=== PATIENT | female | born 1940 | race Caucasian/White ===

== ENCOUNTER 2023-09-15 13:52 | Outpatient (OUT) | payer MEDICARE, SELFPAY ==
--- NOTE | 2023-09-15 14:27 | CA_ITS ---
Patient: LEVI CM Exam Date: 09/15/2023 : 1940 Gender:F Ordering : DR ANN HUNT M.D. Admission #: [id number] Family : Order #: [id number] CLICK HERE TO VIEW EXAM ECHOCARDIOGRAM REPORT PROCEDURE: CA ECHO DOPPLER COMPLETE INDICATIONS: Mitral valve prolapse, hypertension, former smoker COMPARISON: None. DESCRIPTION: COMPLETE ECHOCARDIOGRAM Real-time transthoracic echocardiography with 2D, M-mode, spectral and color flow Doppler performed. QUALITY: Technical quality was good. LEFT VENTRICLE: Normal chamber size. Proximal septal hypertrophy (sigmoid septum). LV EF: Normal left ventricular ejection fraction, (>55%). DIASTOLIC: Diastolic function is indeterminate. ATRIAL SEPTUM: Visually appears intact. LEFT ATRIUM: Normal chamber size. RIGHT ATRIUM: Normal chamber size. RIGHT VENTRICLE: Normal chamber size. Normal right ventricular systolic function. TRICUSPID VALVE: Normal mobility and thickness. No stenosis with trivial regurgitation. Doppler studies reveal mildly (35-45) elevated right sided pressures. RVSP 37 mmHg MITRAL VALVE: Normal mobility and thickness. No evidence of mitral valve stenosis. There is no mitral annular calcification. No mitral regurgitation. AORTIC VALVE: Normal trileaflet appearance. No visible sclerosis. Normal leaflet mobility. No evidence of aortic valve stenosis. 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 No aortic regurgitation. AORTIC ROOT: Normal diameter and appearance. PULMONIC VALVE: Normal thickness and mobility. No stenosis. Trivial regurgitation. PERICARDIUM: No evidence of pericardial effusion. IVC: Collapses with inspirations. PLEURA: CONCLUSION: 1. Normal ventricular systolic function. LVEF is 55 to 60%. 2. No significant valvular dysfunction. 3. Mildly elevated right-sided pressures. 4. 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 Further imaging with CT angiogram can provide better characterization. Adult Echocardiography Procedure Report Left Ventricle LVEDD (3.7 - 5.6 cm): 4.12 cm LVESD (2.2 - 4.0 cm): 2.30 cm LVIVS thickness (0.6 - 1.2 cm): 1.35 cm LVPW thickness (0.5 - 1.0 cm): 0.92 cm e': 0.06 m/s E - e': 10.07 LVOT Max Gradient: 2.69 mm[Hg] LVOT Area (cm2): 0.82 m/s Peak Velocity (LVOT): 0.82 m/s LVOT Diameter 1.99 cm Left Atrium LA Volume Index (2D A2C): 25.28 ml/m2 Left Atrium Systolic Dimension: 3.29 cm Mitral Valve MV E to A Ratio: 0.53, 0.57 Mitral Valve A-Wave Peak Velocity: 1.02 m/s Mitral Valve E-Wave Peak Velocity: 0.56 m/s Right Ventricle Aorta AO Root Diam: 3.48 cm Ascending Ao Diam: 2.43 cm Aortic Valve AoV Area (Peak Gal): 2.82 cm2, 2.82 cm2 Peak Velocity(Antegrade Flow): 0.90 m/s Peak Gradient(Antegrade Flow): 3.24 mm[Hg] Tricuspid Valve Peak Velocity (Regurgitant Flow): 2.24 m/s, 2.93 m/s Pulmonic Valve Peak Velocity: 0.94 m/s Peak Gradient: 3.90 mm[Hg], 3.23 mm[Hg] Right Atrium Right Atrium Systolic Pressure: 25.00 ml, 25.00 ml Dictated by: Kojo Ryder M.D. on 09/15/2023 at 18:27 Approved by: Kojo Ryder M.D. on 09/15/2023 at 18:32
== END 2023-09-15 13:53 | disposition home or self-care (01) ==
LOC: CARD 13:52
PROVIDERS: PCP Internal Medicine; Visit Provider Internal Medicine Interventional Cardiology
DX: R01.1 Cardiac murmur, unspecified (principal)
CPT/HCPCS: 93306

== ENCOUNTER 2024-01-07 12:05 | Emergency (ER) | payer MEDICARE, SELFPAY ==
[2024-01-07 12:14] VITALS: BP 172/88; PULSE 78; RESP 16; TEMP 36.7; O2SAT 100
--- OUTSIDE RECORDS SUMMARY | 2024-01-07 12:30 | XMS_ITS | CCD ---
Author Name Unknown Address [address] [place] [address] Organization [facility] Care Team Providers Care Manufacturing Engineer Machining Name Role Phone PHYSICIAN, DEFAULT Unavailable Unavailable PHYSICIAN, DEFAULT Unavailable Unavailable DINESH DYER Unavailable Unavailable PHYSICIAN, DEFAULT Unavailable Unavailable PHYSICIAN, DEFAULT Unavailable Unavailable DINESH DYER Unavailable Unavailable RACHEL PADRON Unavailable Unavailable JOSUE BERGERON AM Unavailable Unavailable DINESH DYER Unavailable Unavailable DINESH DYER Unavailable Unavailable NAWRAS ALI T Unavailable Unavailable NAWRAS, ALI T Unavailable Unavailable DINESH DYER Unavailable Unavailable BEAR CAMEJO Unavailable Unavailable IA Unavailable Unavailable NAWRLIOR ALI T Unavailable Unavailable IA Unavailable Unavailable YUE OMTA Unavailable Unavailable DINESH DYER Primary Care Physician Gautam Gaspar Unavailable RORO Dyer Primary Care Provider MD Jairo Dorantes Attending Provider [phone] Jairo Dorantes Unavailable Vu Guevara Unavailable VINCE BLUM Attending Unavailable VINCE BLUM Consulting Unavailable VINCE BLUM Admitting Unavailable DR DINESH DYER Primary Care Unavailable YELITZA GONZALEZ Consulting Unavailable NUNO, DR GUNTER Primary Care Unavailable GERARD, DR ALVA Espino Consulting Unavailable GERARD, DR ALVA Espino Admitting Unavailable GERARD, DR ALVA Espino Attending Unavailable ELENA AMBROSE Consulting Unavailable ARASELI MONIQUE Consulting Unavailable NUNO, DR GUNTER Attending Unavailable NUNO, DR GUNTER Consulting Unavailable NUNO, DR GUNTER Primary Care Unavailable DR DINESH DYER Admitting Unavailable ERGI, DR GAUTAM Woo Consulting Unavailable NUNO, DR GUNTER Primary Care Unavailable CLIFFORD, DR SHERRON Espino Consulting Unavailable GERARD Guajardo, DR TAMIA Carrington Attending Unavaila christina Guajardo, DR TAMIA Carrington Admitting Unavaila christina Guajardo, DR TAMIA Carrington Consulting Unavaila christina DYER, DR GUNTER Attending Unavailable NUNO, DR GUNTER Consulting Unavailable NUNO, DR GUNTER Primary Care Unavailable NUNO, DR GUNTER Admitting Unavailable GALVA, DR GAUTAM Woo Consulting Unavailable Bebe Lara Unavailable RORO Dyer Primary Care Provider PAPI Lara Attending Provider Chance Damon Unavailable Self, Referral Admitting Unavailable Self, Referral Attending Unavailable Dinesh Dyer Primary Care Unavailable Dinesh Dyer Referring Unavailable Jose E, Jairo Admitting Unavailable Jose E, Jairo Attending Unavailable Dinesh Dyer Primary Care Unavailable Buehrer, Jairo Admitting Unavailable Dayanr, Jairo Attending Unavailable Dinesh Dyer Primary Care Unavailable Bebe Lara Admitting Unavailable Bebe Lara Attending Unavailable Dinesh Dyer Primary Care Unavailable JIMMY BURCH Attending Unavailable ANN HUNT Attending Unavailable MILDRED CERVANTES Attending Unavailable MIRTA PIEDRA Attending Unavailable MIRTA PIEDRA Attending Unavailable Allergies Allergy Classification Reported Allergen(s) Allergy Type Date of Onset Reaction(s) Facility (7 sources) morphine; Translations: [MORPHINE] Drug Allergy 07-09-20 17 AOF, Insomnia [facility] Repository (6 sources) erythromycin base; Translations: [ERYTHROMYCIN BASE] Drug allergy (disorder) 03-04-20 15 AOF, Abdominal Pain [facility] Repository (1 source) 02379,00; Translations: [24039,00] Propensity to adverse reactions (disorder) 12-28-19 12 [facility] Repository (14 sources) Erythromycin; Translations: [erythromycin] Drug Allergy Unknown (qualifier value), Nausea (finding) invino Other (20 sources) Morphine; Translations: [morphine] Drug Allergy Unknown (qualifier value), Insomnia (disorder) invino Other (1 source) Erythromycin Drug Allergy 01-20-20 [facility] Repository (1 source) Morphine Drug Allergy 01-20-20 [facility] Repository (1 source) Estradiol; Translations: [ESTRADIOL] Drug Allergy 08-25-20 [facility] Repository Medications Current Medications Medication Drug Class(es) Dates Sig (Normalized) Sig (Original) Ascorbic Acid (2 sources) Vitamin C Start: 11-02-2019 Vitamin C Daily, Refills(s) 0 Start Date: 11/02/19 Status: Ordered Bisacodyl (1 source) Stimulant Laxative Dulcolax PRN Active clopidogrel 75 mg oral tablet (16 sources) P2Y12 Platelet Inhibitor Start: 11-15-2017 take 75 mg by mouth once daily Clopidogrel Active 75 MG PO Daily November 15, 2017 1:00am Plavix Active Compression stockings, 20-30mmHg, calf 20-30mmHg (7 sources) Start: 06-17-2023 Compression stockings, 20-30mmHg, calf 20-30mmHg externally daily as directed for 90 days May, Active famotidine 40 mg oral tablet (4 sources) Histamine-2 Receptor Antagonist Start: 09-27-2023 take 1 tablet by mouth at bedtime, then take 1 tablet by mouth twice daily before mealtime Famotidine 40 MG 1 tablet at HS and 1 tablet at AC Orally Bid for 30 days Aug, Active Magnesium Aspartate (2 sources) Start: 11-02-2019 take 1 mg by mouth twice daily magnesium aspartate mg, Oral, BID, Refills(s) 0 Start Date: 11/02/19 Status: Ordered 24 hr metoprolol succinate 25 mg extended release oral tablet (16 sources) beta-Adrenergic Capri Start: 11-02-2019 take 1 tablet by mouth once daily Toprol XL 25 mg Tab-ER 25 mg = 1 tab(s), Oral, Daily, Refills(s) 0 Start Date: 11/02/19 Status: Ordered Start: 11-15-2017 take 50 mg by mouth once daily at bedtime Metoprolol Succinate Active 50 MG PO Daily at bedtime November 15, 2017 1:00am Toprol XL Active omeprazole 40 mg delayed release oral capsule (10 sources) Proton Pump Inhibitor Start: 11-11-2022 Omeprazo le 40 MG 1 capsule 30 minutes before morning meal and 30 minutes before evening meal Orally twice a day for 30 days Oct, Active Start: 11-11-2022 Omeprazole 40 MG 1 capsule 30 minutes before morning meal and 30 minutes before evening meal Orally Once a day for 30 days Oct, Active phenazopyridine hydrochloride 100 mg oral tablet (1 source) Start: 02-24-2022 take 1 tablet by mouth every twelve hours Pyridium 100 mg Tab 100 mg = 1 tab(s), Oral, q12hr, # 30 tab(s), Refills(s) 1, Pharmacy: [facility] 1155, 149.9, cm, 12/10/20 15:01:00 EST, Height/Length Dosing, 45.5, kg, 01/06/22 10:28:00 EST, Weight Dosing Start Date: 02/24/22 Status: Ordered POLYETHYLENE GLYCOL 3350 (11 sources) Osmotic Laxative MiraLax as dire cted Orally BID Active promethazine hydrochloride 25 mg oral tablet (16 sources) Phenothiazine Start: 11-02-2019 take 25 mg by mouth once daily Phenergan 25 mg, Oral, Daily, Refills(s) 0 Start Date: 11/02/19 Status: Ordered Start: 11-15-2017 take 25 mg by mouth four times daily Promethazine Active 25 MG PO Four times daily November 15, 2017 1:00am Promethazine HCl Active rosuvastatin calcium 20 mg oral tablet (16 sources) HMG-CoA Reductase Inhibitor Start: 01-20-2023 take 20 mg by mouth at bedtime Rosuvastatin Active 20 MG PO Bedtime January 20, 2023 1:00am Start: 12-10-2020 Crestor Oral, Daily Start Date: 12/10/20 Status: Ordered Crestor Active sucralfate 1000 mg oral tablet (1 source) Aluminum Complex Start: 11-25-2021 take 1 tablet by mouth every twelve hours Sucralfate 1 GM 1 tablet on an empty stomach Orally Twice a day for 30 day(s) Oct, Active vitamin B12 (2 sources) Vitamin B12 Start: 11-02-2019 Vitamin B12 Refills(s) 0 Start Date: 11/02/19 Status: Ordered Completed/Discontinued Medications Medication Drug Class(es) Dates Sig (Normalized) Sig (Original) acetaminophen 300 mg / codeine phosphate 30 mg oral tablet (3 sources) Opioid Agonist Start: 11-15-2017 End: 01-20-2023 take 1 tablet by mouth four times daily Acetaminophen-Code ine Discontinued 1 TAB PO Four times daily November 15, 2017 1:00am January 20, 2023 11:47am ezetimibe 10 mg / simvastatin 40 mg oral tablet (3 sources) HMG-CoA Reductase Inhibitor, Dietary Cholesterol Absorption Inhibitor Start: 11-15-2017 End: 01-20-2023 take 1 tablet by mouth once daily Ezetimibe-Simvasta tin (Vytorin 10-40) 10-40 mg Tablet Discontinued 1 TAB PO Daily November 15, 2017 1:00am January 20, 2023 11:47am levoFLOXacin 750 mg oral tablet (3 sources) Quinolone Antimicrobial Start: 11-15-2017 End: 12-21-2018 take 1 tablet by mouth once daily Levofloxacin (Levaquin) 750 mg tablet Discontinued 750 MG PO .QD November 15, 2017 1:00am December 21, 2018 7:44am levothyroxine sodium 0.075 mg oral tablet (16 sources) l-Thyroxine Start: 11-02-2019 take 1 tablet by mouth once daily Synthroid 75 mcg Tab 75 microgram = 1 tab(s), Oral, Daily, Refills(s) 0 Start Date: 11/02/19 Status: Ordered Start: 11-02-2019 take 1 tablet by yodit th once daily Synthroid 75 mcg Tab 75 microgram = 1 tab(s), Oral, Daily, Refills(s) 0 Start Date: 11/02/19 Status: Ordered Start: 11-15-2017 take 50 ug by mouth once daily Levothyroxine Active 50 MCG PO Daily November 15, 2017 1:00am Synthroid Active simvastatin 20 mg oral tablet (3 sources) HMG-CoA Reductase Inhibitor Start: 12-21-2018 End: 01-20-2023 take 1 tablet by mouth once daily in the evening Simvastatin (Zocor) 20 mg Tablet Discontinued 20 MG PO Every evening December 21, 2018 1:00am January 20, 2023 11:47am sulfamethoxazole 800 mg / trimethoprim 160 mg oral tablet (3 sources) Dihydrofolate Reductase Inhibitor Antibacterial, Sulfonamide Antimicrobial Start: 11-15-2017 End: 11-30-2017 take 1 tablet by mouth twice daily Sulfamethoxazole- Trimethoprim Discontinued 1 TAB PO Twice daily November 15, 2017 1:00am November 30, 2017 7:10am Problems Active Problems Problem Classification Problem Date Documented Da te Episodic/Chronic Abdominal pain (20 sources) Flank pain; Translations: [Abdominal pain] Onset: 05-23-2022 01-06-2022 Episodic Acute cerebrovascular disease (2 sources) Cerebrovascular accident Onset: 03-29-2018 11-02-2019 Chronic Bacterial infection; unspecified site (3 sources) Blood culture positive for microorganism; Translations: [Bacteremia] 11-15-2017 Episodic Biliary tract disease (11 sources) Choledochal cyst; Translations: [Other specified diseases of biliary tract] Chronic Calculus of urinary tract (3 sources) Kidney stone; Translations: [Calculus of kidney] Onset: 03-02-2023 12-06-2019 Episodic Coronary atherosclerosis and other heart disease (4 sources) Atherosclerotic heart disease of [place] coronary artery with unstable angina pectoris; Translations: [Atherosclerotic heart disease of [place] coronary artery without angina pectoris] Onset: 07-09-2017 Chronic Disorders of lipid metabolism (2 sources) Hyperlipidemia 11-02-2019 Chronic Diverticulosis and diverticulitis (11 sources) Diverticula of intestine; Translations: [Diverticulosis of intestine, part unspecified, without perforation or abscess without bleeding] Chronic Esophageal disorders (1 source) Gastro-esophageal reflux disease without esophagitis; Translations: [GASTRO-ESOPHAGEAL REFLUX DISEASE WITHOUT ESOPHAGITIS] Onset: 07-09-2017 Chronic Essential hypertension (2 sources) Essential (primary) hypertension; Translations: [Essential (primary) hypertension] Onset: 09-28-2022 Chronic Gastritis and duodenitis (15 sources) Bile-induced gastritis; Translations: [Other gastritis without bleeding] Onset: 11-25-2021 Resolved: 11-25-2021 Episodic Genitourinary symptoms and ill-defined conditions (12 sources) Dysuria; Translations: [Dysuria] Onset: 02-24-2022 Episodic Headache; including migraine (2 sources) Migraine 11-02-2019 Chronic Menopausal disorders (4 sources) Other primary ovarian failure; Translations: [OTHER PRIMARY OVARIAN FAILURE] Onset: 03-05-2023 Chronic Nausea and vomiting (14 sources) Nausea; Translations: [Nausea] Episodic Occlusion or stenosis of precerebral arteries (19 sources) Occlusion and stenosis of multiple and bilateral cerebral arteries; Translations: [Occlusion and stenosis of bilateral carotid arteries] Chronic Osteoporosis (1 source) Age-related osteoporosis without current pathological fracture; Translations: [AGE-REL OSTEOPOR W/O CURR PATH FX] Onset: 03-14-2023 Chronic Other aftercare (2 sources) Long-term current use of anticoagulant; Translations: [longterm (current) use of anticoagulants] Onset: 02-24-2022 Episodic Other aftercare (1 source) Other senior living (current) drug therapy; Translations: [OTH [facility] CURRENT DRUG THERAPY] Onset: 04-26-2023 Episodic Other aftercare (1 source) termination clerk (current) use of anticoagulants; Translations: [[facility] CURRNT USE ANTICOAGULANTS] Onset: 03-05-2023 Episodic Other diseases of bladder and urethra (1 source) Unspecified urethral stricture, female; Translations: [UNSP URETHRAL STRICTURE FEMALE] Onset: 03-05-2023 Episodic Other diseases of kidney and ureters (2 sources) Acquired renal cyst without neoplastic change; Translations: [Cyst of kidney, acquired] Onset: 02-24-2022 Episodic Other diseases of kidney and ureters (2 sources) Cyst of kidney 02-24-2022 Episodic Other diseases of kidney and ureters (1 source) Cyst of kidney, acquired; Translations: [CYST OF KIDNEY ACQUIRED] Onset: 03-05-2023 Episodic Other diseases of veins and lymphatics (8 sources) Venous insufficiency of leg; Translations: [Venous insufficiency (chronic) (peripheral)] Episodic Other diseases of veins and lymphatics (1 source) Venous insufficiency (chronic) (peripheral) Episodic Other endocrine disorders (1 source) Hypoglycemia, unspecified; Translations: [HYPOGLYCEMIA, UNSPECIFIED] Onset: 07-09-2017 Chronic Other gastrointestinal disorders (11 sources) Chronic idiopathic constipation; Translations: [Chronic idiopathic constipation] Chronic Other gastrointestinal disorders (1 source) Chronic idiopathic constipation Onset: 11-25-2021 Resolved: 11-25-2021 Chronic Other gastrointestinal disorders (20 sources) Constipation; Translations: [Constipation, unspecified] Episodic Other gastrointestinal disorders (5 sources) Constipation, unspecified; Translations: [CONSTIPATION UNSPECIFIED] Onset: 05-26-2022 Episodic Other lower respiratory disease (11 sources) Cough; Translations: [Cough] Episodic Other screening for suspected conditions (not mental disorders or infectious disease) (3 sources) Imaging result abnormal; Translations: [Abnormal findings on diagnostic imaging of other specified body structures] 11-30-2017 Chronic Peripheral and visceral atherosclerosis (11 sources) Chronic vascular insufficiency of intestine; Translations: [Chronic vascular disorders of intestine] Chronic Residual codes; unclassified (11 sources) Normal body mass index; Translations: [Body mass index (BMI) 20.0-20.9, adult] Episodic Residual codes; unclassified (1 source) Acquired absence of other specified parts of digestive tract; Translations: [ACQ ABSENCE OTH PART DIGESTV TRACT] Onset: 04-26-2023 Episodic Residual codes; unclassified (1 source) Acquired absence of both cervix and uterus; Translations: [ACQUIRED ABSENCE BOTH CERVIX AND UTERUS] Onset: 04-26-2023 Episodic Spondylosis; intervertebral disc disorders; other back problems (1 source) Spondylosis without myelopathy or radiculopathy, lumbar region; Translations: [SPONDYLS W/O MYELO-/RADICULOP LUMB] Onset: 04-26-2023 Chronic Substance-related disorders (2 sources) Nicotine dependence, unspecified, uncomplicated; Translations: [Nicotine dependence, cigarettes, uncomplicated] Onset: 07-09-2017 Chronic Thyroid disorders (2 sources) Hypothyroidism, unspecified; Translations: [HYPOTHYROIDISM, UNSPECIFIED] Onset: 07-09-2017 Chronic Unclassified (15 sources) Abnormal result of other cardiovascular function study; Translations: [CT of abdomen abnormal] Onset: 07-09-2017 Episodic Unclassified (2 sources) Unknown / UNK(Unknown) Onset: 07-09-2017 Unclassified (2 sources) Asymptomatic microscopic hematuria 01-06-2022 Unclassified (2 sources) Drug therapy finding 12-06-2019 Unclassified (3 sources) LOW BACK PAIN, UNSPECIFIED; Translations: [LOW BACK PAIN, UNSPECIFIED] Onset: 04-26-2023 Unclassified (1 source) CONTACT W/AND (SUSP) EXPOS COVID-19; Translations: [CONTACT W/AND (SUSP) EXPOS COVID-19] Onset: 05-26-2022 Unclassified (1 source) Encounter for screening mammogram for malignant neoplasm of breast; Translations: [Encounter for screening mammogram for malignant neoplasm of breast] Onset: 08-25-2023 Unclassified (1 source) Varicose veins of right lower extremity with pain; Translations: [Varicose veins of right lower extremity with pain] Onset: 06-07-2023 Unclassified (1 source) Chronic vascular disorders of intestine; Translations: [Chronic vascular disorders of intestine] Onset: 01-20-2023 Urinary tract infections (6 sources) Postinfective urethral stricture of female; Translations: [Postinfective urethral stricture, not elsewhere classified, female] Onset: 02-24-2022 Episodic Varicose veins of lower extremity (14 sources) Varicose veins of lower extremity; Translations: [Varicose veins of bilateral lower extremities with other complications] Episodic Past or Other Problems Problem Classification Problem Date Documented Da te Episodic/Chronic Biliary tract disease (4 sources) Calculus of gallbladder without cholecystitis without obstruction; Translations: [CALCULUS OF GALLBLADDER W/O CHOLECYSTITIS W/O OBSTRUCTION] Onset: 12-10-2017 Episodic Coronary atherosclerosis and other heart disease (1 source) Presence of coronary angioplasty implant and graft; Translations: [PRESENCE OF CORONARY ANGIOPLASTY IMPLANT AND GRAFT] Onset: 12-10-2017 Episodic Other aftercare (1 source) longterm (current) use of aspirin; Translations: [[facility] (CURRENT) USE OF ASPIRIN] Onset: 12-10-2017 Episodic Other circulatory disease (1 source) Other specified symptoms and signs involving the circulatory and respiratory systems; Translations: [Other specified symptoms and signs involving the circulatory and respiratory systems] Onset: 01-21-2023 Episodic Screening and history of mental health and substance abuse codes (3 sources) Ex-smoker; Translations: [Personal history of nicotine dependence] Onset: 05-26-2022 12-06-2019 Episodic Unclassified (1 source) LOW BACK PAIN, UNSPECIFIED; Translations: [LOW BACK PAIN, UNSPECIFIED] Onset: 04-22-2023 Results Test Name Value Interpretation Reference Range Facility Office Visiton 09-01-2023 Follow-up visit [id number] Hortencia Cm 1940 F Date Provider Department Center 09/01/2023 Vish-ANN HUNT CARD [facility] Family History Problem Relation Age of Onset Hypertension Mother Heart disease Mother Other Father Family Status - Relation Status Age at Mother Father Level of Service:73538 [place] OFFICE/OUTPATIENT ESTABLISHED MOD MDM 30-39 MIN Normal [facility] MM screening mammo BI w/CADo n 08-25-2023 MM screening mammo BI w/CAD [facility] Main [place] [address] [place] [id number] Mammography Report Signed Patient: Hortencia Cm MR#: [id number] : 1940 Acct:[id number] Age/Sex: 83 / F ADM Date: 08/25/23 Loc: [place] Room: Type: [facility] Attending Dr: Referral Self Copies to: Dinesh Dyer II, MD SELF,REFERRAL Ordering Provider: SELF,REFERRAL Date of Service: 08/25/23 MM/MM screening mammo BI w/CAD: SCREENING CLINICAL DATA: Screening for malignancy. BILATERAL SCREENING MAMMOGRAMS - FULL FIELD DIGITAL WITH TOMOSYNTHESIS AND CAD Tomosynthesis craniocaudal and mediolateral oblique views of both breasts were obtained using low- dose digital technique. Comparison is made to prior studies from 08/24/2022, 08/21/2021, 07/29/2020, and 07/14/2019. This examination was reviewed with the aid of CAD. The breast parenchyma has been largely replaced by fat. Benign-appearing calcifications are present bilaterally. There are no dominant masses, typically malignant calcifications or architectural dis tortion. There has been no significant interval change. MM/MM screening mammo BI w/CAD IMPRESSION: NO MAMMOGRAPHIC EVIDENCE OF MALIGNANCY. ROUTINE FOLLOW-UP IS RECOMMENDED IN ONE YEAR. RESULT CODE: 2 Benign Findings(s) DENSITY CODE: 1 (<25% glandular) FOLLOW UP: 1YR The false-negative rate of mammography is approximately 10-percent. Management of a palpable abnormality must be based on clinical grounds. Patient was entered into a reminder system with a target due date for the next mammogram. Impression dictated by: Alva Gaines M.D.08/25/2023 3:19 PM Dictation Location: [facility] Transcribed By: CLIFF 08/25/231518 Dictated By: Alva Gaines II, MD 08/25/231513 Signed By: 08/25/23 151 Normal [facility] US venous duplex LE RTon US venous duplex LE [facility] Main [address] [address] Ultrasound Report Signed Patient: Hortencia Cm MR#: [id number] : 1940 Acct:[id number] Age/Sex: 83 / F ADM Date: 06/07/23 Loc: [facility] Room: Type: [facility] Attending Dr: Bebe Lara BOBTAIL DRIVER-C Ordering Provider: Bebe Lara APRN Date of Service: 06/07/23 US/US venous duplex LE RT: [id number] Copies to: Bebe Lara APRN Full functional venous duplex examination right lower extremity Indication for study: Painful varicose veins PROCEDURE: Color-flow duplex scanning is used to interrogate the venous anatomy of the right lower extremity. There is no evidence for deep vein thrombosis. The right common femoral vein, femoral vein, and popliteal vein show good compressibility, color-flow, and augmentation. There is continuous reflux at the saphenofemoral junction with Valsalva. There is also reflux in the femoral vein for greater than 5 seconds. There is reflux at the lesser saphenous tube popliteal junction for greater than 5 seconds. Right greater saphenous vein is 7 mm below the saphenofemoral junction and then remains just under 4 mm down to the distal thigh. Small perforators are noted but none are greater than 3 mm. The greater saphenous vein gives rise to multiple varicosities that are 2 to 3 mm in diameter. The lesser saphenous vein is normal in size. US/US venous duplex LE RT IMPRESSION: No evidence for deep vein thrombosis in the right leg. 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 Greater saphenous vein is mildly dilated and gives rise to significant varicosities. Minimal desk representative incompetence is noted. Impression dictated by: Jairo Dorantes M.D.06/07/2023 12:18 PM Dictation Location: [place] [address] Tech: Mirta Stockton Transcribed By: CLIFF 06/07/23 1218 Dictated By: Jairo Dorantes MD 06/07/23 121 Signed By: 06/07/[address] [facility] AMYLASEon 04-22-2023 Amylase [Catalytic activity/Vol] 33 U/L Normal 25-115 [facility] Comment on above: Performed By: #### L SCOTT NUR, LIPA, ABEL ####[facility] [address] [place] [id number]. Elia Burton CBC AUTO DIFFon 04-22-2023 BASO # 0.1 103/ul Normal 0.0-0.1 [facility] Comment on above: Performed By: #### C BC ####[facility] [address] [place] [id number]. Elia Burton Basophils/100 WBC (Bld) 0.6 % Normal 0.2-2.0 [facility] Comment on above: Performed By: #### C BC ####[facility] [address] [place], [place] [address]Dr. Elia Burton EO # 0.1 103/ul Normal 0.0-0.7 [facility] Comment on above: Performed By: #### C BC ####[facility] [address] [place], [place] [address]Dr. Elia Burton Eosinophils/100 WBC (Bld) 0.7 % Critically low 0.9-7.0 [facility] Comment on above: Performed By: #### C BC ####[facility] [address] [place], [place] [address]Dr. Elia Burton Erythrocyte distribution width (RBC) [Ratio] 13.4 % Normal 11.0-15.0 [facility] Comment on above: Performed By: #### C BC ####[facility] [address] [place], [place] [address]Dr. Elia Burton Hematocrit (Bld) [Volume fraction] 43.3 % Normal 36.0-48.0 [facility] Comment on above: Performed By: #### C BC ####[facility] [address] [place], [place] [address]Dr. Elia Burton Hemoglobin (Bld) [Mass/Vol] 13.9 g/dL Normal 12.0-16.0 [facility] Comment on above: Performed By: #### C BC ####[facility] [address] [place], [place] [address]Dr. Elia Burton IG # 0.03 10e3/ul Normal 0.00-0.03 [facility] Comment on above: Performed By: #### C BC ####[facility] [address]uz[address] [place] [address]Dr. Idaniaakanksha Burton IG % 0.4 % Normal 0.0-0.5 [facility] Comment on above: Performed By: #### C BC ####[facility] Tky[address]xenuh[address] [place] [address]Dr. Elia Burton LYMPH # 2.0 103/ul Normal 1.2-3.8 [facility] Comment on above: Performed By: #### C BC ####[facility] Yttluxmckf[address] [place] [address]Dr. Elia Burton Lymphocytes/100 WBC (Bld) 23.9 % Normal 20.5-60.0 [facility] Comment on above: Performed By: #### C BC ####[facility] [address] [place], [place] [address]DrBennett Burton MANUAL DIFF REQ NO Normal [facility] Comment on above: Performed By: #### C BC ####[facility] Yonmmvrbiw[address] [place] [phone]. Elia Micheal MCH (RBC) [Entitic mass] 28.3 pg Normal 26.7-34.0 [facility] Comment on above: Performed By: #### C BC ####[facility] U[address] [place], [place] [address]Dr. Idaniaakanksha Burton MCHC (RBC) [Mass/Vol] 32.1 g/dL Normal 29.9-35.2 [facility] Comment on above: Performed By: #### C BC ####[facility] Gh[address] [place], [place] [id number] Idaniaakanksha Burton MCV (RBC) [Entitic vol] 88.0 fL Normal 81.0-99.0 [facility] Comment on above: Performed By: #### C BC ####[facility] [address] [place], [place] [id number] Burton MONO # 0.6 103/ul Normal 0.3-0.8 [facility] Comment on above: Performed By: #### C BC ####[facility] Nspqyrtlrb[address] [place] [phone]. Elia Burton Monocytes/100 WBC (Bld) 6.9 % Normal 1.7-12.0 [facility] Comment on above: Performed By: #### C BC ####[facility] P[address]qblcsov[address] [place] [phone]. Elia Burton NEUT # 5.6 103/ul Normal 1.4-6.5 [facility] Comment on above: Performed By: #### C BC ####[facility] Dwyvwgyecq45[address] [place] [phone]. Elia Burton Neutrophils/100 WBC (Bld) 67.5 % Normal 43.0-75.0 [facility] Comment on above: Performed By: #### C BC ####[facility] Eeht[address]axz[address] [place] [address]Dr. Elia Burton Platelet mean volume (Bld) [Entitic vol] 9.4 fL Critically low 9.5-13.5 [facility] Comment on above: Performed By: #### C BC ####[facility] [address] [place] [address]Dr. Elia Burton PLT 265 103/ul Normal 150-450 [facility] Comment on above: Performed By: #### C BC ####[facility] Hemummhchv[address] [place] [phone]. Elia Burton RBC 4.92 106/ul Normal 4.20-5.40 [facility] Comment on above: Performed By: #### C BC ####[facility] R[address]hymvkl[address] [place] [phone]. Elia Burton WBC 8.3 103/ul Normal 4.0-11.0 [facility] Comment on above: Performed By: #### C BC ####[facility] [address]wpylcdpl[address] [place] [phone]. Elia Burton CT ABD/PELV W CONon 04-22-20 CT ABD/PELV W CON EXAM: CT ABD/PELV W CON HISTORY: UNSPECIFIED ABDOMINAL PAIN COMPARISON: None. TECHNIQUE: Axial CT imaging was performed through the abdomen and pelvis with intravenous contrast. Multiplanar reformats were performed. Dose reduction techniques were achieved by using automated exposure control and/or adjustment of mA and/or kV according to patient size and/or use of iterative reconstruction technique. FINDINGS: Lung bases: Lung bases are clear. No pleural effusion. Bilateral centrilobular emphysema. GI upper: Unremarkable. Liver: Normal size and contour. Gallbladder: Cholecystectomy. Biliary system: No intra or extrahepatic biliary ductal dilatation. Interval increase in pneumobilia, seen in common bile duct and bilateral intrahepatic ducts. Spleen: Calcifications of the spleen are likely related to chronic granulomatous disease. Normal size. Pancreas: Unremarkable. Adrenal glands: Normal adrenal glands. Kidneys/ureters: Normal contours. No hydronephrosis. No nephrolithiasis or ureterolithiasis. There are bilateral simple renal cysts. Vessels: No aneurysm. Extensive atherosclerotic calcification of the aortobiiliac and its branches. Lymph Nodes: There are prominent lymph nodes in the right lower abdomen measuring up to 0.9 cm, unchanged compared to the prior study. Small bowel: No wall thickening or dilatation. Colon: No wall thickening or dilatation. Innumerable diverticula throughout the colon without evidence of acute diverticulitis. Stool is seen throughout the colon, may represent constipation. Appendix: No findings of appendicitis. Peritoneal cavity: No free fluid or pneumoperitoneum. Lower : Unremarkable. Bones: No acute bony abnormality. There are degenerative changes of the lower thoracic and lumbar spine. Soft tissues: No acute finding. Additional findings: None. IMPRESSION: Interval increase in pneumobilia, seen in common bile duct and bilateral intrahepatic ducts. Evidence of constipation. Electronically authenticated by: YELITZA GONZALEZ Date: 2023-04-22 15:25 Normal [facility] ER URINE PROFILEon 3 Bilirubin Ql (U) Negative Normal NEGATIVE [facility] Comment on above: Performed By: #### U MICRO, ERUR ####[facility] [address] [place] [address] Elia Micheal Clarity (U) CLEAR Normal CLEAR [facility] Comment on above: Performed By: #### U MICRO, ERUR ####[facility] Ruahbov[address] [place] [address]Dr. Elia Burton Color (U) LT. YELLOW Normal YELLOW [facility] Comment on above: Performed By: #### U MICRO, ERUR ####[facility] Jrqiyofwzb[address] [place] [address]Dr. Elia Burton ERUAHD A micrscopic examina tion will be performed if indicated. Normal [facility] Comment on above: Performed By: #### U MICRO, ERUR ####[facility] T[address]ijbp[address] [place] [address]Dr. Elia Burton Glucose Ql (U) Negative Normal NEGATIVE [facility] Comment on above: Performed By: #### U MICRO, ERUR ####[facility] Gsthptoory[address] [place] [address]Dr. Elia Burton Hemoglobin Ql (U) SMALL Abnormal NEGATIVE [facility] Comment on above: Performed By: #### U MICRO, ERUR ####[facility] Bgmihbfyus[address] [place] [address]Dr. Elia Burton Ketones Ql (U) Negative Normal NEGATIVE [facility] Comment on above: Performed By: #### U MICRO, ERUR ####[facility] [address]uztag[address] [place] [address]Dr. Elia Burton LEUKOCYTES TRACE Abnormal NEGATIVE [facility] Comment on above: Performed By: #### U MICRO, ERUR ####[facility] [address]windm[address] [place] [address]Dr. Elia Burton Nitrite Ql (U) Negative Normal NEGATIVE [facility] Comment on above: Performed By: #### U MICRO, ERUR ####[facility] Sqsgjkcopg[address] [place] [address]Dr. Elia Burton pH (U) 6.5 [pH] Normal 5-9 [facility] Comment on above: Performed By: #### U MICRO, ERUR ####[facility] Kmehfaalci[address] [place] [address]Dr. Elia Burton SPEC GRAVITY <=1.005 Abnormal 1.005-<=1.0 25 [facility] Comment on above: Performed By: #### U MICRO, ERUR ####[facility] Jojfwmxbri[address] [place] [address]Dr. Elia Burton UA PROTEIN Negative Normal NEGATIVE/ TRACE [facility] Comment on above: Performed By: #### U MICRO, ERUR ####[facility] Csweltagwl[address] [place] [address]Dr. Elia Burton UR MICRO IND INDICATED Normal [facility] Comment on above: Performed By: #### U MICRO, ERUR ####[facility] Chlfvbthgv[address] [place] [address]Dr. Elia Burton Urobilinogen Qn (U) 0.2 {Farhana'U}/dL Normal 0.2 - 1. 0 [facility] Comment on above: Performed By: #### U MICRO, ERUR ####[facility] [address] [place], [place] [address]Dr. Elia Burton LIPASEon 04-22-2023 Lipase [Catalytic activity/Vol] 61.0 U/L Critically low 73.0-393.0 [facility] Comment on above: Performed By: #### L IVER, BMP, LIPA, ABEL ####[facility] [address] [place], [place] [address]Dr. Elia Burton LIVER PROFILEon 04-22-2023 Albumin [Mass/Vol] 3.6 g/dL Normal 3.4-5.0 [facility] Comment on above: Performed By: #### L IVER, BMP, LIPA, ABEL ####[facility] Zthyywynxy[address] [place] [address]Dr. Elia Burton Albumin/Globulin [Mass ratio] 0.9 {ratio} Normal [facility] Comment on above: Performed By: #### L IVER, BMP, LIPA, ABEL ####[facility] Cl[address] [place], [place] [address]Dr. Elia Burton ALP [Catalytic activity/Vol] 70 U/L Normal 46-116 [facility] Comment on above: Performed By: #### L IVER, BMP, LIPA, ABEL ####[facility] Tamw[address]it[address] [place], [place] [address]Dr. Elia Burton ALT [Catalytic activity/Vol] 15 U/L Normal 14-59 [facility] Comment on above: Performed By: #### L IVER, BMP, LIPA, ABEL ####[facility] Pnj[address]vdcba[address] [place] [address]Dr. Elia Burton AST [Catalytic activity/Vol] 21 U/L Normal 15-37 [facility] Comment on above: Performed By: #### L IVER, BMP, LIPA, ABEL ####[facility] [address]omknzn[address] [place] [address]Dr. Elia Burton BILI, CONJUGATED 0.0 mg/dL Normal 0.0-0.2 [facility] Comment on above: Performed By: #### L IVER, BMP, LIPA, ABEL ####[facility] Kra[address]iehrhy[address] [place] [address]Dr. Elia Burton Bilirubin [Mass/Vol] 0.2 mg/dL Normal 0.2-1.0 [facility] Comment on above: Performed By: #### L IVER, BMP, LIPA, ABEL ####[facility] Yuiccwxphv[address] [place] [address]Dr. Elia Burton Globulin (S) [Mass/Vol] 4.1 g/dL Normal [facility] Comment on above: Performed By: #### L IVER, BMP, LIPA, ABEL ####[facility] Lqzaompnds[address] [place] [address]Dr. Elia Burton Protein [Mass/Vol] 7.7 g/dL Normal 6.4-8.2 [facility] Comment on above: Performed By: #### L IVER, BMP, LIPA, ABEL ####[facility] Ymngtipihn[address] [place] [address]Dr. Elia Burton PROF CHEM 8 (BAS METB)on Anion gap [Moles/Vol] 13.1 mmol/L Normal [facility] Comment on above: Performed By: #### L IVER, BMP, LIPA, ABEL ####[facility] V[address]itbnspc[address] [place] [address]Dr. Elia Burton Calcium [Mass/Vol] 9.1 mg/dL Normal 8.5-10.1 [facility] Comment on above: Performed By: #### L IVER, BMP, LIPA, ABEL ####[facility] Shmchsbfis[address] [place] [address]Dr. Elia Burton Chloride [Moles/Vol] 102 mmol/L Normal 98-107 [facility] Comment on above: Performed By: #### L IVER, BMP, LIPA, ABEL ####[facility] Noimeaentn[address] [place] [address]Dr. Elia Burton CO2 [Moles/Vol] 28.6 mmol/L Normal 21.0-32.0 [facility] Comment on above: Performed By: #### L IVER, BMP, LIPA, ABEL ####[facility] Iamnpqgqvw86[address] [place] [address]Dr. Elia Burton Creatinine [Mass/Vol] 0.69 mg/dL Normal 0.55-1.02 [facility] Comment on above: Performed By: #### L IVER, BMP, LIPA, ABEL ####[facility] [address]uj[address]epdwcy[address] [place] [address]Dr. Elia Burton EGFR-AF [place] >60 Normal >=60 [facility] Comment on above: Performed By: #### L IVER, BMP, LIPA, ABEL ####[facility] Vjmgbdteek[address] [place] [address]Dr. Elia Burton EGFR-NON AF [place] >60 Normal >=60 [facility] Comment on above: Performed By: #### L IVER, BMP, LIPA, ABEL ####[facility] Nmkplvahun[address] [place] [address]Dr. Elia Burton Glucose [Mass/Vol] 157 mg/dL Critically high 74-106 [facility] Comment on above: Performed By: #### L IVER, BMP, LIPA, ABEL ####[facility] Ylvugtzifv22[address] [place] [address]Dr. Elia Burton Potassium [Moles/Vol] 3.7 mmol/L Normal 3.5-5.1 [facility] Comment on above: Performed By: #### L IVSCOTT [place], LIPA, ABEL ####[facility] Akdgjnpgpa[address] [place] [address]Dr. Elia Burton Sodium [Moles/Vol] 140 mmol/L Normal 136-145 [facility] Comment on above: Performed By: #### L IV[place], LIPA, ABEL ####[facility] Wyqnyadvwl[address] [place] [address]Dr. Elia Burton Urea nitrogen [Mass/Vol] 8.0 mg/dL Normal 7.0-18.0 [facility] Comment on above: Performed By: #### L IVCSOTT [place], LIPA, ABEL ####[facility] Pnocagcrpi[address] [place] [address]Dr. Elia Burton Urea nitrogen/Creatinine [Mass ratio] 11.6 mg/mg Normal [facility] Comment on above: Performed By: #### L SCOTT NUR LIPA, ABEL ####[facility] Yczqzpasld[address] [place] [address]Dr. Elia Burton URINE MICROSCOPIC ONLYon BACTERIA NONE SEEN Normal NONE SEEN [facility] Comment on above: Performed By: #### U MICRO, ERUR ####[facility] Qitteauh[address] [place], [place] [address]Dr. Elia Burton Bacteria identified Cx Nom (U) NOT INDICATED Normal [facility] Comment on above: Performed By: #### U MICRO, ERUR ####[facility] Qquyntubil[address] [place] [address]Dr. Elia Burton CAST NONE SEEN Normal NONE SEEN [facility] Comment on above: Performed By: #### U MICRO, ERUR ####[facility] [address]fr[address]ix[address] [place], [place] [address]Dr. Elia Burton Crystals LM Nom (Urine sed) NONE SEEN Normal NONE SEEN [facility] Comment on above: Performed By: #### U MICRO, ERUR ####[facility] [address]xa[address] [place], [place] [address]Dr. Elia Burton Epithelial cells LM Ql (Urine sed) RARE Normal NONE SEEN /RARE [facility] Comment on above: Performed By: #### U MICRO, ERUR ####[facility] [address] [place], [place] [address]Oq. Elia Burton MUCOUS NONE SEEN Normal NONE SEEN [facility] Comment on above: Performed By: #### U MICRO, ERUR ####[facility] Ithpzpxigm0657 [place], [place] [address]Ls. Elia Burton RBC 5-10 Abnormal 0-2 [facility] Comment on above: Performed By: #### U MICRO, ERUR ####[facility] [address]es23[address] [place], [place] [address]N[place]. Elia Burton WBC 2-5 Abnormal NONE SEEN [facility] Comment on above: Performed By: #### U MICRO, ERUR ####[facility] X[address]fhdl6414 [place], [place] [address]Pt. Elia Burton XR LSPINE 2_3 VIEWSon 2022 XR LSPINE 2_3 VIEWS EXAMINATION: XR LSPI NE 2_3 VIEWS, [id number] HISTORY: Pain COMPARISON: Same day CT abdomen/pelvis. FINDINGS: There are 5 nonrib-bearing lumbar-type vertebral bodies (hypoplastic ribs at T12). No acute fracture or suspicious osseous lesion. Mild levoscoliosis at the thoracolumbar junction. No significant spinal stenosis. Severe intervertebral disc height loss and moderate osteophytosis at L1-L2. Lesser degenerative changes throughout the remainder of the lumbar spine. Severe calcified atherosclerosis of the abdominal aorta. There is contrast in bilateral collecting systems from preceding CT abdomen/pelvis, no significant hydronephrosis. Bilateral renal vascular calcifications are better evaluated on recent CT. IMPRESSION: 1. Mild thoracolumbar levoscoliosis. 2. Severe spondylosis at L1-L2. 3. Refer to preceding CT abdomen/pelvis for soft tissue findings. Electronically authenticated by: CLEO PLUNKETT Date: 2023-04-22 15:20 Normal [facility] RAD - MISCon 03-24-2023 RAD - MIS [id number] Normal [facility] XR DEXA BONE DENSITYon 03-05 XR DEXA BONE DENSITY EXAMINATION: XR DEX A BONE DENSITY, 03/05/2023 8:52 AM EDT HISTORY: Primary ovarian failure COMPARISON: 2017 TECHNIQUE: Dual-energy X-ray absorptiometry (DEXA) bone density study performed for the axial skeleton. FINDINGS: Bone mineral density AP spine L1-L4 measures 0.905 g/sq cm. T score -2.3. WHO classification: Osteopenia Lowest bone mineral density in the left femoral trochanter measures 0.407 g/sq cm. T score -3.9. WHO classification: Osteoporosis IMPRESSION: Osteoporosis. High fracture risk Electronically authenticated by: GAUTAM DELUNA Date: 2023-03-05 09:21 Normal [facility] Patient Educationon 03-02-20 23 Patient Education Urology Kidney Stones Kidney stones are rock-like masses that form inside of the kidneys. Kidneys are organs that make pee (urine). A kidney stone may move into other parts of the urinary tract, including: ? The tubes that connect the kidneys to the bladder (ureters). ? The bladder. ? The tube that carries urine out of the body (urethra). Kidney stones can cause very bad pain and can block the flow of pee. The stone usually leaves your body (passes) through your pee. You may need to have a doctor take out the stone. What are the causes? Kidney stones may be caused by: ? A condition in which certain glands make too much parathyroid hormone (primary hyperparathyroidism). ? A buildup of a type of crystals in the bladder made of a chemical called uric acid. The body makes uric acid when you eat certain foods. ? Narrowing (stricture) of one or both of the ureters. ? A kidney blockage that you were born with. ? Past surgery on the kidney or the ureters, such as gastric bypass surgery. What increases the risk? You are more likely to develop this condition if: ? You have had a kidney stone in the past. ? You have a family history of kidney stones. ? You do not drink enough water. ? You eat a diet that is high in protein, salt (sodium), or sugar. ? You are overweight or very overweight (obese). What are the signs or symptoms? Symptoms of a kidney stone may include: ? Pain in the side of the belly, right below the ribs (flank pain). Pain usually spreads (radiates) to the groin. ? Needing to pee often or right away (urgently). ? Pain when going pee (urinating). ? Blood in your pee (hematuria). ? Feeling like you may vomit (nauseous). ? Vomiting. ? Fever and chills. How is this treated? Treatment depends on the size, location, and makeup of the kidney stones. The stones will often pass out of the body through peeing. You may need to: ? Drink more fluid to help pass the stone. In some cases, you may be given fluids through an IV tube put into one of your veins at the hospital. ? Take medicine for pain. ? Make changes in your diet to help keep kidney stones from coming back. Sometimes, medical procedures are needed to remove a kidney stone. This may involve: ? A procedure to break up kidney stones using a beam of light (laser) or shock waves. ? Surgery to remove the kidney stones. Follow these instructions at home: Medicines ? Take lmdu-hrn-pbsrunj and prescription medicines only as told by your doctor. ? Ask your doctor if the medicine prescribed to you requires you to avoid driving or using heavy machinery. Eating and drinking ? Drink enough fluid to keep your pee pale yellow. You may be told to drink at least 8?10 glasses of water each day. This will help you pass the stone. ? If told by your doctor, change your diet. This may include: ? Limiting how much salt you eat. ? Eating more fruits and vegetables. ? Limiting how much meat, poultry, fish, and eggs you eat. ? Follow instructions from your doctor about eating or drinking restrictions. General instructions ? Collect pee samples as told by your doctor. You may need to collect a pee sample: ? 24 hours after a stone comes out. ? 8?12 weeks after a stone comes out, and every 6?12 months after that. ? Strain your pee every time you pee (urinate), for as long as told. Use the strainer that your doctor recommends. ? Do not throw out the stone. Keep it so that it can be tested by your doctor. ? Keep all follow-up visits as told by your doctor. This is important. You may need follow-up tests. How is this prevented? To prevent another kidney stone: ? Drink enough fluid to keep your pee pale yellow. This is the best way to prevent kidney stones. ? Eat healthy foods. ? Avoid certain foods as told by your doctor. You may be told to eat less protein. ? Stay at a healthy weight. Where to find more information ? National Kidney Foundation (NKF): www.kidney.org ? [employer] (UCF): www.urologyhealth.org Contact a doctor if: ? You have pain that gets worse or does not get better with medicine. Get help right away if: ? You have a fever or chills. ? You get very bad pain. ? You get new pain in your belly (abdomen). ? You pass out (faint). ? You cannot pee. Summary ? Kidney stones are rock-like masses that form inside of the kidneys. ? Kidney stones can cause very bad pain and can block the flow of pee. ? The stones will often pass out of the body through peeing. ? Drink enough fluid to keep your pee pale yellow. This information is not intended to replace advice given to you by your health care provider. Make sure you discuss any questions you have with your health care provider. Document Released: 05/03/2009 Document Revised: 04/02/2020 Document Reviewed: 04/02/2020 [employer] Patient Education ? 2019 [employer]. Normal [facility] Urology Office/Clinic Noteon 03-02-2023 Urology Office/Clinic Note Chief Complaint 1yr HPI Staff DLS pt here for 1yr to Urethral Stricture, dysuria, Microscopic Hematuria & Kidney Cysts. S/P Cysto/UD done 01/19/22 *Started on Pyridium 100mg BID-no longer taking. NEG FISH/Cytology done 02/24/22 Occasional burning with urination, depends on water intake. Denies visible blood. Mild intermittent lower back pain. KUB done 03/01/23 CT a/p done 10/01/22 History of Present Illness staff HPI reviewed and agree. Review of Systems PHQ Score Initial Depression Screen Score: 0 no fever, chills, malaise, myalgia. no rash/lesions. no chest pain, palpitations, or SOB. no abdominal pain, nausea, vomiting. no unilateral calf swelling, redness, pain Physical Exam Vitals & Measurements HR: 60(Peripheral) RR: 16 BP: 122/72 HT: 59 in HT: 149 cm WT: 42 kg WT: 92.4 lb BMI: 18.92 General: nontoxic, NAD Mouth: moist mucosa Lungs: normal respiratory effort Cardio: regular rate, good distal perfusion Abdomen: nondistended, no suprapubic distention or tenderness, no CVA tenderness Neurologic: Grossly normal Skin: No rashes or suspicious lesions Assessment/Plan 1. Postinfective urethral stricture, not elsewhere classified, female (N35.12: Postinfective urethral stricture, not elsewhere classified, female) S/p cysto w/ UD 01/19/22. denies straining with urination, split or spraying stream. no infections since last encounter. 2. Asymptomatic microscopic hematuria (R31.21: Asymptomatic microscopic hematuria) FISH/cytol 02/24/22 neg. cysto dec 2021 neg. UA today TRACE-INTACT blood which pt reports has been present for years. denies gross hematuria. patient to notify our office if she would witness gross blood 3. Kidney stone (N20.0: Calculus of kidney) Nonobstructing nephrolithiasis, neg for hydro on CT from 09/2022. KUB 03/01/23 - tiny bilateral nephrolithiasis. no measurements provided. image independently reviewed and I don't see anything substantial, they all look tiny. c/o lower back ache, explained to patient that since her stones are tiny in size and in the kidney they are most likely not causing pain - likely musculoskeletal - needs to see PCP. advised patient to increase water intake, minimize coffee/pop/tea. Follow up in 1 year w/ kub 4. Kidney cysts (N28.1: Cyst of kidney, acquired) CT AP w/ contrast 10/01/22 bilateral cortical hypodensities, small cysts are favored. No indication for tx at this time. 5. Anticoagulated (Z79.01: longterm (current) use of anticoagulants) Plavix Follow-up With When Contact Information DOROTHEA PACHECO, MIRTA Mac, URL [address] [place] [address] Additional Instructions: 1 year w/ kub Patient Education Kidney Stones, [id number] Documentation recorded by the nathan Ryan accurately reflects the services(s) I performed and decisions made by me. Authenticated by Mirta Piedra PA-C on 03/02/2023 13:35:31. I, Adelita Ryan, personally scribed for Mirta Piedra PA-C on 03/02/2023 13:31:53. . 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 Medications Crestor, Oral, Daily magnesium aspartate, Oral, BID Phenergan, 25 mg, Oral, Daily Plavix 75 mg Tab, 75 mg= 1 tab(s), Oral, Daily Synthroid 75 mcg Tab, 75 mcg= 1 tab(s), Oral, Daily Toprol XL 25 mg Tab-ER, 25 mg= 1 tab(s), Oral, Daily Vitamin B12 Vitamin C, Daily Allergies erythromycin (Nausea, Unknown) morphine (Insomnia, Unknown) Social History Alcohol - Denies Alcohol Use, 11/02/2019 Substance Abuse - Denies Substance Abuse, 11/02/2019 Tobacco - Denies Tobacco Use, 11/02/2019 Former smoker, quit more than 30 days ago Tobacco Use:. Cigarettes, 03/02/2023 Family History Heart disease: Mother. Primary malignant neoplasm of lung: Father. Immunizations Vaccine Date Status Comments influenza virus vaccine, inactivated 09/02/2022 Recorded SARS-CoV-2 (COVID-19) mRNA BNT-162b2 vax 10/16/2021 Recorded 2023-03-02: [id number] influenza virus vaccine, inactivated 09/08/2021 Recorded zoster vaccine, inactivated 07/28/2021 Recorded SARS-CoV-2 (COVID-19) mRNA BNT-162b2 vax 02/18/2021 Recorded SARS-CoV-2 (COVID-19) mRNA BNT-162b2 vax 01/27/2021 Recorded influenza virus vaccine, inactivated 09/06/2020 Recorded pneumococcal 23-valent vaccine 08/19/2020 Recorded influenza virus vaccine, inactivated 09/27/2019 Recorded influenza virus vaccine, inactivated 09/22/2018 Recorded influenza virus vaccine, inactivated 09/27/2017 Recorded influenza (more content not included)... Normal [facility] Comment on above: Result Comment: Elec tronically Signed By: MIRTA PIEDRA PA-C\.br\Date and Time Signed: 03/02/23 13:35 EDT\.br\Electronically Co-Signed By: Adelita Ryan.br\Date and Time Co-Signed: 03/02/23 13:32 EDT XR KUB 1 VIEWon 03-01-2023 XR KUB 1 VIEW EXAMINATION: XR KUB 1 VIEW HISTORY: Kidney stone , right flank pain COMPARISON: XR abdomen with PA chest 05/23/2022 FINDINGS: KIDNEY/URETER - RIGHT: A few tiny calcifications project over the kidney. KIDNEY/URETER - LEFT: Several tiny calcifications project over the kidney. PELVIS: No convincing ureteral stones. Stable pelvic calcifications compatible with phleboliths and atherosclerotic disease. BOWEL: No abnormal dilation or deviation. BONES: No acute abnormality. OTHER: Negative. No abnormal gaseous collections. IMPRESSION: 1. Suspect bilateral nephrolithiasis. No appreciable acute findings. Electronically authenticated by: SHERRON HORTON Date: 2023-03-01 12:53 Normal [facility] US carotid doppler BIon 12-31 US carotid doppler BI [facility] [place] [address] [place] [address] Ultrasound Report Signed Patient: Hortencia Cm MR#: [id number] : 1940 Acct:[id number] Age/Sex: 82 / F ADM Date: 01/21/23 Loc: Room: Type: [facility] Attending Dr: Jairo Dorantes MD Ordering Provider: Jairo Dorantes MD Date of Service: 01/21/23 US/US carotid doppler BI: CAROTID BRUIT Copies to: Jairo Dorantes MD CAROTID DUPLEX INDICATION: Carotid bruit PROCEDURE: Color-flow duplex scanning is used to interrogate the extracranial carotid arterial system, as well as both vertebral arteries. Both carotid bifurcations show some smooth homogeneous plaque formation. The proximal right internal carotid artery shows a highest peak systolic velocity of 85.7 cm/s with an end-diastolic velocity of 21.7 cm/s . The mid internal carotid artery measures 104 cm/s peak systolic with an end diastolic velocity of 25.2 cm/s . The distal segment measures 164 cm/s peak systolic with an end diastolic velocity of 40.7 cm/s . The velocities of the right common carotid artery are 105 cm/s peak systolic and 16.2 cm/s end-diastolic and 94.4 cm/s peak systolic and 23 cm/s end diastolic distally. The peak systolic velocity ratio of the internal to the common carotid artery is 1.56 . The external carotid artery measures 154 cm/s peak systolic. The right vertebral artery is patent at 151 cm/s peak systolic with antegrade flow. The proximal left internal carotid artery shows a highest peak systolic velocity of 165 cm/s with an end-diastolic velocity of 31.4 cm/s . The mid internal carotid artery measures 103 cm/s peak systolic with an end diastolic velocity of 23.1 cm/s . The distal segment measures 127 cm/s peak systolic with an end diastolic velocity of 32.9 cm/s . The velocities of the left common carotid artery are 90.7 cm/s peak systolic and 21.1 cm/s end-diastolic and 185 cm/s peak systolic and 30.7 cm/s end diastolic distally. The peak systolic velocity ratio of the internal to the common carotid artery is 1.15 . The external carotid artery measures 132 cm/s peak systolic. The left vertebral artery is patent at 107 cm/s peak systolic with antegrade flow. 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 BOTH VERTEBRAL ARTERIES ARE PATENT WITH ANTEGRADE FLOW. Complex structure identified in the right thyroid lobe with vascularity measuring 1.6 x 1.5 x 1.2 cm. Impression dictated by: Elan Pelayo MD01/22/2023 9:02 AM Dictation Location: RAD-DOC-04 Tech: Allyson Cedeno Transcribed By: PWS 01/22/23901 Dictated By: Elan Pelayo MD 01/22/23900 Signed By: 01/22/23901 [facility] Blood Urea Nitrogenon 2022 Urea nitrogen [Mass/Vol] 9 mg/dL Normal 9-23 [facility] Comment on above: Performed By: #### B UN, CREAT #### [facility] [address] Creatinineon 01-20-2023 Creatinine [Mass/Vol] 0.65 mg/dL Normal 0.44-1.03 [facility] Comment on above: Performed By: #### B UN, CREAT #### [facility] [address] [place] [address] [place] Creatinine Clr Calc Pharmacy 36.95 [facility] Comment on above: Result Comment: PERF ORMED BY: [place] [address] PATHOLOGIST HYPERION ADMINISTRATOR PENNIE CURRY M.D. Performed By: #### B UN, CREAT #### [address] Estimated GFR ( Miryam > 60 [facility] Comment on above: Result Comment: GFR estimated reference range: According to KDOQI guidelines, <60 ml/min/1.73m2 is sufficient to diagnose a patient with chronic kidney disease. Performed By: #### B UN, CREAT #### [facility] [address] [place] [address] Estimated GFR (Non- Am > 60 [facility] Comment on above: Performed By: #### B UN, CREAT #### [address] Creatinine and Glomerular fi ltration rate.predicted panel (S/P/Bld)Ordered By: Jairo Dorantes on 01-20-2023 Creatinine [Mass/Vol] 0.65 mg/dL 0.44-1.03 [facility] Estimated glomerular filtrat ion rate (GFR) non- AmericanOrdered By: Jairo Dorantes on 01-20-2023 GFR/1.73 sq M.predicted among non-blacks MDRD (S/P/Bld) [Vol rate/Area] > 60 mL/Min [facility] No Panel InformationOrdered By: Jairo Dorantes on 01-20-2023 Estimated GFR () > 60 mL/Min [facility] Comment on above: GFR estimated refere nce range: According to KDOQI guidelines, <60 ml/min/1.73m2 is sufficient to diagnose a patient with chronic kidney disease. Pharmacy Creatinine Clearance (Chem 36.95 [facility] Urea nitrogen [Mass/volume] in Serum or PlasmaOrdered By: Jairo Dorantes on 01-20-2023 Urea nitrogen [Mass/Vol] 9 mg/dL 08-[address] [facility] [address] ABD/PELV W CONon 10-02-20 CT ABD/PELV W CON EXAMINATION: CT ABD/ PELV W CON, 10/01/2022 7:58 AM EDT HISTORY: Abdominal pain nausea, vomiting COMPARISON: 05/23/2022 TECHNIQUE: CT scan of the abdomen and pelvis was performed with IV contrast. CT dose reduction technique was used, including Automated Exposure Control. FINDINGS: LUNG BASES: Minimal emphysema LIVER: No enlargement, atrophy, abnormal density, or significant focal lesion. BILIARY: Surgical clips from cholecystectomy. Pneumobilia. PANCREAS: No lesion, fluid collection, ductal dilatation, or atrophy. SPLEEN: No enlargement or focal lesion. ADRENALS: No mass or enlargement. KIDNEYS: Bilateral cortical hypodensities, cysts are favored. Nonobstructing nephrolithiasis. No hydronephrosis BOWEL/MESENTERY: Heavy colonic diverticulosis without evidence of acute diverticulitis. Nonobstructive bowel gas pattern. AORTA/VASCULAR: No aortic aneurysm. Severe aortic atherosclerosis with up to 70% narrowing of the distal aorta RETROPERITONEUM: No mass or adenopathy. LYMPH NODES: No adenopathy. URINARY BLADDER: No visible focal wall thickening, lesion, or calculus. PELVIC ORGANS: Hysterectomy ABDOMINAL WALL: No mass or hernia. BONES: No bony lesion or fracture. OTHER: Pelvic floor relaxation IMPRESSION: No acute intraperitoneal abnormality Electronically authenticated by: GAUTAM DELUNA Date: 2022-10-02 08:12 Normal [facility] CREATININEon 10-01-2022 Creatinine [Mass/Vol] 0.67 mg/dL Normal 0.55-1.02 [facility] Comment on above: Performed By: #### C MERARY #### [facility] [address] [place] [address] Dr. Elia Burton EGFR-AF [place] ISLANDER >60 Normal >=60 [facility] Comment on above: Performed By: #### C MERARY #### [facility] [address] [place], [place] [address] Dr. Elia Burton EGFR-NON AF [place]ER >60 Normal >=60 [facility] Comment on above: Performed By: #### C MERARY #### [facility] [address] [place], [place] [address] Dr. Elia Burton Follow-Upon 09-28-2022 Follow-Up [id number] Hortencia Cm 1940 F Date Provider Department Center 09/28/2022 JIMMY GUZMAN [facility] Family History Problem Relation Age of Onset Hypertension Mother Heart disease Mother Other Father Family Status - Relation Status Age at Mother Father Level of Service:18933 [place] OFFICE/OUTPATIENT ESTABLISHED MOD MDM 30-39 MIN Reason for Visit and Comments: Coronary Artery Disease [187] Peripheral Vascular Disease [458] Normal [facility] CT ABD/PELV W CONon 05-24-[address] ABD/PELV W CON EXAMINATION: CT ABD/ PELV W CON HISTORY: CONSTIPATION, UNSPECIFIED. COMPARISON: Abdominal CT 10/08/2021. TECHNIQUE: Images of the abdomen and pelvis obtained with IV contrast. Dose reduction techniques were achieved by using automated exposure control and/or adjustment of mA and/or kV according to patient size and/or use of iterative reconstruction technique. FINDINGS: Lung bases are clear. No adrenal mass or adenopathy. No obstructive uropathy. Portal vein is patent. Chronic pneumobilia. Severe aortic atherosclerosis without aneurysm. No bowel obstruction or inflammation. Severe pancolonic diverticulosis. No pneumatosis or pneumoperitoneum. The appendix is not identified. No pelvic adenopathy or ascites. Uterus is absent. Bladder is grossly normal. The bladder is distended. No suspicious lytic or sclerotic osseous lesions. IMPRESSION: 1. No acute abnormality or significant interval change. 2. Chronic findings including severe pancolonic diverticulosis and severe aortic atherosclerosis. 3. Pneumobilia redemonstrated. 4. Prior cholecystectomy. Electronically authenticated by: ELENA AMBROSE Date: 2022-05-23 22:39 Normal [facility] AMYLASEon 05-23-2022 Amylase [Catalytic activity/Vol] 33 U/L Normal 25-115 [facility] Comment on above: Performed By: #### L IPA, CMP, ABEL #### [facility] [address] [place] [address] [address] Elia Burton CBC AUTO DIFFon 05-23-2022 BASO # 0.1 103/ul Normal 0.0-0.1 [facility] Comment on above: Performed By: #### C BC ####[facility] [address] [place] [address]DrBennett Burton Basophils/100 WBC (Bld) 0.9 % Normal 0.2-2.0 [facility] Comment on above: Performed By: #### C BC ####[facility] [address] [place] [address]DrBennett Burton EO # 0.1 103/ul Normal 0.0-0.7 [facility] Comment on above: Performed By: #### C BC ####[facility] [address] [place] [address]DrBennett Burton Eosinophils/100 WBC (Bld) 1.3 % Normal 0.9-7.0 [facility] Comment on above: Performed By: #### C BC ####[facility] [address] [place] [address]DrBennett Burton Erythrocyte distribution width (RBC) [Ratio] 14.1 % Normal 11.0-15.0 [facility] Comment on above: Performed By: #### C BC ####[facility] [address] [place] [address]DrBennett Burton Hematocrit (Bld) [Volume fraction] 44.3 % Normal 36.0-48.0 [facility] Comment on above: Performed By: #### C BC ####[facility] [address] [place] [address]DrBennett Burton Hemoglobin (Bld) [Mass/Vol] 14.2 g/dL Normal 12.0-16.0 [facility] Comment on above: Performed By: #### C BC ####[facility] [address] [place] [id number]. Elia Burton IG # 0.01 10e3/ul Normal 0.00-0.03 [facility] Comment on above: Performed By: #### C BC ####[facility] [address] [place] [id number]. Elia Burton IG % 0.1 % Normal 0.0-0.5 [facility] Comment on above: Performed By: #### C BC ####[facility] [address] [place] [address]Dr. Elia Burton LYMPH # 3.4 103/ul Normal 1.2-3.8 [facility] Comment on above: Performed By: #### C BC ####[facility] [address] [place] [address]Dr. Idaniaakanksha Burton Lymphocytes/100 WBC (Bld) 43.5 % Normal 20.5-60.0 [facility] Comment on above: Performed By: #### C BC ####[facility] [address] [place] [address]Dr. Elia Micheal MANUAL DIFF REQ NO Normal [facility] Comment on above: Performed By: #### C BC ####[facility] [address] [place] [address]Dr. Elia Burton MCH (RBC) [Entitic mass] 28.1 pg Normal 26.7-34.0 [facility] Comment on above: Performed By: #### C BC ####[facility] [address] [place] [address]Dr. Elia Burton MCHC (RBC) [Mass/Vol] 32.1 g/dL Normal 29.9-35.2 [facility] Comment on above: Performed By: #### C BC ####[facility] [address] [place] [address]Dr. Elia Burton MCV (RBC) [Entitic vol] 87.5 fL Normal 81.0-99.0 [facility] Comment on above: Performed By: #### C BC ####[facility] [address] [place] [phone]. Elia Burton MONO # 0.7 103/ul Normal 0.3-0.8 [facility] Comment on above: Performed By: #### C BC ####[facility] [address] [place] [phone]. Elia Burton Monocytes/100 WBC (Bld) 8.4 % Normal 1.7-12.0 [facility] Comment on above: Performed By: #### C BC ####[facility] [address] [place] [phone]. Elia Burton NEUT # 3.5 103/ul Normal 1.4-6.5 [facility] Comment on above: Performed By: #### C BC ####[facility] [address] [place] [address]Dr. Elia Burton Neutrophils/100 WBC (Bld) 45.8 % Normal 43.0-75.0 [facility] Comment on above: Performed By: #### C BC ####[facility] [address] [place] [phone]. Elia Burton Platelet mean volume (Bld) [Entitic vol] 9.3 fL Critically low 9.5-13.5 [facility] Comment on above: Performed By: #### C BC ####[facility] [address] [place] [phone]. Elia Burton PLT 290 103/ul Normal 150-450 [facility] Comment on above: Performed By: #### C BC ####[facility] [address] [place] [phone]. Elia Burton RBC 5.06 106/ul Normal 4.20-5.40 [facility] Comment on above: Performed By: #### C BC ####[facility] [address] [place] [phone]. Elia Burton WBC 7.7 103/ul Normal 4.0-11.0 [facility] Comment on above: Performed By: #### C BC ####[facility] [address] [place], [place] [address]Dr. Elia Burton Covid-19 PCR (CVDTBH)on 04-30 SARS-CoV-2 (COVID-19) RNA LADI+probe Ql (Unsp spec) Not detected Normal NOT DETECTED [facility] Comment on above: Result Comment: When diagnostic testing is negative, the possibility of a false negative should be considered in the context of a patient's recent exposures and the presence of clinical signs and symptoms consistent with SARS-CoV-2. This test is not yet approved or cleared by the [place] FDA. When there are no FDA-approved or cleared tests available, and other criteria are met, FDA can make tests available under an emergency access mechanism called an Emergency Use Authorization (EUA). The EUA for this test is supported by the [place] of Health and Human Service's declaration that circumstances exist to justify the emergency use of in vitro diagnostics for the detection and/or diagnosis of the virus that causes COVID-19. This EUA will remain in effect for the duration of the COVID-19 declaration justifying emergency of IVDs, unless it is terminated or revoked by the FDA (after which the test may no longer be used). Performed By: #### C VDTBH ####[facility] [address] [place] [address]Dr. Elia Burton LIPASEon 05-23-2022 Lipase [Catalytic activity/Vol] 74.0 U/L Normal 73.0-393.0 [facility] Comment on above: Performed By: #### L IPA CMP, ABEL #### [facility] [address] [place] [address] Dr. Elia Burton PROF 14(COMP METB)on 022 Albumin [Mass/Vol] 3.9 g/dL Normal 3.4-5.0 [facility] Comment on above: Performed By: #### L IPA CMP, ABEL #### [facility] [address] [place] [address] Dr. Elia Burton Albumin/Globulin [Mass ratio] 0.9 {ratio} Normal [facility] Comment on above: Performed By: #### L IPA CMP, ABEL #### [facility] [address] [place] [address] Dr. Elia Burton ALP [Catalytic activity/Vol] 76 U/L Normal 46-116 [facility] Comment on above: Performed By: #### L IPA, CMP, ABEL #### [facility] [address] [place] [address] [address] Elia Burton ALT [Catalytic activity/Vol] 17 U/L Normal 14-59 [facility] Comment on above: Performed By: #### L IPA, CMP, ABEL #### [facility] [address] [place] [address] [address] Elia Burton Anion gap [Moles/Vol] 13.0 mmol/L Normal [facility] Comment on above: Performed By: #### L IPA, CMP, ABEL #### [facility] [address] [place] [address] Dr. Elia Burton AST [Catalytic activity/Vol] 19 U/L Normal 15-37 [facility] Comment on above: Performed By: #### L IPA, CMP, ABEL #### [facility] [address] [place] [address] Dr. Elia Burton Bilirubin [Mass/Vol] 0.4 mg/dL Normal 0.2-1.0 [facility] Comment on above: Performed By: #### L IPA, CMP, ABEL #### [facility] [address] [place] [address] Dr. Elia Burton Calcium [Mass/Vol] 9.3 mg/dL Normal 8.5-10.1 [facility] Comment on above: Performed By: #### L IPA, CMP, ABEL #### [facility] [address] [place] [address] Dr. Elia Burton Chloride [Moles/Vol] 103 mmol/L Normal 98-107 [facility] Comment on above: Performed By: #### L IPA, CMP, ABEL #### [facility] [address] [place] [address] Dr. Elia Burton CO2 [Moles/Vol] 28.8 mmol/L Normal 21.0-32.0 [facility] Comment on above: Performed By: #### L IPA, CMP, ABEL #### [facility] [address] [place] [address] [address] Elia Burton Creatinine [Mass/Vol] 0.68 mg/dL Normal 0.55-1.02 [facility] Comment on above: Performed By: #### L IPA, CMP, ABEL #### [facility] [address] [place] [address] [address] Elia Burton EGFR-AF [place]ER >60 Normal >=60 [facility] Comment on above: Performed By: #### L IPA, CMP, ABEL #### [facility] [address] [place] [address] [address] Elia Burton EGFR-NON AF [place] >60 Normal >=60 [facility] Comment on above: Performed By: #### L IPA, CMP, ABEL #### [facility] [address] [place] [address] [address] Elia Burton Globulin (S) [Mass/Vol] 4.3 g/dL Normal [facility] Comment on above: Performed By: #### L IPA, CMP, ABEL #### [facility] [address] [place] [address] [address] Elia Burton Glucose [Mass/Vol] 107 mg/dL Critically high 74-106 T [facility] Comment on above: Performed By: #### L IPA CMP, ABEL #### [facility] [address] [place] [address] [address] Elia Burton Potassium [Moles/Vol] 3.8 mmol/L Normal 3.5-5.1 [facility] Comment on above: Performed By: #### L IPA, CMP, ABEL #### [facility] [address] [place] [address] [address] Elia Burton Protein [Mass/Vol] 8.2 g/dL Normal 6.4-8.2 [facility] Comment on above: Performed By: #### L IPA, CMP, ABEL #### [facility] [address] [place] [address] [address] Elia Burton Sodium [Moles/Vol] 141 mmol/L Normal 136-145 [facility] Comment on above: Performed By: #### L IPA, CMP, ABEL #### [facility] [address] [place], [place] [address] Dr. Elia Burton Urea nitrogen [Mass/Vol] 5.0 mg/dL Critically low 7.0-18.0 [facility] Comment on above: Performed By: #### L IPA, CMP, ABEL #### [facility] [address] [place], [place] [address] Dr. Elia Burton Urea nitrogen/Creatinine [Mass ratio] 7.4 mg/mg Normal [facility] Comment on above: Performed By: #### L IPA, CMP, ABEL #### [facility] [address] [place], [place] [address] Dr. Elia Burton XR ABD FLAT UP_PA [place] 05-23 XR ABD FLAT UP_PA CH EXAM: XR ABD FLAT U P_PA CH HISTORY: CONSTIPATION, UNSPECIFIED COMPARISON: Abdomen radiograph dated 01/05/2022. TECHNIQUE: One view of the chest and 2 views of the abdomen were obtained. FINDINGS: The cardiac silhouette is normal in size. Aortic atherosclerotic disease is seen. There are calcified granulomas at the right lung base. There is no significant pneumothorax or pleural effusion. No acute osseous abnormality is seen. There is a nonspecific bowel gas pattern without evidence of bowel obstruction. No intraperitoneal free air is seen. Cholecystectomy clips are noted. IMPRESSION: 1. No acute cardiopulmonary abnormality. 2. Nonspecific bowel gas pattern without evidence of bowel obstruction. Electronically authenticated by: Jaelyn MONIQUE Date: 2022-05-23 05:39 Normal [facility] Complete Blood Counton 04-28 Erythrocyte distribution width (RBC) [Ratio] 14.1 % Normal 11.0-15.0 [facility] Comment on above: Performed By: #### C BC, VITD, LIPD, CMP #### [facility] [address] [place], [place] [id number] Hematocrit (Bld) [Volume fraction] 41.8 % Normal 35.0-47.0 [facility] Assistant Comment on above: Performed By: #### C BC, VITD, LIPD, CMP #### [facility] [address] [place] [id number] Hemoglobin (Bld) [Mass/Vol] 13.0 g/dL Normal 11.6-15.5 [facility] Specialist Comment on above: Performed By: #### C BC, VITD, LIPD, CMP #### [facility] [address] [place], [place] [id number] MCH (RBC) [Entitic mass] 27.4 pg Normal 27.0-33.0 [facility] Specialist Comment on above: Performed By: #### C BC, VITD, LIPD, CMP #### [facility] [address] [place], [place] [id number] MCHC (RBC) [Mass/Vol] 31.1 g/dL Low 32.0-36.0 [facility] Comment on above: Performed By: #### C BC, VITD, LIPD, CMP #### [facility] [address] [place], [place] [id number] MCV (RBC) [Entitic vol] 88 fL Normal 80-100 [facility] Specialist Comment on above: Performed By: #### C BC, VITD, LIPD, CMP #### [facility] [address] [place], [place] [id number] Platelet mean volume (Bld) [Entitic vol] 9.20 fL Normal 7.50-12.50 [facility] Specialist Comment on above: Performed By: #### C BC, VITD, LIPD, CMP #### [facility] [address] [place], [place] [id number] Platelets (Bld) [#/Vol] 281 10*3/uL Normal 140-400 [facility] Specialist Comment on above: Performed By: #### C BC, VITD, LIPD, CMP #### [facility] [address] [place], [place] [id number] RBC (Bld) [#/Vol] 4.74 10*6/uL Normal 3.90-5.20 [facility] Comment on above: Performed By: #### C BC, VITD, LIPD, CMP #### [facility] [address] [place], [place] [id number] RDW-SD 45.4 fL Normal 37.0-50.0 [facility] Specialist Comment on above: Performed By: #### C BC, VITD, LIPD, CMP #### [facility] [address] [place], [place] [id number] WBC (Bld) [#/Vol] 6.7 10*3/uL Normal 3.8-11.0 Noah rodrigues [facility] Assistant Comment on above: Performed By: #### C BC, VITD, LIPD, CMP #### [facility] [address] [place], [place] [id number] Comprehensive Metabolic Pane angus 04-28-2022 Albumin [Mass/Vol] 4.1 g/dL Normal 3.6-5.1 Noah rodrigues [facility] Assistant Comment on above: Performed By: #### C BC, VITD, LIPD, CMP #### [facility] [address] [place], [place] [id number] Albumin/Globulin [Mass ratio] 1.5 {ratio} Normal 1.0-2.5 [facility] Assistant Comment on above: Performed By: #### C BC, VITD, LIPD, CMP #### [facility] [address] [place], [place] [id number] ALP [Catalytic activity/Vol] 71 U/L Normal 35-119 [facility] Assistant Comment on above: Performed By: #### C BC, VITD, LIPD, CMP #### [facility] [address] [place], [place] [id number] ALT [Catalytic activity/Vol] 8 U/L Normal 6-33 [facility] Assistant Comment on above: Result Comment: 10/29 Female reference range changed. Performed By: #### C BC, VITD, LIPD, CMP #### [facility] [address] [place], [place] [id number] Anion gap [Moles/Vol] 15 mmol/L Normal 12-20 [facility] Comment on above: Result Comment: Effe ctive 12/04/2019 reference range changed. Performed By: #### C BC, VITD, LIPD, CMP #### [facility] [address] [place], [place] [id number] AST [Catalytic activity/Vol] 14 U/L Normal 9-34 [facility] Assistant Comment on above: Performed By: #### C BC, VITD, LIPD, CMP #### [facility] [address] [facility] [place] [id number] BUN/CREA 12 Ratio Normal 6-22 [facility] Comment on above: Performed By: #### C BC, VITD, LIPD, CMP #### [facility] [address] [facility] [place] [id number] Calcium [Mass/Vol] 9.3 mg/dL Normal 8.6-10.2 [facility] Comment on above: Performed By: #### C BC, VITD, LIPD, CMP #### [facility] [address] [facility] [place] [id number] Chloride [Moles/Vol] 107 mmol/L Normal 98-107 [facility] Comment on above: Performed By: #### C BC, VITD, LIPD, CMP #### [facility] [address] [facility] [place] [id number] CO2 [Moles/Vol] 25 mmol/L Normal 20-31 [facility] Comment on above: Performed By: #### C BC, VITD, LIPD, CMP #### [facility] [address] [facility] [place] [id number] Creatinine [Mass/Vol] 0.6 mg/dL Normal 0.6-1.4 [facility] Comment on above: Performed By: #### C BC, VITD, LIPD, CMP #### [facility] [address] [facility] [place] [id number] eGFRAA 124 mL/min/1.73m2 Normal >60 [facility] Comment on above: Performed By: #### C BC, VITD, LIPD, CMP #### [facility] [address] [facility] [place] [id number] eGFRNAA 102 mL/min/1.73m2 Normal >60 [facility] Specialist Comment on above: Performed By: #### C BC, VITD, LIPD, CMP #### [facility] [address] [facility] [place] [id number] Globulin (S) [Mass/Vol] 2.7 g/dL Normal 1.9-3.7 [facility] Comment on above: Performed By: #### C BC, VITD, LIPD, CMP #### [facility] [address] [place], [place] [id number] Glucose [Mass/Vol] 99 mg/dL Normal 65-99 Noah rodrigues [employer] [facility] Assistant Comment on above: Result Comment: For FASTING Glucose --- ADA reference ranges: Normal 65-99 mg/dl Prediabetes 100-125 Diabetes >/= 126 Performed By: #### C BC, VITD, LIPD, CMP #### [facility] [address] [place], [place] [id number] Potassium [Moles/Vol] 4.4 mmol/L Normal 3.5-5.5 [facility] Specialist Comment on above: Performed By: #### C BC, VITD, LIPD, CMP #### [facility] [address] [place], [place] [id number] Protein [Mass/Vol] 6.8 g/dL Normal 6.1-8.1 [facility] Assistant Comment on above: Performed By: #### C BC, VITD, LIPD, CMP #### [facility] [address] [place], [place] [id number] Sodium [Moles/Vol] 143 mmol/L Normal 135-146 [facility] Assistant Comment on above: Performed By: #### C BC, VITD, LIPD, CMP #### [facility] [address] [place], [place] [id number] TBIL <0.3 Normal [facility] Specialist Comment on above: Performed By: #### C BC, VITD, LIPD, CMP #### [facility] [address] [place], [place] [id number] Urea nitrogen [Mass/Vol] 7 mg/dL Normal 7-25 [facility] Assistant Comment on above: Performed By: #### C BC, VITD, LIPD, CMP #### [facility] [address] [place], [place] [id number] Lipid Panelon 04-28-2022 Cholesterol [Mass/Vol] 141 mg/dL Normal 125-200 [facility] Assistant Comment on above: Result Comment: Low risk < 200mg/dL Borderline risk 201-239 mg/dl High risk > or equal to 240 Performed By: #### C BC, VITD, LIPD, CMP #### [facility] [address] [place], [place] [id number] Cholesterol in HDL [Mass/Vol] 35 mg/dL Low >40 [facility] Assistant Comment on above: Result Comment: High Cardiovascular Risk HDL <40 mg/dL Low Cardiovascular Risk HDL > or equal to 60 mg/dl Performed By: #### C BC, VITD, LIPD, CMP #### [facility] [address] [place], [place] [id number] Cholesterol in LDL [Mass/Vol] 81 mg/dL Normal [facility] Specialist Comment on above: Result Comment: LDL ATP III CLASSIFICATION LDL less than 100 mg/dl Optimal LDL 100-129 mg/dl Near or above optimal LDL 130-159 Borderline high LDL 160-189 High LDL greater than 189 mg/dl Very High Performed By: #### C BC, VITD, LIPD, CMP #### [facility] [address] [place], [place] [id number] Cholesterol in VLDL [Mass/Vol] 25 mg/dL Normal [facility] Assistant Comment on above: Performed By: #### C BC, VITD, LIPD, CMP #### [facility] [address] [place], [place] [id number] Cholesterol.total/Cho lesterol in HDL [Mass ratio] 4 {ratio} Normal [facility] Assistant Comment on above: Performed By: #### C BC, VITD, LIPD, CMP #### [facility] [address] [place], [place] [id number] Triglyceride [Mass/Vol] 124 mg/dL Normal 30-150 [facility] Assistant Comment on above: Result Comment: TRIG ATPIII CLASSIFICATIONS TRIG less than 150 mg/dl Normal TRIG 150-199 mg/dl Borderline High TRIG 200-500 mg/dl High TRIG greather than 500 mg/dl Very High Performed By: #### C BC, VITD, LIPD, CMP #### [facility] [address] [place], [place] [id number] Vitamin D 25-OHon 04-28-2022 VIT D 25 OH 44 ng/ml Normal >29 [facility] Assistant Comment on above: Result Comment: Natalee min D Status Deficiency <20 ng/mL Insufficiency 20-29 ng/mL Optimal 30-100 ng/mL Possible Toxicity >=150 ng/mL Performed By: #### C BC, VITD, LIPD, CMP #### [facility] [address] [place], [place] [id number] Free T3on 04-22-2022 FT3 2.65 pg/mL Normal 2.00-4.40 [facility] Specialist Comment on above: Performed By: #### T SH, FT4, FT3 #### [facility] [address] [place], [place] [id number] Free T4on 04-22-2022 Free T4 [Mass/Vol] 1.11 ng/dL Normal 0.80-1.80 [facility] Specialist Comment on above: Performed By: #### T SH, FT4, FT3 #### [facility] [address] [place], [place] [id number] TSHon 04-22-2022 TSH 3.670 uIU/mL Normal 0.400-4.500 [facility] Specialist Comment on above: Performed By: #### T SH, FT4, FT3 #### [facility] [address] [place], [place] [id number] Dermatopathologyon 0 Dermatopathology [facility] Dermatopathology Laboratory [address] [place] [phone] DERMATOPATHOLOGY REPORT Name:HORTENCIA CM [facility]. Rec #. [id number] Location: [facility] Date of Procedure: 05/01/2020 Race: Date Received: 05/03/2020 /Sex: 1940 (Age: 80) / F Date Reported: 05/06/2020 Other: Submitting Physician:MACRINA BANSAL APRN, BOBTAIL DRIVER-C FINAL DIAGNOSIS SKIN, (R) SAMARITAN, BIOPSY: HYPERKERATOSIS WITH EPIDERMAL HYPERPLASIA, PRESENT ON THE MARGINS, SEE NOTE. Note: Microscopic examination reveals a specimen that transects the epidermis. There is hyperkeratosis, with predominantly parakeratosis, with some hemorrhage in the stratum corneum. There is epidermal hyperplasia, without significant keratinocyte atypia. The epidermis is significantly transected. The findings favor a seborrheic keratosis. If the lesion persists or recurs, a deeper biopsy or re-excision to exclude an invasive squamous cell carcinoma is recommended. Electronically Signed Out by ABBEY CARO M.D. Electronically Signed Out By ABBEY CARO MD/[facility] By the signature on this report, the individual or group listed as making the Final Interpretation/Diagnosis certifies that they have reviewed this case. 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 Biopsy. Specimens Submitted As: A: SKIN, (R) SAMARITAN Gross Description: Received in formalin is a nuñez piece of skin measuring [id number]. The specimen is inked and embedded in toto. dcp/05/03/2020 Normal [facility] Comment on above: Performed By: #### D #### Dermatopathology GI Letteron 12-14-2017 GI Letter [facility] Fax:Gastroenterology [phone] [facility] [phone] Fax:[place] [phone] [place], [place]RE: Patient Name: Hortencia Cm MR #: [id number] Date of : 1940 Date of 12/10/2017 Service:Bear Camejo M.D.[address] [place] [address] [address] [place] [id number] Camejo,I had the pleasure of seeing your patient, Ms. Hortencia Cm in ourEndoscopy Unit for recent finding of large common bile duct stones. She isstatus post sphincterotomy and biliary stent placement, presented for themechanical lithotripsy and for clearance of the common bile duct.PROCEDURE PERFORMEDERCP with mechanical lithotripsy, stones removal, stent removal, andballoon dilation.MEDICATIONSGener al anesthesia administered by Anesthesia team and Levaquin 500 mg IVx1.DESCRIPTION OF PROCEDUREAfter obtaining the informed consent, which include the risks, benefits,alternatives, and complications. Complications include bleeding,perforation, and reaction to medications, in addition to pancreatitis,infection, diabetes, surgery, prolonged hospitalization, remote possibilityof . The patient agreed to proceed with the procedure. The patient wasplaced in the semiprone position after receiving general anesthesiaadministered by anesthesia team after which the Olympus video side-viewingduodenal scope was introduced through the mouth down to the esophagus,stomach, then to the 1st and 2nd part of the duodenum with no difficulties.The previously placed biliary stent was noted protruding through thepapilla into the duodenal lumen. The stent was removed with a snare. Withthe use of the RX-44 sphincterotome loaded with a 0.035 inch guidewire, thecommon bile duct was cannulated selectively. Contrast was injected and atleast 2 large filling defects were noted within the distal common bile ductconsistent with stones. The sphincterotome was then removed over theguidewire and then Hurricane 10 mm dilating balloon catheter was thenadvanced over the guidewire and positioned at the level of the majorpapilla. Balloon dilation sphincteroplasty of previous sphincterotomy wasperformed. The dilating balloon catheter was then removed over theguidewire and the trapezoid lithotripter 3 cm in size was then advancedover the guidewire into the common bile duct. Successful mechanicallithotripsy of both large stones was performed. Multiple stone fragmentswere removed with the lithotripter. The lithotripter was then removed overthe guidewire and 15-18 mm injecting below retrieval balloon catheter wasthen advanced over the guidewire into the common bile duct. Balloon sweepof the common bile duct was performed and large amount of sludge withmultiple stone fragments were removed from the common bile duct. Finalcholangiogram revealed no filling defects within the common bile duct.IMPRESSIONSuccessful removal of 2 large stones from the biliary tree after performingmechanical lithotripsy, using balloon sweep and after performing balloondilation sphincteroplasty. The previously placed biliary stent was removedduring the procedure.PLANWe will see the patient on a p.r.n. basis.Thank you very much, Dr. Camejo for allowing me to participate in the careof this very pleasant patient.Sincerely,Electro nically Signed by:Gm Jameson M.D. 12/29/2017 08:35 A Gm Jameson M.D.Date Dict: 12/10/2017/02:36 P/Gm Jameson M.D.Date Trans: 12/11/2017 12:03 A/mmoRevised: 12/14/2017 09:23 A/paCopy/pasteDN_[id number]: Bear Camejo M.D. [address] [facility] [address] [facility] [address] Dinesh Dyer M.D. [address] [facility] [address] Normal [facility] Endoscopy Reporton 8 Endoscopy Report MR#: [id number] Name[facility] Hortencia Cm Surgery Date: 12/10/2017 Room #: 0C Date of : 1940 PROCEDURE NOTEATTENDING: Gm Jameson M.D.PROCEDURE PERFORMEDERCP with mechanical lithotripsy, stones removal, stent removal, andballoon dilation.MEDICATIONS: General anesthesia administered by Anesthesia team andLevaquin 500 mg IV x1.DESCRIPTION OF PROCEDURE: After obtaining the informed consent, whichinclude the risks, benefits, alternatives, and complications. Complicationsinclude bleeding, perforation, and reaction to medications, in addition topancreatitis, infection, diabetes, surgery, prolonged hospitalization,remote possibility of . The patient agreed to proceed with theprocedure. The patient was placed in the semiprone position after receivinggeneral anesthesia administered by anesthesia team after which the Olympusvideo side-viewing duodenal scope was introduced through the mouth down tothe esophagus, stomach, then to the 1st and 2nd part of the duodenum withno difficulties. The previously placed biliary stent was noted protrudingthrough the papilla into the duodenal lumen. The stent was removed with asnare. With the use of the RX-44 sphincterotome loaded with a 0.035 inchguidewire, the common bile duct was cannulated selectively. Contrast wasinjected and at least 2 large filling defects were noted within the distalcommon bile duct consistent with stones. The sphincterotome was thenremoved over the guidewire and then Hurricane 10 mm dilating ballooncatheter was then advanced over the guidewire and positioned at the levelof the major papilla. Balloon dilation sphincteroplasty of previoussphincterotomy was performed. The dilating balloon catheter was thenremoved over the guidewire and the trapezoid lithotripter 3 cm in size wasthen advanced over the guidewire into the common bile duct. Successfulmechanical lithotripsy of both large stones was performed. Multiple stonefragments were removed with the lithotripter. The lithotripter was thenremoved over the guidewire and 15-18 mm injecting below retrieval ballooncatheter was then advanced over the guidewire into the common bile duct.Balloon sweep of the common bile duct was performed and large amount ofsludge with multiple stone fragments were removed from the common bileduct. Final cholangiogram revealed no filling defects within the commonbile duct.IMPRESSION: Successful removal of 2 large stones from the biliary treeafter performing mechanical lithotripsy, using balloon sweep and afterperforming balloon dilation sphincteroplasty. The previously placed biliarystent was removed during the procedure.PLAN: We will see the patient on a p.r.n. basis.Electronically Signed by:Gm Jameson M.D. 12/29/2017 08:34 A Gm Jameson M.D.Date Dict: 12/10/2017/02:36 P/Gm Jameson M.D.Date Trans: 12/11/2017 12:02 P/nicoleoDJagdish_JN:[id number] cc: Bear Camejo M.D. [address] [place] [address] [address] [facility] [address] Dinesh Dyer M.D. [address] [facility] [address] [place] [facility] ERCPon 12-10-2017 ERCP [facility] CenterDepartment of Atqirw[address] [place] [phone] P atient Name: HORTENCIA CM : 1940Sex: FAge: Race: WhiteMRN: [id number]. Location: 230Patient Status: DVisit #: [id number] Date: 12/10/2017 5:00:00 AMCompleted Date: 12/10/2017 04:04 PMRequesting Provider: RICHARDSON TONG Attending Provider: Report Copy To: Signs & Symptoms: R10.9 Unspecified abdominal pain [id number]: AthenaComments: , , Appointment Date: 12/10/2017 , Appointment Time: 1230 , , , Ordering Provider - RICHARDSON TONG , Exam: ERCPAccession #: [id number] ======ERCP 12/10/2017 4:04 PM EST TECH COMMENTS:ERCP Dr. Jameson used 9:37 minutes of fluoro COMPARISON: None. FINDINGS: 11 images are submitted for review from ERCP performed by the GI lab. Endoscope is passed in an antegrade fashion, and the tip of the endoscope lies in the second portion of the duodenum. The common bile duct was cannulated and contrast injected in a retrograde direction, opacifying the biliary tree. Fluoroscopy Time: 9.37 minutes. IMPRESSION:11 intraprocedure images. Fluoroscopy time 9.37 minutes. For documentation purposes Approved by:Kelsey Jose on 12/10/2017 4:23 PM EST. I, Mario Willis, have reviewed the images and report and concur with these findings. Electronically signed by:Mario Willis. Transcribed by: [email or web address], User Resident: KELSEY JOSEElectronically Signed by: MARIO WILLIS @ 12/15/2017 10:02 AMI personally read this/these film(s) with this resident Normal [facility] Comment on above: Order Comment: , , A ppointment Date: 12/10/2017 , Appointment Time: 1230 , , , Ordering Provider - RICHARDSON TONG , POC GLUCOSE LABon 12-10-2017 Glucose mass conc 115 mg/dL High 70-100 [facility] Comment on above: Performed By: #### [id number] ####[facility] Operative Reporton 7 Operative Report MR#: [id number] 2[facility] Pt. Name: Hortencia Cm Room #: 3CD [id number] Discharge Date: Birthdate: 1940 OPERATIVE REPORTDATE OF SURGERY: 07/09/2017SURGEON: Rachel Padron M.D.CLINICAL PRESENTATION: Hortencia Cm is a 77-year-old female, whohas been having burning chest pain over the last few months. She did notget better after treatment for heartburn. 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 Medical therapy for CAD has been started including aspirin 81 mg daily, atorvastatin 40 mg daily, Toprol-XL 25 mg daily.2. Plavix 75 mg daily can be used for one year after the stent procedure and then can be discontinued.3. Outpatient followup with Dr. Zi Collins in the [place] [facility] in [place].4. Referral to cardiac rehabilitation.PROCEDURES : Coronary angiogram, conscious sedation 42 minutes, PCI of theRCA.INDICATION: Unstable angina, CCS class 4, abnormal cardiac stress test.DESCRIPTION OF PROCEDURE: The patient was brought to cardiaccatheterization lab in a fasting state. Informed consent was obtained.She was prepped and draped in usual sterile fashion over the left wrist.Time-out was performed. She was given Versed and fentanyl for sedation.1% lidocaine was infiltrated over the left radial artery. A 6-FrenchTerumo Glidesheath slender was placed in the left radial artery. Theradial anti-vasospasm cocktail of verapamil 5 mg and nitroglycerin 200 mcgwas administered through the radial arterial sheath.Coronary angiography was performed. All catheter exchanges were made overthe Yanado Torque guidewire. Catheters used were JL3.5 and JR4. Coronaryangiography was performed in multiple orthogonal views using hand injectionof contrast.I elected to proceed with PCI of the RCA. Heparin anticoagulation was usedfor this procedure. ACT was maintained greater than 250 seconds. A Cordis6-Vietnamese JR4 guide was engaged in the right coronary artery. A Prowatercoronary wire was manipulated beyond the stenosis into the distal RCA andthen into the right PDA. The lesion was pre-dilated with an emerge 2.5 x12 mm balloon at 16 and at 18 atmospheres.Next, a PROMUS Premiere 3.0 x 20 mm drug-eluting stent was deployed in themid RCA at 14 atmospheres.Next, the stent was post-dilated with an [employer] Quantum apex 3.25 x 12 mmnoncompliant balloon at 14 to 18 atmospheres throughout the stentedsegments. Intracoronary nitroglycerin was then administered. The finalresult was very good. There was 0% residual stenosis in the mid RCA. Thedistal RCA has an aneurysmal segment, but is patent and the flow to the PDAand PANKAJ is normal.At this point, all catheters and wires removed from the body. The radialsheath was removed and a TR band was applied to obtain hemostasis. Therewere no apparent complications.Total contrast volume: 95 mL.Total conscious sedation time 42 minutes.Total fluoroscopy time 12 minutes and 34 seconds, 0.5 Gy.FINDINGS: Hemodynamics.AO 140/67 (MEP 99).Coronary angiography.Left main coronary artery: Left main is patent and bifurcates into the LADand the circumflex.Left anterior descending coronary artery. The LAD is a moderate-sizedvessel and gives rise to 2 diagonal branches. The 2nd diagonal branch islarge. The LAD and the diagonal branches are patent.Left circumflex coronary: Circumflex is a moderate-sized vessel and givesrise to 2 obtuse marginal branches. The 1st obtuse marginal branch has a30% to 40% stenosis in its mid segment.Right coronary artery: The RCA is large vessel and is dominant. The midRCA has a has a 70% stenosis. The distal RCA has an aneurysmal segmentwith a 20% to 30% stenosis. After stent procedure, there was 0% residualstenosis in the mid RCA. The PANKAJ and PDA are patent.Electronically Signed by:Rachel Padron M.D. 07/13/2017 02:50 P Rachel Padron M.D.Date Dict: 07/09/2017/01:29 P/Rachel Padron M.D.Date Trans: 07/10/2017 09:40 A/nicoleoDJagdish_JN:[id number] cc: Dinesh Dyer M.D. [address] [address] Dinesh Collins M.D. [address] [address] Normal [facility] Vital Signs Date Time Vital Sign Value Performing Clinician Facility 11-24-2023 14:15-0500 Body height 153.03 cm Chance Damon Other [facility] Other 11-24-2023 14:15-0500 Body mass index (BMI) [Ratio] 17.62 kg/m2 Chance Damon Other [facility] Other 11-24-2023 14:15-0500 Body weight 41.28 kg Chance Damon Other [facility] Other 10-26-2023 13:30-0500 Body height 153.03 cm Jairo Dorantes Other [facility] Other 10-26-2023 13:30-0500 Body mass index (BMI) [Ratio] 18.2 kg/m2 Jairo Hanleyiza Other [facility] Other 10-26-2023 13:30-0500 Body temperature 96.2 [degF] Jairo Dorantes Other [facility] Other 10-26-2023 13:30-0500 Body weight 42.64 kg Jairo Doarntes Other [facility] Other 10-26-2023 13:30-0500 Diastolic blood pressure 60 mm[Hg] Jairo Dorantes Other [facility] Other 10-26-2023 13:30-0500 SaO2% (BldA) [Mass fraction] 96 % Jairo Dorantes Other [facility] Other 10-26-2023 13:30-0500 Systolic blood pressure 130 mm[Hg] Jairo Dorantes Other [facility] Other 09-27-2023 13:00-0400 Body height 153.03 cm Chance Damon Other [facility] Other 09-27-2023 13:00-0400 Body mass index (BMI) [Ratio] 18.2 kg/m2 Chance Damon Other [facility] Other 09-27-2023 13:00-0400 Body weight 42.64 kg Chance Damon Other [facility] Other 09-27-2023 13:00-0400 Diastolic blood pressure 66 mm[Hg] Chance Damon Other [facility] Other 09-27-2023 13:00-0400 Systolic blood pressure 135 mm[Hg] Chance Scovanner Other [facility] Other 06-25-2023 11:00-0400 Body height 153.03 cm Chance Scovanner Other [facility] Other 06-25-2023 11:00-0400 Body mass index (BMI) [Ratio] 18.2 kg/m2 Chance Scovanner Other [facility] Other 06-25-2023 11:00-0400 Body weight 42.64 kg Chance Scovanner Other [facility] Other 06-25-2023 11:00-0400 Diastolic blood pressure 71 mm[Hg] Chance Scovanner Other [facility] Other 06-25-2023 11:00-0400 Systolic blood pressure 119 mm[Hg] Chance Scovanner Other [facility] Other 06-07-2023 11:30-0400 Body height 153.03 cm Bebe Lraa Other [facility] Other 06-07-2023 11:30-0400 Body mass index (BMI) [Ratio] 17.89 kg/m2 Bebe Lara Other [facility] Other 06-07-2023 11:30-0400 Body temperature 97.6 [degF] Bebe Lara Other [facility] Other 06-07-2023 11:30-0400 Body weight 41.91 kg Bebe Lara Other [facility] Other 06-07-2023 11:30-0400 Diastolic blood pressure 68 mm[Hg] Bebe Lara Other [facility] Other 06-07-2023 11:30-0400 SaO2% (BldA) [Mass fraction] 97 % Bebe Lara Other [facility] Other 06-07-2023 11:30-0400 Systolic blood pressure 128 mm[Hg] Bebe Lara Other [facility] Other 03-02-2023 13:05-0400 Blood Pressure Location MIRTA DOROTHEA [facility] 03-02-2023 13:05-0400 Diastolic blood pressure 72 mm[Hg] MIRTA DOROTHEA [facility] 03-02-2023 13:05-0400 Heart rate 60 /min MIRTA DOROTHEA [facility] 03-02-2023 13:05-0400 Respiratory rate 16 /min MIRTA DOROTHEA [facility] 03-02-2023 13:05-0400 Systolic blood pressure 122 mm[Hg] MIRTA DOROTHEA [facility] 02-24-2023 14:45-0400 Body height 153.03 cm Vu Guevara Other [facility] Other 02-24-2023 14:45-0400 Body mass index (BMI) [Ratio] 18.4 kg/m2 Vu Guevara Other [facility] Other 02-24-2023 14:45-0400 Body weight 43.09 kg Vu Guevara Other [facility] Other 02-24-2023 14:45-0400 Diastolic blood pressure 76 mm[Hg] Vu Coreay Other [facility] Other 02-24-2023 14:45-0400 Systolic blood pressure 122 mm[Hg] Vu Guevara Other [employer] [facility] Other 01-20-2023 15:45-0500 Diastolic blood pressure 76 mm[Hg] II Dinesh Dyer Work Phone: [facility] 01-20-2023 15:45-0500 Heart rate 75 /min II Dinesh Dyer Work Phone: [facility] 01-20-2023 15:45-0500 Respiratory rate 16 /min II Dinesh Dyer Work Phone: [facility] 01-20-2023 15:45-0500 SaO2% (BldA) [Mass fraction] 98 % II Dinesh Dyer Work Phone: [facility] 01-20-2023 15:45-0500 Systolic blood pressure 142 mm[Hg] II Dinesh Dyer Work Phone: [facility] 01-20-2023 10:55-0500 Body height 149.86 cm II Dinesh Dyer Work Phone: [facility] 01-20-2023 10:55-0500 Body weight 41.73 kg II Dinesh Dyer Work Phone: [facility] 01-11-2023 11:30-0500 Body height 153.03 cm Jairo Dorantes Other [facility] Other 01-11-2023 11:30-0500 Body mass index (BMI) [Ratio] 18.4 kg/m2 Jairo Dorantes Other [facility] Other 01-11-2023 11:30-0500 Body temperature 97.8 [degF] Jairo Dorantes Other [facility] Other 01-11-2023 11:30-0500 Body weight 43.09 kg Jairo Dorantes Other [facility] Other 01-11-2023 11:30-0500 Diastolic blood pressure 72 mm[Hg] Jairo Piperrer Other [facility] Other 01-11-2023 11:30-0500 SaO2% (BldA) [Mass fraction] 97 % Jairo Dorantes Other [facility] Other 01-11-2023 11:30-0500 Systolic blood pressure 116 mm[Hg] Jairo Piperrer Other [facility] Other 11-25-2021 12:00-0500 Body height 153.03 cm Gautam Rudidahiana Other [facility] Other 11-25-2021 12:00-0500 Body mass index (BMI) [Ratio] 19.56 kg/m2 Gautam Gaspar Other [facility] Other 11-25-2021 12:00-0500 Body weight 45.81 kg Gautam Gaspar Other [facility] Other Encounters Encounter Date Encounter Type Care Provider Facility Start: 03-07-2024 ambulatory MIRTA Piedra ty:MIC Stevens Start: 12-03-2023 (Sclerother) Sclerotherapy Bebe Ruttino [facility] Start: 12-03-2023 End: 12-03-2023 ambulatory Bebe Luceroo Other [facility] Other Start: 12-02-2023 End: 12-02-2023 ambulatory MILDRED CERVANTES Not Available Start: 11-24-2023 End: 11-24-2023 ambulatory Chance Damon Other [facility] Other Start: 11-24-2023 Office outpatient vi sit 15 minutes Chance Scovanjose a [facility] Start: 10-26-2023 End: 10-26-2023 ambulatory Jairo Dorantes Other [facility] Other Start: 10-26-2023 Office outpatient vi sit 25 minutes Jairo Dorantes [facility] Start: 09-27-2023 End: 09-27-2023 ambulatory Chance Damon Other [facility] Other Start: 09-27-2023 Office outpatient vi sit 15 minutes Chance Scovanjose a [facility] Start: 09-17-2023 (Sclerother) Sclerotherapy Bebe Dugantino [facility] Start: 09-17-2023 End: 09-17-2023 ambulatory Bebe Luceroo Other [facility] Other Start: 09-01-2023 End: 09-01-2023 ambulatory AB [facility] Start: 08-25-2023 End: 08-25-2023 ambulatory Referral Self Facility:[facility] Start: 06-25-2023 End: 06-25-2023 ambulatory Chance Damon Other [facility] Other Start: 06-25-2023 Office outpatient vi sit 15 minutes Chance Scovanjose a [facility] Start: 06-17-2023 End: 06-17-2023 ambulatory Jairo Dorantes Other [facility] Other Start: 06-17-2023 Telephone encounter Jairo Dorantes [facility] Start: 06-07-2023 End: 06-07-2023 Patient encounter procedure Bebe Lara [facility] Start: 06-07-2023 End: 06-07-2023 ambulatory II Dinesh Dyer Work Phone: [facility] Work Phone: Start: 04-22-2023 End: 04-22-2023 ambulatory VINCE BLUM Facility:[facility] Start: 03-05-2023 End: 03-06-[address] DINESH DYER Facility: Start: 03-02-2023 End: 03-03-2023 ambulatory MIRTA PIEDRA Facility:[facility] Start: 03-02-2023 End: 03-02-2023 Patient encounter procedure [facility]IRTA PIEDRA [facility] Start: 03-01-2023 End: 03-02-[address] DINESH DYER Facility: Start: 02-24-2023 End: 02-24-2023 ambulatory Vu Guevara Other [facility] Other Start: 02-24-2023 Patient encounter procedure Vu Guevara [facility] Start: 01-21-2023 End: 01-21-2023 ambulatory Jairo Dorantes Facility:[facility] Start: 01-21-2023 End: 01-21-2023 ambulatory II Dinesh Dyer Work Phone: [facility] Work Phone: Start: 01-21-2023 End: 01-21-2023 Patient encounter procedure II Dinesh Dyer Work Phone: [facility] [place] Work Phone: Start: 01-20-2023 End: 01-20-2023 ambulatory Jairo Dorantes Facility:[facility] Start: 01-20-2023 End: 01-20-2023 Admission to same day surgery center RORO Dyer Work Phone: [facility] Work Phone: Start: 01-20-2023 End: 01-20-2023 ambulatory RORO Dyer Work Phone: [facility] Work Phone: Start: 01-11-2023 End: 01-11-2023 ambulatory Jairo Piperamelieiza Other [facility] Other Start: 01-11-2023 Office outpatient ne w 45 minutes Jairo Dorantes [facility] Start: 10-01-2022 End: 10-02-[address] DINESH DYER Facility: Start: 09-28-2022 End: 09-28-[address] [facility] Start: 05-23-2022 End: 05-23-[address] DINESH DYER Facility: Start: 02-24-2022 End: 02-24-2022 Patient encounter procedure Tamia Gee Jr. [facility] Start: 11-25-2021 End: 11-25-2021 ambulatory Gautam Gaspar Other [facility] Other Start: 11-25-2021 Office outpatient vi sit 25 minutes Gautam Gaspar [facility] Start: 12-10-2017 End: 12-11-2017 Ambulatory GM JAMESON Facility:[facility] Start: 07-09-2017 End: 07-10-2017 Ambulatory RACHEL PADRON Facility:[facility] Start: 07-06-2017 End: 07-07-2017 Ambulatory DEFAULT PHYSICIAN Facility:[facility] Start: 07-01-2017 End: 07-02-2017 Ambulatory DEFAULT PHYSICIAN Facility:[facility] Procedures Date Procedure Procedure Detail Performing Clinician Start: 06-07-2023 Duplex scan of lower limb veins II Dinesh Dyer Work Phone: Start: 01-20-2023 IR Visceral Angiogra m (Mesenteric) (Not Applicable) II Dinesh Dyer Work Phone: Start: 01-19-2022 Cystourethroscopy wi th dilation of urethral stricture Tamia Gee Jr. Start: 12-10-2017 ANES UPR GI NDSC PX ERCP YUE Robert MOTA Start: 12-10-2017 ERCP REMOVE DUCT CALCULI ALI T NAWRAS Start: 12-10-2017 ERCP REMOVE FORGN BODY DUCT ALI T NAWRAS Appendectomy Tamia Guajardo Bilateral tubal ligation Damon Gee Jr. Cholecystectomy Tamia Gee Jr. 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 Plan of Treatment Date Care Activity Detail Author Start: 01-21-2023 Doppler ultrasonography of bilateral carotid arteries US carotid doppler BI [facility] Start: 01-21-2023 US.doppler Carotid arteries - bilateral [facility] Start: 01-20-2023 [facility] Patient Education Arteriogram (DC) [facility] Work Phone: Patient referral [facility] Work Phone: Immunizations Immunization Date Immunization Notes Care Provider Fa cilimitzi 09-02-2022 influenza virus vacc ine, unspecified formulation MIRTA PIEDRA [facility] 10-16-2021 SARS-CoV-2 (COVID-19 ) mRNA BNT-162b2 vax MIRTA PIEDRA [facility] Comment on above: Result Comment: 2022: [id number] 09-08-2021 influenza virus vacc ine, unspecified formulation MIRTA DOROTHEA [facility] 07-28-2021 zoster vaccine recombinant MIRTATRISHA PIEDRA [facility] 02-18-2021 SARS-CoV-2 (COVID-19 ) mRNA BNT-162b2 vax MIRTA DOROTHEA [facility] 01-27-2021 SARS-CoV-2 (COVID-19 ) mRNA BNT-162b2 vax MIRTA DOROTHEA [facility] 09-06-2020 influenza virus vacc ine, unspecified formulation MIRTA DOROTHEA [facility] 08-19-2020 pneumococcal polysaccharide vaccine, 23 valent MIRTA PIEDRA [facility] 09-27-2019 influenza virus vacc ine, unspecified formulation MIRTA DOROTHEA [facility] 09-22-2018 influenza virus vacc ine, unspecified formulation MIRTA DOROTHEA [facility] 09-27-2017 influenza virus vacc ine, unspecified formulation MIRTA DOROTHEA [facility] 09-15-2016 influenza virus vacc ine, unspecified formulation MIRTA DOROTHEA [facility] 10-03-2015 influenza virus vacc ine, unspecified formulation MIRTA DOROTHEA [facility] Payers Date Payer Category Payer Self-pay [id number] 1957 Medicare [id number] 2. [id number] 1940 Unknown [id number] 2.16.84 [id number] 1940 Unknown [id number] 2.16.84 [id number] 1940 Unknown [id number] 2.16.84 [id number] 1942 Unknown [id number] 2.16.84 [id number] 1942 Unknown [id number] 2.16.84 [id number] 1942 Unknown [id number] 2.16.840 .[id number] 1942 Unknown [id number] 2.16.8 [id number] 1940 Unknown [id number] 2.16.8 [id number] Medicare [id number] Medicare Medicare [id number] Medicare [id number] 2.1 [id number] Unknown Unknown [facility] Health Claims [id number] Unknown [id number] 2.16.8 [id number] Unknown [id number] 2.16.8 [id number] Unknown [id number] 2.16.8 [id number] Unknown [id number] 2.16.8 [id number] Social History Date Type Detail Facility Start: 12-10-2020 End: 01-20-2023 Tobacco smoking status Ex-smoker (finding) [facility] Other Sex Assigned At Female [facility] Other Start: 1940 Sex Assigned At Female F [facility] Medical Equipment Procedure Code Equipment Code Equipment Origin al Text Equipment Identifier Dates ERCP (endoscopic retrograde cholangiopancreatog ramsey) STENT HUIBREGTSE BILIARY 10-7 FDA Start: 11-30-2017 ERCP (endoscopic retrograde cholangiopancreatog ramsey) STENT HUIBREGTSE BILIARY 10-7 FDA Start: 11-30-2017 ERCP (endoscopic retrograde cholangiopancreatog ramsey) STENT HUIBREGTSE BILIARY 10-7 FDA Start: 11-30-2017 Functional Status Date Assessment Result Facility 03-02-2023 Functional Status N/A [facility] Clinical Notes 11-25-2021 to 11-24-2023 Note Date & Type Note Facility 11-24-2023 Evaluation note Encounter Date Diagnosis Assessment Notes Oct, Constipation (ICD-10 - K59.00) no complaints at this time Oct, Nausea (ICD-10 - R11.0) The patient continues with nausea. She is taking Prilosec & Pepcid. She uses Phenergan one a day, at bedtime. She can continue this. She will be given samples of IB Guard. A gastric empty study will be ordered. If this is normal, an EGD will be considered. The patient does not wish to proceed with this. She would like to continue Prilosec & Pepcid. She is willing to add IB Guard. She states she will consider further testing at her next visit here in two months. [facility] Other 11-28-2023 Evaluation note* Encounter Date Diagnosis Assessment Notes Treatment Notes Treatment Clinical Notes Sep, Symptomatic varicose veins of right lower extremity (ICD-10 - I83.891) Sep, Other Symptomatic varicose veins right leg She had partial resolution of the area of concern after her first session of sclerotherapy. I believe another session will result in a much improved outcome for her symptomatically. Will use 1% solution at this time as the veins which remain a larger and should be easily accessed. She is in agreement with that plan [facility] Other 10-30-2023 Evaluation note* Encounter Date Diagnosis Assessment Notes Treatment Notes Treatment Clinical Notes Aug, Constipation, unspecified constipation type (ICD-10 - K59.00) PATIENT TO CONTINUE ON MIRALAX BID NEEDED TO HELP AVOID CONSTIPATION. PATIENT STATES THAT SHE DOES HAVE A BOWEL MOVEMENT DAILY. Aug, Bile reflux gastritis (ICD-10 - K29.60) Aug, Nausea (ICD-10 - R11.0) PATIENT STILL HAVING AN INCREASE IN NAUSEA, ESPICALLY IN THE MORNING. WILL START PATIENT ON PEPCID 40MG TWICE DAILY NEEDED. Aug, Other PATIENT TO INCREASE DAILY PROTEIN TO 90MG DAILY TO HELP WITH WEIGHT GAIN. CAN USE PROTEIN SHAKES OR YOGURTS ETC. [facility] Chief Complaint: Patient here for 1 year follow up hypertension, CAD. Metoprolol was increased last year to 50mg daily. Had labs and ECG in March 2023. She is not taking aspirin due to easy bruising. Denies chest pain and SOB. HPI: Hortencia Cm is a 83 y.o. female With a history of coronary artery disease, peripheral arterial disease here in routine follow-up Doing well from a cardiac standpoint; no new symptoms. She has no lower extremity claudication, discomfort or fatigue. She denies rest pain. She occasionally has nocturnal cramps but this is not new. Cardiology ROS: Review of Systems Constitutional: Positive for malaise/fatigue. Hematologic/Lymphatic: Bruises/bleeds easily. Musculoskeletal: Positive for joint pain and muscle cramps. Neurological: Positive for headaches. All other systems reviewed and are negative. Past Medical History She has a past medical history of Atrial fibrillation (CMS/HCC), Coronary artery disease, GERD (gastroesophageal reflux disease), Mesenteric artery stenosis (CMS/HCC), PVD (peripheral vascular disease) (CMS/HCC), and TIA (transient ischemic attack). Surgical History She has a past surgical history that includes Appendectomy; Blepharoplasty; Salivary gland surgery; Cardiac catheterization; and Coronary stent placement. Social History She reports that she has been smoking cigarettes. She has never used smokeless tobacco. She reports that she does not currently use alcohol. She reports that she does not use drugs. Family History Family History Problem Relation Name Age of Onset Hypertension Mother Heart disease Mother Other (malignant neoplastic disease) Father Allergies Erythromycin base, Estradiol, and Morphine Medications Current Outpatient Medications: ALPRAZolam (Xanax) 0.25 mg tablet, TAKE 1HALF TO ONE TABLET BY MOUTH EVERY 8 HOURS NEEDED FOR 20 DAYS, Disp: , Rfl: aspirin 81 mg EC tablet, Take 1 tablet twice a week by oral route., Disp: , Rfl: clopidogrel (Plavix) 75 mg tablet, TAKE ONE TABLET BY MOUTH DAILY FOR 90 DAYS, Disp: , Rfl: levothyroxine (Synthroid, Levoxyl) 50 mcg tablet, Take 1 tablet by mouth in the morning., Disp: , Rfl: metoprolol succinate XL (Toprol-XL) 50 mg 24 hr tablet, Take 1 tablet (50 mg) by mouth in the morning. Do not crush or chew., Disp: 90 tablet, Rfl: 3 rosuvastatin (Crestor) 20 mg tablet, Take 20 mg by mouth every other day., Disp: , Rfl: Last Recorded Vitals BP 139/64 (BP Location: Left arm, Patient Position: Sitting) Pulse 72 Ht 1.499 m (4' 11 ) Wt 42.2 kg (93 lb) SpO2 98% BMI 18.78 kg/m??? Physical Examination: GENERAL: alert and oriented x3, well developed, in no acute distress. HEAD: atraumatic, normocephalic. EYES: DAR, EOMI. NECK: trachea midline, no JVD present, no carotid bruits present. CARDIAC: S1, S2 present. RRR. No murmur, rubs, or gallops. RESPIRATORY: CTAB, no increased effort of breathing, no rales, rhonchi, or wheezing. ABDOMEN: soft, nontender, nondistended. EXTREMITIES: no lower extremity edema, peripheral pulses are 2+ bilaterally. No rash/skin discoloration present. NEURO: strength/sensation equal and symmetric in bilateral upper and lower extremities. PSYCH: appropriate mood, affect, and judgement. Assessment: 1. Coronary arteriosclerosis I25.10: Atherosclerotic heart disease of [place] coronary artery without angina pectoris 2. Gastroesophageal reflux disease K21.9: Gastro-esophageal reflux disease without esophagitis GASTROESOPHAGEAL REFLUX DISEASE (GERD): CARE INSTRUCTIONS 3. Migraine G43.909: Migraine, unspecified, not intractable, without status migrainosus 4. Paroxysmal atrial fibrillation - Questionable; records reviewed she had shearer printed circuit boards event and we wanted to get linq but she refused so we have no documentation of afib I48.0: Paroxysmal atrial fibrillation 5. History of transient ischemic attack Z86.73: Personal history of transient ischemic attack (TIA), and cerebral infarction without residual deficits 6. Abdominal pain R10.9: Unspecified abdominal pain ABDOMINAL PAIN: CARE INSTRUCTIONS 7. Peripheral vascular disease - DISTAL AORTIC STENOSIS '70% narrowing on CTA 09/2022 I73.9: Peripheral vascular disease, unspecified PERIPHERAL ARTERIAL DISEASE OF THE LEG: CARE INSTRUCTIONS 8. Mesenteric artery stenosis - she has isolated stenosis of the superior mesenteric artery; she has no food phobia or significant weight loss. In the absence of 2 out of 3 mesenteric vessel stenoses and/or occlusions, no further intervention is needed. 9. Systolic ejection murmur Plan: Continue optimal medical therapy for coronary and peripheral arterial disease including an antiplatelet, statin and a beta-capri In the absence of significant symptoms of claudication that is lifestyle limiting or critical limb ischemia, no indication for intervention on the distal aortic steno (more content not included)...[facility] 06-25-2023 Evaluation note* Encounter Date Diagnosis Assessment Notes Treatment Notes Treatment Clinical Notes May, Constipation (ICD-10 - K59.00) this patient is doing well on the Miralax titration. She is having one bowel movement a day. May, Bile reflux gastritis (ICD-10 - K29.60) The patient complains of nausea upon awakening. She states she is not taking her Omeprazole. She states she was getting Prilosec & got a letter from her insurance compnay that this had been recalled. She was informed that Dr Guevara had prescribed this for her to use twice a day. She was advised to take this 30 minutes prior to to food, twice a day. A new prescription for Omeprazole will be sent to [facility] in [place] Return to the office in three months. [facility] Other 07-20-2023 Evaluation note* Encounter Date Diagnosis Assessment Notes Treatment Notes Treatment Clinical Notes May, Symptomatic varicose veins of both lower extremities (ICD-10 - I83.893) [facility] Other 07-10-2023 Evaluation note* Encounter Date Diagnosis Assessment Notes Treatment Notes Treatment Clinical Notes May, Symptomatic varicose veins of both lower extremities (ICD-10 - I83.893) Reviewed today's full functional duplex of the right lower extremity which shows severe venous valvular incompetence at the saphenofemoral junction and the junction of the lesser saphenous vein to the popliteal vein. She does have significant secondary varicosities bilaterally. The most problematic for her is to the posterior right leg which causes severe itching and burning for in this region. Discussed recommendation for foam sclerotherapy treatment of just this region in particular as it is most problematic for her. Procedure, risk, benefits were discussed with her at length and all questions were addressed. We will submit for insurance approval of foam sclerotherapy of the symptomatic region and get her on the schedule in the near future. She verbalizes understanding of all discussion today, agrees with this plan, denies any questions. She understands the chronic nature of venous disease and the importance of ongoing continued conservative therapy efforts with use of her graded compression stockings, leg elevation, good skin care moisturizer therapy. May, Venous insufficiency of both lower extremities (ICD-10 - I87.2) [facility] Other 04-04-2023 Hospital Discharge instructions Patient Education 03/02/2023 13:28:16 Kidney Stones, [id number] Kidney Stones Kidney stones are rock-like masses that form inside of the kidneys. Kidneys are organs that make pee (urine). A kidney stone may move into other parts of the urinary tract, including: The tubes that connect the kidneys to the bladder (ureters). The bladder. The tube that carries urine out of the body (urethra). Kidney stones can cause very bad pain and can block the flow of pee. The stone usually leaves your body (passes) through your pee. You may need to have a doctor take out the stone. What are the causes? Kidney stones may be caused by: A condition in which certain glands make too much parathyroid hormone (primary hyperparathyroidism). A buildup of a type of crystals in the bladder made of a chemical called uric acid. The body makes uric acid when you eat certain foods. Narrowing (stricture) of one or both of the ureters. A kidney blockage that you were born with. Past surgery on the kidney or the ureters, such as gastric bypass surgery. What increases the risk? You are more likely to develop this condition if: You have had a kidney stone in the past. You have a family history of kidney stones. You do not drink enough water. You eat a diet that is high in protein, salt (sodium), or sugar. You are overweight or very overweight (obese). What are the signs or symptoms? Symptoms of a kidney stone may include: Pain in the side of the belly, right below the ribs (flank pain). Pain usually spreads (radiates) to the groin. Needing to pee often or right away (urgently). Pain when going pee (urinating). Blood in your pee (hematuria). Feeling like you may vomit (nauseous). Vomiting. Fever and chills. How is this treated? Treatment depends on the size, location, and makeup of the kidney stones. The stones will often pass out of the body through peeing. You may need to: Drink more fluid to help pass the stone. In some cases, you may be given fluids through an IV tube put into one of your veins at the hospital. Take medicine for pain. Make changes in your diet to help keep kidney stones from coming back. Sometimes, medical procedures are needed to remove a kidney stone. This may involve: A procedure to break up kidney stones using a beam of light (laser) or shock waves. Surgery to remove the kidney stones. Follow these instructions at home: Medicines Take nnae-wtx-cshtrud and prescription medicines only as told by your doctor. Ask your doctor if the medicine prescribed to you requires you to avoid driving or using heavy machinery. Eating and drinking Drink enough fluid to keep your pee pale yellow. You may be told to drink at least 8 10 glasses of water each day. This will help you pass the stone. If told by your doctor, change your diet. This may include: ?Limiting how much salt you eat. ?Eating more fruits and vegetables. ?Limiting how much meat, poultry, fish, and eggs you eat. Follow instructions from your doctor about eating or drinking restrictions. General instructions Collect pee samples as told by your doctor. You may need to collect a pee sample: ?24 hours after a stone comes out. ?8 12 weeks after a stone comes out, and every 6 12 months after that. Strain your pee every time you pee (urinate), for as long as told. Use the strainer that your doctor recommends. Do not throw out the stone. Keep it so that it can be tested by your doctor. Keep all follow-up visits as told by your doctor. This is important. You may need follow-up tests. How is this prevented? To prevent another kidney stone: Drink enough fluid to keep your pee pale yellow. This is the best way to prevent kidney stones. Eat healthy foods. Avoid certain foods as told by your doctor. You may be told to eat less protein. Stay at a healthy weight. Where to find more information National Kidney Foundation (NKF): www.kidney.org [employer] (UCF): www.urologyhealth.org Contact a doctor if: You have pain that gets worse or does not get better with medicine. Get help right away if: You have a fever or chills. You get very bad pain. You get new pain in your belly (abdomen). You pass out (faint). You cannot pee. Summary Kidney stones are rock-like masses that form inside of the kidneys. Kidney stones can cause very bad pain and can block the flow of pee. The stones will often pass out of the body through peeing. Drink enough fluid to keep your pee pale yellow. This information is not intended to replace advice given to you by your health care provider. Make sure you discuss any questions you have with your health care provider. Document Released: 05/03/2009 Document Revised: 04/02/2020 Document Reviewed: 04/02/2020 [employer] Patient Education 2019 [employer]. Follow Up Care 02/24/2022 12:57:34 With:MIRTA PIEDRA PA-C, URL Address: [address] [place] [address] When: Unknown [facility] 03-29-2023 Evaluation note* Encounter Date Diagnosis Assessment Notes Treatment Notes Treatment Clinical Notes Jan, Bile reflux gastritis (ICD-10 - K29.60) Increase omeprazole 40 mg to twice a day Jan, Constipation (ICD-10 - K59.00) Pt to continue miralax-titration dosing discussed with patient Rto 3 months with Chance Jan, Nausea (ICD-10 - R11.0) [facility] Other 02-13-2023 Evaluation note* Encounter Date Diagnosis Assessment Notes Treatment Notes Treatment Clinical Notes Dec, Chronic mesenteric ischemia (ICD-10 - K55.1) Dec, Other Symptomatic mesentery artery occlusive disease She will undergo diagnostic arteriogram with potential intervention as seems appropriate. She has a history of prior stroke that she reports from several years ago and has bilateral carotid bruits. There are no recent carotid studies in the chart so when she returns for follow-up we will obtain a duplex examination. [facility] Other 10-31-2022 NotePatient here for 1 year follow up CAD, PAF, and PVD. She has been taking Crestor every other night due to LE numbness and cramping. She stopped it for a few days and this resolved. She's back to taking it every other night. She denies chest pain and SOB. Had ECG and labs in April 2022. Review of Systems Hematologic/Lymphatic: Bruises/bleeds easily. Musculoskeletal: Positive for joint pain and muscle cramps. Neurological: Positive for headaches. All other systems reviewed and are negative.[facility] 09-28-2022 NoteSUBJECTIVE Chief Complaint Patient presents with Coronary Artery Disease Peripheral Vascular Disease Hortencia Cm is a 82 y.o. female here for follow-up. HPI Patient here for 1 year follow up CAD, PAF, and PVD. She has been taking Crestor every other night due to LE numbness and cramping. She stopped it for a few days and this resolved. She's back to taking it every other night. She denies chest pain and SOB. Had ECG and labs in April 2022. She states she has taken crestor every other day for the past month and denies any issues with leg cramps or numbness. BP today was 150/100 at home before medications. C/o spider veins that occasionally burn or itch. She denies CP, dyspnea at rest or exertion, orthopnea, PND, LE edema, dizziness/LH, palpitations. Patient Active Problem List Diagnosis Coronary arteriosclerosis Gastroesophageal reflux disease Migraine Non-toxic nodular goiter PVD (peripheral vascular disease) (CMS/HCC) Mixed hyperlipidemia Paroxysmal atrial fibrillation (CMS/HCC) Past Medical History: Diagnosis Date Atrial fibrillation (CMS/HCC) Coronary artery disease GERD (gastroesophageal reflux disease) Mesenteric artery stenosis (CMS/HCC) PVD (peripheral vascular disease) (CMS/HCC) TIA (transient ischemic attack) Family History Problem Relation Name Age of Onset Hypertension Mother Heart disease Mother Other (malignant neoplastic disease) Father Social History Tobacco Use Smoking status: Every Day Types: Cigarettes Smokeless tobacco: Never Substance Use Topics Alcohol use: Not Currently Drug use: Never Allergies Allergen Reactions Erythromycin Base Estradiol Morphine Review of Systems Hematologic/Lymphatic: Bruises/bleeds easily. Musculoskeletal: Positive for joint pain and muscle cramps. Neurological: Positive for headaches. All other systems reviewed and are negative. OBJECTIVE Visit Vitals BP 160/74 (BP Location: Left arm, Patient Position: Sitting) Pulse 87 Ht 1.499 m (4' 11 ) Wt 44.5 kg (98 lb) SpO2 (P) 97% BMI 19.79 kg/m??? Smoking Status Every Day BSA 1.36 m??? Medications: Current Outpatient Medications: ALPRAZolam (Xanax) 0.25 mg tablet, TAKE 1HALF TO ONE TABLET BY MOUTH EVERY 8 HOURS NEEDED FOR 20 DAYS, Disp: , Rfl: aspirin 81 mg EC tablet, Take 1 tablet twice a week by oral route., Disp: , Rfl: clopidogrel (Plavix) 75 mg tablet, TAKE ONE TABLET BY MOUTH DAILY FOR 90 DAYS, Disp: , Rfl: levothyroxine (Synthroid, Levoxyl) 50 mcg tablet, Take 1 tablet by mouth in the morning., Disp: , Rfl: rosuvastatin (Crestor) 20 mg tablet, Take 20 mg by mouth every other day., Disp: , Rfl: metoprolol succinate XL (Toprol-XL) 50 mg 24 hr tablet, Take 1 tablet (50 mg) by mouth in the morning. Do not crush or chew., Disp: 90 tablet, Rfl: 3 Physical Exam Vitals reviewed. Constitutional: Appearance: Normal appearance. She is normal weight. HENT: Head: Normocephalic and atraumatic. Right Ear: External ear normal. Left Ear: External ear normal. Eyes: Extraocular Movements: Extraocular movements intact. Conjunctiva/sclera: Conjunctivae normal. Pupils: Pupils are equal, round, and reactive to light. Neck: Vascular: No carotid bruit. Cardiovascular: Rate and Rhythm: Normal rate and regular rhythm. Pulses: Normal pulses. Heart sounds: Normal heart sounds. Pulmonary: Effort: Pulmonary effort is normal. Breath sounds: Normal breath sounds. Abdominal: General: Bowel sounds are normal. Palpations: Abdomen is soft. Musculoskeletal: Cervical back: Neck supple. Right lower leg: No edema. Left lower leg: No edema. Skin: General: Skin is warm and dry. Neurological: General: No focal deficit present. Mental Status: She is alert and oriented to person, place, and time. Psychiatric: Mood and Affect: Mood normal. Behavior: Behavior normal. Thought Content: Thought content normal. Judgment: Judgment normal. Labs/Testing/Procedures: Lipids 04/28/2022: chol 141, trig 124, HDL 35, LDL 81 Cardiac cath report DATE OF SURGERY: 07/09/2017 SURGEON: Rachel Padron M.D. CLINICAL PRESENTATION: Hortencia Cm is a 77-year-old female, who has been having burning chest pain over the last few months. She did not get better after treatment for heartburn. She had a cardiac stress test, which showed inferior ischemia and now presents for cardiac catheterization. IMPRESSION: Severe stenosis of the mid right coronary artery status post successful percutaneous coronary intervention with a PROMUS Premier 3.0 x 20 mm drug-eluting stent. PLAN: 1. Medical therapy for CAD has been started including aspirin 81 mg daily, atorvastatin 40 mg daily, Toprol-XL 25 mg daily. 2. Plavix 75 mg daily can be used for one year after the stent procedure and then can be discontinued. 3. Outpatient followup with Dr. Zi Collins in the [place] [facility] in [place]. 4. Referral to cardiac rehabi (more content not included)...[facility]02-23-2022 Hospital Discharge instructions Follow Up Care 01/21/2022 13:33:10 With:Gerard Agarwal MD, Tamia Carrington, U[facility] Address: When:1 year Comments:started new medication w/kub 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 evaluation + Plan note Future Appointments Appointment Date:03/07/2024 01:00:00 PM Scheduled Provider:MIRTA PIEDRA PA-C Location:[facility] Appointment Type:URO Office Visit [facility] evaluation noteNo assessment information available [facility] Work Phone: Evaluation noteNo InformationNort Proginet Other [facility]iss[facility] general Narrative - Reported* Type Description Date Medical History Stroke Medical History Kidney stones Medical History HTN Medical History Hypercholesteremia Medical History Hypothyroidism Surgical History gall bladder 2006 Surgical History appenedectomy 1956 Surgical History partial hysterectomy (twice) Surgical History caracts Surgical History SALIVA GLAD RIGHT SIDE 2019 Hospitalization History SEE ABOVE [facility] Other [facility] general Narrative - Reported* Type Description Date Medical History Stroke Medical History Kidney stones Medical History HTN Medical History Hypercholesteremia Medical History Hypothyroidism Medical History [Coronary artery disease with pr evious coronary stenting Medical History Prior stroke approxi mately 2018 which presented with generalized weakness but no clear lateralizing signs by history] Surgical History gall bladder 2006 Surgical History appenedectomy 1957 Surgical History partial hysterectomy (twice) Surgical History caracts Surgical History SALIVA GLAD RIGHT SIDE 2019 Surgical History [ ] Hospitalization History SEE ABOVE [facility] Other [facility] general Narrative - Reported* Type Description Date Medical History Stroke Medical History Kidney stones Medical History HTN Medical History Hypercholesteremia Medical History Hypothyroidism Medical History [Coronary artery disease with pr evious coronary stenting Medical History Prior stroke approxi mately 2018 which presented with generalized weakness but no clear lateralizing signs by history] Surgical History gall bladder 2007 Surgical History appenedectomy 1957 Surgical History partial hysterectomy (twice) Surgical History caracts Surgical History SALIVA GLAD RIGHT SIDE 2019 Surgical History Angiogram Aorta Runoff Hospitalization History SEE ABOVE [facility] Other [facility] general Narrative - Reported* Type Description Date Medical History Stroke Medical History Kidney stones Medical History HTN Medical History Hypercholesteremia Medical History Hypothyroidism Medical History [Coronary artery disease with pr evious coronary stenting Medical History Prior stroke approxi mately 2018 which presented with generalized weakness but no clear lateralizing signs by history] Medical History [ ] Surgical History gall bladder 2007 Surgical History appenedectomy 1957 Surgical History partial hysterectomy (twice) Surgical History caracts Surgical History SALIVA GLAD RIGHT SIDE 2019 Surgical History Angiogram Aorta Runoff Hospitalization History SEE ABOVE [facility] Other Hospital course Narrative No data available for this section [facility] Hospital Discharge instructions Additional Instructions Remove your dressing in 24 hours.[facility] Work Phone: Progress note No data available for this section [facility] Summary Purpose Family History No Family History Records Found Relationship Condition Age at Onset Recorded Date/T daphnie Not Specified Coronary artery disease Unknown father Malignant neoplasm of lung Unknown sister Malignant neoplasm of breast Unknown Advance Directives No Advanced Directives Records Found Advance Directive Response Recorded Date/ Time Advance Directives No October 12:42pm Advance Directive Response Recorded Date/ Time Advance Directives No October 1:42pm Chief Complaint and Reason for Visit Chief Complaint mesenteric ischemia Chief Complaint mesenteric ischemia mesenteric ischemia Chief Complaint I83.811 Additional Source Comments INFORMATION SOURCE (unrecogn ized section and content) DATE CREATED AUTHOR 05/23/2018 [facility] DATE CREATED AUTHOR AUTHOR'S ORGANIZ ATION 05/06/2020 [facility] DATE CREATED AUTHOR AUTHOR'S ORGANIZ ATION 04/30/2022 [facility] DATE CREATED AUTHOR AUTHOR'S ORGANIZ ATION 05/11/2023 [facility] [place] [facility] DATE CREATED AUTHOR AUTHOR'S ORGANIZ ATION 09/02/2023 [facility] DATE CREATED AUTHOR AUTHOR'S ORGANIZ ATION 09/05/2023 [facility] DATE CREATED AUTHOR AUTHOR'S ORGANIZ ATION 12/04/2023 [facility] EPIC DATE CREATED AUTHOR AUTHOR'S ORGANIZ ATION 12/08/2023 [facility] REASON FOR VISIT (unrecogniz ed section and content) PATIENT COMPLAINING OF ABDOM INALPAIN (PAST [facility] PT)REF BY DR DINESH DYER FOR ISCHEMIC BOWEL DISEASE, ABDOMINAL AORTIC STENOSIS, Abdominal painPatient here for 3 month follow up constipation, GERD. Pt was to continue Miralax and start Omeprazole.GO OVER RT LEG FFCompressions stockingsPatient is here for a 3 month follow up constipation, was to titrate miralax and continue omrazole. Patient is doing well with Miralax titration but complains of nausea uon awakening.SCLERO RT POST KNEEPatient is here for a 3 month follow up6 WK S/P SCLERO RIGHT POST KNEE, Varicose veinsPatient is here for a 2 month follow up. Patient states she feels about the same as her previous visit.SCLERO RT LEG Care Teams (unrecognized sec tion and content) Team Status: Inactive Member Role Status Dates Dinesh Dyer II MD Primary Care Provider Active Jairo Dorantes MD Attending Provider Active Team Status: Active Member Role Status Dates Dinesh Dyer II MD Primary Care Provider Active Team Status: Inactive Member Role Status Dates Dinesh Dyer II MD Primary Care Provider Active FELA SalinasC Attending Provider Active Goals (unrecognized section and content) Goals may be documented in a n alternate section FOR RECORDS PERTAINING TO PATIENTS WHO ARE OR HAVE BEEN ENROLLED IN A CHEMICAL DEPENDENCY/SUBSTANCEABUSE PROGRAM, SOME INFORMATION MAY BE OMITTED. This clinical summary was aggregated from multiple sources. Caution should be exercised in using it in the provision of clinical care. This summary normalizes information from multiple sources, and as a consequence, information in this document may materially change the coding, format and clinical context of patient data. In addition, data may be omitted in some cases. CLINICAL DECISIONS SHOULD BE BASED ON THE PRIMARY CLINICAL RECORDS. [facility]. provides no warranty or guarantee of the accuracy or completeness of information in this document.
--- NOTE | 2024-01-07 12:35 | US_ITS ---
The [address] [address] Patient Name: LEVI CM MRN: [id number] date: 1940 Sex: F Assigned Patient Location: ER Current Patient Location: Accession/Order Number: [id number] Exam Date: 01/07/2024 13:00 Report Date: 01/07/2024 13:40 At the request of: PRICILLA ODOM Procedure: US venous doppler LE RT EXAM: US venous doppler LE RT HISTORY: dvt COMPARISON: None TECHNIQUE: Utilizing color-flow duplex scanning and Doppler flow analysis, deep venous system of the right leg was evaluated. FINDINGS: Regarding the deep venous system there is normal compressibility seen throughout. There is gross patency identified. Augmentation is seen. There is no evidence of focal area of increased echogenicity within the deep venous system to suggest thrombosis. Visualized portion of the greater saphenous vein and superficial venous system appears grossly unremarkable. Views of the proximal lesser saphenous vein of the superficial venous system demonstrate noncompressibility with increased size and lack of color flow, associated faint increased luminal echogenicity. The findings are compatible with occlusive superficial venous thrombosis of the proximal portion of the lesser saphenous vein. US/US venous doppler LE RT IMPRESSION: Grossly unremarkable imaging study of the deep venous system of the right leg as described, no definite evidence of deep venous thrombosis can be identified. Findings compatible with occlusive thrombosis of the lesser saphenous vein of the superficial venous system as described. Electronically authenticated by: DOC DÍAZ Date: 01/07/2024 13:40
--- NOTE | 2024-01-07 12:48 | ED_ITS ---
HPI - General Adult General Chief complaint: Skin/Abscess/Foreign Body Stated complaint: LUMP ON R LEG R/O BLOOD CLOT Time Seen by Provider: 01/07/24 12:35 Source: patient Mode of arrival: walk-in Limitations: no limitations History of Present Illness HPI narrative: Patient is a 83-year-old female who is presenting to the Emergency Room with chief complaint of a firm mass just above the popliteal fossa of the right knee. Patient had vein surgery performed by Dr. Gaines at [facility] several weeks ago. Patient started noticing the firmness above the popliteal fossa of the right posterior knee yesterday and today. No significant pain. No bruising, no ecchymosis. Patient does take Plavix daily. Patient has no other acute complaints this time. No chest pain, shortness of breath. Patient is here to ru le out deep vein thrombosis. at bedside. All systems are negative except as noted/marked. All systems reviewed and otherwise negative. Nurses note and vital signs reviewed and patient is not hypoxic. General: The patient appears well and in no apparent distress. Patient is resting comfortably on cart. Patient is not toxic, lethargic, or listless Skin: Warm, dry, no pallor noted. There is no rash noted. No petechiae, purpura. Head: Normocephalic, atraumatic Eye: Normal conjunctiva, no drainage, EOMI. PERRL Ears, Nose, Mouth, and Throat: oral mucosa is moist. Nares patent. Mouth without vesicles. Cardiovascular: Regular Rate and Rhythm, no murmur, gallop, rub Respiratory: Patient is in no distress, no accessory muscle use, lungs are clear to auscultation, no wheezing, rales or rhonchi Back: non-tender, GI: no tenderness Musculoskeletal: Patient has full range of motion of all of the extremities, no motor, sensory, or focal neurological deficits. Patient has a small 2 x 1 x 1 cm area of firmness, not fluctuant, no ecchymosis, not painful, it is mobile with slight tenderness to palpation just proximal to the right posterior popliteal fossa. No obvious evidence of Fournier's cyst. No other Acute Findings. Neurological: A&O x4, normal speech Psychiatric: Cooperative Related Data Home Medications Medication Instructions Recorded Confirmed clopidogrel 75 mg tablet 75 mg PO DAILY 01/07/24 01/07/24 levothyroxine 50 mcg tablet 50 mcg PO DAILY 01/07/24 01/07/24 metoprolol succinate 50 mg 50 mg PO DAILY 01/07/24 01/07/24 tablet,extended release 24 hr omeprazole 40 mg capsule,delayed 40 mg PO DAILY 01/07/24 01/07/24 release rosuvastatin 20 mg tablet 20 mg PO DAILY 01/07/24 01/07/24 Allergies Allergy/AdvReac Type Severity Reaction Status Date / Time azithromycin [From Zithromax] AdvReac Mild Verified 01/07/24 12:11 morphine AdvReac Mild Verified 01/07/24 12:11 [facility] Social History Smoking status: Former smoker Exam Constitutional Vital Signs, click to edit/add: Last Vital Signs Temp 98.0 F 01/07/24 12:14 Pulse 78 01/07/24 12:14 Resp 16 01/07/24 12:14 BP 172/88 H 01/07/24 12:14 Pulse Ox 100 01/07/24 12:14 O2 Del Method Room Air 01/07/24 12:14 Course Vital Signs Vital signs: Vital Signs Temperature 98.0 F 01/07/24 12:14 Pulse Rate 78 01/07/24 12:14 Respiratory Rate 16 01/07/24 12:14 Blood Pressure 172/88 H 01/07/24 12:14 Pulse Oximetry 100 01/07/24 12:14 Oxygen Delivery Method Room Air 01/07/24 12:14 Temperature 98.0 F 01/07/24 12:14 Pulse Rate 78 01/07/24 12:14 Respiratory Rate 16 01/07/24 12:14 Blood Pressure 172/88 H 01/07/24 12:14 Pulse Oximetry 100 01/07/24 12:14 Oxygen Delivery Method Room Air 01/07/24 12:14 Medical Decision Making MDM Narrative Medical decision making narrative: Deep vein thrombosis study was negative. Patient is taking Plavix currently. I wrote on discharge paperwork with pending as well, to call Dr. Gaines her vascular surgeon to see if Dr. Gaines would want patient taking aspirin with Plavix for the next several weeks to help with superficial thrombophlebitis. Patient is not to take aspirin in addition until she called Dr. Gaines. This was handwritten and tight onto her discharge papers. Mayra GOMEZ wrote those instructions on the paperwork in pen not to start aspirin until she speaks to Dr. Gaines since she is on Plavix. No deep vein thrombosis. Education done at bedside. No questions at discharge. Patient states the pain is minimal. Discharge Plan Discharge Chief Complaint: Skin/Abscess/Foreign Body Clinical Impression: Superficial thrombophlebitis of leg Patient Disposition: Home, Self-Care Condition: Fair Prescriptions / Home Meds: No Action levothyroxine 50 mcg tablet 50 mcg PO DAILY metoprolol succinate 50 mg tablet extended release 24 hr 50 mg PO DAILY rosuvastatin 20 mg tablet 20 mg PO DAILY omeprazole 40 mg capsule,delayed release(DR/EC) 40 mg PO DAILY clopidogrel 75 mg tablet 75 mg PO DAILY Instructions: Superficial Thrombophlebitis (ED) Additional Instructions: Continue with aspirin daily, full aspirin and also warm compresses. You have no evidence of a DVT or deep blood clot. Follow-up with your vascular surgeon who performed the surgery or vein intervention. Keep legs elevated at nighttime while sleeping. Follow-up with PCP if any other acute events. Stand Alone Forms: Portal Instructions Referrals: LYRIC REINA [Primary Care Provider] - 1 week Discharge Date/Time: 01/07/24 14:47
== END 2024-01-07 14:47 | disposition home or self-care (01) ==
PROVIDERS: Emergency Provider Emergency Medicine; PCP Internal Medicine
DX: I80.01 Phlebitis and thrombophlebitis of superficial vessels of right lower extremity (principal); Z79.02 Long term (current) use of antithrombotics/antiplatelets; Z79.899 Other long term (current) drug therapy; Z79.890 Hormone replacement therapy; Z87.891 Personal history of nicotine dependence
CPT/HCPCS: 93971; 99284

== ENCOUNTER 2024-02-01 10:53 | Outpatient (OUT) | payer MEDICARE, SELFPAY ==
--- NOTE | 2024-02-01 10:55 | US_ITS ---
The [address] [address] Patient Name: LEVI CM MRN: [id number] date: 1940 Sex: F Assigned Patient Location: Current Patient Location: [place] Accession/Order Number: [id number] Exam Date: 02/01/2024 10:56 Report Date: 02/01/2024 11:54 At the request of: MILDRED CERVANTES Procedure: US renal BI EXAMINATION: US renal BI HISTORY: gross hematuria R31.0 COMPARISON: No relevant comparison available. TECHNIQUE: Ultrasound examination was performed of the bladder. FINDINGS: Right Kidney: Normal in size and contour. The cortex measures 0.9 cm. Areas of anechoic echogenicity measuring 1.9 cm, simple cyst. No solid cortical mass, hydronephrosis or obstructing nephrolithiasis. Height: 4.5 cm Length: 9.2 cm Width: 5.0 cm Left Kidney: Normal in size and contour. The cortex measures 0.8 cm. Areas of anechoic echogenicity measuring 1.5 cm, simple cyst. No solid cortical mass or hydronephrosis. Punctate nonobstructing nephrolithiasis Height: 4.2 cm Length: 9.3 cm Width: 4.4 cm Urinary bladder measures 5.4 x 4.6 x 9.4 cm, volume of 162 mL US/US renal BI IMPRESSION: No acute abnormality to explain the patient's hematuria. Electronically authenticated by: GAUTAM DELUNA Date: 02/01/2024 11:54
--- OUTSIDE RECORDS SUMMARY | 2024-02-01 11:03 | XMS_ITS | CCD ---
Author Name Unknown Address [address] [place] [address] Organization [facility] Care Team Providers Care Social Worker Psychiatric Name Role Phone PHYSICIAN, DEFAULT Unavailable Unavailable PHYSICIAN, DEFAULT Unavailable Unavailable DINESH DYER Unavailable Unavailable PHYSICIAN, DEFAULT Unavailable Unavailable PHYSICIAN, DEFAULT Unavailable Unavailable DINESH DYER Unavailable Unavailable RACHEL PADRON Unavailable Unavailable JOSUE BERGERON AM Unavailable Unavailable DINESH DYER Unavailable Unavailable DINESH DYER Unavailable Unavailable NAWRAS ALI T Unavailable Unavailable NAWRAS, ALI T Unavailable Unavailable DINESH DYER Unavailable Unavailable BEAR CAMEJO Unavailable Unavailable NM Unavailable Unavailable NAWRLIOR ALI T Unavailable Unavailable NM Unavailable Unavailable YUE MOTA Unavailable Unavailable DINESH DYER Primary Care Physician Gautam Gaspar Unavailable RORO Dyer Primary Care Provider MD Jairo Dorantes Attending Provider [phone] Jairo Dorantes Unavailable Vu Guevara Unavailable VINCE [...] Care Unavailable DR DINESH DYER Admitting Unavailable REGI, DR GAUTAM Woo Consulting Unavailable NUNO, DR GUNTER Primary Care Unavailable CLIFFORD, DR SHERRON Espino Consulting Unavailable GERARD Guajardo, DR TAMIA Carrington Attending Unavaila christina Guajardo, DR TAMIA Carrington Admitting Unavaila christina Guajardo, DR TAMIA Carrington Consulting Unavaila christina DYER, DR GUNTER Attending Unavailable NUNO, DR GUNTER Consulting Unavailable NUNO, DR GUNTER Primary Care Unavailable NUNO, DR GUNTER Admitting Unavailable THORNBURG, DR GAUTAM Woo Consulting Unavailable Bebe Lara [...] Drug Allergy 07-09-20 17 AOF, Insomnia [facility] Repository (6 sources) erythromycin base; Translations: [ERYTHROMYCIN BASE] Drug allergy (disorder) 03-04-20 15 AOF, Abdominal Pain [facility] Repository (1 source) 81491,00; Translations: [38319,00] Propensity to adverse reactions (disorder) 12-28-19 12 [facility] Repository (14 sources) Erythromycin; Translations: [erythromycin] Drug Allergy Unknown (qualifier value), Nausea (finding) [employer] Other (20 sources) Morphine; Translations: [morphine] Drug Allergy Unknown (qualifier value), Insomnia (disorder) [employer] Other (1 source) Erythromycin Drug Allergy 01-20-20 [facility] Repository (1 source) Morphine Drug Allergy 01-20-20 [facility] Repository (1 source) Estradiol; Translations: [ESTRADIOL] Drug Allergy 08-25-20 [facility] Medications Current Medications Medication Drug Class(es) [...] q12hr, # 30 tab(s), Refills(s) 1, Pharmacy: [facility] 1155, 149.9, cm, 12/10/20 15:01:00 EST, Height/Length [...] disease (4 sources) Atherosclerotic heart disease of [place] coronary artery with unstable angina pectoris; Translations: [Atherosclerotic heart disease of [place] coronary artery without angina pectoris] Onset: 07-09-2017 [...] sources) Long-term current use of anticoagulant; Translations: [meterman (current) use of anticoagulants] Onset: 02-24-2022 Epis[facility] Other aftercare (1 source) Other bed bug exterminator (current) drug therapy; Translations: [OTH NURSING HOME CURRENT DRUG THERAPY] Onset: 04-26-2023 Episodic Other aftercare (1 source) group home (current) use of anticoagulants; Translations: [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] Onset: 03-05-2023 Episodic Other [...] Onset: 12-10-2017 Episodic Other aftercare (1 source) meterman (current) use of aspirin; Translations: [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 Main [place] [address] [place] [address] Mammography Report Signed Patient: Hortencia Cm MR#: [id number] : 1940 Acct:[id number] Age/Sex: 83 / F ADM Date: 08/25/23 Loc: MD Room: Type: [facility] Attending Dr: Referral Self Copies to: Dinesh [...] Alva Gaines M.D.08/25/2023 3:19 PM Dictation Location: [facility] Transcribed By: CLIFF 08/25/231518 Dictated By: Alva Gaines II, MD 08/25/231513 Signed By: 08/25/23 151 Normal [facility] US venous duplex LE RTon US venous duplex LE [facility] Main [address] [address] Ultrasound Report Signed Patient: Hortencia Cm MR#: [id number] : 1940 Acct:[id number] Age/Sex: 83 / F ADM Date: 06/07/23 Loc: [facility] Room: Type: [facility] Attending Dr: Bebe Lara PURCHASING AND CLAIMS SUPERVISOR-C Ordering Provider: Bebe Lara APRN Date of [...] and gives rise to significant varicosities. Minimal hand stapler incompetence is noted. Impression dictated by: Jairo Dorantes M.D.06/07/2023 12:18 PM Dictation Location: [place] [address] Tech: Mirta Stockton Transcribed By: CLIFF 06/07/23 1218 Dictated By: Jairo Dorantes MD 06/07/23 121 Signed By: 06/07/23 1218 [facility] AMYLASEon 04-22-2023 Amylase [Catalytic activity/Vol] 33 U/L Normal 25-115 [facility] Comment on above: Performed By: #### L SCOTT NUR, LIPA, ABEL ####[facility] Dlsmiuwjom1022 [place] [id number]. Elia Burton CBC AUTO DIFFon 04-22-2023 BASO # 0.1 103/ul Normal 0.0-0.1 [facility] Comment on above: Performed By: #### C BC ####[facility] Jjldrlagmi6567 [place] [address]Dr. Elia Burton Basophils/100 WBC (Bld) 0.6 % Normal 0.2-2.0 [facility] Comment on above: Performed By: #### C BC ####[facility] I[address] [place], [place] [address]Dr. Elia Burton EO # 0.1 103/ul Normal 0.0-0.7 [facility] Comment on above: Performed By: #### C BC ####[facility] G[address] [place], [place] [address]Dr. Elia Burton Eosinophils/100 WBC (Bld) 0.7 % Critically low 0.9-7.0 [facility] Comment on above: Performed By: #### C BC ####[facility] Gwgqqvoqqz[address] [place], [place] [address]Dr. Elia Burton Erythrocyte distribution width (RBC) [Ratio] 13.4 % Normal 11.0-15.0 [facility] Comment on above: Performed By: #### C BC ####[facility] Asmumdvfay[address] [place], [place] [address]Dr. Elia Burton Hematocrit (Bld) [Volume fraction] 43.3 % Normal 36.0-48.0 [facility] Comment on above: Performed By: #### C BC ####[facility] Z[address]gkar[address]nsv[address] [place], [place] [address]Dr. Elia Burton Hemoglobin (Bld) [Mass/Vol] 13.9 g/dL Normal 12.0-16.0 [facility] Comment on above: Performed By: #### C BC ####[facility] K[address]ju[address] [place], [place] [address]Dr. Elia Burton IG # 0.03 10e3/ul Normal 0.00-0.03 [facility] Comment on above: Performed By: #### C BC ####[facility] Kxiujvjmya0847 [place] [address]Dr. Idaniaakanksha Burton IG % 0.4 % Normal 0.0-0.5 [facility] Comment on above: Performed By: #### C BC ####[facility] Vhbdizybnf3796 [place] [address]Dr. Elia Burton LYMPH # 2.0 103/ul Normal 1.2-3.8 [facility] Comment on above: Performed By: #### C BC ####[facility] Fulbayljxa6341 [place] [address]Dr. Elia Burton Lymphocytes/100 WBC (Bld) 23.9 % Normal 20.5-60.0 [facility] Comment on above: Performed By: #### C BC ####[facility] V[address] [place], [place] [address]DrBennett Burton MANUAL DIFF REQ NO Normal [facility] Comment on above: Performed By: #### C BC ####[facility] Efoirbwhgr4314 [place] [address]Dr. Elia Micheal MCH (RBC) [Entitic mass] 28.3 pg Normal 26.7-34.0 [facility] Comment on above: Performed By: #### C BC ####[facility] Huodndoxhy[address] [place], [place] [address]Dr. Idaniaakanksha Burton MCHC (RBC) [Mass/Vol] 32.1 g/dL Normal 29.9-35.2 [facility] Comment on above: Performed By: #### C BC ####[facility] [address] [place], [place] [address]DrBennett Idaniaakanksha Burton MCV (RBC) [Entitic vol] 88.0 fL Normal 81.0-99.0 [facility] Comment on above: Performed By: #### C BC ####[facility] Rbc[address]aiw[address] [place], [place] [address]DrBennett Burton MONO # 0.6 103/ul Normal 0.3-0.8 [facility] Comment on above: Performed By: #### C BC ####[facility] Qrgsdfluty2353 [place] [address]Dr. Elia Burton Monocytes/100 WBC (Bld) 6.9 % Normal 1.7-12.0 [facility] Comment on above: Performed By: #### C BC ####[facility] Rjgtqyipck7746 [place] [address]Dr. Elia Burton NEUT # 5.6 103/ul Normal 1.4-6.5 [facility] Comment on above: Performed By: #### C BC ####[facility] Cigubxkfgv6096 [place] [address]Dr. Elia Burton Neutrophils/100 WBC (Bld) 67.5 % Normal 43.0-75.0 [facility] Comment on above: Performed By: #### C BC ####[facility] Kepejgfrtn0031 [place] [address]Dr. Elia Burton Platelet mean volume (Bld) [Entitic vol] 9.4 fL Critically low 9.5-13.5 [facility] Comment on above: Performed By: #### C BC ####[facility] Iwrkeosxnr6687 [place] [address]Dr. Elia Burton PLT 265 103/ul Normal 150-450 [facility] Comment on above: Performed By: #### C BC ####[facility] Mvqwpywwbo5335 [place] [address]Dr. Elia Burton RBC 4.92 106/ul Normal 4.20-5.40 [facility] Comment on above: Performed By: #### C BC ####[facility] Hxmrnbvryt0564 [place] [address]Dr. Elia Burton WBC 8.3 103/ul Normal 4.0-11.0 [facility] Comment on above: Performed By: #### C BC ####[facility] Ywsdbodybq0576 [place] [address]Dr. Elia Burton CT ABD/PELV W CONon 04-22-20 [...] YELITZA GONZALEZ Date: 2023-04-22 15:25 Normal [facility] ER URINE PROFILEon 3 Bilirubin Ql (U) Negative Normal NEGATIVE [facility] Comment on above: Performed By: #### U MICRO, ERUR ####[facility] Ymfkychcmj4816 [place] [address] Elia Micheal Clarity (U) CLEAR Normal CLEAR [facility] Comment on above: Performed By: #### U MICRO, ERUR ####[facility] Arajztuqdw8264 [place] [address]Dr. Elia Burton Color (U) LT. YELLOW Normal YELLOW [facility] Comment on above: Performed By: #### U MICRO, ERUR ####[facility] Jsbtivdwqi6845 [place] [address]Dr. Elia Burton ERUAHD A micrscopic examina tion will be performed if indicated. Normal [facility] Comment on above: Performed By: #### U MICRO, ERUR ####[facility] Vezlydxrex7222 [place] [address]Dr. Elia Burton Glucose Ql (U) Negative Normal NEGATIVE [facility] Comment on above: Performed By: #### U MICRO, ERUR ####[facility] Oquecvhwkr0516 [place] [address]Dr. Elia Burton Hemoglobin Ql (U) SMALL Abnormal NEGATIVE [facility] Comment on above: Performed By: #### U MICRO, ERUR ####[facility] Xtjiyoabkg5495 [place] [address]Dr. Elia Burton Ketones Ql (U) Negative Normal NEGATIVE [facility] Comment on above: Performed By: #### U MICRO, ERUR ####[facility] Tbggqkbdfh5019 [place] [address]Dr. Elia Burton LEUKOCYTES TRACE Abnormal NEGATIVE [facility] Comment on above: Performed By: #### U MICRO, ERUR ####[facility] Rbixjqmvae4118 [place] [address]Dr. Elia Burton Nitrite Ql (U) Negative Normal NEGATIVE [facility] Comment on above: Performed By: #### U MICRO, ERUR ####[facility] Zaoamnenmx2796 [place] [address]Dr. Elia Burton pH (U) 6.5 [pH] Normal 5-9 [facility] Comment on above: Performed By: #### U MICRO, ERUR ####[facility] Gvgvjmusha2299 [place] [address]Dr. Elia Burton SPEC GRAVITY <=1.005 Abnormal 1.005-<=1.0 25 [facility] Comment on above: Performed By: #### U MICRO, ERUR ####[facility] Rtdljmxrau7787 [place] [address]Dr. Elia Burton UA PROTEIN Negative Normal NEGATIVE/ TRACE [facility] Comment on above: Performed By: #### U MICRO, ERUR ####[facility] Nmjkhpvfbv7753 [place] [address]Dr. Elia Burton UR MICRO IND INDICATED Normal [facility] Comment on above: Performed By: #### U MICRO, ERUR ####[facility] Xttczurlzf9937 [place] [address]Dr. Elia Burton Urobilinogen Qn (U) 0.2 {Farhana'U}/dL Normal 0.2 - 1. 0 [facility] Comment on above: Performed By: #### U MICRO, ERUR ####[facility] Rnewsqoljo[address] [place], [place] [address]Dr. Elia Burton LIPASEon 04-22-2023 Lipase [Catalytic activity/Vol] 61.0 U/L Critically low 73.0-393.0 [facility] Comment on above: Performed By: #### L IVER, BMP, LIPA, ABEL ####[facility] Z[address]eghbnyof[address] [place], [place] [address]Dr. Elia Burton LIVER PROFILEon 04-22-2023 Albumin [Mass/Vol] 3.6 g/dL Normal 3.4-5.0 [facility] Comment on above: Performed By: #### L IVER, BMP, LIPA, ABEL ####[facility] Cxhuvilucl7443 [place] [address]Dr. Elia Burton Albumin/Globulin [Mass ratio] 0.9 {ratio} Normal [facility] Comment on above: Performed By: #### L IVER, BMP, LIPA, ABEL ####[facility] Tndstwukyr[address] [place], [place] [address]Dr. Elia Burton ALP [Catalytic activity/Vol] 70 U/L Normal 46-116 [facility] Comment on above: Performed By: #### L IVER, BMP, LIPA, ABEL ####[facility] Aeyhabsjcq[address] [place], [place] [address]Dr. Elia Burton ALT [Catalytic activity/Vol] 15 U/L Normal 14-59 [facility] Comment on above: Performed By: #### L IVER, BMP, LIPA, ABEL ####[facility] Benaeyqyou2370 [place] [address]Dr. Elia Burton AST [Catalytic activity/Vol] 21 U/L Normal 15-37 [facility] Comment on above: Performed By: #### L IVER, BMP, LIPA, ABEL ####[facility] Ndwqgdmtxq6874 [place] [address]Dr. Elia Burton BILI, CONJUGATED 0.0 mg/dL Normal 0.0-0.2 [facility] Comment on above: Performed By: #### L IVER, BMP, LIPA, ABEL ####[facility] Ljltatiwuj7896 [place] [address]Dr. Elia Burton Bilirubin [Mass/Vol] 0.2 mg/dL Normal 0.2-1.0 [facility] Comment on above: Performed By: #### L IVER, BMP, LIPA, ABEL ####[facility] Hftnkkarkl6443 [place] [address]Dr. Elia Burton Globulin (S) [Mass/Vol] 4.1 g/dL Normal [facility] Comment on above: Performed By: #### L IVER, BMP, LIPA, ABEL ####[facility] Cuxropxpry7254 [place] [address]Dr. Elia Burton Protein [Mass/Vol] 7.7 g/dL Normal 6.4-8.2 [facility] Comment on above: Performed By: #### L IVER, BMP, LIPA, ABEL ####[facility] Awhpdufdom9663 [place] [address]Dr. Elia Burton PROF CHEM 8 (BAS METB)on Anion gap [Moles/Vol] 13.1 mmol/L Normal [facility] Comment on above: Performed By: #### L IVER, BMP, LIPA, ABEL ####[facility] Ccbwgcgyuc9640 [place] [address]Dr. Elia Burton Calcium [Mass/Vol] 9.1 mg/dL Normal 8.5-10.1 [facility] Comment on above: Performed By: #### L IVER, BMP, LIPA, ABEL ####[facility] Vbohknedrn1874 [place] [address]Dr. Elia Burton Chloride [Moles/Vol] 102 mmol/L Normal 98-107 [facility] Comment on above: Performed By: #### L IVER, BMP, LIPA, ABEL ####[facility] Qzdbhwokpe8035 [place] [address]Dr. Elia Burton CO2 [Moles/Vol] 28.6 mmol/L Normal 21.0-32.0 [facility] Comment on above: Performed By: #### L IVER, BMP, LIPA, ABEL ####[facility] Qmpydokmpj4376 [place] [address]Dr. Elia Burton Creatinine [Mass/Vol] 0.69 mg/dL Normal 0.55-1.02 [facility] Comment on above: Performed By: #### L IVER, BMP, LIPA, ABEL ####[facility] Iuvrodinuj7223 [place] [address]Dr. Elia Burton EGFR-AF [place] >60 Normal >=60 [facility] Comment on above: Performed By: #### L IVER, BMP, LIPA, ABEL ####[facility] Ybsoqmrkzq3812 [place] [address]Dr. Elia Burton EGFR-NON AF [place] >60 Normal >=60 [facility] Comment on above: Performed By: #### L IVER, BMP, LIPA, ABEL ####[facility] Lifhfbmuzu2363 [place] [address]Dr. Elia Burton Glucose [Mass/Vol] 157 mg/dL Critically high 74-106 [facility] Comment on above: Performed By: #### L IVER, BMP, LIPA, ABEL ####[facility] Qzwkdhtyyi4623 [place] [address]Dr. Elia Burton Potassium [Moles/Vol] 3.7 mmol/L Normal 3.5-5.1 [facility] Comment on above: Performed By: #### L IVSCOTT ROCK, LIPA, ABEL ####[facility] Zianydebao9009 [place] [address]Dr. Elia Burton Sodium [Moles/Vol] 140 mmol/L Normal 136-145 [facility] Comment on above: Performed By: #### L IVSCOTT [place]OCK, LIPA, ABEL ####[facility] Hzwqmjaxjv9599 [place] [address]Dr. Elia Burton Urea nitrogen [Mass/Vol] 8.0 mg/dL Normal 7.0-18.0 [facility] Comment on above: Performed By: #### L IVSCOTT [place], LIPA, ABEL ####[facility] Bvoickqirw2538 [place] [address]Dr. Elia Burton Urea nitrogen/Creatinine [Mass ratio] 11.6 mg/mg Normal [facility] Comment on above: Performed By: #### L SCOTT NUR LIPA, ABEL ####[facility] Dwajhqxhlh1073 [place] [address]Dr. Elia Burton URINE MICROSCOPIC ONLYon BACTERIA NONE SEEN Normal NONE SEEN [facility] Comment on above: Performed By: #### U MICRO, ERUR ####[facility] Ashpatcdhg[address] [place], [place] [address]Dr. Elia Burton Bacteria identified Cx Nom (U) NOT INDICATED Normal [facility] Comment on above: Performed By: #### U MICRO, ERUR ####[facility] Eevvpikfzi7219 [place] [address]Dr. Elia Burton CAST NONE SEEN Normal NONE SEEN [facility] Comment on above: Performed By: #### U MICRO, ERUR ####[facility] E[address]jax[address] [place], [place] [address]Dr. Elia Burton Crystals LM Nom (Urine sed) NONE SEEN Normal NONE SEEN [facility] Comment on above: Performed By: #### U MICRO, ERUR ####[facility] Tewsqfzhve[address] [place], [place] [address]Dr. Elia Burton Epithelial cells LM Ql (Urine sed) RARE Normal NONE SEEN /RARE [facility] Comment on above: Performed By: #### U MICRO, ERUR ####[facility] Owixzcxhtl5231 [place], [place] [address]Yh. Elia Burton MUCOUS NONE SEEN Normal NONE SEEN [facility] Comment on above: Performed By: #### U MICRO, ERUR ####[facility] Kxvozhzcyr5688 [place], [place] [address]Ko. Elia Burton RBC 5-10 Abnormal 0-2 [facility] Comment on above: Performed By: #### U MICRO, ERUR ####[facility] Hupiyzqhsz4025 [place], [place] [address]Wj. Elia Burton WBC 2-5 Abnormal NONE SEEN [facility] Comment on above: Performed By: #### U MICRO, ERUR ####[facility] Zftxysnxga3770 [place], [place] [address]Ro. Elia Burton XR LSPINE 2_3 VIEWSon 2022 XR LSPINE 2_3 VIEWS EXAMINATION: XR LSPI NE 2_3 VIEWS, [id number] HISTORY: Pain COMPARISON: Same day CT abdomen/pelvis. [...] by: CLEO PLUNKETT Date: 2023-04-22 15:20 Normal [facility] RAD - MISCon 03-24-2023 RAD - MIS [id number]:12 [id number] Normal [facility] XR DEXA BONE DENSITYon 03-05 XR DEXA [...] by: GAUTAM DELUNA Date: 2023-03-05 09:21 Normal [facility] Patient Educationon 03-02-20 23 Patient Education Urology [...] these instructions at home: Medicines ? Take jinv-ayb-lajbtvt and prescription medicines only as told by [...] 05/03/2009 Document Revised: 04/02/2020 Document Reviewed: 04/02/2020 [employer] Patient Education ? 2019 [employer]. Normal [facility] Urology Office/Clinic Noteon 03-02-2023 Urology Office/Clinic Note [...] tx at this time. 5. Anticoagulated (Z79.01: group home (current) use of anticoagulants) Plavix Follow-up With When Contact Information DOROTHEA PACHECO, MIRTA Mac, URL [address] [place] [address] Additional Instructions: 1 year w/ kub Patient Education Kidney Stones, Ehmv-in-Hjka Documentation recorded by the nathan Ryan accurately [...] Recorded influenza (more content not included)... Normal [facility] Comment on above: Result Comment: Elec tronically [...] by: SHERRON HORTON Date: 2023-03-01 12:53 Normal [facility] US carotid doppler BIon 12-31 US carotid doppler BI [facility] Main [place] [address] [place] [address] Ultrasound Report Signed Patient: Hortencia Cm MR#: [id number] : 1940 Acct:[id number] Age/Sex: 82 / F ADM Date: 01/21/23 Loc: Room: Type: [facility] Attending Dr: Jairo Dorantes MD Ordering Provider: [...] Elan Pelayo MD 01/22/23900 Signed By: 01/22/23901 [facility] Blood Urea Nitrogenon 2022 Urea nitrogen [Mass/Vol] 9 mg/dL Normal 9-23 [facility] Comment on above: Performed By: #### B UN, CREAT #### [facility] [address] Creatinineon 01-20-2023 Creatinine [Mass/Vol] 0.65 mg/dL Normal 0.44-1.03 [facility] Comment on above: Performed By: #### B UN, CREAT #### [facility] 1111 [place] [address] [place] Creatinine Clr Calc Pharmacy 36.95 [facility] Comment on above: Result Comment: PERF ORMED BY: [place] [address] PATHOLOGIST CLINICAL SERVICES ASSISTANT PENNIE CURRY M.D. Performed By: #### B UN, CREAT #### [address] Estimated GFR ( Miryam > 60 [facility] Comment on above: Result Comment: GFR estimated reference range: According to KDOQI guidelines, <60 ml/min/1.73m2 is sufficient to diagnose a patient with chronic kidney disease. Performed By: #### B UN, CREAT #### [facility] [address] [place] [address] Estimated GFR (Non- Am > 60 [facility] Comment on above: Performed By: #### B UN, CREAT #### [address] Creatinine and Glomerular fi ltration rate.predicted panel (S/P/Bld)Ordered By: Jairo Dorantes on 01-20-2023 Creatinine [Mass/Vol] 0.65 mg/dL 0.44-1.03 [facility] Estimated glomerular filtrat ion rate (GFR) non- AmericanOrdered By: Jairo Dorantes on 01-20-2023 GFR/1.73 sq M.predicted among non-blacks MDRD (S/P/Bld) [Vol rate/Area] > 60 mL/Min [facility] No Panel InformationOrdered By: Jairo Dorantes on 01-20-2023 Estimated GFR () > 60 mL/Min [facility] Comment on above: GFR estimated refere nce range: According to KDOQI guidelines, <60 ml/min/1.73m2 is sufficient to diagnose a patient with chronic kidney disease. Pharmacy Creatinine Clearance (Chem 36.95 [facility] Urea nitrogen [Mass/volume] in Serum or PlasmaOrdered By: Jairo Dorantes on 01-20-2023 Urea nitrogen [Mass/Vol] 9 mg/dL 08-[address] [facility] [address] ABD/PELV W CONon 10-02-20 CT [...] GAUTAM DELUNA Date: 2022-10-02 08:12 Normal [facility] CREATININEon 10-01-2022 Creatinine [Mass/Vol] 0.67 mg/dL Normal 0.55-1.02 [facility] Comment on above: Performed By: #### C MERARY #### [facility] [address] [place] [address] Dr. Elia Burton EGFR-AF [place] >60 Normal >=60 [facility] Comment on above: Performed By: #### C MERARY #### [facility] [address] [place], [place] [address] Dr. Elia Burton EGFR-NON AF [place] >60 Normal >=60 [facility] Center Comment on above: Performed By: #### C MERARY #### [facility] [address] [place], [place] [address] Dr. Elia Burton Follow-Upon 09-28-2022 Follow-Up [id number] Hortencia Cm 1940 F Date Provider Department Center 09/28/2022 JIMMY GUZMAN [facility] Family History Problem Relation Age of Onset Hypertension Mother Heart disease Mother Other Father Family Status - Relation Status Age at Mother Father Level of Service:30714 NM OFFICE/OUTPATIENT ESTABLISHED MOD MDM 30-39 MIN Reason for Visit and Comments: Coronary Artery Disease [187] Peripheral Vascular Disease [458] Normal [facility] CT ABD/PELV W CONon 05-24-[address] [...] by: ELENA AMBROSE Date: 2022-05-23 22:39 Normal [facility] AMYLASEon 05-23-2022 Amylase [Catalytic activity/Vol] 33 U/L Normal 25-115 [facility] Comment on above: Performed By: #### L IPA, CMP, ABEL #### [facility] [address] [place] [address] [address] Elia Burton CBC AUTO DIFFon 05-23-2022 BASO # 0.1 103/ul Normal 0.0-0.1 [facility] Comment on above: Performed By: #### C BC ####[facility] [address] [place] [address]DrBennett Burton Basophils/100 WBC (Bld) 0.9 % Normal 0.2-2.0 [facility] Comment on above: Performed By: #### C BC ####[facility] [address] [place] [address]DrBennett Burton EO # 0.1 103/ul Normal 0.0-0.7 [facility] Comment on above: Performed By: #### C BC ####[facility] [address] [place] [address]DrBennett Burton Eosinophils/100 WBC (Bld) 1.3 % Normal 0.9-7.0 [facility] Comment on above: Performed By: #### C BC ####[facility] [address] [place] [address]DrBennett Burton Erythrocyte distribution width (RBC) [Ratio] 14.1 % Normal 11.0-15.0 [facility] Comment on above: Performed By: #### C BC ####[facility] [address] [place] [address]DrBennett Burton Hematocrit (Bld) [Volume fraction] 44.3 % Normal 36.0-48.0 [facility] Comment on above: Performed By: #### C BC ####[facility] [address] [place] [address]DrBennett Burton Hemoglobin (Bld) [Mass/Vol] 14.2 g/dL Normal 12.0-16.0 [facility] Comment on above: Performed By: #### C BC ####[facility] [address] [place] [id number]. Elia Burton IG # 0.01 10e3/ul Normal 0.00-0.03 [facility] Comment on above: Performed By: #### C BC ####[facility] [address] [place] [address]Dr. Elia Burton IG % 0.1 % Normal 0.0-0.5 [facility] Comment on above: Performed By: #### C BC ####[facility] [address] [place] [address]Dr. Elia Burton LYMPH # 3.4 103/ul Normal 1.2-3.8 [facility] Comment on above: Performed By: #### C BC ####[facility] [address] [place] [address]Dr. Idaniaakanksha Burton Lymphocytes/100 WBC (Bld) 43.5 % Normal 20.5-60.0 [facility] Comment on above: Performed By: #### C BC ####[facility] [address] [place] [address]Dr. Elia Micheal MANUAL DIFF REQ NO Normal [facility] Comment on above: Performed By: #### C BC ####[facility] [address] [place] [address]Dr. Elia Burton MCH (RBC) [Entitic mass] 28.1 pg Normal 26.7-34.0 [facility] Comment on above: Performed By: #### C BC ####[facility] [address] [place] [address]Dr. Elia Burton MCHC (RBC) [Mass/Vol] 32.1 g/dL Normal 29.9-35.2 [facility] Comment on above: Performed By: #### C BC ####[facility] [address] [place] [address]Dr. Elia Burton MCV (RBC) [Entitic vol] 87.5 fL Normal 81.0-99.0 [facility] Comment on above: Performed By: #### C BC ####[facility] [address] [place] [address]Dr. Elia Burton MONO # 0.7 103/ul Normal 0.3-0.8 [facility] Comment on above: Performed By: #### C BC ####[facility] [address]ugxx[address] [place] [address]Dr. Elia Burton Monocytes/100 WBC (Bld) 8.4 % Normal 1.7-12.0 [facility] Comment on above: Performed By: #### C BC ####[facility] [address] [place] [address]Dr. Elia Burton NEUT # 3.5 103/ul Normal 1.4-6.5 [facility] Comment on above: Performed By: #### C BC ####[facility] [address] [place] [address]Dr. Elia Burton Neutrophils/100 WBC (Bld) 45.8 % Normal 43.0-75.0 [facility] Comment on above: Performed By: #### C BC ####[facility] [address] [place] [address]Dr. Elia Burton Platelet mean volume (Bld) [Entitic vol] 9.3 fL Critically low 9.5-13.5 [facility] Comment on above: Performed By: #### C BC ####[facility] [address] [place] [address]Dr. Elia Burton PLT 290 103/ul Normal 150-450 [facility] Comment on above: Performed By: #### C BC ####[facility] [address] [place] [address]Dr. Elia Burton RBC 5.06 106/ul Normal 4.20-5.40 [facility] Comment on above: Performed By: #### C BC ####[facility] [address]xsbdp[address] [place] [address]Dr. Elia Burton WBC 7.7 103/ul Normal 4.0-11.0 [facility] Comment on above: Performed By: #### C BC ####[facility] [address] [place], [place] [address]Dr. Elia Burton Covid-19 PCR (CVDTBH)on 04-30 SARS-CoV-2 (COVID-19) RNA LADI+probe Ql (Unsp spec) Not detected Normal NOT DETECTED [facility] Comment on above: Result Comment: When diagnostic [...] for this test is supported by the Stock Shipper of Health and Human Service's declaration that [...] be used). Performed By: #### C VDTBH ####[facility] [address] [place] [address]Dr. Elia Burton LIPASEon 05-23-2022 Lipase [Catalytic activity/Vol] 74.0 U/L Normal 73.0-393.0 [facility] Comment on above: Performed By: #### L IPA CMP, ABEL #### [facility] [address] [place] [address] Dr. Elia Burton PROF 14(COMP METB)on 022 Albumin [Mass/Vol] 3.9 g/dL Normal 3.4-5.0 [facility] Comment on above: Performed By: #### L IPA CMP, ABEL #### [facility] [address] [place] [address] Dr. Elia Burton Albumin/Globulin [Mass ratio] 0.9 {ratio} Normal [facility] Comment on above: Performed By: #### L IPA CMP, ABEL #### [facility] [address] [place] [address] Dr. Elia Burton ALP [Catalytic activity/Vol] 76 U/L Normal 46-116 [facility] Comment on above: Performed By: #### L IPA, CMP, ABEL #### [facility] [address] [place] [address] [address] Elia Burton ALT [Catalytic activity/Vol] 17 U/L Normal 14-59 [facility] Comment on above: Performed By: #### L IPA, CMP, ABEL #### [facility] [address] [place] [address] [address] Elia Burton Anion gap [Moles/Vol] 13.0 mmol/L Normal [facility] Comment on above: Performed By: #### L IPA, CMP, ABEL #### [facility] [address] [place] [address] Dr. Elia Burton AST [Catalytic activity/Vol] 19 U/L Normal 15-37 [facility] Comment on above: Performed By: #### L IPA, CMP, ABEL #### [facility] [address] [place] [address] Dr. Elia Burton Bilirubin [Mass/Vol] 0.4 mg/dL Normal 0.2-1.0 [facility] Comment on above: Performed By: #### L IPA, CMP, ABEL #### [facility] [address] [place] [address] Dr. Elia Burton Calcium [Mass/Vol] 9.3 mg/dL Normal 8.5-10.1 [facility] Comment on above: Performed By: #### L IPA, CMP, ABEL #### [facility] [address] [place] [address] Dr. Elia Burton Chloride [Moles/Vol] 103 mmol/L Normal 98-107 [facility] Comment on above: Performed By: #### L IPA, CMP, ABEL #### [facility] [address] [place] [address] Dr. Elia Burton CO2 [Moles/Vol] 28.8 mmol/L Normal 21.0-32.0 [facility] Comment on above: Performed By: #### L IPA, CMP, ABEL #### [facility] [address] [place] [address] [address] Elia Burton Creatinine [Mass/Vol] 0.68 mg/dL Normal 0.55-1.02 [facility] Comment on above: Performed By: #### L IPA, CMP, ABEL #### [facility] [address] [place] [address] [address] Elia Burton EGFR-AF HONG [place]ER >60 Normal >=60 [facility] Comment on above: Performed By: #### L IPA, CMP, ABEL #### [facility] [address] [place] [address] [address] Elia Burton EGFR-NON AF [place]ER >60 Normal >=60 [facility] Comment on above: Performed By: #### L IPA, CMP, ABEL #### [facility] [address] [place] [address] [address] Elia Burton Globulin (S) [Mass/Vol] 4.3 g/dL Normal [facility] Comment on above: Performed By: #### L IPA, CMP, ABEL #### [facility] [address] [place] [address] [address] Elia Burton Glucose [Mass/Vol] 107 mg/dL Critically high 74-106 [facility] Comment on above: Performed By: #### L IPA CMP, ABEL #### [facility] [address] [place] [address] [address] Elia Burton Potassium [Moles/Vol] 3.8 mmol/L Normal 3.5-5.1 [facility] Comment on above: Performed By: #### L IPA, CMP, ABEL #### [facility] [address] [place] [address] [address] Elia Burton Protein [Mass/Vol] 8.2 g/dL Normal 6.4-8.2 [facility] Comment on above: Performed By: #### L IPA, CMP, ABEL #### [facility] [address] [place] [address] [address] Elia Burton Sodium [Moles/Vol] 141 mmol/L Normal 136-145 [facility] Comment on above: Performed By: #### L IPA, CMP, ABEL #### [facility] [address] [place], [place] [address] Dr. Elia Burton Urea nitrogen [Mass/Vol] 5.0 mg/dL Critically low 7.0-18.0 [facility] Comment on above: Performed By: #### L IPA, CMP, ABEL #### [facility] [address] [place], [place] [address] Dr. Elia Burton Urea nitrogen/Creatinine [Mass ratio] 7.4 mg/mg Normal [facility] Comment on above: Performed By: #### L IPA, CMP, ABEL #### [facility] [address] [place], [place] [address] Dr. Elia Burton XR ABD FLAT UP_PA [...] by: Jaelyn MONIQUE Date: 2022-05-23 05:39 Normal [facility] Complete Blood Counton 04-28 Erythrocyte distribution width (RBC) [Ratio] 14.1 % Normal 11.0-15.0 [facility] [employer]st [employer] Comment on above: Performed By: #### C BC, VITD, LIPD, CMP #### [facility] [address] [place], [place] [id number] Hematocrit (Bld) [Volume fraction] 41.8 % Normal 35.0-47.0 [facility] [employer] Comment on above: Performed By: #### C BC, VITD, LIPD, CMP #### [facility] [address] [place] [id number] Hemoglobin (Bld) [Mass/Vol] 13.0 g/dL Normal 11.6-15.5 [facility] Specialist Comment on above: Performed By: #### C BC, VITD, LIPD, CMP #### [facility] [address] [place], [place] [id number] MCH (RBC) [Entitic mass] 27.4 pg Normal 27.0-33.0 [facility] Comment on above: Performed By: #### C BC, VITD, LIPD, CMP #### [facility] [address] [place], [place] [id number] MCHC (RBC) [Mass/Vol] 31.1 g/dL Low 32.0-36.0 [facility] Comment on above: Performed By: #### C BC, VITD, LIPD, CMP #### [facility] [address] [place], [place] [id number] MCV (RBC) [Entitic vol] 88 fL Normal 80-100 [facility] Comment on above: Performed By: #### C BC, VITD, LIPD, CMP #### [facility] [address] [place], [place] [id number] Platelet mean volume (Bld) [Entitic vol] 9.20 fL Normal 7.50-12.50 [facility] Comment on above: Performed By: #### C BC, VITD, LIPD, CMP #### [facility] [address] [place], [place] [id number] Platelets (Bld) [#/Vol] 281 10*3/uL Normal 140-400 [facility] Comment on above: Performed By: #### C BC, VITD, LIPD, CMP #### [facility] [address] [place], [place] [id number] RBC (Bld) [#/Vol] 4.74 10*6/uL Normal 3.90-5.20 [facility] Comment on above: Performed By: #### C BC, VITD, LIPD, CMP #### [facility] [address] [place], [place] [id number] RDW-SD 45.4 fL Normal 37.0-50.0 [facility] Comment on above: Performed By: #### C BC, VITD, LIPD, CMP #### [facility] [address] [place], [place] [id number] WBC (Bld) [#/Vol] 6.7 10*3/uL Normal 3.8-11.0 Noah rodrigues [place] [employer]st [employer] Comment on above: Performed By: #### C BC, VITD, LIPD, CMP #### [facility] [address] [place], [place] [id number] Comprehensive Metabolic Pane angus 04-28-2022 Albumin [Mass/Vol] 4.1 g/dL Normal 3.6-5.1 Noah rodrigues [place] [employer] Comment on above: Performed By: #### C BC, VITD, LIPD, CMP #### [facility] [address] [place], [place] [id number] Albumin/Globulin [Mass ratio] 1.5 {ratio} Normal 1.0-2.5 [facility] Analyst [employer] Comment on above: Performed By: #### C BC, VITD, LIPD, CMP #### [facility] [address] [place], [place] [id number] ALP [Catalytic activity/Vol] 71 U/L Normal 35-119 [facility] Analyst [employer] Comment on above: Performed By: #### C BC, VITD, LIPD, CMP #### [facility] [address] [place], [place] [id number] ALT [Catalytic activity/Vol] 8 U/L Normal 6-33 [facility] [employer]st [employer] Comment on above: Result Comment: 10/29 Female reference range changed. Performed By: #### C BC, VITD, LIPD, CMP #### [facility] [address] [place], [place] [id number] Anion gap [Moles/Vol] 15 mmol/L Normal 12-20 [facility] Comment on above: Result Comment: Effe ctive 12/04/2019 reference range changed. Performed By: #### C BC, VITD, LIPD, CMP #### [facility] [address] [place], [place] [id number] AST [Catalytic activity/Vol] 14 U/L Normal 9-34 [facility] Analyst [employer] Comment on above: Performed By: #### C BC, VITD, LIPD, CMP #### [facility] [address] [facility] [id number] BUN/CREA 12 Ratio Normal 6-22 [facility] Comment on above: Performed By: #### C BC, VITD, LIPD, CMP #### [facility] [address] [facility] [place] [id number] Calcium [Mass/Vol] 9.3 mg/dL Normal 8.6-10.2 [facility] Comment on above: Performed By: #### C BC, VITD, LIPD, CMP #### [facility] [address] [facility] [place] [id number] Chloride [Moles/Vol] 107 mmol/L Normal 98-107 [facility] Comment on above: Performed By: #### C BC, VITD, LIPD, CMP #### [facility] [address] [facility] [id number] CO2 [Moles/Vol] 25 mmol/L Normal 20-31 [facility] Comment on above: Performed By: #### C BC, VITD, LIPD, CMP #### [facility] [address] [facility] [id number] Creatinine [Mass/Vol] 0.6 mg/dL Normal 0.6-1.4 [facility] Comment on above: Performed By: #### C BC, VITD, LIPD, CMP #### [facility] [address] [facility] [place] [id number] eGFRAA 124 mL/min/1.73m2 Normal >60 [facility] Comment on above: Performed By: #### C BC, VITD, LIPD, CMP #### [facility] [address] [facility] [place] [id number] eGFRNAA 102 mL/min/1.73m2 Normal >60 [facility] Specialist Comment on above: Performed By: #### C BC, VITD, LIPD, CMP #### [facility] [address] [facility] [id number] Globulin (S) [Mass/Vol] 2.7 g/dL Normal 1.9-3.7 [facility] Comment on above: Performed By: #### C BC, VITD, LIPD, CMP #### [facility] [address] [place], [place] [id number] Glucose [Mass/Vol] 99 mg/dL Normal 65-99 Noah rodrigues [place] Analyst [employer] Comment on above: Result Comment: For FASTING Glucose --- ADA reference ranges: Normal 65-99 mg/dl Prediabetes 100-125 Diabetes >/= 126 Performed By: #### C BC, VITD, LIPD, CMP #### [facility] [address] [place], [place] [id number] Potassium [Moles/Vol] 4.4 mmol/L Normal 3.5-5.5 [facility] Specialist Comment on above: Performed By: #### C BC, VITD, LIPD, CMP #### [facility] [address] [place], [place] [id number] Protein [Mass/Vol] 6.8 g/dL Normal 6.1-8.1 [facility] Analyst [employer] Comment on above: Performed By: #### C BC, VITD, LIPD, CMP #### [facility] [address] [place], [place] [id number] Sodium [Moles/Vol] 143 mmol/L Normal 135-146 [facility] Analyst [employer] Comment on above: Performed By: #### C BC, VITD, LIPD, CMP #### [facility] [address] [place], [place] [id number] TBIL <0.3 Normal [facility] Specialist Comment on above: Performed By: #### C BC, VITD, LIPD, CMP #### [facility] [address] [place], [place] [id number] Urea nitrogen [Mass/Vol] 7 mg/dL Normal 7-25 [facility] Analyst [employer] Comment on above: Performed By: #### C BC, VITD, LIPD, CMP #### [facility] [address] [place], [place] [id number] Lipid Panelon 04-28-2022 Cholesterol [Mass/Vol] 141 mg/dL Normal 125-200 [facility] Analyst [employer] Comment on above: Result Comment: Low risk < 200mg/dL Borderline risk 201-239 mg/dl High risk > or equal to 240 Performed By: #### C BC, VITD, LIPD, CMP #### [facility] [address] [place], [place] [id number] Cholesterol in HDL [Mass/Vol] 35 mg/dL Low >40 [facility] Analyst [employer] Comment on above: Result Comment: High Cardiovascular Risk HDL <40 mg/dL Low Cardiovascular Risk HDL > or equal to 60 mg/dl Performed By: #### C BC, VITD, LIPD, CMP #### [facility] [address] [place], [place] [id number] Cholesterol in LDL [Mass/Vol] 81 mg/dL Normal [facility] Specialist Comment on above: Result Comment: LDL ATP III CLASSIFICATION LDL less than 100 mg/dl Optimal LDL 100-129 mg/dl Near or above optimal LDL 130-159 Borderline high LDL 160-189 High LDL greater than 189 mg/dl Very High Performed By: #### C BC, VITD, LIPD, CMP #### [facility] [address] [place], [place] [id number] Cholesterol in VLDL [Mass/Vol] 25 mg/dL Normal [facility] Analyst [employer] Comment on above: Performed By: #### C BC, VITD, LIPD, CMP #### [facility] [address] [place], [place] [id number] Cholesterol.total/Cho lesterol in HDL [Mass ratio] 4 {ratio} Normal [facility] Analyst [employer] Comment on above: Performed By: #### C BC, VITD, LIPD, CMP #### [facility] [address] [place], [place] [id number] Triglyceride [Mass/Vol] 124 mg/dL Normal 30-150 [facility] Analyst [employer] Comment on above: Result Comment: TRIG ATPIII CLASSIFICATIONS TRIG less than 150 mg/dl Normal TRIG 150-199 mg/dl Borderline High TRIG 200-500 mg/dl High TRIG greather than 500 mg/dl Very High Performed By: #### C BC, VITD, LIPD, CMP #### [facility] [address] [place], [place] [id number] Vitamin D 25-OHon 04-28-2022 VIT D 25 OH 44 ng/ml Normal >29 [facility] Analyst [employer] Comment on above: Result Comment: Natalee min D Status Deficiency <20 ng/mL Insufficiency 20-29 ng/mL Optimal 30-100 ng/mL Possible Toxicity >=150 ng/mL Performed By: #### C BC, VITD, LIPD, CMP #### [facility] [address] [place], [place] [id number] Free T3on 04-22-2022 FT3 2.65 pg/mL Normal 2.00-4.40 [facility] Specialist Comment on above: Performed By: #### T SH, FT4, FT3 #### [facility] [address] [place], [place] [id number] Free T4on 04-22-2022 Free T4 [Mass/Vol] 1.11 ng/dL Normal 0.80-1.80 [facility] Specialist Comment on above: Performed By: #### T SH, FT4, FT3 #### [facility] [address] [place], [place] [id number] TSHon 04-22-2022 TSH 3.670 uIU/mL Normal 0.400-4.500 [facility] Specialist Comment on above: Performed By: #### T SH, FT4, FT3 #### [facility] [address] [place], [place] [id number] Dermatopathologyon 0 Dermatopathology [facility] Dermatopathology Laboratory [address] [place] [id number] DERMATOPATHOLOGY REPORT Name:HORTENCIA CM [facility]. Rec #. [id number] Location: [facility] Date of Procedure: 05/01/2020 Race: Date Received: 05/03/2020 /Sex: 1940 (Age: 80) / F Date Reported: 05/06/2020 Other: Submitting Physician:MACRINA BANSAL APRN, PURCHASING AND CLAIMS SUPERVISOR-C FINAL DIAGNOSIS SKIN, (R) HINDU, BIOPSY: HYPERKERATOSIS WITH EPIDERMAL HYPERPLASIA, PRESENT ON [...] M.D. Electronically Signed Out By ABBEY CARO MD/[facility] By the signature on this report, the individual or group listed as making the Final Interpretation/Diagnosis certifies that they have reviewed this case. 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 Biopsy. Specimens Submitted As: A: SKIN, (R) HINDU Gross Description: Received in formalin is a nuñez piece of skin measuring [id number]. The specimen is inked and embedded in toto. dcp/05/03/2020 Normal [facility] Comment on above: Performed By: #### D #### Dermatopathology GI Letteron 12-14-2017 GI Letter [facility] Academic [facility] MedicineDivision [facility] Fax:Gastroenterology [phone] [facility] Zrqkexqrpy Medical [phone] Fax:[place] [phone] [place], [place]RE: Patient Name: Hortencia Cm MR #: [id number] Date of : 1940 Date of 12/10/2017 Service:Bear Camejo M.D.[address] [place] [address] [place] [id number] Camejo,I had the pleasure of seeing [...] M.D.Date Trans: 12/11/2017 12:03 A/mmoRevised: 12/14/2017 09:23 A/paCopy/pasteDN_JN:[id number]: Bear Camejo M.D. [address] [facility] [address] [facility] [address] Dinesh Dyer M.D. 8[address] [facility] [address] Normal [facility] Endoscopy Reporton 8 Endoscopy Report MR#: [id number] Hortencia Cm Surgery Date: 12/10/2017 [...] 12/10/2017/02:36 P/Gm Jameson M.D.Date Trans: 12/11/2017 12:02 P/nicoleoDJagdish_[id number] cc: Bear Camejo M.D. [address] [place] [address] [address] [facility] [address] Dinesh Dyer M.D. 3 [facility] [address] [place] [facility] ERCPon 12-10-2017 ERCP [facility] Exaxkeksc[address] [place] [phone] P atient Name: HORTENCIA CM : 1940Sex: FAge: Race: WhiteMRN: [id number]. Location: 230Patient Status: DVisit #: [id number] Date: 12/10/2017 5:00:00 AMCompleted Date: 12/10/2017 04:04 PMRequesting Provider: RICHARDSON TONG Attending Provider: Report Copy To: Signs & Symptoms: R10.9 Unspecified abdominal pain C66Iolzrlx: AthenaComments: , , Appointment Date: 12/10/2017 , Appointment Time: 1230 , , , Ordering Provider - RICHARDSON TONG , Exam: ERCPAccession #: [id number] ======ERCP 12/10/2017 4:04 PM EST TECH COMMENTS:ERCP [...] findings. Electronically signed by:Mario Willis. Transcribed by: [email or web address], User Resident: KELSEY JOSEElectronically Signed by: MARIO WILLIS @ 12/15/2017 10:02 AMI personally read this/these film(s) with this resident Normal [facility] Comment on above: Order Comment: , , A ppointment Date: 12/10/2017 , Appointment Time: 1230 , , , Ordering Provider - RICHARDSNO TONG , POC GLUCOSE LABon 12-10-2017 Glucose mass conc 115 mg/dL High 70-100 [facility] Comment on above: Performed By: #### 8 5499 ####[facility] Operative Reporton 7 Operative Report MR#: [id number] 2[facility] Pt. Name: Hortencia Cm Room #: 3CD [id number] Discharge Date: Birthdate: 1940 OPERATIVE REPORTDATE OF [...] followup with Dr. Zi [place] in the [place] [facility] in [place].4. Referral to cardiac rehabilitation.PROCEDURES : Coronary angiogram, [...] performed. All catheter exchanges were made overthe [employer] Torque guidewire. Catheters used were JL3.5 and JR4. Coronaryangiography was performed in multiple orthogonal views using hand injectionof contrast.I elected to proceed with PCI of the RCA. Heparin anticoagulation was usedfor this procedure. ACT was maintained greater than 250 seconds. A Cordis6-Romansh JR4 guide was engaged in the right [...] atmospheres.Next, the stent was post-dilated with an Beetle Be[employer] Quantum apex 3.25 x 12 mmnoncompliant balloon [...] 07/09/2017/01:29 P/Rachel Padron M.D.Date Trans: 07/10/2017 09:40 A/[id number] cc: Dinesh Dyer M.D. [address] [id number] Dinesh Collins M.D. [address] [address] Normal [facility] Vital Signs Date Time Vital Sign Value Performing Clinician Facility 11-24-2023 14:15-0500 Body height 153.03 cm Chance Damon Other [facility] Other 11-24-2023 14:15-0500 Body mass index (BMI) [Ratio] 17.62 kg/m2 Chance Damon Other [facility] Other 11-24-2023 14:15-0500 Body weight 41.28 kg Chance Damon Other [facility] Other 10-26-2023 13:30-0500 Body height 153.03 cm Jairo Dorantes Other [facility] Other 10-26-2023 13:30-0500 Body mass index (BMI) [Ratio] 18.2 kg/m2 Jairo Hanleyiza Other [facility] Other 10-26-2023 13:30-0500 Body temperature 96.2 [degF] Jairo Dorantes Other [facility] Other 10-26-2023 13:30-0500 Body weight 42.64 kg Jairo Dorantes Other [facility] Other 10-26-2023 13:30-0500 Diastolic blood pressure 60 mm[Hg] Jairo Dorantes Other [facility] Other 10-26-2023 13:30-0500 SaO2% (BldA) [Mass fraction] 96 % Jairo Dorantes Other [facility] Other 10-26-2023 13:30-0500 Systolic blood pressure 130 mm[Hg] Jairo Dorantes Other [facility] Other 09-27-2023 13:00-0400 Body height 153.03 cm Chance Damon Other [facility] Other 09-27-2023 13:00-0400 Body mass index (BMI) [Ratio] 18.2 kg/m2 Chance Damon Other [facility] Other 09-27-2023 13:00-0400 Body weight 42.64 kg Chance Damon Other [facility] Other 09-27-2023 13:00-0400 Diastolic blood pressure 66 mm[Hg] Chance Damon Other [facility] Other 09-27-2023 13:00-0400 Systolic blood pressure 135 mm[Hg] Chance Scovanner Other [facility] Other 06-25-2023 11:00-0400 Body height 153.03 cm Chance Scovanner Other [facility] Other 06-25-2023 11:00-0400 Body mass index (BMI) [Ratio] 18.2 kg/m2 Chance Scovanner Other [facility] Other 06-25-2023 11:00-0400 Body weight 42.64 kg Chance Scovanner Other [facility] Other 06-25-2023 11:00-0400 Diastolic blood pressure 71 mm[Hg] Chance Scovanner Other [facility] Other 06-25-2023 11:00-0400 Systolic blood pressure 119 mm[Hg] Chance Scovanner Other [facility] Other 06-07-2023 11:30-0400 Body height 153.03 cm Bebe Lara Other [facility] Other 06-07-2023 11:30-0400 Body mass index (BMI) [Ratio] 17.89 kg/m2 Bebe Lara Other [facility] Other 06-07-2023 11:30-0400 Body temperature 97.6 [degF] eBbe Lara Other [facility] Other 06-07-2023 11:30-0400 Body weight 41.91 kg Bebe Lara Other [facility] Other 06-07-2023 11:30-0400 Diastolic blood pressure 68 mm[Hg] Bebe Lara Other [facility] Other 06-07-2023 11:30-0400 SaO2% (BldA) [Mass fraction] 97 % Bebe Lara Other [facility] Other 06-07-2023 11:30-0400 Systolic blood pressure 128 mm[Hg] Bebe Lara Other [facility] Other 03-02-2023 13:05-0400 Blood Pressure Location MIRTA DOROTHEA [facility] 03-02-2023 13:05-0400 Diastolic blood pressure 72 mm[Hg] MIRTA DOROTHEA [facility] 03-02-2023 13:05-0400 Heart rate 60 /min MIRTA DOROTHEA [facility] 03-02-2023 13:05-0400 Respiratory rate 16 /min MIRTA DOROTHEA [facility] 03-02-2023 13:05-0400 Systolic blood pressure 122 mm[Hg] MIRTA DOROTHEA [facility] 02-24-2023 14:45-0400 Body height 153.03 cm Vu Guevara Other [facility] Other 02-24-2023 14:45-0400 Body mass index (BMI) [Ratio] 18.4 kg/m2 Vu Guevara Other [facility] Other 02-24-2023 14:45-0400 Body weight 43.09 kg Vu Guevara Other [facility] Other 02-24-2023 14:45-0400 Diastolic blood pressure 76 mm[Hg] Vu Coreay Other [facility] Other 02-24-2023 14:45-0400 Systolic blood pressure 122 mm[Hg] Vu Guevara Other [place] [facility] Other 01-20-2023 15:45-0500 Diastolic blood pressure 76 mm[Hg] II Dinesh Dyer Work Phone: [facility] 01-20-2023 15:45-0500 Heart rate 75 /min II Dinesh Dyer Work Phone: [facility] 01-20-2023 15:45-0500 Respiratory rate 16 /min II Dinesh Dyer Work Phone: [facility] 01-20-2023 15:45-0500 SaO2% (BldA) [Mass fraction] 98 % II Dinesh Dyer Work Phone: [facility] 01-20-2023 15:45-0500 Systolic blood pressure 142 mm[Hg] II Dinesh Dyer Work Phone: [facility] 01-20-2023 10:55-0500 Body height 149.86 cm II Dinesh Dyer Work Phone: [facility] 01-20-2023 10:55-0500 Body weight 41.73 kg II Dinesh Dyer Work Phone: [facility] 01-11-2023 11:30-0500 Body height 153.03 cm Jairo Dorantes Other [place] [employer] Other 01-11-2023 11:30-0500 Body mass index (BMI) [Ratio] 18.4 kg/m2 Jairo Dorantes Other [facility] Other 01-11-2023 11:30-0500 Body temperature 97.8 [degF] Jairo Dorantes Other [facility] Other 01-11-2023 11:30-0500 Body weight 43.09 kg Jairo Dorantes Other [facility] Other 01-11-2023 11:30-0500 Diastolic blood pressure 72 mm[Hg] Jairo Piperrer Other [facility] Other 01-11-2023 11:30-0500 SaO2% (BldA) [Mass fraction] 97 % Jairo Dorantes Other [facility] Other 01-11-2023 11:30-0500 Systolic blood pressure 116 mm[Hg] Jairo Piperrer Other [facility] Other 11-25-2021 12:00-0500 Body height 153.03 cm Gautam Rudidahiana Other [facility] Other 11-25-2021 12:00-0500 Body mass index (BMI) [Ratio] 19.56 kg/m2 Gautam Gaspar Other [facility] Other 11-25-2021 12:00-0500 Body weight 45.81 kg Gautam Gaspar Other [facility] Other Encounters Encounter Date Encounter Type Care Provider Facility Start: 03-07-2024 ambulatory MIRTA Piedra ty:MIC Stevens Start: 12-03-2023 (Sclerother) Sclerotherapy Bebe Ruttino [facility] Start: 12-03-2023 End: 12-03-2023 ambulatory Bebe Luceroo Other [facility] Other Start: 12-02-2023 End: 12-02-2023 ambulatory MILDRED CERVANTES Not Available Start: 11-24-2023 End: 11-24-2023 ambulatory Chance Damon Other [facility] Other Start: 11-24-2023 Office outpatient vi sit 15 minutes Chance Scovanjose a [facility] Gastroenterology Start: 10-26-2023 End: 10-26-2023 ambulatory Jairo Dorantes Other [facility] Other Start: 10-26-2023 Office outpatient vi sit 25 minutes Jairo Dorantes [facility] Vascular Surgery Start: 09-27-2023 End: 09-27-2023 ambulatory Chance Damon Other [facility] Other Start: 09-27-2023 Office outpatient vi sit 15 minutes Chance Scovanjose a [facility] Gastroenterology Start: 09-17-2023 (Sclerother) Sclerotherapy Bebe Dugantino [facility] Vascular Surgery Start: 09-17-2023 End: 09-17-2023 ambulatory Bebe Luceroo Other [facility] Other Start: 09-01-2023 End: 09-01-2023 ambulatory AB [facility] Start: 08-25-2023 End: 08-25-2023 ambulatory Referral Self Facility:[facility] Start: 06-25-2023 End: 06-25-2023 ambulatory Chance Damon Other [facility] Other Start: 06-25-2023 Office outpatient vi sit 15 minutes Chance Scovanjose a [facility] Gastroenterology Start: 06-17-2023 End: 06-17-2023 ambulatory Jairo Dorantes Other [facility] Other Start: 06-17-2023 Telephone encounter Jairo Dorantes [facility] Vascular Surgery Start: 06-07-2023 End: 06-07-2023 Patient encounter procedure Bebe Lara [facility] Vascular Surgery Start: 06-07-2023 End: 06-07-2023 ambulatory II Dinesh Dyer Work Phone: [facility] Work Phone: Start: 04-22-2023 End: 04-22-2023 ambulatory VINCE BLUM Facility:[facility] Start: 03-05-2023 End: 03-06-[address] DINESH DYER Facility: Start: 03-02-2023 End: 03-03-2023 ambulatory MIRTA PIEDRA Facility:[facility] Start: 03-02-2023 End: 03-02-2023 Patient encounter procedure MIRTA PIEDRA [facility] Start: 03-01-2023 End: 03-02-[address] DINESH DYER Facility: Start: 02-24-2023 End: 02-24-2023 ambulatory Vu Guevara Other [facility] Other Start: 02-24-2023 Patient encounter procedure Vu Guevara [facility] Gastroenterology Start: 01-21-2023 End: 01-21-2023 ambulatory Jairo Dorantes Facility:[facility] Start: 01-21-2023 End: 01-21-2023 ambulatory II Dinesh Dyer Work Phone: [facility] Work Phone: Start: 01-21-2023 End: 01-21-2023 Patient encounter procedure II Dinesh Dyer Work Phone: [facility] [place] Work Phone: Start: 01-20-2023 End: 01-20-2023 ambulatory Jairo Dorantes Facility:[facility] Start: 01-20-2023 End: 01-20-2023 Admission to same day surgery center RORO Dyer Work Phone: [facility] Work Phone: Start: 01-20-2023 End: 01-20-2023 ambulatory RORO Dyer Work Phone: [facility] Work Phone: Start: 01-11-2023 End: 01-11-2023 ambulatory Jairo Piperamelieiza Other [facility] Other Start: 01-11-2023 Office outpatient ne w 45 minutes Jairo Dorantes [facility] Start: 10-01-2022 End: 10-02-[address] DINESH DYER Facility: Start: 09-28-2022 End: 09-28-2022 ambulatory [facility] Start: 05-23-2022 End: 05-23-[address] DINESH DYER Facility: Start: 02-24-2022 End: 02-24-2022 Patient encounter procedure Tamia Gee Jr. [facility] Start: 11-25-2021 End: 11-25-2021 ambulatory Gautam Gaspar Other [facility] Other Start: 11-25-2021 Office outpatient vi sit [...] bilateral carotid arteries US carotid doppler BI [facility] Start: 01-21-2023 US.doppler Carotid arteries - bilateral [facility] Start: 01-20-2023 [facility] Patient Education Arteriogram (DC) [facility] Work Phone: Patient referral [facility] Work Phone: Immunizations Immunization Date Immunization Notes Care Provider Fa cilimitzi 09-02-2022 influenza virus vacc ine, unspecified formulation MIRTA PIEDRA [facility] 10-16-2021 SARS-CoV-2 (COVID-19 ) mRNA BNT-162b2 vax MIRTA PIEDRA [facility] Comment on above: Result Comment: 2022: [id number] 09-08-2021 influenza virus vacc ine, unspecified formulation MIRTA DOROTHEA [facility] 07-28-2021 zoster vaccine recombinant MIRTATRISHA PIEDRA [facility] 02-18-2021 SARS-CoV-2 (COVID-19 ) mRNA BNT-162b2 vax MIRTA DOROTHEA [facility] 01-27-2021 SARS-CoV-2 (COVID-19 ) mRNA BNT-162b2 vax MIRTA DOROTHEA [facility] 09-06-2020 influenza virus vacc ine, unspecified formulation MIRTA DOROTHEA [facility] 08-19-2020 pneumococcal polysaccharide vaccine, 23 valent MIRTA PIEDRA [facility] 09-27-2019 influenza virus vacc ine, unspecified formulation IMRTA DOROTHEA [facility] 09-22-2018 influenza virus vacc ine, unspecified formulation MIRTA DOROTHEA [facility] 09-27-2017 influenza virus vacc ine, unspecified formulation MIRTA DOROTHEA [facility] 09-15-2016 influenza virus vacc ine, unspecified formulation MIRTA DOROTHEA [facility] 10-03-2015 influenza virus vacc ine, unspecified formulation MIRTA DOROTHEA [facility] Payers Date Payer Category Payer Self-pay [id number] 1957 Medicare [id number] 2. [id number] 1940 Unknown [id number] 2.16.84 [id number] 1940 Unknown [id number] 2.16.84 [id number] 1940 Unknown [id number] 2.16.84 [id number] 1940 Unknown [id number] 2.16.84 [id number] 1940 Unknown [id number] 2.16.84 [id number] 1940 Unknown [id number] 2.16.840 .[id number] 1940 Unknown [id number] 2.16.8 [id number] 1940 Unknown [id number] 2.16.8 [id number] Medicare [id number] Medicare Medicare [id number] Medicare [id number] 2.1 [id number] Unknown Unknown [facility] Health Claims [id number] 1 [id number] Unknown [id number] 2.16.8 [id number] Unknown [id number] 2.16.8 [id number] Unknown [id number] 2.16.8 [id number] Unknown [id number] 2.16.8 [id number] Social History Date Type Detail Facility Start: 12-10-2020 End: 01-20-2023 Tobacco smoking status Ex-smoker (finding) [facility] Other Sex Assigned At Female [facility] Other Start: 1940 Sex Assigned At Female F [facility] Medical Equipment Procedure Code Equipment Code Equipment Origin al Text Equipment Identifier Dates ERCP (endoscopic retrograde cholangiopancreatog ramsey) STENT HUIBREGTSE BILIARY 10-7 FDA Start: 11-30-2017 ERCP (endoscopic retrograde cholangiopancreatog ramsey) STENT HUIBREGTSE BILIARY 10-7 FDA Start: 11-30-2017 ERCP (endoscopic retrograde cholangiopancreatog ramsey) STENT HUIBREGTSE BILIARY 10-7 FDA Start: 11-30-2017 Functional Status Date Assessment Result Facility 03-02-2023 Functional Status N/A [facility] Clinical Notes 11-25-2021 to 11-24-2023 Note Date [...] her next visit here in two months. [facility] Other 11-28-2023 Evaluation note* Encounter Date Diagnosis [...] She is in agreement with that plan [facility] Other 10-30-2023 Evaluation note* Encounter Date Diagnosis [...] CAN USE PROTEIN SHAKES OR YOGURTS ETC. [facility] [...] Coronary arteriosclerosis I25.10: Atherosclerotic heart disease of [place] coronary artery without angina pectoris 2. Gastroesophageal reflux disease K21.9: Gastro-esophageal reflux disease without esophagitis GASTROESOPHAGEAL REFLUX DISEASE (GERD): CARE INSTRUCTIONS 3. Migraine G43.909: Migraine, unspecified, not intractable, without status migrainosus 4. Paroxysmal atrial fibrillation - Questionable; records reviewed she had physician in private practice event and we wanted to get linq [...] the distal aortic steno (more content not included)...[facility] 06-25-2023 Evaluation note* Encounter Date Diagnosis Assessment [...] be sent to [facility] in [place] Return to the office in three months. [facility] Other 07-20-2023 Evaluation note* Encounter Date Diagnosis Assessment Notes Treatment Notes Treatment Clinical Notes May, Symptomatic varicose veins of both lower extremities (ICD-10 - I83.893) [facility] Other 07-10-2023 Evaluation note* Encounter Date Diagnosis [...] of both lower extremities (ICD-10 - I87.2) [facility] Other 04-04-2023 Hospital Discharge instructions Patient Education 03/02/2023 13:28:16 Kidney Stones, Ehlv-jh-Dpqr Kidney Stones Kidney stones are rock-like masses [...] Follow these instructions at home: Medicines Take yumj-nwh-jvibvdz and prescription medicines only as told by [...] 05/03/2009 Document Revised: 04/02/2020 Document Reviewed: 04/02/2020 [employer] Patient Education 2019 [employer]. Follow Up Care 02/24/2022 12:57:34 With:MIRTA PIEDRA PA-C, URL Address: [address] [place] 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 [facility] Other 10-31-2022 NotePatient here for 1 year [...] headaches. All other systems reviewed and are negative.[facility] 09-28-2022 NoteSUBJECTIVE Chief Complaint Patient presents with [...] followup with Dr. Zi Collins in the [place] [facility] in [place]. 4. 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) Oct, Other START TRIAL OF CARAFATE 1 GRAM BID CONTINUE PROMETHAZINE WITHOUT CHANGE PT WILL CALL TO REPORT IMPROVEMENT CONTINUE MIRALAX WITHOUT CHANGE [facility] Other Evaluation + Plan note Future Appointments Appointment Date:03/02/2023 11:15:00 AM Scheduled Provider:Gerard Agarwal MD, Tamia Carrington Location:[facility] Appointment Type:URO Office Visit Diagnostic Tests Pending * [facility] Fish and Urine Cyto ([facility]) 02/24/22 [facility] evaluation + Plan note Future Appointments Appointment Date:03/07/2024 01:00:00 PM Scheduled Provider:MIRTA PIEDRA PA-C Location:[facility] Appointment Type:URO Office Visit [facility] evaluation noteNo assessment information available [facility] Work Phone: Evaluation noteNo InformationNort [employer] Other [facility] general Narrative - Reported* Type Description Date Medical History Stroke Medical History Kidney stones Medical History HTN Medical History Hypercholesteremia Medical History Hypothyroidism Surgical History gall bladder 2006 Surgical History appenedectomy 1956 Surgical History partial hysterectomy (twice) Surgical History caracts Surgical History SALIVA GLAD RIGHT SIDE 2019 Hospitalization History SEE ABOVE [facility] Other [facility] Narrative - Reported* Type Description Date [...] History [ ] Hospitalization History SEE ABOVE [facility] Other [facility] general Narrative - Reported* Type Description Date [...] Angiogram Aorta Runoff Hospitalization History SEE ABOVE [facility] Other [facility] general Narrative - Reported* Type Description Date [...] Angiogram Aorta Runoff Hospitalization History SEE ABOVE [facility] Other Hospital course Narrative No data available for this section [facility] Hospital Discharge instructions Additional Instructions Remove your dressing in 24 hours.[facility] Work Phone: Progress note No data available for this section [facility] Summary Purpose Family History No Family History [...] and content) DATE CREATED AUTHOR 05/23/2018 [facility] DATE CREATED AUTHOR AUTHOR'S ORGANIZ ATION 05/06/2020 [facility] DATE CREATED AUTHOR AUTHOR'S ORGANIZ ATION 04/30/2022 [facility] DATE CREATED AUTHOR AUTHOR'S ORGANIZ ATION 05/11/2023 [facility] DATE CREATED AUTHOR AUTHOR'S ORGANIZ ATION 09/02/2023 [facility] DATE CREATED AUTHOR AUTHOR'S ORGANIZ ATION 09/05/2023 [facility] DATE CREATED AUTHOR AUTHOR'S ORGANIZ ATION 12/04/2023 [facility] EPIC DATE CREATED AUTHOR AUTHOR'S ORGANIZ ATION 12/08/2023 [facility] REASON FOR VISIT (unrecogniz ed section and [...] BE BASED ON THE PRIMARY CLINICAL RECORDS. [employer] [facility]. provides no warranty or guarantee of the accuracy or completeness of information in this document.
== END 2024-02-01 10:54 | disposition home or self-care (01) ==
LOC: US 10:53
PROVIDERS: PCP Internal Medicine; Visit Provider Nurse Practitioner Family
DX: R31.0 Gross hematuria (principal); N20.0 Calculus of kidney
CPT/HCPCS: 76775

== ENCOUNTER 2024-03-13 12:15 | Outpatient (OUT) | payer MEDICARE, SELFPAY ==
--- NOTE | 2024-03-13 12:23 | XR_ITS ---
[address] [id number] Patient Name: LEVI CM MRN: [id number] date: 1940 Sex: F Assigned Patient Location: [facility] Current Patient Location: [facility] Accession/Order Number: [id number] Exam Date: 03/13/2024 12:45 Report Date: 03/13/2024 13:15 At the request of: YESSICA PIEDRA Procedure: XR abdomen 1V EXAM: XR abdomen 1V HISTORY: kidney stone N20.0 COMPARISON: None. TECHNIQUE: AP view of the abdomen. FINDINGS: Nonobstructive bowel gas pattern is noted. There are punctate right renal calculi. Constipation. The osseous structures are intact. XR/XR abdomen 1V IMPRESSION: Nonobstructive bowel gas pattern. Constipation. Punctate right nephrolithiasis. Electronically authenticated by: ALVA MELGAR Date: 03/13/2024 13:15
== END 2024-03-13 12:16 | disposition home or self-care (01) ==
LOC: RAD 12:17
PROVIDERS: PCP Internal Medicine; Visit Provider Physician Assistant
DX: N20.0 Calculus of kidney (principal); K59.00 Constipation, unspecified
CPT/HCPCS: 74018

== ENCOUNTER 2024-09-29 09:31 | Outpatient (OUT) | payer MEDICARE, SELFPAY ==
--- OUTSIDE RECORDS SUMMARY | 2024-09-29 09:43 | XMS_ITS | CCD ---
Author Organization [facility] Care Team Providers Care Customer Data Technician Name Role Phone PHYSICIAN, DEFAULT Unavailable Unavailable PHYSICIAN, DEFAULT Unavailable Unavailable DINESH DYER Unavailable Unavailable PHYSICIAN, DEFAULT Unavailable Unavailable PHYSICIAN, DEFAULT Unavailable Unavailable DINESH DYER Unavailable Unavailable RACHEL PADRON Unavailable Unavailable JOSUE BERGERON AM Unavailable Unavailable DINESH DYER Unavailable Unavailable DINESH DYER Unavailable Unavailable NAWRAS, ALI T Unavailable Unavailable NAWRAS, ALI T Unavailable Unavailable DINESH DYER Unavailable Unavailable BEAR CAMEJO Unavailable Unavailable PA Unavailable Unavailable NAWRAS, ALI T Unavailable Unavailable PA Unavailable Unavailable YUE MOTA Unavailable Unavailable DINESH DYER Primary Care Physician Gautam Gaspar Unavailable RORO Dyer Primary Care Provider [phone] MD Jairo Dorantes Attending Provider [phone] Jairo Dorantes Unavailable Vu Guevara Unavailable VINCE BLUM Attending Unavailable VINCE BLUM Consulting Unavailable VINCE BLUM Admitting Unavailable GOMEZ, DR MONTIEL Primary Care Unavailable YELITZA GONZALEZ Consulting Unavailable GOMEZ, DR MONTIEL Primary Care Unavailable GERARD, DR ALVA Espino Consulting Unavailable GERARD, DR ALVA Espino Admitting Unavailable GERARD, DR ALVA Espino Attending Unavailable ELENA AMBROSE Consulting Unavailable ARASELI MONIQUE Consulting Unavailable GOMEZ, DR MONTIEL Attending Unavailable GOMEZ, DR MONTIEL Consulting Unavailable GOMEZ, DR MONTIEL Primary Care Unavailable GOMEZ, DR MONTIEL Admitting Unavailable REGI, DR GAUTAM Woo Consulting Unavailable GOMEZ, DR MONTIEL Primary Care Unavailable CLIFFORD, DR SHERRON Espino Consulting Unavailable GERARD Guajardo, DR TAMIA Carrington Attending Unavailelham Guajardo, DR TAMIA Carrington Admitting Unavaila christina Guajardo, DR TAMIA Carrington Consulting Unavaila ble GOMEZ, DR MONTIEL Attending Unavailable GOMEZ, DR MONTIEL Consulting Unavailable GOMEZ, DR MONTIEL Primary Care Unavailable GOMEZ, DR MONTIEL Admitting Unavailable WEST, DR GAUTAM Woo Consulting Unavailable Bebe Lara Unavailable Gomez, RORO Montiel Primary Care Provider [phone] PAPI Lara Attending Provider Chance Damon Unavailable Tammie Delgado Attending Unavailable Gomez, RORO Montiel Primary Care Provider PAPI Lara Attending Provider Gomez, II Dinesh Primary Care Provider Gomez, RORO Montiel Referring Provider Self, Referral Attending Provider Unavailable ANN HUNT Attending Unavailable Bebe Lara Admitting Unavailable Bebe Lara Attending Unavailable Dinesh Dyer Primary Care Unavailable Self, Referral Admitting Unavailable Self, Referral Attending Unavailable Dinesh Dyer Referring Unavailable Dinesh Dyer Primary Care Unavailable Dinesh Dyre MD Unavailable Dinesh Dyer MD Primary Care Provider PADMAJA MCMAHON Attending Unavailable PADMAJA MCMAHON Attending Unavailable PADMAJA MCMAHON Attending Unavailable LE SHIPLEY Attending Unavailable PADMAJA MCMAHON Referring Unavailable MACRINA SALAZAR Attending Unavailable PADMAJA MCMAHON Attending Unavailable Allergies Allergy Classification Reported Allergen(s) Allergy Type Date of Onset Reaction(s) Facility (13 sources) morphine; Translations: [morphine] Drug Allergy 07-09-20 17 AOF, Insomnia [facility] Repository (15 sources) erythromycin base; Translations: [ERYTHROMYCIN BASE] Drug allergy (disorder) 03-04-20 15 GI intolerance [facility] Repository (1 source) 40376,00; Translations: [90671,00] Propensity to adverse reactions (disorder) 12-28-19 12 [facility] Repository (18 sources) Erythromycin; Translations: [erythromycin] Drug Allergy 09-08-20 23 Unknown (qualifier value), Nausea (finding) [facility] Other (20 sources) Morphine; Translations: [morphine] Drug Allergy 05-05-20 Unknown (qualifier value), Insomnia (disorder) [facility] Other (1 source) Estradiol; Translations: [ESTRADIOL] Drug Allergy 08-25-20 [facility] Repository (1 source) Erythromycin Drug Allergy 08-14-20 [facility] Repository (1 source) Morphine Drug Allergy 08-14-20 [facility] Repository Medications Current Medications Medication Drug Class(es) Dates Sig (Normalized) Sig (Original) ALPRAZolam 0.25 mg oral tablet (3 sources) Benzodiazepine Start: 01-28-2024 take 1 tablet by mouth three times daily as needed for anxiety, then take 0.5-1 tablets by mouth every eight hours as needed for anxiety ALPRAZolam (Xanax) 0.25 MG tablet Indications: Anxiety Take 1 tablet (0.25 mg) by mouth 3 (three) times a day as needed for anxiety Take 1/2 to 1 tablet PO every 8 hours as needed 90 tablet 01/28/2024 Active amoxicillin 875 mg / clavulanate 125 mg oral tablet (2 sources) Penicillin-class Antibacterial Start: 09-19-2024 End: 09-29-2024 take 1 tablet by mouth in the morning amoxicillin-clavul anate (Augmentin) 875-125 MG tablet Indications: Acute non-recurrent pansinusitis Take 1 tablet (875 mg) by mouth in the morning and 1 tablet (875 mg) before bedtime. Do all this for 10 days. 20 tablet 09/19/2024 09/29/2024 Active Ascorbic Acid (6 sources) Vitamin C Start: 11-02-2019 Vitamin C Daily, Refills(s) 0 Start Date: 11/02/19 Status: Ordered take 1 tablet by mouth in the mo rning Ascorbic Acid (vitamin C) 1000 MG tablet Take 1,000 mg by mouth in the morning. Active Bisacodyl (1 source) Stimulant Laxative Dulcolax PRN Active cetirizine hydrochloride 10 mg oral tablet (3 sources) Histamine-1 Receptor Antagonist Start: 07-11-20 End: 10-09-20 take 1 tablet by mouth once daily cetirizine (ZyrTEC) 10 MG tablet Indications: Seasonal Allergic Rhinitis TAKE 1 TABLET (10 MG) BY MOUTH DAILY. 30 tablet 2 07/11/2024 10/09/2024 Active clopidogrel 75 mg oral tablet (20 sources) P2Y12 Platelet Inhibitor Start: 11-15-20 End: 02-09-20 take 1 tablet by mouth once daily clopidogrel (Plavix) 75 MG tablet Indications: Coronary arteriosclerosis in [place] artery (CMS/HCC) Take 1 tablet (75 mg) by mouth Daily 90 tablet 3 02/09/2024 02/08/2025 Active Plavix Active Compression stockings, 20-30mmHg, calf 20-30mmHg (7 sources) Start: 06-17-2023 Compression stockings, 20-30mmHg, calf 20-30mmHg externally daily as directed for 90 days May, Active 1 ml denosumab 60 mg/ml prefilled syringe (3 sources) RANK Ligand Inhibitor Start: 05-06-2023 denosumab (Prolia) injection 60 mg famotidine 40 mg oral tablet (4 sources) Histamine-2 Receptor Antagonist Start: 09-27-2023 take 1 tablet by mouth at bedtime, then take 1 tablet by mouth twice daily before mealtime Famotidine 40 MG 1 tablet at HS and 1 tablet at AC Orally Bid for 30 days Aug, Active folic acid 0.4 mg oral tablet (3 sources) take 0.4 mg by mouth in the morning folic acid (Folvite) 400 MCG tablet Take 0.4 mg by mouth in the morning. Active levothyroxine sodium 0.05 mg oral tablet (20 sources) l-Thyroxine Start: 04-12-2024 End: 04-12-2025 take 1 tablet by mouth before mealtime levothyroxine (Synthroid, Levoxyl) 50 MCG tablet Indications: Essential (primary) hypertension (CMS/HCC) Take 1 tablet (50 mcg) by mouth in the morning. Take before meals. 90 tablet 3 04/12/2024 04/12/2025 Active Start: 11-02-2019 take 1 tablet by yodit [...] Daily November 15, 2017 1:00am Synthroid Active Magnesium Aspartate (3 sources) Start: 11-02-2019 take 1 mg by mouth twice daily magnesium aspartate mg, Oral, BID, Refills(s) 0 Start Date: 11/02/19 Status: Ordered methylPREDNISolone (2 sources) Corticosteroid Start: 09-19-2024 End: 09-26-2024 methylPREDNISolone (Medrol Dospak) 4 MG tablets Indications: Acute non-recurrent pansinusitis Follow schedule on package instructions 21 tablet 09/19/2024 09/26/2024 Active 24 hr metoprolol succinate 50 mg extended release oral tablet (20 sources) beta-Adrenergic Ami Start: 04-11-2024 take 1 tablet by mouth once daily metoprolol succinate XL (Toprol-XL) 50 MG 24 hr tablet Indications: Primary hypertension (CMS/HCC) Take 1 tablet (50 mg) by mouth Daily 90 tablet 1 04/11/2024 Active Start: 11-02-2019 take 1 tablet by yodit th once daily Toprol XL 25 mg Tab-ER 25 mg = 1 tab(s), Oral, Daily, Refills(s) 0 Start Date: 11/02/19 Status: Ordered Start: 11-15-2017 take 50 mg by mouth once daily at bedtime Metoprolol Succinate Active 50 MG PO Daily at bedtime November 15, 2017 1:00am Toprol XL Active omeprazole 40 mg delayed release oral capsule (14 sources) Proton Pump Inhibitor Start: 04-12-2024 End: 04-12-2025 take 1 capsule by mouth in the morning omeprazole (PriLOSEC) [address] capsule Indications: Gastroesophageal reflux disease without esophagitis Take 1 capsule (40 mg) by mouth in the morning and 1 capsule (40 mg) in the evening. Take before meals. 180 capsule 3 04/12/2024 04/12/2025 Active Start: 03-14-2024 omeprazole 40 mg Cap-DR 40 mg = 1 cap(s) Start Date: 03/14/24 Status: Ordered Start: 11-11-2022 Omeprazole 40 MG 1 capsule 30 minutes before morning meal and 30 minutes before evening meal Orally twice a day for 30 days Oct, Active Start: 11-11-2022 Omeprazole 40 MG 1 capsule 30 minutes before morning meal and 30 minutes before evening meal Orally Once a day for 30 days Oct, Active Omeprazole Magnesium (Prilosec Otc) 20 mg tablet,delayed release (DR/EC) (5 sources) Start: 03-28-2024 take 1 tablet by mouth once daily Omeprazole Magnesium (Prilosec Otc) 20 mg tablet,delayed release (DR/EC) Active 20 MG PO Daily March 28, 2024 12:00am phenazopyridine hydrochloride 100 mg oral tablet (1 source) Start: 02-24-2022 take 1 tablet by mouth every twelve hours Pyridium 100 mg Tab 100 mg = 1 tab(s), Oral, q12hr, # 30 tab(s), Refills(s) 1, Pharmacy: [id number], 149.9, cm, 12/10/20 15:01:00 EST, Height/Length Dosing, 45.5, kg, 01/06/22 10:28:00 EST, Weight Dosing Start Date: 02/24/22 Status: Ordered POLYETHYLENE GLYCOL 3350 (11 sources) Osmotic Laxative MiraLax as dire cted Orally BID Active promethazine hydrochloride 25 mg oral tablet (20 sources) Phenothiazine Start: 08-14-2024 End: 08-14-2024 take 25 mg by mouth once daily at bedtime Promethazine Active 25 MG PO Daily at bedtime 90 90 August 14, 2024 1:18pm Start: 11-02-2019 take 25 mg by mouth once daily Phenergan 25 mg, Oral, Daily, Refills(s) 0 Start Date: 11/02/19 Status: Ordered Start: 11-15-2017 End: 08-14-2024 take 25 mg by mouth four times daily Promethazine Discontinued 25 MG PO Four times daily November 15, 2017 1:00am August 14, 2024 1:18pm Promethazine HCl Active rosuvastatin calcium 20 mg oral tablet (20 sources) HMG-CoA Reductase Inhibitor Start: 01-20-2023 take 1 tablet by mouth once daily rosuvastatin (Crestor) 20 MG tablet Indications: Atherosclerosis of coronary artery of [place] heart without angina pectoris, unspecified vessel or lesion type (CMS/HCC) Take 1 tablet (20 mg) by mouth Daily 100 tablet 3 04/18/2024 Active Start: 12-10-2020 Crestor Oral, Daily Start Date: 12/10/20 Status: Ordered Crestor Active sucralfate 1000 mg oral tablet (1 source) Aluminum Complex Start: 11-25-2021 take 1 tablet by mouth every twelve hours Sucralfate 1 GM 1 tablet on an empty stomach Orally Twice a day for 30 day(s) Oct, Active vitamin B12 (6 sources) Vitamin B12 Start: 11-02-2019 Vitamin B12 Refills(s) 0 Start Date: 11/02/19 Status: Ordered take 1 tablet by mouth in the mo rning cyanocobalamin (Vitamin B-12) 500 MCG tablet Take 500 mcg by mouth in the morning. Active Completed/Discontinued Medications Medication Drug Class(es) Dates Sig (Normalized) Sig (Original) acetaminophen 300 mg / codeine phosphate 30 mg oral tablet (9 sources) Opioid Agonist Start: 11-15-2017 End: 01-20-2023 take 1 tablet by mouth four times daily Acetaminophen-Cod eine Discontinued 1 TAB PO Four times daily November 15, 2017 1:00am January 20, 2023 11:47am ezetimibe 10 mg / simvastatin 40 mg oral tablet (9 sources) HMG-CoA Reductase Inhibitor, Dietary Cholesterol Absorption Inhibitor Start: 11-15-2017 End: 01-20-2023 take 1 tablet by mouth once daily Ezetimibe-Simvast atin (Vytorin 10-40) 10-40 mg Tablet Discontinued 1 TAB PO Daily November 15, 2017 1:00am January 20, 2023 11:47am levoFLOXacin 750 mg oral tablet (9 sources) Quinolone Antimicrobial Start: 11-15-2017 End: 12-21-2018 take 1 tablet by mouth once daily Levofloxacin (Levaquin) 750 mg tablet Discontinued 750 MG PO .QD 7 November 15, 2017 1:00am December 21, 2018 7:44am simvastatin 20 mg oral tablet (9 sources) HMG-CoA Reductase Inhibitor Start: 12-21-2018 End: 01-20-2023 take 1 tablet by mouth once daily in the evening Simvastatin (Zocor) 20 mg Tablet Discontinued 20 MG PO Every evening December 21, 2018 1:00am January 20, 2023 11:47am sulfamethoxazole 800 mg / trimethoprim 160 mg oral tablet (9 sources) Dihydrofolate Reductase Inhibitor Antibacterial, Sulfonamide Antimicrobial Start: 11-15-2017 End: 11-30-2017 take 1 tablet by mouth twice daily Sulfamethoxazole- Trimethoprim Discontinued 1 TAB PO Twice daily November 15, 2017 1:00am November 30, 2017 7:10am Problems Active Problems Problem Classification Problem Date Documented Da te Episodic/Chronic Acute cerebrovascular disease (3 sources) Cerebrovascular accident Onset: 03-29-2018 11-02-2019 Chronic Anxiety disorders (3 sources) Anxiety; Translations: [Anxiety disorder, unspecified] Onset: 05-05-2023 05-05-2023 Chronic Bacterial infection; unspecified site (9 sources) Blood culture positive for microorganism; Translations: [Bacteremia] 11-15-2017 Episodic Biliary tract disease (14 sources) Choledochal cyst; Translations: [Other specified diseases of biliary tract] Onset: 05-05-2023 05-05-2023 Chronic Cardiac and circulatory congenital anomalies (6 sources) Stenosis of abdominal aorta; Translations: [Coarctation of aorta] Onset: 06-20-2019 05-05-2023 Chronic Coronary atherosclerosis and other heart disease (8 sources) Atherosclerotic heart disease of [place] coronary artery with unstable angina pectoris; Translations: [Atherosclerotic heart disease of [place] coronary artery without angina pectoris] Onset: 07-09-2017 05-05-2023 Chronic Disorders of lipid metabolism (6 sources) Hyperlipidemia; Translations: [Pure hypercholesterolemia] Onset: 05-05-2023 11-02-2019 Chronic Diverticulosis and diverticulitis (14 sources) Diverticula of intestine; Translations: [Diverticulosis of intestine, part unspecified, without perforation or abscess without bleeding] Onset: 05-05-2023 05-05-2023 Chronic Esophageal disorders (13 sources) Gastro-esophageal reflux disease without esophagitis; Translations: [Gastroesophageal reflux disease] Onset: 07-09-2017 08-14-2024 Chronic Essential hypertension (3 sources) Hypertensive disorder; Translations: [Essential (primary) hypertension] Onset: 05-05-2023 05-05-2023 Chronic Gastritis and duodenitis (15 sources) Bile-induced gastritis; Translations: [Other gastritis without bleeding] Onset: 11-25-2021 Resolved: 11-25-2021 Episodic Genitourinary symptoms and ill-defined conditions (20 sources) Dysuria; Translations: [Dysuria] Onset: 02-24-2022 Episodic Headache; including migraine (6 sources) Migraine; Translations: [Migraine, unspecified, not intractable, without status migrainosus] Onset: 07-07-2017 11-02-2019 Chronic Hypertension with complications and secondary hypertension (2 sources) Hypertensive heart disease without heart failure; Translations: [Hypertensive heart disease without heart failure] Onset: 09-13-2024 Chronic Menopausal disorders (7 sources) Other primary ovarian failure; Translations: [Decreased estrogen level] Onset: 03-05-2023 Chronic Nonmalignant breast conditions (3 sources) Fibrocystic changes of bilateral breasts; Translations: [Diffuse cystic mastopathy of right breast] Onset: 05-05-2023 05-05-2023 Chronic Occlusion or stenosis of precerebral arteries (20 sources) Occlusion and stenosis of multiple and bilateral cerebral arteries; Translations: [Occlusion and stenosis of bilateral carotid arteries] Onset: 05-05-2023 03-28-2024 Chronic Osteoarthritis (9 sources) Degenerative joint disease involving multiple joints; Translations: [Polyosteoarthritis, unspecified] Onset: 09-22-2018 05-05-2023 Chronic Osteoporosis (4 sources) Age-related osteoporosis without current pathological fracture; Translations: [Senile osteoporosis] Onset: 03-14-2023 05-05-2023 Chronic Other aftercare (2 sources) Long-term current use of anticoagulant; 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] Onset: 02-24-2022 Episodic Other aftercare (1 source) Other custodial (current) drug therapy; Translations: [OTH SKILLED NURSING CURRENT DRUG THERAPY] Onset: 04-26-2023 Episodic Other aftercare (1 source) 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; Translations: [SKILLED NURSING CURRNT USE ANTICOAGULANTS] Onset: 03-05-2023 Episodic Other aftercare (1 source) Long-term current use of drug therapy; Translations: [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 of antithrombotics/antip latelets] Onset: 03-12-2024 Episodic Other diseases of bladder and urethra (1 source) Unspecified urethral stricture, female; Translations: [UNSP URETHRAL STRICTURE FEMALE] Onset: 03-05-2023 Episodic Other diseases of kidney and ureters (3 sources) Acquired renal cyst without neoplastic change; Translations: [Cyst of kidney, acquired] Onset: 02-24-2022 Episodic Other diseases of kidney and ureters (3 sources) Cyst of kidney 02-24-2022 Episodic Other [...] 11-25-2021 Resolved: 11-25-2021 Chronic Other gastrointestinal disorders (3 sources) Irritable bowel syndrome; Translations: [Irritable bowel syndrome without diarrhea] Onset: 05-05-2023 05-05-2023 Chronic Other gastrointestinal disorders (20 sources) Constipation; Translations: [Constipation, unspecified] Episodic Other gastrointestinal disorders (5 sources) Constipation, unspecified; Translations: [CONSTIPATION UNSPECIFIED] Onset: 05-26-2022 Episodic Other lower respiratory disease (11 sources) Cough; Translations: [Cough] Episodic Other screening for suspected conditions (not mental disorders or infectious disease) (9 sources) Imaging result abnormal; Translations: [Abnormal findings on diagnostic imaging of other specified body structures] 11-30-2017 Chronic Other upper respiratory disease (3 sources) Vasomotor rhinitis; Translations: [Vasomotor rhinitis] Onset: 05-05-2023 05-05-2023 Chronic Other upper respiratory disease (3 sources) Chronic rhinitis; Translations: [Chronic rhinitis] Onset: 04-09-2021 12-02-2023 Chronic Other upper respiratory infections (2 sources) Acute pansinusitis; Translations: [Acute pansinusitis, unspecified] 09-19-2024 Episodic Peripheral and visceral atherosclerosis (19 sources) Chronic vascular insufficiency of intestine; Translations: [Chronic vascular disorders of intestine] Onset: 09-28-2022 Chronic Residual codes; unclassified (11 sources) Normal [...] cigarettes, uncomplicated] Onset: 07-09-2017 Chronic Thyroid disorders (5 sources) Hypothyroidism, unspecified; Translations: [Non-toxic multinodular goiter] Onset: 07-09-2017 05-05-2023 Chronic Unclassified (2 sources) Unknown / UNK(Unknown) Onset: 07-09-2017 Unclassified (3 sources) Asymptomatic microscopic hematuria 01-06-2022 Unclassified (3 sources) Drug therapy finding 12-06-2019 Unclassified (3 sources) LOW BACK PAIN, UNSPECIFIED; Translations: [LOW BACK PAIN, UNSPECIFIED] Onset: 04-26-2023 Unclassified (1 source) CONTACT W/AND (SUSP) EXPOS COVID-19; Translations: [CONTACT W/AND (SUSP) EXPOS COVID-19] Onset: 05-26-2022 Unclassified (1 source) Patient encounter status 03-12-2024 Varicose veins of lower extremity (14 sources) Varicose veins of lower extremity; Translations: [Varicose veins of bilateral lower extremities with other complications] Episodic Past or Other Problems Problem Classification Problem Date Documented Date Episodic/Chronic Abdominal pain (20 sources) Flank pain; Translations: [Abdominal pain] Onset: 05-23-2022 01-06-2022 Episodic Biliary tract disease (4 sources) Calculus of gallbladder without cholecystitis without obstruction; Translations: [CALCULUS OF GALLBLADDER W/O CHOLECYSTITIS W/O OBSTRUCTION] Onset: 12-10-2017 Episodic Calculus of urinary tract (8 sources) Kidney stone; Translations: [Calculus of kidney] Onset: 03-02-2023 12-06-2019 Episodic Coronary atherosclerosis and other heart disease (1 source) Presence of coronary angioplasty implant and graft; Translations: [PRESENCE OF CORONARY ANGIOPLASTY IMPLANT AND GRAFT] Onset: 12-10-2017 Episodic Mycoses (3 sources) Onychomycosis; Translations: [Tinea unguium] Onset: 05-26-2021 12-02-2023 Episodic Nausea and vomiting (20 sources) Nausea; Translations: [Nausea] Onset: 01-10-2021 Episodic Other aftercare (1 source) 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; Translations: [SKILLED NURSING (CURRENT) USE OF ASPIRIN] Onset: 12-10-2017 Episodic Other aftercare (3 sources) Drug therapy finding; Translations: [intermediate (current) use of anticoagulants] Onset: 09-01-2023 12-02-2023 Episodic Other and unspecified benign neoplasm (3 sources) History of polyp of colon; Translations: [History of colonic polyps] Onset: 12-04-2015 06-30-2023 Episodic Other circulatory disease (3 sources) History of cerebrovascular accident without residual deficits; Translations: [Personal history of transient ischemic attack (TIA), and cerebral infarction without residual deficits] Onset: 06-13-2021 06-30-2023 Episodic Other connective tissue disease (3 sources) Fibromyalgia; Translations: [Fibromyalgia] Onset: 05-05-2023 05-05-2023 Episodic Other ear and sense organ disorders (3 sources) Ear sensations - finding; Translations: [Other specified disorders of ear, bilateral] Onset: 09-23-2021 12-02-2023 Episodic Other nutritional; endocrine; and metabolic disorders (3 sources) Decrease in appetite; Translations: [Anorexia] Onset: 11-08-2019 12-02-2023 Episodic Screening and history of mental health and substance abuse codes (7 sources) Ex-smoker; Translations: [Personal history of nicotine dependence] Onset: 06-13-2021 12-06-2019 Episodic Unclassified (19 sources) Abnormal result of other cardiovascular function study; Translations: [CT of abdomen abnormal] Onset: 08-11-2017 06-07-2023 Episodic Unclassified (1 source) LOW BACK PAIN, UNSPECIFIED; Translations: [LOW BACK PAIN, UNSPECIFIED] Onset: 04-22-2023 Urinary tract infections (12 sources) Postinfective urethral stricture of female; Translations: [Postinfective urethral stricture, not elsewhere classified, female] Onset: 02-24-2022 Episodic Results Test Name Value Interpretation Reference Range Facility Urinalysis macro (dipstick) panel (U)on 09-19-2024 Bilirubin, UA Negative Negative - 4(70) +++ mg/dL [facility] Blood, UA Positive Negative - 50 Femi/mcL [facility] Clarity, UA Clear [facility] Color, UA Yellow [facility] Glucose, UA Negative Negative - 1999(110) ++++ mg/dL [facility] Ketones, UA Negative Negative - 160(16) ++++ mg/dL [facility] Leukocytes, UA Trace Negative - 500+++ Homer/mcL [facility] Nitrite, UA Negative Negative - Positive [facility] pH, UA 6.5 5 - 9 [facility] Protein, UA Negative Negative - 1999(20) ++++ mg/dL [facility] Spec Grav, UA 1.005 1 - 1.03 [facility] Urobilinogen, UA 0.2 0.2 - 12 mg/dL [facility] Visiton 09-13-2024 Follow-up visit [id number] Hortencia Cm 1940 F Date Provider Department Center 09/13/[address] [place] [address] CARD [facility] Family History Problem Relation Age of Onset Hypertension Mother Heart disease Mother Other Father Family Status - Relation Status Age at Mother Father Level of Service:41048 PA OFFICE/OUTPATIENT ESTABLISHED MOD MDM 30 MIN Normal [facility] MM screening mammo BI w/CADo n 09-11-2024 MM screening mammo BI w/CAD [facility] [place] [address] Mammography Report Signed Patient: Hortencia Cm MR#: [id number] : 1940 Acct:[id number] Age/Sex: 84 / F ADM Date: 09/11/24 Loc: [place] Room: Type: [facility] CLI Attending Dr: Referral Self Copies to: Dinesh Dyer II, MD SELF,REFERRAL Ordering Provider: SELF,REFERRAL Date of Service: 09/11/24 MM/MM screening mammo BI w/CAD: SCREENING CLINICAL DATA: Screening for malignancy. BILATERAL SCREENING MAMMOGRAMS - FULL FIELD DIGITAL WITH TOMOSYNTHESIS AND CAD Tomosynthesis craniocaudal and mediolateral oblique views of both breasts were obtained using low- dose digital technique. Comparison is made to prior studies from July 29, 2020 through August 25, 2023. This examination was reviewed with the aid of CAD. There are scattered fibroglandular densities. Benign and vascular calcifications are visualized. There are no developing masses, typically malignant calcifications or architectural distortion. There has been no significant interval change. MM/MM screening mammo BI w/CAD IMPRESSION: NO MAMMOGRAPHIC EVIDENCE OF MALIGNANCY. ROUTINE FOLLOW-UP IS RECOMMENDED IN ONE YEAR. RESULT CODE: 2 Benign Findings(s) DENSITY CODE: 2 (approximately 25-50% glandular) FOLLOW UP: 1YR The false-negative rate of mammography is approximately 10-percent. Management of a palpable abnormality must be based on clinical grounds. Patient was entered into a reminder system with a target due date for the next mammogram. Impression dictated by: Felicitas Holland M.D.09/11/2024 6:02 PM Dictation Location: [facility] Transcribed By: [facility] 09/11/241801 Dictated By: Felicitas Holland MD 09/11/24 1800 Signed By: 09/11/241801 Normal [facility] US carotid doppler BIon 04-3 US carotid doppler BI [facility] [address] [place] [address] Ultrasound Report Signed Patient: Hortencia Cm MR#: [id number] : 1940 Acct:[id number] Age/Sex: 84 / F ADM Date: 03/28/24 Loc: [facility] Room: [facility] Attending Dr: Bebe Lara MATHEMATICS PROFESSOR-C Ordering Provider: Bebe Lara APRN Date of Service: 03/28/24 US/US carotid doppler BI: I65.23 Copies to: Bebe Lara APRN CAROTID DUPLEX INDICATION: Follow-up known carotid occlusive disease PROCEDURE: Color-flow duplex scanning is used to interrogate the extracranial carotid arterial system, as well as both vertebral arteries. Both carotid bifurcations show mild to moderate heterogeneous plaque formation. The proximal right internal carotid artery shows a highest peak systolic velocity of 115 cm/s with an end-diastolic velocity of 18.2 cm/s . The mid internal carotid artery measures 131 cm/s peak systolic and 22.5 cm/s end diastolic. The distal segment measures 150 cm/s peak systolic with an end diastolic velocity of 28.1 cm/s . The velocities of the right common carotid artery are 144 cm/s peak systolic and 7.84 cm/s end-diastolic proximally and 106 cm/s peak systolic and 19.6 cm/s end diastolic distally. The peak systolic velocity ratio of the internal to the common carotid artery is 1.04. The right external carotid artery measures 157 cm/s peak systolic. The right vertebral artery is patent at 103 cm/s with antegrade flow. The proximal left internal carotid artery shows a highest peak systolic velocity of 220 cm/s with an end-diastolic velocity of 23.3 cm/s . The mid internal carotid artery measures 146 cm/s peak systolic and 26.1 cm/s end diastolic. The distal segment measures 152 cm/s peak systolic with an end diastolic velocity of 26.1 cm/s . The velocities of the left common carotid artery are 120 cm/s peak systolic and 17.2 cm/s end-diastolic proximally and 204 cm/s peak systolic and 25.2 cm/s end diastolic distally. The peak systolic velocity ratio of the internal to the common carotid artery is 1.08 . The left external carotid artery measures 226 cm/s peak systolic. The left vertebral artery is patent at 132 cm/s with antegrade flow. US/US carotid doppler BI IMPRESSION: Approximately 50% stenosis of the right extracranial internal carotid artery. 50-69% stenosis of the left extracranial internal carotid artery. No significant changes noted from prior studies. Both vertebral arteries are patent with antegrade flow. Impression dictated by: Jairo Dorantes M.D.03/28/2024 1:25 PM Dictation Location: [place] [address] Tech: Rosario Styles Transcribed By: CLIFF 03/28/24 1325 Dictated By: Jairo Dorantes MD 03/28/24 1325 Signed By: 03/28/24 1325 Normal [facility] [place] 03-20-2024 Screens [id number] Normal [facility] RAD - MISCon 03-15-2024 RAD - MISC [id number] Normal [facility] Ambulatory Visit Summaryon 0 03-14-2024 Ambulatory Visit Summary HORTENCIA CM :1940 Visit Date:03/14/2024 Ambulatory Visit Instructions Your Diagnosis Asymptomatic microscopic hematuria Kidney cysts Kidney stone Urethral stricture 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 use Tests Performed XR Abdomen 1 View -- Results Pending -- Please visit your patient portal for your results or contact your primary care physician. Your Care Team Attending Physician - CHRISTOPHER Delgado APRN, Tammie Recio Primary Care Physician - GOMEZ CHAWLA, DINESH Bernard This Is Your Medications List Contact prescribing physician if questions or concerns ascorbic acid (Vitamin C) clopidogrel (Plavix 75 mg Tab) cyanocobalamin (Vitamin B12) levothyroxine (Synthroid 75 mcg Tab) magnesium aspartate metoprolol (Toprol XL 25 mg Tab-ER) omeprazole (omeprazole 40 mg Cap-DR) promethazine (Phenergan) rosuvastatin (Crestor) Procedures Performed Cystourethroscopy with dilation of urethral stricture (01/19/2022), Appendectomy, Bilateral tubal ligation, Cholecystectomy, Excision of cataract, 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 Discharge Vitals Height 149 cm Height 59 in Weight 42 kg Weight 92.4 lb BMI 18.92 Medications What How Much When Instructions Unchanged ascorbic acid (Vitamin C) Every day Contact prescribing physician if questions or concerns Unchanged clopidogrel (Plavix 75 mg Tab) 1 Tablets By Mouth Every day Contact prescribing physician if questions or concerns Unchanged cyanocobalamin (Vitamin B12) Contact prescribing physician if questions or concerns Unchanged levothyroxine (Synthroid 75 mcg Tab) 1 Tablets By Mouth Every day Contact prescribing physician if questions or concerns Unchanged magnesium aspartate By Mouth 2 times a day Contact prescribing physician if questions or concerns Unchanged metoprolol (Toprol XL 25 mg Tab-ER) 1 Tablets By Mouth Every day Contact prescribing physician if questions or concerns Unchanged omeprazole (omeprazole 40 mg Cap-DR) 1 Capsules Contact prescribing physician if questions or concerns Unchanged promethazine (Phenergan) 25 Milligram By Mouth Every day Contact prescribing physician if questions or concerns Unchanged rosuvastatin (Crestor) By Mouth Every day Contact prescribing physician if questions or concerns Allergies erythromycin (Nausea, Unknown) morphine (Insomnia, Unknown) Problems Ongoing - Any problem that you are currently receiving treatment for. Anticoagulated 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 use Asymptomatic microscopic hematuria Dysuria Flank pain Former smoker Kidney cysts Kidney stone Microscopic hematuria Recurrent UTI Urethral stricture Historical - Any problem that you are no longer receiving treatment for. Hyperlipidemia Migraine Stroke Patient Survey You may receive a survey via text or e-mail asking about your office visit. Please share your experience with us by completing your survey. We appreciate your feedback and thank you for choosing us for your care. [facility] Patient Educationon 03-14-20 Patient Education Nephrology Dietary Guidelines to Help Prevent Kidney Stones Kidney stones are deposits of minerals and salts that form inside your kidneys. Your risk of developing kidney stones may be greater depending on your diet, your lifestyle, the medicines you take, and whether you have certain medical conditions. Most people can lower their risks of developing kidney stones by following these dietary guidelines. Your dietitian may give you more specific instructions depending on your overall health and the type of kidney stones you tend to develop. What are tips for following this plan? Reading food labels ? Choose foods with no salt added or low-salt labels. Limit your salt (sodium) intake to less than 1,500 mg a day. ? Choose foods with calcium for each meal and snack. Try to eat about 300 mg of calcium at each meal. Foods that contain 200?500 mg of calcium a serving include: ? 8 oz (237 mL) of milk, hdxgszi-ljabfcjovzoy-tguk y milk, and calcium-fortifiedfruit juice. Calcium-fortified means that calcium has been added to these drinks. ? 8 oz (237 mL) of kefir, yogurt, and soy yogurt. ? 4 oz (114 g) of tofu. ? 1 oz (28 g) of cheese. ? 1 cup (150 g) of dried figs. ? 1 cup (91 g) of cooked broccoli. ? One 3 oz (85 g) can of sardines or mackerel. Most people need 1,000?1,500 mg of calcium a day. Talk to your dietitian about how much calcium is recommended for you. Shopping ? Buy plenty of fresh fruits and vegetables. Most people do not need to avoid fruits and vegetables, even if these foods contain nutrients that may contribute to kidney stones. ? When shopping for convenience foods, choose: ? Whole pieces of fruit. ? Pre-made salads with dressing on the side. ? Low-fat fruit and yogurt smoothies. ? Avoid buying frozen meals or prepared deli foods. These can be high in sodium. ? Look for foods with live cultures, such as yogurt and kefir. ? Choose high-fiber grains, such as whole-wheat breads, oat bran, and wheat cereals. Cooking ? Do not add salt to food when cooking. Place a salt shaker on the table and allow each person to add their own salt to taste. ? Use vegetable protein, such as beans, textured vegetable protein (TVP), or tofu, instead of meat in pasta, casseroles, and soups. Meal planning ? Eat less salt, if told by your dietitian. To do this: ? Avoid eating processed or pre-made food. ? Avoid eating fast food. ? Eat less animal protein, including cheese, meat, poultry, or fish, if told by your dietitian. To do this: ? Limit the number of times you have meat, poultry, fish, or cheese each week. Eat a diet free of meat at least 2 days a week. ? Eat only one serving each day of meat, poultry, fish, or seafood. ? When you prepare animal proteins, cut pieces into small portion sizes. For most meat and fish, one serving is about the size of the palm of your hand. ? Eat at least five servings of fresh fruits and vegetables each day. To do this: ? Keep fruits and vegetables on hand for snacks. ? Eat one piece of fruit or a handful of berries with breakfast. ? Have a salad and fruit at lunch. ? Have two kinds of vegetables at dinner. ? You may be told to limit foods that are high in a substance called oxalate. These include: ? Spinach (cooked), rhubarb, beets, sweet potatoes, and Togolese chard. ? Peanuts. ? Potato chips, british fries, and baked potatoes with skin on. ? Nuts and nut products. ? Chocolate. ? If you regularly take a diuretic medicine, make sure to eat at least 1 or 2 servings of fruits or vegetables that are high in potassium each day. These include: ? Avocado. ? Banana. ? [place], prune, carrot, or tomato juice. ? Baked potato. ? Cabbage. ? Beans and split peas. Lifestyle ? Drink enough fluid to keep your urine pale yellow. This is the most important thing you can do. Spread your fluid intake throughout the day. ? If you drink alcohol: ? Limit how much you have to: ? 0?1 drink a day for women who are not . ? 0?2 drinks a day for men. ? Know how much alcohol is in your drink. In the [place] one drink equals one 12 oz bottle of beer (355 mL), one 5 oz glass of wine (148 mL), or one 1? oz glass of hard liquor (44 mL). ? Lose weight if told by your health care provider. Work with your dietitian to find an eating plan and weight loss strategies that work best for you. General information ? Talk to your health care provider and dietitian about taking daily supplements. Depending on your health and the cause of your kidney stones, you may be told: ? Do not take high-dose supplements of vitamin C (1,000 mg a day or more). ? To take a calcium supplement. ? To take a daily probiotic supplement. ? To take other supplements such as magnesium, fish oil, or vitamin B6. ? Take szar-flw-rpsungr and prescription medicines only as told by your health care provider. These include supplements. What foods sh (more content not included)... Normal [facility] Urology Office/Clinic Noteon 03-14-2024 Urology Office/Clinic Note Chief Complaint 1 year with KUB HPI Staff 1yr KUB. DX: Urethral Stricture, Microscopic Hematuria, Kidney Stone & Kidney Cyst. KUB done 03/13/24 Dysuria: occasionally Incomplete bladder emptying: no Hematuria: UA shows trace today Frequency: 2-3 hours Urgency: no Nocturia: 0-1x Stream: good stream Post void dripping: no Wearing pads/ Depends: no Urge incontinence: no Stress incontinence: no Incontinence without Sensory Awareness: no Abdominal pain: no Flank pain: lower back pain History of Present Illness I have reviewed and verified the staff HPI to be accurate for this encounter. Portions of this record may have been created with voice recognition artificial intelligence software, specifically [employer], [email or web address] and or [employer]. Substitutions may have occurred due to the inherent limitations of voice recognition and artificial intelligence software. Review of Systems PHQ Score Initial Depression Screen Score: 0 SCORE Physical Exam Vitals & Measurements HT: 59 in HT: 149 cm WT: 42 kg WT: 92.4 lb BMI: 18.92 Assessment/Plan BBSQ 8 1. Kidney stone (N20.0: Calculus of kidney) Nonobstructing nephrolithiasis, neg for hydro on CT from 09/2022. KUB 03/01/23 - tiny bilateral nephrolithiasis. no measurements provided. image independently reviewed and I don't see anything substantial, they all look tiny. [1] KUB 03/13/2024 punctate right nephrolithiasis. Patient denies any stone episode in the last year. She notes that she has never passed a stone that she is aware of, nor needed surgical procedure regarding them. Discussed imaging results shows tiny right-sided stones. Previous imaging showed bilateral tiny stones. However, the KUB does also show significant bowel contents which is likely obstructing the view of the left kidney. Discussed generalized stone prevention - pt encouraged to increase fluid intake so that he/she producing 2.5L of urine daily. Add 1/4 cup of lemon juice to water throughout the day or can also drink sugar free lemonade or clear soda. Avoid dark vivian. Restrict sodium intake. Restrict animal protein. Patient would like to continue to monitor stones annually. -Follow-up 1 year with KUB. Ordered: XR Abdomen 1 View 2. Asymptomatic microscopic hematuria (R31.21: Asymptomatic microscopic hematuria) FISH/cytol 02/24/22 neg. cysto dec 2021 neg. [2] UA today with trace intact blood. Small leukocytes. Patient is asymptomatic at this time. She denies any episode of gross hematuria in the last year. Patient knows to report any gross hematuria to the office. Ordered: Urnls Dip Stick Auto w/o Microscopy POC 99472 3. Kidney cysts (N28.1: Cyst of kidney, acquired) CT AP w/ contrast 10/01/22 bilateral cortical hypodensities, small cysts are favored. [3] 4. 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 [4] 5. 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/antiplate lets) Plavix Follow-up With When Contact Information [employer]LE NURSE, [employer], Tammie X, FAM, URL Additional Instructions: 1 year with KUB Patient Education Dietary Guidelines to Help Prevent Kidney Stones Kidney Stones, Emsv-az-Exkn Hematuria, Adult Problem List/Past Medical History Ongoing Anticoagulated 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 use Asymptomatic microscopic hematuria Dysuria Flank pain Former smoker Kidney cysts Kidney stone Microscopic hematuria Recurrent UTI Urethral stricture Historical Hyperlipidemia Migraine Stroke Procedure/Surgical History Cystourethroscopy with dilation of urethral stricture (01/19/2022), Appendectomy, Bilateral tubal ligation, Cholecystectomy, Excision of cataract, 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 Medications Crestor, Oral, Daily magnesium aspartate, Oral, BID omeprazole 40 mg Cap-DR, 40 mg= 1 cap(s) Phenergan, 25 mg, Oral, Daily Plavix 75 [...] than 30 days ago Tobacco Use:. Cigarettes, 03/14/2024 Family History Heart disease: Mother. Primary malignant neoplasm of lung: Father. Immunizations Vaccine Date Status Comments influenza virus vaccine, inactivated 09/02/2022 Recorded SARS-CoV-2 (COVID-19) mRNA BNT-162b2 vax 10/16/2021 Recorded 2023-03-02: [id number] influenza virus vaccine, inactivated 09/08/2021 Recorded zoster vaccine, inactivated 07/28/2021 Recorded SARS-CoV-2 (COVID-19) mRNA BNT-162b2 vax 02/18/2021 Recorded SARS-CoV-2 (CO (more content not included)... Normal [facility] Comment on above: Result Comment: Elec tronically Signed By: CHRISTOPHER Delgado APRN, Tammie Recio\.br\Date and Time Signed: 03/14/24 15:45 EDT AMYLASEon 04-22-2023 Amylase [Catalytic activity/Vol] 33 U/L Normal 25-115 [facility] Comment on above: Performed By: #### L SCOTT NUR, ABEL ALANIZ ####[facility] [address] [place] [address]Dr. Elia Burton CBC AUTO DIFFon 04-22-2023 BASO # 0.1 103/ul Normal 0.0-0.1 [facility] Comment on above: Performed By: #### C BC ####[facility] [address] [place], [place] [address]Dr. Elia Burton Basophils/100 WBC (Bld) 0.6 % Normal 0.2-2.0 [facility] Comment on above: Performed By: #### C BC ####[facility] [address] [place], [place] [address]Dr. Elia Burton EO # 0.1 103/ul Normal 0.0-0.7 [facility] Comment on above: Performed By: #### C BC ####[facility] [address] [place], [place] [address]Dr. Elia Burton Eosinophils/100 WBC (Bld) 0.7 % Critically low 0.9-7.0 [facility] Comment on above: Performed By: #### C BC ####[facility] [address] [place], [place] [address]Dr. Elia Burton Erythrocyte distribution width (RBC) [Ratio] 13.4 % Normal 11.0-15.0 [facility] Comment on above: Performed By: #### C BC ####[facility] [address] [place] [address]Dr. Elia Burton Hematocrit (Bld) [Volume fraction] 43.3 % Normal 36.0-48.0 [facility] Comment on above: Performed By: #### C BC ####[facility] [address] [place] [address]Dr. Elia Burton Hemoglobin (Bld) [Mass/Vol] 13.9 g/dL Normal 12.0-16.0 [facility] Comment on above: Performed By: #### C BC ####[facility] [address] [place] [address]Dr. Elia Burton IG # 0.03 10e3/ul Normal 0.00-0.03 [facility] Comment on above: Performed By: #### C BC ####[facility] [address] [place] [address]Dr. Elia Burton IG % 0.4 % Normal 0.0-0.5 [facility] Comment on above: Performed By: #### C BC ####[facility] [address] [place], [place] [address]Dr. Elia Burton LYMPH # 2.0 103/ul Normal 1.2-3.8 [facility] Comment on above: Performed By: #### C BC ####[facility] [address] [place], [place] [address]Dr. Elia Burton Lymphocytes/100 WBC (Bld) 23.9 % Normal 20.5-60.0 [facility] Comment on above: Performed By: #### C BC ####[facility] [address] [place], [place] [address]Dr. Elia Burton MANUAL DIFF REQ NO Normal [facility] Comment on above: Performed By: #### C BC ####[facility] [address] [place], [place] [address]Dr. Elia Burton MCH (RBC) [Entitic mass] 28.3 pg Normal 26.7-34.0 [facility] Comment on above: Performed By: #### C BC ####[facility] [address] [place] [id number]. Elia Burton MCHC (RBC) [Mass/Vol] 32.1 g/dL Normal 29.9-35.2 [facility] Comment on above: Performed By: #### C BC ####[facility] [address] [place] [address]Dr. Elia Burton MCV (RBC) [Entitic vol] 88.0 fL Normal 81.0-99.0 [facility] Comment on above: Performed By: #### C BC ####[facility] [address] [place] [address]Dr. Elia Burton MONO # 0.6 103/ul Normal 0.3-0.8 [facility] Comment on above: Performed By: #### C BC ####[facility] [address] [place] [address]Dr. Elia Burton Monocytes/100 WBC (Bld) 6.9 % Normal 1.7-12.0 [facility] Comment on above: Performed By: #### C BC ####[facility] [address] [place], [place] [address]Dr. Elia Burton NEUT # 5.6 103/ul Normal 1.4-6.5 [facility] Comment on above: Performed By: #### C BC ####[facility] [address] [place] [address]Dr. Elia Burton Neutrophils/100 WBC (Bld) 67.5 % Normal 43.0-75.0 [facility] Comment on above: Performed By: #### C BC ####[facility] [address] [place] [address]Dr. Elia Burton Platelet mean volume (Bld) [Entitic vol] 9.4 fL Critically low 9.5-13.5 [facility] Comment on above: Performed By: #### C BC ####[facility] [address] [place] [address]Dr. Elia Burton PLT 265 103/ul Normal 150-450 [facility] Comment on above: Performed By: #### C BC ####[facility] [address] [place], [place] [address]Fi. Elia Burton RBC 4.92 106/ul Normal 4.20-5.40 [facility] Comment on above: Performed By: #### C BC ####[facility] [address] [place], [place] [address]IzBennett Burton WBC 8.3 103/ul Normal 4.0-11.0 [facility] Comment on above: Performed By: #### C BC ####[facility] [address] [place], [place] [address] ABD/PELV W CONon 04-22-20 CT [...] YELITZA GONZALEZ Date: 2023-04-22 15:25 Normal [facility] ER URINE PROFILEon 3 Bilirubin Ql (U) Negative Normal NEGATIVE [facility] Comment on above: Performed By: #### U MICRO, ERUR ####[facility] [address] [place] [address]Dr. Elia Burton Clarity (U) CLEAR Normal CLEAR [facility] Comment on above: Performed By: #### U MICRO, ERUR ####[facility] [address] [place] [address]Dr. Elia Burton Color (U) LT. YELLOW Normal YELLOW [facility] Comment on above: Performed By: #### U MICRO, ERUR ####[facility] [address] [place] [address]Dr. Elia Burton ERUAHD A micrscopic examina tion will be performed if indicated. Normal [facility] Comment on above: Performed By: #### U MICRO, ERUR ####[facility] [address] [place] [address]Dr. Elia Burton Glucose Ql (U) Negative Normal NEGATIVE [facility] Comment on above: Performed By: #### U MICRO, ERUR ####[facility] [address] [place] [address]Dr. Elia Burton Hemoglobin Ql (U) SMALL Abnormal NEGATIVE The [facility] Comment on above: Performed By: #### U MICRO, ERUR ####[facility] [address] [place] [address]Dr. Elia Burton Ketones Ql (U) Negative Normal NEGATIVE [facility] Comment on above: Performed By: #### U MICRO, ERUR ####[facility] [address] [place] [address]Dr. Elia Burton LEUKOCYTES TRACE Abnormal NEGATIVE [facility] Comment on above: Performed By: #### U MICRO, ERUR ####[facility] Av[address] [place], [place] [address]Dr. Elia Burton Nitrite Ql (U) Negative Normal NEGATIVE [facility] Comment on above: Performed By: #### U MICRO, ERUR ####[facility] Xkygvwdmqv[address] [place], [place] [address]Dr. Elia Burton pH (U) 6.5 [pH] Normal 5-9 [facility] Comment on above: Performed By: #### U MICRO, ERUR ####[facility] Gbicoejjgt[address] [place], [place] [address]Dr. Elia Burton SPEC GRAVITY <=1.005 Abnormal 1.005-<=1.[address] [place] [address] Comment on above: Performed By: #### U MICRO, ERUR ####[facility] Onxjkawqmf[address] [place], [place] [address]Dr. Elia Burton UA PROTEIN Negative Normal NEGATIVE/ TRACE [facility] Comment on above: Performed By: #### U MICRO, ERUR ####[facility] Ewbosdqvtl[address] [place], [place] [address]Dr. Elia Burton UR MICRO IND INDICATED Normal [facility] Comment on above: Performed By: #### U MICRO, ERUR ####[facility] Dhubuwyngr[address] [place], [place] [address]Dr. Elia Burton Urobilinogen Qn (U) 0.2 {Farhana'U}/dL Normal 0.2 - 1. 0 [facility] Comment on above: Performed By: #### U MICRO, ERUR ####[facility] Egxrgoudvn[address] [place], [place] [address]Dr. Elia Burton LIPASEon 04-22-2023 Lipase [Catalytic activity/Vol] 61.0 U/L Critically low 73.0-393.0 [facility] Comment on above: Performed By: #### L LIUDMILA, SCOTT, LIPA, ABEL ####[facility] S[address]ketgsmw[address] [place], [place] [address]Dr. Elia Burton LIVER PROFILEon 04-22-2023 Albumin [Mass/Vol] 3.6 g/dL Normal 3.4-5.0 [facility] Comment on above: Performed By: #### L IVER, BMP, LIPA, ABEL ####[facility] Zocovux[address] [place], [place] [address]Dr. Idaniaakanksha Burton Albumin/Globulin [Mass ratio] 0.9 {ratio} Normal [facility] Comment on above: Performed By: #### L IVER, BMP, LIPA, ABEL ####[facility] Nkdtsnwohd[address] [place], [place] [address]Dr. Elia Burton ALP [Catalytic activity/Vol] 70 U/L Normal 46-116 [facility] Comment on above: Performed By: #### L IVER, BMP, LIPA, ABEL ####[facility] Pcvsrowr[address] [place], [place] [address]Dr. Elia Burton ALT [Catalytic activity/Vol] 15 U/L Normal 14-59 [facility] Comment on above: Performed By: #### L IVER, BMP, LIPA, ABEL ####[facility] Phrbdekgln[address] [place], [place] [address]Dr. Elia Burton AST [Catalytic activity/Vol] 21 U/L Normal 15-37 [facility] Comment on above: Performed By: #### L IVER, BMP, LIPA, ABEL ####[facility] Wojkwflqvu[address] [place], [place] [address]Dr. Elia Burton BILI, CONJUGATED 0.0 mg/dL Normal 0.0-0.2 [facility] Comment on above: Performed By: #### L IVER, BMP, LIPA, ABEL ####[facility] Vpzwpsxuqs[address] [place], [place] [address]Dr. Elia Burton Bilirubin [Mass/Vol] 0.2 mg/dL Normal 0.2-1.0 [facility] Comment on above: Performed By: #### L IVER, BMP, LIPA, ABEL ####[facility] Gkhdprdq[address] [place], [place] [address]Dr. Elia Burton Globulin (S) [Mass/Vol] 4.1 g/dL Normal [facility] Comment on above: Performed By: #### L IVER, BMP, LIPA, ABEL ####[facility] [address] [place] [address]Dr. Elia Burton Protein [Mass/Vol] 7.7 g/dL Normal 6.4-8.2 [facility] Comment on above: Performed By: #### L IVER, BMP, LIPA, ABEL ####[facility] [address] [place] [address]Dr. Elia Burton PROF CHEM 8 (BAS METB)on Anion gap [Moles/Vol] 13.1 mmol/L Normal [facility] [place] Comment on above: Performed By: #### L IVER, BMP, LIPA, ABEL ####[facility] Pknulsjyoz[address] [place], [place] [address]Dr. Elia Burton Calcium [Mass/Vol] 9.1 mg/dL Normal 8.5-10.1 [facility] Comment on above: Performed By: #### L IVER, BMP, LIPA, ABEL ####[facility] Tszql[address]ion[address] [place], [place] [address]Dr. Elia Burton Chloride [Moles/Vol] 102 mmol/L Normal 98-107 [facility] Comment on above: Performed By: #### L IVER, BMP, LIPA, ABEL ####[facility] Duhxymat[address] [place], [place] [address]Dr. Elia Burton CO2 [Moles/Vol] 28.6 mmol/L Normal 21.0-32.0 [facility] Comment on above: Performed By: #### L IVER, BMP, LIPA, ABEL ####[facility] [address]eq[address] [place] [address]Dr. Elia Burton Creatinine [Mass/Vol] 0.69 mg/dL Normal 0.55-1.02 [facility] Comment on above: Performed By: #### L IVER, BMP, LIPA, ABEL ####[facility] [address] [place] [address]Dr. Elia Burton EGFR-AF SWAZI >60 Normal >=60 [facility] Comment on above: Performed By: #### L IVER, BMP, LIPA, ABEL ####[facility] [address] [place] [address]Dr. Elia Burton EGFR-NON AF SWAZI >60 Normal >=60 [facility] Comment on above: Performed By: #### L IVER, BMP, LIPA, ABEL ####[facility] [address] [place] [address]Dr. Elia Burton Glucose [Mass/Vol] 157 mg/dL Critically high 74-106 [facility] Comment on above: Performed By: #### L IVER, BMP, LIPA, ABEL ####[facility] Rskszepted35[address] [place] [address]Dr. Elia Burton Potassium [Moles/Vol] 3.7 mmol/L Normal 3.5-5.1 [facility] Comment on above: Performed By: #### L IVER, BMP, LIPA, ABEL ####[facility] [address]zvir[address] [place] [address]Dr. Elia Burton Sodium [Moles/Vol] 140 mmol/L Normal 136-145 [facility] Comment on above: Performed By: #### L IVER, BMP, LIPA, ABEL ####[facility] [address]rsv[address] [place] [address]Dr. Elia Burton Urea nitrogen [Mass/Vol] 8.0 mg/dL Normal 7.0-18.0 [facility] Comment on above: Performed By: #### L IVER, BMP, LIPA, ABEL ####[facility] [address] [place] [address]Dr. Elia Micheal Urea nitrogen/Creatinine [Mass ratio] 11.6 mg/mg Normal [facility] Comment on above: Performed By: #### L IVER, BMP, LIPA, ABEL ####[facility] [address] [place] [address]Dr. Idaniaakanksha Micheal URINE MICROSCOPIC ONLYon BACTERIA NONE SEEN Normal NONE SEEN [facility] Comment on above: Performed By: #### U MICRO, ERUR ####[facility] [address] [place] [address]Dr. Elia Micheal Bacteria identified Cx Nom (U) NOT INDICATED Normal [facility] Comment on above: Performed By: #### U MICRO, ERUR ####[facility] Q[address] [place] [address]Dr. Elia Burton CAST NONE SEEN Normal NONE SEEN [facility] Comment on above: Performed By: #### U MICRO, ERUR ####[facility] [address] [place] [address]Dr. Elia Burton Crystals LM Nom (Urine sed) NONE SEEN Normal NONE SEEN [facility] Comment on above: Performed By: #### U MICRO, ERUR ####[facility] X[address]qpnqijr[address] [place] [address]Dr. Elia Burton Epithelial cells LM Ql (Urine sed) RARE Normal NONE SEEN /RARE [facility] Comment on above: Performed By: #### U MICRO, ERUR ####[facility] Lnszicznuv[address] [place], [place] [address]Dr. Elia Burton MUCOUS NONE SEEN Normal NONE SEEN [facility] Comment on above: Performed By: #### U MICRO, ERUR ####[facility] Szrzwwohck[address] [place], [place] [address]Dr. Elia Burton RBC 5-10 Abnormal 0-2 [facility] Comment on above: Performed By: #### U MICRO, ERUR ####[facility] [address] [place] [address]Dr. Elia Burton WBC 2-5 Abnormal NONE SEEN [facility] Comment on above: Performed By: #### U MICRO, ERUR ####[facility] Mewcm[address]cff[address] [place], [place] [address]Dr. Elia Burton XR LSPINE 2_3 VIEWSon 2022 XR LSPINE 2_3 VIEWS EXAMINATION: XR LSPI NE 2_3 VIEWS, [id number] HISTORY: Pain COMPARISON: Same day CT abdomen/pelvis. [...] by: CLEO PLUNKETT Date: 2023-04-22 15:20 Normal [facility] XR DEXA BONE DENSITYon 03-05 XR [...] by: GAUTAM DELUNA Date: 2023-03-05 09:21 Normal [facility] XR KUB 1 VIEWon 03-01-2023 XR KUB [...] by: SHERRON HORTON Date: 2023-03-01 12:53 Normal [facility] Creatinine and Glomerular fi ltration rate.predicted panel (S/P/Bld)Ordered By: Jairo Dorantes on 01-20-2023 Creatinine [Mass/Vol] 0.65 mg/dL 0.44-1.03 [facility] Estimated glomerular filtrat ion rate (GFR) non- AmericanOrdered By: Jairo Dorantes on 01-20-2023 GFR/1.73 sq M.predicted among non-blacks MDRD (S/P/Bld) [Vol rate/Area] > 60 mL/Min [facility] No Panel InformationOrdered By: Jairo Dorantes on 01-20-2023 Estimated GFR () > 60 mL/Min [facility] Comment on above: GFR estimated refere nce range: According to KDOQI guidelines, <60 ml/min/1.73m2 is sufficient to diagnose a patient with chronic kidney disease. Pharmacy Creatinine Clearance (Chem 36.95 [facility] Urea nitrogen [Mass/volume] in Serum or PlasmaOrdered By: Jairo Dorantes on 01-20-2023 Urea nitrogen [Mass/Vol] 9 mg/dL 08-21 [facility] CT ABD/PELV W CONon 10-02-20 CT ABD/PELV [...] by: GAUTAM DELUNA Date: 2022-10-02 08:12 Normal [facility] CREATININEon 10-01-2022 Creatinine [Mass/Vol] 0.67 mg/dL Normal 0.55-1.02 [facility] Comment on above: Performed By: #### C MERARY #### [facility] [address] [place] [address] Dr. Elia Burton EGFR-AF SWAZI >60 Normal >=60 [facility] Comment on above: Performed By: #### C MERARY #### [facility] [address] [place] [address] Dr. Elia Burton EGFR-NON AF SWAZI >60 Normal >=60 [facility] Comment on above: Performed By: #### C MERARY #### [facility] [address] [place] [address] ABD/PELV W CONon 05-24-20 CT ABD/PELV W CON EXAMINATION: CT ABD/ [...] by: ELENA AMBROSE Date: 2022-05-23 22:39 Normal [facility] AMYLASEon 05-23-2022 Amylase [Catalytic activity/Vol] 33 U/L Normal 25-115 [facility] Comment on above: Performed By: #### L IPA, CMP, ABEL #### [facility] [address] [place], [place] [address] Dr. Elia Burton CBC AUTO DIFFon 05-23-2022 BASO # 0.1 103/ul Normal 0.0-0.1 [facility] Comment on above: Performed By: #### C BC ####[facility] [address] [place] [address]Dr. Elia Burton Basophils/100 WBC (Bld) 0.9 % Normal 0.2-2.0 [facility] Comment on above: Performed By: #### C BC ####[facility] [address]ubqa[address]cc[address] [place] [address]Dr. Elia Burton EO # 0.1 103/ul Normal 0.0-0.7 [facility] Comment on above: Performed By: #### C BC ####[facility] [address]wl[address] [place] [address]Dr. Elia Burton Eosinophils/100 WBC (Bld) 1.3 % Normal 0.9-7.0 [facility] Comment on above: Performed By: #### C BC ####[facility] Kprohgezqr[address] [place] [address]11DrBennett Burton Erythrocyte distribution width (RBC) [Ratio] 14.1 % Normal 11.0-15.0 [facility] Comment on above: Performed By: #### C BC ####[facility] Dpzvgqforx8425 [place] [address]Dr. Elia Burton Hematocrit (Bld) [Volume fraction] 44.3 % Normal 36.0-48.0 [facility] Comment on above: Performed By: #### C BC ####[facility] Snaeasjttx[address] [place] [address]DrBennett Burton Hemoglobin (Bld) [Mass/Vol] 14.2 g/dL Normal 12.0-16.0 [facility] Comment on above: Performed By: #### C BC ####[facility] Jzfdqahcda[address] [place] [address]Dr. Elia Burton IG # 0.01 10e3/ul Normal 0.00-0.03 [facility] Comment on above: Performed By: #### C BC ####[facility] [address]cuta[address] [place] [address]Dr. Elia Burton IG % 0.1 % Normal 0.0-0.5 [facility] Comment on above: Performed By: #### C BC ####[facility] Bxyqcbajsp[address]96 [place] [address]Dr. Elia Burton LYMPH # 3.4 103/ul Normal 1.2-3.8 [facility] Comment on above: Performed By: #### C BC ####[facility] [address]xc[address] [place] [address]Dr. Elia Burton Lymphocytes/100 WBC (Bld) 43.5 % Normal 20.5-60.0 [facility] Comment on above: Performed By: #### C BC ####[facility] Hzvewnfuvi[address] [place], [place] [address]Dr. Elia Burton MANUAL DIFF REQ NO Normal [facility] Comment on above: Performed By: #### C BC ####[facility] H[address]jjagfzcs[address] [place] [address]Dr. Idaniaakanksha Burton MCH (RBC) [Entitic mass] 28.1 pg Normal 26.7-34.0 [facility] Comment on above: Performed By: #### C BC ####[facility] Bmvopvpcmt[address] [place] [address]Dr. Elia Burton MCHC (RBC) [Mass/Vol] 32.1 g/dL Normal 29.9-35.2 [facility] Comment on above: Performed By: #### C BC ####[facility] Ighmewtxmg5708 [place] [address]DrBennett Burton MCV (RBC) [Entitic vol] 87.5 fL Normal 81.0-99.0 [facility] Comment on above: Performed By: #### C BC ####[facility] Re[address]vt[address] [place] [address]DrBennett Burton MONO # 0.7 103/ul Normal 0.3-0.8 [facility] Comment on above: Performed By: #### C BC ####[facility] [address]ydmju[address] [place] [address]Dr. Elia Burton Monocytes/100 WBC (Bld) 8.4 % Normal 1.7-12.0 [facility] Comment on above: Performed By: #### C BC ####[facility] [address]hkrkrwsu28[address] [place] [address]Dr. Elia Burton NEUT # 3.5 103/ul Normal 1.4-6.5 [facility] Comment on above: Performed By: #### C BC ####[facility] Iflgjvvtzs4878 [place] [address]Dr. Elia Burton Neutrophils/100 WBC (Bld) 45.8 % Normal 43.0-75.0 [facility] Comment on above: Performed By: #### C BC ####[facility] [address]ffv[address] [place] [address]Dr. Elia Burton Platelet mean volume (Bld) [Entitic vol] 9.3 fL Critically low 9.5-13.5 [facility] Comment on above: Performed By: #### C BC ####[facility] Efhtvbjsbj75[address] [place] [address]Dr. Elia Burton PLT 290 103/ul Normal 150-450 [facility] Comment on above: Performed By: #### C BC ####[facility] Tjqxhjqkti32[address] [place] [address]Dr. Elia Burton RBC 5.06 106/ul Normal 4.20-5.40 [facility] Comment on above: Performed By: #### C BC ####[facility] Hlbopdkysy9397 [place] [address]Dr. Elia Burton WBC 7.7 103/ul Normal 4.0-11.0 [facility] Comment on above: Performed By: #### C BC ####[facility] [address]irhnslkbk[address] [place] [address]Dr. Elia Burton [facility]30 SARS-CoV-2 (COVID-19) RNA LADI+probe Ql (Unsp spec) Not detected Normal NOT DETECTED [facility] Comment on above: Result Comment: When diagnostic [...] for this test is supported by the Facilities Operator of Health and Human Service's declaration that [...] longer be used). Performed By: #### C VDTB ####[facility] [address] [place] [address]Dr. Elia Burton LIPASEon 05-23-2022 Lipase [Catalytic activity/Vol] 74.0 U/L Normal 73.0-393.0 [facility] Comment on above: Performed By: #### L IPA CMP, ABEL #### [facility] [address] [place] [address] Dr. Elia Burton PROF 14(COMP METB)on 022 Albumin [Mass/Vol] 3.9 g/dL Normal 3.4-5.0 [facility] Comment on above: Performed By: #### L IPA CMP, ABEL #### [facility] [address] [place] [address] Dr. Elia Burton Albumin/Globulin [Mass ratio] 0.9 {ratio} Normal [facility] Comment on above: Performed By: #### L IPA CMP, ABEL #### [facility] [address] [place] [address] Dr. Elia Burton ALP [Catalytic activity/Vol] 76 U/L Normal 46-116 [facility] Comment on above: Performed By: #### L IPA CMP, ABEL #### [facility] [address] [place] [address] [address] Elia Burton ALT [Catalytic activity/Vol] 17 U/L Normal 14-59 [facility] Comment on above: Performed By: #### L IPA, CMP, ABEL #### [facility] [address] [place] [address] [address] Elia Burton Anion gap [Moles/Vol] 13.0 mmol/L Normal [facility] Comment on above: Performed By: #### L IPA, CMP, ABEL #### [facility] [address] [place] [address] [address] Elia Burton AST [Catalytic activity/Vol] 19 U/L Normal 15-37 [facility] Comment on above: Performed By: #### L IPA, CMP, ABEL #### [facility] [address] [place] [address] Dr. Elia Burton Bilirubin [Mass/Vol] 0.4 mg/dL Normal 0.2-1.0 [facility] Comment on above: Performed By: #### L IPA, CMP, ABEL #### [facility] [address] [place] [address] [address] Elia Burton Calcium [Mass/Vol] 9.3 mg/dL Normal 8.5-10.1 [facility] Comment on above: Performed By: #### L IPA, CMP, ABEL #### [facility] [address] [place] [address] [address] Elia Burton Chloride [Moles/Vol] 103 mmol/L Normal 98-107 [facility] Comment on above: Performed By: #### L IPA, CMP, ABEL #### [facility] [address] [place] [address] [address] Elia Burton CO2 [Moles/Vol] 28.8 mmol/L Normal 21.0-32.0 [facility] Comment on above: Performed By: #### L IPA, CMP, ABEL #### [facility] [address] [place] [address] [address] Elia Burton Creatinine [Mass/Vol] 0.68 mg/dL Normal 0.55-1.02 [facility] Comment on above: Performed By: #### L IPA, CMP, ABEL #### [facility] [address] [place] [address] [address] Elia Burton EGFR-AF SWAZI >60 Normal >=60 [facility] Comment on above: Performed By: #### L IPA, CMP, ABEL #### [facility] [address] [place] [address] [address] Elia Burton EGFR-NON AF SWAZI >60 Normal >=60 [facility] Comment on above: Performed By: #### L IPA, CMP, ABEL #### [facility] [address] [place] [address] [address] Elia Burton Globulin (S) [Mass/Vol] 4.3 g/dL Normal [facility] Comment on above: Performed By: #### L IPA, CMP, ABEL #### [facility] [address] [place] [address] [address] Elia Burton Glucose [Mass/Vol] 107 mg/dL Critically high 74-106 [facility] Comment on above: Performed By: #### L IPA, CMP, ABEL #### [facility] [address] [place] [address] [address] Elia Burton Potassium [Moles/Vol] 3.8 mmol/L Normal 3.5-5.1 [facility] Comment on above: Performed By: #### L IPA, CMP, ABEL #### [facility] [address] [place] [address] [address] Elia Burton Protein [Mass/Vol] 8.2 g/dL Normal 6.4-8.2 [facility] Comment on above: Performed By: #### L IPA, CMP, ABEL #### [facility] [address] [place] [address] [address] Elia Burton Sodium [Moles/Vol] 141 mmol/L Normal 136-145 [facility] Comment on above: Performed By: #### L IPA, CMP, ABEL #### [facility] [address] [place] [address] [address] Elia Burton Urea nitrogen [Mass/Vol] 5.0 mg/dL Critically low 7.0-18.0 [facility] Comment on above: Performed By: #### L IPA, CMP, ABEL #### [facility] [address] [place], [place] [address] Dr. Elia Burton Urea nitrogen/Creatinine [Mass ratio] 7.4 mg/mg Normal [facility] Comment on above: Performed By: #### L IPA, CMP, ABEL #### [facility] [address] [place], [place] [address] Dr. Elia Burton XR ABD FLAT UP_PA [...] by: Jaelyn MONIQUE Date: 2022-05-23 05:39 Normal [facility] Complete Blood Counton 04-28 Erythrocyte distribution width (RBC) [Ratio] 14.1 % Normal 11.0-15.0 [facility] [employer] [facility] Comment on above: Performed By: #### C BC, VITD, LIPD, CMP #### [facility] [address] [place], [place] [id number] Hematocrit (Bld) [Volume fraction] 41.8 % Normal 35.0-47.0 [facility] [employer] [facility] Comment on above: Performed By: #### C BC, VITD, LIPD, CMP #### [facility] [address], [place] [id number] Hemoglobin (Bld) [Mass/Vol] 13.0 g/dL Normal 11.6-15.5 [facility] [employer] [facility] Comment on above: Performed By: #### C BC, VITD, LIPD, CMP #### [facility] [address] [place], [place] [id number] MCH (RBC) [Entitic mass] 27.4 pg Normal 27.0-33.0 [facility] Comment on above: Performed By: #### C BC, VITD, LIPD, CMP #### [facility] [address], [place] [id number] MCHC (RBC) [Mass/Vol] 31.1 g/dL Low 32.0-36.0 [facility] Comment on above: Performed By: #### C BC, VITD, LIPD, CMP #### [facility] [address], [place] [id number] MCV (RBC) [Entitic vol] 88 fL Normal 80-100 [facility] Comment on above: Performed By: #### C BC, VITD, LIPD, CMP #### [facility] [address] [place], [place] [id number] Platelet mean volume (Bld) [Entitic vol] 9.20 fL Normal 7.50-12.50 [facility] Comment on above: Performed By: #### C BC, VITD, LIPD, CMP #### [facility] [address] [place], [place] [id number] Platelets (Bld) [#/Vol] 281 10*3/uL Normal 140-400 [facility] Comment on above: Performed By: #### C BC, VITD, LIPD, CMP #### [facility] [address] [place], [place] [id number] RBC (Bld) [#/Vol] 4.74 10*6/uL Normal 3.90-5.20 [facility] Comment on above: Performed By: #### C BC, VITD, LIPD, CMP #### [facility] [address] [place], [place] [id number] RDW-SD 45.4 fL Normal 37.0-50.0 [facility] Comment on above: Performed By: #### C BC, VITD, LIPD, CMP #### [facility] [address] [place], [place] [id number] WBC (Bld) [#/Vol] 6.7 10*3/uL Normal 3.8-11.0 [facility]ig[facility] [place] [employer] [facility] Comment on above: Performed By: #### C BC, VITD, LIPD, CMP #### [facility] [address] [facility] [place] [id number] Comprehensive Metabolic Pane angus 04-28-2022 Albumin [Mass/Vol] 4.1 g/dL Normal 3.6-5.1 Noah rodrigues [place] [employer] [facility] Comment on above: Performed By: #### C BC, VITD, LIPD, CMP #### [facility] [address] [facility] [place] [id number] Albumin/Globulin [Mass ratio] 1.5 {ratio} Normal 1.0-2.5 [facility] Comment on above: Performed By: #### C BC, VITD, LIPD, CMP #### [facility] [address] [facility] [place] [id number] ALP [Catalytic activity/Vol] 71 U/L Normal 35-119 [facility] Comment on above: Performed By: #### C BC, VITD, LIPD, CMP #### [facility] [address] [facility] [place] [id number] ALT [Catalytic activity/Vol] 8 U/L Normal 6-33 [facility] Comment on above: Result Comment: 10/29 Female reference range changed. Performed By: #### C BC, VITD, LIPD, CMP #### [facility] [address] [facility] [place] [id number] Anion gap [Moles/Vol] 15 mmol/L Normal 12-20 [facility] Comment on above: Result Comment: Effe ctive 12/04/2019 reference range changed. Performed By: #### C BC, VITD, LIPD, CMP #### [facility] [address] [facility] [place] [id number] AST [Catalytic activity/Vol] 14 U/L Normal 9-34 [facility] Specialist Comment on above: Performed By: #### C BC, VITD, LIPD, CMP #### [facility] [address] [place], [place] [id number] BUN/CREA 12 Ratio Normal 6-22 [facility] Specialist Comment on above: Performed By: #### C BC, VITD, LIPD, CMP #### [facility] [address] [place], [place] [id number] Calcium [Mass/Vol] 9.3 mg/dL Normal 8.6-10.[address] [facility] Comment on above: Performed By: #### C BC, VITD, LIPD, CMP #### [facility] [address], [place] [id number] Chloride [Moles/Vol] 107 mmol/L Normal 98-[address] [facility] Comment on above: Performed By: #### C BC, VITD, LIPD, CMP #### [facility] [address] [place], [place] [id number] CO2 [Moles/Vol] 25 mmol/L Normal 20-31 [facility] Comment on above: Performed By: #### C BC, VITD, LIPD, CMP #### [facility] [address] [place], [place] [id number] Creatinine [Mass/Vol] 0.6 mg/dL Normal 0.6-1.4 [facility] Comment on above: Performed By: #### C BC, VITD, LIPD, CMP #### [facility] [address] [place], [place] [id number] eGFRAA 124 mL/min/1.73m2 Normal >60 [place] Comment on above: Performed By: #### C BC, VITD, LIPD, CMP #### [facility] [address] [place], [place] [id number] eGFRNAA 102 mL/min/1.73m2 Normal >60 [facility] Specialist Comment on above: Performed By: #### C BC, VITD, LIPD, CMP #### [facility] [address] [place], [place] [id number] Globulin (S) [Mass/Vol] 2.7 g/dL Normal 1.9-3.7 [facility] Comment on above: Performed By: #### C BC, VITD, LIPD, CMP #### [facility] [address] [place], [place] [id number] Glucose [Mass/Vol] 99 mg/dL Normal 65-99 Noah rodrigues [employer] Supervisor Comment on above: Result Comment: For FASTING Glucose --- ADA reference ranges: Normal 65-99 mg/dl Prediabetes 100-125 Diabetes >/= 126 Performed By: #### C BC, VITD, LIPD, CMP #### [facility] [address] [facility] [place] [place] [id number] Potassium [Moles/Vol] 4.4 mmol/L Normal 3.5-5.5 [facility] Comment on above: Performed By: #### C BC, VITD, LIPD, CMP #### [facility] [address] [place], [place] [id number] Protein [Mass/Vol] 6.8 g/dL Normal 6.1-8.1 Noah rodrigues [employer] Supervisor Comment on above: Performed By: #### C BC, VITD, LIPD, CMP #### [facility] [address] [place], [place] [id number] Sodium [Moles/Vol] 143 mmol/L Normal 135-146 Noah [facility] [employer] Supervisor Comment on above: Performed By: #### C BC, VITD, LIPD, CMP #### [facility] [address] [id number] TBIL <0.3 Normal [facility] Comment on above: Performed By: #### C BC, VITD, LIPD, CMP #### [facility] [address] [facility] [place] [id number] Urea nitrogen [Mass/Vol] 7 mg/dL Normal 7-25 [facility] Special[facility] Comment on above: Performed By: #### C BC, VITD, LIPD, CMP #### [facility] [address] [facility] [place] [id number] Lipid Panelon 04-28-2022 Cholesterol [Mass/Vol] 141 mg/dL Normal 125-200 [facility] Special[facility] Comment on above: Result Comment: Low risk < 200mg/dL Borderline risk 201-239 mg/dl High risk > or equal to 240 Performed By: #### C BC, VITD, LIPD, CMP #### [facility] [address] [facility] [place] [id number] Cholesterol in HDL [Mass/Vol] 35 mg/dL Low >40 [facility] [employer] Supervisor Comment on above: Result Comment: High Cardiovascular Risk HDL <40 mg/dL Low Cardiovascular Risk HDL > or equal to 60 mg/dl Performed By: #### C BC, VITD, LIPD, CMP #### [facility] [address] [place], [place] [id number] Cholesterol in LDL [Mass/Vol] 81 mg/dL Normal [facility] [employer] Supervisor Comment on above: Result Comment: LDL ATP III CLASSIFICATION LDL less than 100 mg/dl Optimal LDL 100-129 mg/dl Near or above optimal LDL 130-159 Borderline high LDL 160-189 High LDL greater than 189 mg/dl Very High Performed By: #### C BC, VITD, LIPD, CMP #### [facility] [address] [place], [place] [id number] Cholesterol in VLDL [Mass/Vol] 25 mg/dL Normal [facility] [employer] Supervisor Comment on above: Performed By: #### C BC, VITD, LIPD, CMP #### [facility] [address] [id number] Cholesterol.total/Cho lesterol in HDL [Mass ratio] 4 {ratio} Normal [facility] [employer] Supervisor Comment on above: Performed By: #### C BC, VITD, LIPD, CMP #### [facility] [address] [facility] [place] [id number] Triglyceride [Mass/Vol] 124 mg/dL Normal 30-150 [facility] [employer] Supervisor Comment on above: Result Comment: TRIG ATPIII CLASSIFICATIONS TRIG less than 150 mg/dl Normal TRIG 150-199 mg/dl Borderline High TRIG 200-500 mg/dl High TRIG greather than 500 mg/dl Very High Performed By: #### C BC, VITD, LIPD, CMP #### [facility] [address] [id number] Vitamin D 25-OHon 04-28-2022 VIT D 25 OH 44 ng/ml Normal >29 [facility] [employer] Supervisor Comment on above: Result Comment: Natalee min D Status Deficiency <20 ng/mL Insufficiency 20-29 ng/mL Optimal 30-100 ng/mL Possible Toxicity >=150 ng/mL Performed By: #### C BC, VITD, LIPD, CMP #### [facility] [address] [place], [place] [id number] Free T3on 04-22-2022 FT3 2.65 pg/mL Normal 2.00-4.40 [facility] Specialist Comment on above: Performed By: #### T SH, FT4, FT3 #### [facility] [address] [place], [place] [id number] Free T4on 04-22-2022 Free T4 [Mass/Vol] 1.11 ng/dL Normal 0.80-1.[address] [facility] Comment on above: Performed By: #### T SH, FT4, FT3 #### [facility] [address] [place], [place] [id number] TSHon 04-22-2022 TSH 3.670 uIU/mL Normal 0.400-4.500 [facility]ist Comment on above: Performed By: #### T SH, FT4, FT3 #### [facility] [address] [place], [place] [id number] Dermatopathologyon 0 Dermatopathology [facility] Dermatopathology Laboratory [address] [place] [id number] DERMATOPATHOLOGY REPORT Name:HORTENCIA CM [facility]. Rec #. [id number] Location: [facility] Date of Procedure: 05/01/2020 Race: Date Received: 05/03/2020 /Sex: 1940 (Age: 80) / F Date Reported: 05/06/2020 Other: Submitting Physician:MACRINA SALAZAR APRN, MATHEMATICS PROFESSOR-C FINAL DIAGNOSIS SKIN, (R) GNOSTICISM, BIOPSY: HYPERKERATOSIS WITH EPIDERMAL HYPERPLASIA, PRESENT ON [...] M.D. Electronically Signed Out By ABBEY CARO MD/[facility] By the signature on this report, the individual or group listed as making the Final Interpretation/Diagnosis certifies that they have reviewed this case. 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 Biopsy. Specimens Submitted As: A: SKIN, (R) GNOSTICISM Gross Description: Received in formalin is a nuñez piece of skin measuring [id number]. The specimen is inked and embedded in toto. dcp/05/03/2020 Normal [facility] Comment on above: Performed By: #### D #### Dermatopathology GI Letteron 12-14-2017 GI Letter [facility] Fax:Gastroenterology [phone] Xvurapgedq Medical [phone] Indian [facility] Fax:[place] [phone] [place], [place]RE: Patient Name: Hortencia Cm MR #: [id number] Date of : 1940 Date of 12/10/2017 Service:Bear aCmejo M.D.[address] [place] [address] [address], [place] [address]. Camejo,I had the pleasure of seeing [...] M.D.Date Trans: 12/11/2017 12:03 A/mmoRevised: 12/14/2017 09:23 A/paCopy/Jen_JN:[id number]: Bear Camejo M.D. [address] [facility] [address] [facility] [address] Dinesh yDer M.D. 3 [facility] [address] [place] [facility] Endoscopy Reporton 8 Endoscopy Report MR#: [id number] Name[facility] Hortencia Cm Surgery Date: 12/10/2017 [...] by:Gm Jameson M.D. 12/29/2017 08:34 A Gm aJmeson M.D.Date Dict: 12/10/2017/02:36 P/Gm Jameson M.D.Date Trans: 12/11/2017 12:02 P/Silverio_JN:[id number] cc: Bear Camejo M.D. [address] [place] [address] Dinesh Dyer M.D. 3 [facility] [address] Normal [facility] ERCPon 12-10-2017 ERCP [facility] [address] [place] [address] P atient Name: HORTENCIA CM : 2Sex: FAge: Race: WhiteMRN: [id number]. Location: 230Patient Status: DVisit #: [id number] Date: 12/10/2017 5:00:00 AMCompleted Date: 12/10/2017 04:04 PMRequesting Provider: RICHARDSON TONG Attending Provider: Report Copy To: Signs & Symptoms: R10.9 Unspecified abdominal pain [id number]: AthenaComments: , , Appointment Date: 12/10/2017 , Appointment Time: 1230 , , , Ordering Provider - RICHARDSON TONG , Exam: ERCPAccession #: [id number] ======ERCP 12/10/2017 4:04 PM EST TECH COMMENTS:ERCP [...] findings. Electronically signed by:Mario Willis. Transcribed by: [email or web address], User Resident: KELSEY JOSEElectronically Signed by: MARIO WILLIS @ 12/15/2017 10:02 AMI personally read this/these film(s) with this resident Normal [facility] Comment on above: Order Comment: , , Elham ppointment Date: 12/10/2017 , Appointment Time: 1230 , , , Ordering Provider - RICHARDSON TONG , POC GLUCOSE LABon 12-10-2017 Glucose mass conc 115 mg/dL High 70-100 [facility] Comment on above: Performed By: #### 8 [id number] ####[facility] Operative Reporton 7 Operative Report MR#: [id number] [facility] Pt. Name: Hortencia Cm Room #: 3CD [id number] Discharge Date: Birthdate: 1940 OPERATIVE REPORTDATE OF [...] followup with Dr. Zi Collins in the [place] [facility] in [place].4. Referral to cardiac rehabilitation.PROCEDURES : Coronary angiogram, [...] performed. All catheter exchanges were made overthe Magic Torque guidewire. Catheters used were JL3.5 and JR4. Coronaryangiography was performed in multiple orthogonal views using hand injectionof contrast.I elected to proceed with PCI of the RCA. Heparin anticoagulation was usedfor this procedure. ACT was maintained greater than 250 seconds. A Cordis6-Malagasy JR4 guide was engaged in the right [...] atmospheres.Next, the stent was post-dilated with an Caro Nut Quantum apex 3.25 x 12 mmnoncompliant balloon [...] 07/09/2017/01:29 P/Rachel Padron M.D.Date Trans: 07/10/2017 09:40 A/Silverio_JN:[id number] cc: Dinesh Dyer M.D. [address] [facility] [address] Dinesh Collins M.D. 135[address] [facility] [address] Normal [facility] Vital Signs Date Time Vital Sign Value Performing Clinician Facility 09-19-2024 09:25-0400 Body height 149.9 cm Padmaja Mcmahon NP Work Phone: [facility] 09-19-2024 09:25-0400 Body temperature 96.8 [degF] Padmaja Mcmahon MATHEMATICS PROFESSOR Work Phone: [facility] 09-19-2024 09:25-0400 Diastolic blood pressure 82 mm[Hg] Padmaja Mcmahon MATHEMATICS PROFESSOR Work Phone: [facility] 09-19-2024 09:25-0400 Heart rate 92 /min Padmaja Mcmahon MATHEMATICS PROFESSOR Work Phone: [facility] 09-19-2024 09:25-0400 SaO2% (BldA) [Mass fraction] 99 % Padmaja Mcmahon MATHEMATICS PROFESSOR Work Phone: [facility] 09-19-2024 09:25-0400 Systolic blood pressure 138 mm[Hg] Padmaja Mcmahon MATHEMATICS PROFESSOR Work Phone: [facility] 08-14-2024 13:05-0400 Body height 149.86 cm [facility] 08-14-2024 13:05-0400 Body mass index (BMI) [Ratio] 18.3 kg/m2 [facility] 08-14-2024 13:05-0400 Body weight 41.27 kg [facility] 02-11-2024 13:02-0400 Body weight 41.27 kg [facility] 11-24-2023 14:15-0500 Body height 153.03 cm Chance Scovanner Other [facility] 11-24-2023 14:15-0500 Body mass index (BMI) [Ratio] 17.62 kg/m2 Chance Scovanner Other [facility] Other 11-24-2023 14:15-0500 Body weight 41.28 kg Chance Scovanner Other [facility] Other 11-24-2023 14:15-0500 Body weight 41.27 kg [facility] 10-26-2023 13:30-0500 Body height 153.03 cm Jairo Dorantes Other [facility] Other 10-26-2023 13:30-0500 Body mass index (BMI) [Ratio] 18.2 kg/m2 Jairo Dorantes Other [facility] Other 10-26-2023 13:30-0500 Body temperature 96.2 [degF] Jairo Dorantes Other [facility] Other 10-26-2023 13:30-0500 Body weight 42.64 kg Jairo Dorantes Other [facility] Other 10-26-2023 13:30-0500 Diastolic blood pressure 60 mm[Hg] Jairo Dorantes Other [facility] Other 10-26-2023 13:30-0500 SaO2% (BldA) [Mass fraction] 96 % Jairo Butrisha Other [facility] Other 10-26-2023 13:30-0500 Systolic blood pressure 130 mm[Hg] Jairo Dorantes Other [facility] Other 09-27-2023 13:00-0400 Body height 153.03 cm Chance Scovanner Other [facility] Other 09-27-2023 13:00-0400 Body mass index (BMI) [Ratio] 18.2 kg/m2 Chance Scovanner Other [facility] Other 09-27-2023 13:00-0400 Body weight 42.64 kg Chance Scovanner Other [facility] Other 09-27-2023 13:00-0400 Diastolic blood pressure 66 mm[Hg] Chance Scovanner Other [facility] Other 09-27-2023 13:00-0400 Systolic blood pressure 135 mm[Hg] Chance Scovanner Other [facility] Other 06-25-2023 11:00-0400 Body height 153.03 cm Chance Scovanner Other [facility] Other 06-25-2023 11:00-0400 Body mass index (BMI) [Ratio] 18.2 kg/m2 Chance Scovanner Other [facility] Other 06-25-2023 11:00-0400 Body weight 42.64 kg Chance Scovanner Other [facility] Other 06-25-2023 11:00-0400 Diastolic blood pressure 71 mm[Hg] Chance Damon Other [facility] Other 06-25-2023 11:00-0400 Systolic blood pressure 119 mm[Hg] Chance Damon Other [facility] Other 06-07-2023 11:30-0400 Body height 153.03 cm Bebe Dugantuan Other [facility] Other 06-07-2023 11:30-0400 Body mass index (BMI) [Ratio] 17.89 kg/m2 Bebe Dugantuan Other [facility] Other 06-07-2023 11:30-0400 Body temperature 97.6 [degF] Bebe Dugantuan Other [facility] Other 06-07-2023 11:30-0400 Body weight 41.91 kg Bebe Dugantuan Other [facility] Other 06-07-2023 11:30-0400 Diastolic blood pressure 68 mm[Hg] Bebe Lara Other [facility] Other 06-07-2023 11:30-0400 SaO2% (BldA) [Mass fraction] 97 % Bebe Lara Other [facility] Other 06-07-2023 11:30-0400 Systolic blood pressure 128 mm[Hg] Bebe Lara Other [facility] Other 03-02-2023 13:05-0400 Blood Pressure Location YESSICA PIEDRA [facility] 03-02-2023 13:05-0400 Diastolic blood pressure 72 mm[Hg] YESSICA DOROTHEA [facility] 03-02-2023 13:05-0400 Heart rate 60 /min YESSICA DOROTHEA [facility] 03-02-2023 13:05-0400 Respiratory rate 16 /min YESSICA DOROTHEA [facility] 03-02-2023 13:05-0400 Systolic blood pressure 122 mm[Hg] YESSICA DOROTHEA [facility] 02-24-2023 14:45-0400 Body height 153.03 cm Vu Guevara Other [facility] Other 02-24-2023 14:45-0400 Body mass index (BMI) [Ratio] 18.4 kg/m2 Vu Guevara Other [facility] Other 02-24-2023 14:45-0400 Body weight 43.09 kg Vu Guevara Other [facility] Other 02-24-2023 14:45-0400 Diastolic blood pressure 76 mm[Hg] Vu Guevara Other [facility] Other 02-24-2023 14:45-0400 Systolic blood pressure 122 mm[Hg] Vu Coreay Other [facility] Other 01-20-2023 15:45-0500 Diastolic blood pressure 76 mm[Hg] II Dinesh Dyer Work Phone: [facility] 01-20-2023 15:45-0500 Heart rate 75 /min II Dinesh Dyer Work Phone: [facility] 01-20-2023 15:45-0500 Respiratory rate 16 /min II Dinesh Dyer Work Phone: [facility] 01-20-2023 15:45-0500 SaO2% (BldA) [Mass fraction] 98 % II Dinesh Dyer Work Phone: [facility] 01-20-2023 15:45-0500 Systolic blood pressure 142 mm[Hg] II Dinesh Dyer Work Phone: [facility] 01-20-2023 10:55-0500 Body height 149.86 cm II Dinesh Dyer Work Phone: [facility] 01-20-2023 10:55-0500 Body weight 41.73 kg II Dinesh Dyer Work Phone: [facility] 01-11-2023 11:30-0500 Body height 153.03 cm Jairo Dorantes Other [facility] Other 01-11-2023 11:30-0500 Body mass index (BMI) [Ratio] 18.4 kg/m2 Jairo Dorantes Other [facility] Other 01-11-2023 11:30-0500 Body temperature 97.8 [degF] Jairo Dorantes Other [facility] Other 01-11-2023 11:30-0500 Body weight 43.09 kg Jairo Dorantes Other [facility] Other 01-11-2023 11:30-0500 Diastolic blood pressure 72 mm[Hg] Jairo Dorantes Other [facility] Other 01-11-2023 11:30-0500 SaO2% (BldA) [Mass fraction] 97 % Jairo Piperbrennen Other [facility] Other 01-11-2023 11:30-0500 Systolic blood pressure 116 mm[Hg] Jairo Dorantes Other [facility] Other 11-25-2021 12:00-0500 Body height 153.03 cm Gautam Gaspar Other [facility] Other 11-25-2021 12:00-0500 Body mass index (BMI) [Ratio] 19.56 kg/m2 Gautam Gaspar Other [facility] Other 11-25-2021 12:00-0500 Body weight 45.81 kg Gautam Gaspar Other [facility] Other Encounters Encounter Date Encounter Type Care Provider Facility Start: 09-19-2024 End: 09-19-2024 Bamboo flowsheet Padmaja Mcmahon MATHEMATICS PROFESSOR Work Phone: [facility] Start: 09-19-2024 End: 09-19-2024 [facility] flowsheet Padmaja Mcmahon MATHEMATICS PROFESSOR Work Phone: [facility] Start: 09-19-2024 End: 09-19-2024 Office outpatient visit 25 minutes Padmaja Mcmahon MATHEMATICS PROFESSOR Work Phone: [facility] Comment on above: Acute non-recurrent pansinusitis (Primary Dx); Difficulty urinating; Vascular disorder of intestine, unspecified (CMS/HCC); Atherosclerosis of aorta (CMS/HCC) Start: 09-19-2024 End: 09-19-2024 ambulatory PADMAJA MCMAHON Not Available Start: 09-13-2024 End: 09-13-2024 ambulatory [facility] Start: 09-11-2024 End: 09-11-2024 Patient encounter procedure II Dinesh Dyer Work Phone: [facility] Work Phone: Start: 09-11-2024 End: 09-11-2024 ambulatory II Dinesh Dyer Work Phone: [facility] Work Phone: Start: 08-14-2024 End: 08-14-2024 ambulatory [facility] Work Phone: Start: 08-14-2024 End: 08-14-2024 Patient encounter procedure [facility] Work Phone: Start: 07-18-2024 End: 07-18-2024 ambulatory MACRINAKASSANDRA SALAZAR Not Available Start: 03-28-2024 End: 03-28-2024 ambulatory II Dinesh Dyer Work Phone: [facility] Work Phone: Start: 03-28-2024 End: 03-28-2024 Patient encounter procedure II Dinesh Dyer Work Phone: [facility] Work Phone: Start: 03-14-2024 End: 03-15-2024 ambulatory Tammie X Orzech Facility:[facility] Start: 03-14-2024 End: 03-14-2024 Patient encounter procedure Tammie X Orzech [facility] Start: 03-13-2024 End: 03-13-2024 ambulatory LE SHIPLEY Not Available Start: 02-29-2024 End: 02-29-2024 ambulatory PADMAJA MCMAHON Not Available Start: 02-11-2024 End: 02-11-2024 ambulatory [facility] Work Phone: Start: 02-11-2024 End: 02-11-2024 Patient encounter procedure [facility] G[facility] Work Phone: Start: 02-03-2024 End: 02-03-2024 ambulatory PADMAJA Geller HELEN Not Available Start: 12-03-2023 (Sclerother) Sclerotherapy Bebe Ruttino [facility] Vascular Surgery Start: 12-03-2023 End: 12-03-2023 ambulatory Bebe Ruttino Other [facility] Other Start: 12-02-2023 End: 12-02-2023 ambulatory PADMAJA M HELEN Not Available Start: 11-24-2023 End: 11-24-2023 ambulatory Chance Scovanner Other [facility] Other Start: 11-24-2023 Office outpatient vi sit 15 minutes Chance Scovanner [facility] Gastroenterology Start: 11-24-2023 End: 11-24-2023 Patient encounter procedure [facility] Work Phone: Start: 10-26-2023 End: 10-26-2023 ambulatory Jairo Dorantes Other [facility] Other Start: 10-26-2023 Office outpatient vi sit 25 minutes Jairo Dorantes [facility] V[facility] Surgery Start: 09-27-2023 End: 09-27-2023 ambulatory Chance Scovanner Other [facility] Other Start: 09-27-2023 Office outpatient vi sit 15 minutes Chance Scovanner [facility] Gastroenter[facility] Start: 09-17-2023 (Sclerother) Sclerotherapy Bebe Ruttino [facility] Surgery Start: 09-17-2023 End: 09-17-2023 ambulatory Bebe Ruttino Other [facility] Other Start: 06-25-2023 End: 06-25-2023 ambulatory Chance Scovanner Other [facility] Other Start: 06-25-2023 Office outpatient vi sit 15 minutes Chance Damon [facility] Gastroenterology Start: 06-17-2023 End: 06-17-2023 ambulatory Jairo Dorantes Other [facility] Other Start: 06-17-2023 Telephone encounter Jairo Dorantes [facility] V[facility] Start: 06-07-2023 End: 06-07-2023 Patient encounter procedure Bebe Lucerojodie [facility] Start: 06-07-2023 End: 06-07-2023 ambulatory II Dinesh Dyer Work Phone: [facility] Work Phone: Start: 04-22-2023 End: 04-22-2023 ambulatory VINCE BLUM Facility:[facility] Start: 03-05-2023 End: 03-06-[address] DINESH DYER Facility:[facility] Start: 03-02-2023 End: 03-02-2023 Patient encounter procedure YESSICA PIEDRA [facility] Start: 03-01-2023 End: 03-02-[address] DINESH DYER Facility:[facility] Start: 02-24-2023 End: 02-24-2023 ambulatory Vu Guevara Other [facility] Other Start: 02-24-2023 Patient encounter procedure Vu Guevara [facility] Gastroenter[facility] Start: 01-21-2023 End: 01-21-2023 ambulatory II Dinesh Dyer Work Phone: [facility] Work Phone: Start: 01-21-2023 End: 01-21-2023 Patient encounter procedure II Dinesh Dyer Work Phone: [facility] [place] Work Phone: Start: 01-20-2023 End: 01-20-2023 Admission to same day surgery center II Dinesh Dyer Work Phone: [facility] Work Phone: Start: 01-20-2023 End: 01-20-2023 ambulatory II Dinesh Dyer Work Phone: [facility] Work Phone: Start: 01-11-2023 End: 01-11-2023 ambulatory Jairo Dorantes Other [facility] Other Start: 01-11-2023 Office outpatient ne w 45 minutes Jairo Dorantes [facility] Start: 10-01-2022 End: 10-02-[address] DINESH DYER Facility: Start: 05-23-2022 End: 05-23-[address] DINESH DYER Facility: Start: 02-24-2022 End: 02-24-2022 Patient encounter procedure Tamia Gee Jr. [facility] Start: 11-25-2021 End: 11-25-2021 ambulatory Gautam Gaspar Other [facility] Other Start: 11-25-2021 Office outpatient vi sit 25 minutes Gautam Gaspar [facility] Start: 12-10-2017 End: 12-11-2017 Ambulatory GM JAMESON Facility:[facility] Start: 07-09-2017 End: 07-10-2017 Ambulatory RACHEL PADRON Facility:[facility] Start: 07-06-2017 End: 07-07-2017 Ambulatory DEFAULT PHYSICIAN Facility:[facility] Start: 07-01-2017 End: 07-02-2017 Ambulatory DEFAULT PHYSICIAN Facility:[facility] Procedures Date Procedure Procedure Detail Performing Clinician Start: 09-19-2024 Urnls dip stick/tabl et rgnt non-auto w/o micrscp Padmaja Mcmahon MATHEMATICS PROFESSOR Work Phone: Start: 09-11-2024 Screening mammograph y of bilateral breasts II Dinesh Deyr Work Phone: Start: 03-28-2024 Doppler ultrasonogra phy of bilateral carotid arteries II Dinesh Dyer Work Phone: Start: 06-07-2023 Duplex scan of lower limb veins II Dinesh Deyr Work Phone: Start: 01-20-2023 IR Visceral Angiogra m (Mesenteric) (Not Applicable) II Dinesh Dyer Work Phone: Start: 01-19-2022 Cystourethroscopy wi th dilation of urethral stricture Tamia Gee Jr. Start: 06-13-2021 H/O: hysterectomy History of hysterectomy Padmaja Mcmahon NP Work Phone: Start: 12-10-2017 ANES UPR GI NDSC PX ERCP YUE Robetr MOTA Start: 12-10-2017 ERCP REMOVE DUCT CALCULI ALI T NAWRAS Start: 12-10-2017 ERCP REMOVE FORGN BODY DUCT ALI T NAWRAS Appendectomy Tamia Guajardo Bilateral tubal ligation Damon Gee Jr. Cholecystectomy Tamia Gee Jr. 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 Plan of Treatment Date Care Activity Detail Author Start: 07-19-2025 End: 07-19-2025 Patient encounter procedure 07/19/2025 1:05 PM EDT Office Visit [facility] [address] [place] [address] Macrina Salazar, MOBILE NURSE-UI UX WEB DEVELOPER [address] [place] [address] [facility] Start: 02-28-2025 Medicare Annual Well ness (AWV) Medicare Annual Wellness (AWV) [facility] Start: 09-19-2024 End: 09-19-2025 URINARY TRACT INFECTION (HTRX) URINARY TRACT INFECTION (HTRX) Lab Routine Difficulty urinating Expected: 09/19/2024 (Approximate), Expires: 09/19/2025 [facility] Work Phone: Comment on above: Expected: 09/19/2024 (Approximate), Expires: 09/19/2025 Start: 09-19-2024 End: 09-19-2024 Patient encounter procedure 09/19/2024 9:30 AM EDT Office Visit [facility] [address] [facility] [address] [place] [address] Padmaja Mcmahon NP [address] [place] [address] Arrived [facility] Comment on above: Arrived Start: 07-30-2024 Influenza vaccination Influenza Vacc ine (#1) [facility] Start: 01-21-2023 Doppler ultrasonogra phy of bilateral carotid arteries US carotid doppler BI [facility] Start: 01-21-2023 US.doppler Carotid arteries - [facility] Start: 01-20-2023 [facility] Patient Education Arteriogram (DC) [facility] Work Phone: Patient referral [facility] Work Phone: US.doppler Carotid arteries - [facility] Immunizations Immunization Date Immunization Notes Care Provider [facility] 09-02-2023 Influenza, Seasonal, Quadrivalent, Adjuvanted Padmaja Mcmahon MATHEMATICS PROFESSOR Work Phone: [facility] 09-02-2023 influenza virus vacc ine, unspecified formulation Padmaja Mcmahon MATHEMATICS PROFESSOR Work Phone: [facility] 03-12-2023 Pneumococcal Conjuga te PCV 20 Padmaja Mcmahon MATHEMATICS PROFESSOR Work Phone: [facility] 09-02-2022 influenza virus vacc ine, unspecified formulation YESSICA PIEDRA [facility] 09-02-2022 Seasonal trivalent influenza vaccine, adjuvanted, preservative free Padmaja Mcmahon MATHEMATICS PROFESSOR Work Phone: [facility] 10-16-2021 SARS-CoV-2 (COVID-19 ) mRNA BNT-162b2 vax YESSICA DOROTHEA [facility] Comment on above: Result Comment: 2022: [id number] 09-09-2021 influenza, high dose seasonal, preservative-free Padmaja Helne MATHEMATICS PROFESSOR Work Phone: [facility] 09-08-2021 influenza virus vacc ine, unspecified formulation YESSICA DOROTHEA [facility] 09-08-2021 Seasonal trivalent influenza vaccine, adjuvanted, preservative free Padmaja Helen MATHEMATICS PROFESSOR Work Phone: [facility] 07-28-2021 zoster vaccine recombinant YESSICA DOROTHEA [facility] 02-18-2021 SARS-CoV-2 (COVID-19 ) mRNA BNT-162b2 vax YESSICA DOROTHEA [facility] 01-27-2021 SARS-CoV-2 (COVID-19 ) mRNA BNT-162b2 vax YESSICA DOROTHEA [facility] 09-06-2020 influenza virus vacc ine, unspecified formulation YESSICA DOROTHEA [facility] 09-06-2020 Seasonal trivalent influenza vaccine, adjuvanted, preservative free Padmaja Helen MATHEMATICS PROFESSOR Work Phone: [facility] 08-19-2020 pneumococcal polysaccharide vaccine, 23 valent YESSICA DOROTHEA [facility] 09-27-2019 influenza virus vacc ine, unspecified formulation YESSICA DOROTHEA [facility] 09-27-2019 Seasonal trivalent influenza vaccine, adjuvanted, preservative free Padmaja Helen MATHEMATICS PROFESSOR Work Phone: [facility] 09-22-2018 influenza virus vacc ine, unspecified formulation YESSICA DOROTHEA [facility] 09-22-2018 influenza, high dose seasonal, preservative-free Padmaja Nebo MATHEMATICS PROFESSOR Work Phone: [facility] 09-27-2017 influenza virus vacc ine, unspecified formulation YESSICA DOROTHEA [facility] 09-27-2017 influenza, high dose seasonal, preservative-free Padmaja Helen MATHEMATICS PROFESSOR Work Phone: [facility] 09-15-2016 influenza virus vacc ine, unspecified formulation YESSICA DOROTHEA [facility] 09-15-2016 influenza, high dose seasonal, preservative-free Padmaja Helen MATHEMATICS PROFESSOR Work Phone: [facility] 10-03-2015 influenza virus vacc ine, unspecified formulation YESSICA DOROTHEA [facility] 10-03-2015 influenza, high dose seasonal, preservative-free Padmaja Nebo MATHEMATICS PROFESSOR Work Phone: [facility] 09-02-2015 seasonal influenza, intradermal, preservative free Padmaja Nebo MATHEMATICS PROFESSOR Work Phone: [facility] 10-01-2014 influenza, seasonal, injectable Padmaja Helen MATHEMATICS PROFESSOR Work Phone: [facility] 09-01-2013 seasonal influenza, intradermal, preservative free Padmaja Nebo MATHEMATICS PROFESSOR Work Phone: [facility] Payers Date Payer Category Payer Self-pay [id number] 2021 Medicare (Managed Care) [employer] [id number] 1959 Medicare [id number] 1942 Unknown [id number] .593 1942 Unknown [id number] [id number] .593 1942 Unknown [id number] 2.16.840.1.755384.3.579.2 .593 1942 Unknown [id number] 2.16.840.1.291045.3.579.2 .593 1942 Unknown [id number] 2.16.840.1.319910.3.579.2 .593 1942 Unknown [id number] [id number] .727 1942 Unknown [id number] 2.16.840.1.220735.3.579.2 .1259 1942 Unknown [id number] 2.16.840.1.336350.3.579.2 .1259 1942 Unknown [id number] 2.16.840.1.426870.3.579.2 .1259 1942 Unknown [id number] 2.16.840.1.928224.3.579.2 .1259 1942 Unknown [id number] 2.16.840.1.558364.3.579.2 .1259 1942 Unknown [id number] [id number] .1259 Medicare [id number] Medicare Medicare [id number] Medicare [id number] Unknown Unknown [facility] Health Claims [id number] Unknown [id number] .531 Unknown [id number] .531 Social History Date Type Detail Facility Start: 12-10-2020 End: 05-05-2023 Tobacco smoking status Ex-smoker (finding) [facility] Other Start: 06-30-2023 End: 02-29-2024 Sex Assigned At Female [facility] Other Start: 1940 Sex Assigned At Female [facility] Start: 02-06-1979 End: 02-06-2019 History of tobacco use Current smoker [facility] Start: 02-06-1979 End: 02-06-2019 History of tobacco use Cigarette Smoker [facility] Start: 05-05-2023 End: 06-30-2023 Cigarettes smoked current (pack per day) - Reported 0.5 [facility] Start: 05-05-2023 Tobacco use and exposure Smokeless tobacco non-user [facility] Start: 07-18-2024 End: 09-19-2024 Alcoholic beverage intake Ex-drinker (finding) [facility] Within the last year , have you been afraid of your partner or ex-partner? No [facility] Are you now , , , , never or living with a partner? [facility] How often to you hav e a drink containing alcohol? Never [facility] How many standard drinks containing alcohol do you have on a typical day? Patient does not drink [facility] Do you feel stress - tense, restless, nervous, or anxious, or unable to sleep at night because your mind is troubled all the time - these days [OSQ] To some extent [facility] (I/We) worried wheth er (my/our) food would run out before (I/we) got money to buy more. Never true [facility] Start: 06-08-2023 Alcohol Comment caffeine: 1-2 cups/day coffee [facility] Start: 1940 Sex assigned at Not on file [facility] Medical Equipment Procedure Code Equipment Code Equipment [...] 11-30-2017 Functional Status Date Assessment Result Facility 03-14-2024 Functional Status N/A [facility] 03-02-2023 Functional Status N/A [facility] Clinical Notes 11-25-2021 to 09-19-2024 Padmaja Mcmahon, ANGÉLICA - 09/19/2024 9:30 AM EDT Note Date & Type Note Facility 09-19-2024 History of Present illness Narrative Images from the original note were not included. Subjective Patient ID: Hortencia Cm is a 84 y.o. female who presents for Difficulty Urinating and Nausea. Pt states 1 week ago she began feeling nauseated- not vomiting, has post nasal drainage, sinus pressure/headaches, dysuria Denies: diarrhea,vomiting,fever,hematuria Difficulty Urinating This is a new problem. The current episode started in the past 7 days. The problem occurs intermittently (burning upon urination). The quality of the pain is described as burning. The pain is at a severity of 8/10. The pain is moderate. There has been no fever. Associated symptoms include chills and nausea. She has tried nothing for the symptoms. The treatment provided no relief. Sinusitis This is a new problem. The current episode started 1 to 4 weeks ago. The problem has been gradually worsening since onset. There has been no fever. Her pain is at a severity of 8/10. The pain is moderate. Associated symptoms include chills, congestion, headaches and a sore throat. The treatment provided no relief. Current Outpatient Medications on File Prior to Visit Medication Sig Dispense Refill ALPRAZolam (Xanax) 0.25 MG tablet Take 1 tablet (0.25 mg) by mouth 3 (three) times a day as needed for anxiety Take 1/2 to 1 tablet PO every 8 hours as needed 90 tablet 0 Ascorbic Acid (vitamin C) 1000 MG tablet Take 1,000 mg by mouth in the morning. cetirizine (ZyrTEC) 10 MG tablet TAKE 1 TABLET (10 MG) BY MOUTH DAILY. 30 tablet 2 clopidogrel (Plavix) 75 MG tablet Take 1 tablet (75 mg) by mouth Daily 90 tablet 3 cyanocobalamin (Vitamin B-12) 500 MCG tablet Take 500 mcg by mouth in the morning. folic acid (Folvite) 400 MCG tablet Take 0.4 mg by mouth in the morning. levothyroxine (Synthroid, Levoxyl) 50 MCG tablet Take 1 tablet (50 mcg) by mouth in the morning. Take before meals. 90 tablet 3 metoprolol succinate XL (Toprol-XL) 50 MG 24 hr tablet Take 1 tablet (50 mg) by mouth Daily 90 tablet 1 omeprazole (PriLOSEC) [address] capsule Take 1 capsule (40 mg) by mouth in the morning and 1 capsule (40 mg) in the evening. Take before meals. 180 capsule 3 rosuvastatin (Crestor) 20 MG tablet Take 1 tablet (20 mg) by mouth Daily 100 tablet 3 Current Facility-Administered Medications on File Prior to Visit Medication Dose Route Frequency Provider Last Rate Last Admin denosumab (Prolia) injection 60 mg 60 mg Subcutaneous Once Dinesh Dyer MD I have reviewed and reconciled the history and medication list with the patient today. Allergies Allergen Reactions Erythromycin Other Reaction(s): Not available Erythromycin Base GI intolerance Morphine Other Reaction(s): Insomnia Social History Tobacco Use Smoking status: Former Current packs/day: 0.00 Average packs/day: 0.5 packs/day for 40.0 years (20.0 ttl pk-yrs) Types: Cigarettes Start date: 02/06/1979 Quit date: 02/06/2019 Years since quittin.6 Smokeless tobacco: Never Substance Use Topics Alcohol use: Not Currently Comment: caffeine: 1-2 cups/day coffee Drug use: Never Family History Problem Relation Name Age of Onset Heart disease Mother Hypertension Mother Lung cancer Father Breast cancer Sister Melanoma Maternal Grandmother Past Medical History: Diagnosis Date Acid reflux Blepharochalasis of both upper eyelids 2009 Chronic rhinitis Common bile duct (CBD) obstruction Disease of thyroid gland (CMS/HCC) Gallbladder problem 2007 GERD (gastroesophageal reflux disease) Hematuria chronic History of colonoscopy 2008 History of cystoscopy x2 History of Helicobacter pylori infection History of total abdominal hysterectomy Hypertension (CMS/HCC) Migraines (CMS/HCC) Non-toxic multinodular goiter (CMS/HCC) Other cerebral infarction (CMS/HCC) Ovarian cyst and poss - ovary removed Parotid mass S/P appy Sensation of fullness in both ears Sinus problem Stricture of bile duct 2012 Stroke (CMS/HCC) Past Surgical History: Procedure Laterality Date APPENDECTOMY 1957 BILE DUCT STENT PLACEMENT Sricture of bile duct BLEPHAROPLASTY Bilateral 2008 DEXA 09/02/2016 osteoporosis S & H both worse HM MAMMOGRAPHY 09/02/2016 benign HYSTERECTOMY 1986 IR ANGIOGRAM ARTERIOGRAM 01/20/2023 Arteriogram MASS EXCISION 02/2015 e/o R facial mass PAP SMEAR 06/04/2015 negative PA REMOVAL OF OVARY/TUBE(S) 1973 PARTIAL OOPHERECTOMY SALIVARY GLAND SURGERY Left 06/30/2012 lt sup paroidectomy SALIVARY GLAND SURGERY Right 03/07/2019 rt parotidectomy - Timmis Visit Vitals Ht 4' 11 BMI 18.78 kg/m Smoking Status Former BSA 1.33 m Review of Systems Constitutional: Positive for chills. HENT: Positive for congestion and sore throat. Respiratory: Negative. Cardiovascular: Positive for palpitations. Gastrointestinal: Positive for nausea. Genitourinary: Positive for dysuria. Musculoskeletal: Positive for back pain and myalgias. Skin: Negative. Neurological: Positive for headaches. Psychiatric/Behavioral: Negative. Objective Physical Exam Vitals reviewed. Constitutional: Appearance: Normal appearance. HENT: Head: Normocephalic. Right Ear: Tympanic membrane is erythematous. Left Ear: Tympanic membrane is erythematous. Nose: Right Turbinates: Swollen. Left Turbinates: Swollen. Mouth/Throat: Mouth: Mucous membranes are moist. Pharynx: Oropharynx is clear. Posterior oropharyngeal erythema and postnasal drip present. Eyes: Conjunctiva/sclera: Conjunctivae normal. Cardiovascular: Rate and Rhythm: Normal rate and regular rhythm. Pulmonary: Effort: Pulmonary effort is normal. Breath sounds: Normal breath sounds. Abdominal: General: Bowel sounds are normal. Palpations: Abdomen is soft. Skin: General: Skin is warm and dry. Neurological: General: No focal deficit present. Mental Status: She is alert and oriented to person, place, and time. Psychiatric: Mood and Affect: Mood normal. Behavior: Behavior normal. Thought Content: Thought content normal. Judgment: Judgment normal. Assessment/Plan Diagnoses and all orders for this visit: Acute non-recurrent pansinusitis - amoxicillin-clavulanate (Augmentin) 875-125 MG tablet; Take 1 tablet (875 mg) by mouth in the morning and 1 tablet (875 mg) before bedtime. Do all this for 10 days. - methylPREDNISolone (Medrol Dospak) 4 MG tablets; Follow schedule on package instructions Start the above as directed. Reviewed potential s/e with patient. Encouraged probiotic while on antibiotic. Increase water intake, get plenty of rest. Can take OTC allergy medication for symptomatic relief. Tylenol/Motrin prn. Follow up if no improvement in one week. Difficulty urinating - POCT Urinalysis dipstick - URINARY TRACT INFECTION (HTRX); Future Await results Vascular disorder of intestine, unspecified (CMS/HCC) This is a chronic medical condition that is stable since last assessment. No changes in treatment are suggested at this time. Atherosclerosis of aorta (CMS/HCC) This is a chronic medical condition that is stable since last assessment. No changes in treatment are suggested at this time. No follow-ups on file. documented in this encounter [facility] 09-13-2024 Note [facility] Cardiology Clinic Note Chief Complaint: Patient here for 1 year follow up CAD, PAF, PVD, and hypertension. She had an echo last Aug after last visit. Had routine labs w/ lipid panel in January 2024. Denies chest pain, SOB, and lightheadedness. Says she feels a flutter about once every 3-4 weeks, lasting a few seconds at a time. HPI: Hortencia Cm is a 84 y.o. female Doing well overall. No chest pain or shortness of breath. Intermittent palpitations without lightheadedness or dizziness. No syncope. No claudication. No orthopnea, no paroxysmal tunnel dyspnea, no lower extremity edema. Cardiology ROS: Review of Systems Constitutional: Positive for malaise/fatigue. Cardiovascular: Positive for irregular heartbeat and palpitations. Hematologic/Lymphatic: Bruises/bleeds easily. Musculoskeletal: Positive for joint pain and muscle cramps. Neurological: Positive for headaches. All other systems reviewed and are negative. Past Medical History She has a past medical history of Atrial fibrillation (CMS/HCC), Coronary artery disease, GERD (gastroesophageal reflux disease), Hyperlipidemia, Hypertension, Mesenteric artery stenosis (CMS/HCC), PVD (peripheral vascular [...] NEEDED FOR 20 DAYS, Disp: , Rfl: clopidogrel (Plavix) 75 mg tablet, TAKE ONE TABLET BY MOUTH DAILY FOR 90 DAYS, Disp: , Rfl: cyanocobalamin (Vitamin B-12) 500 mcg tablet, Take 500 mcg by mouth in the morning., Disp: , Rfl: levothyroxine (Synthroid, Levoxyl) 50 mcg tablet, Take 1 tablet by mouth in the morning., Disp: , Rfl: metoprolol succinate XL (Toprol-XL) 50 mg 24 hr tablet, Take 1 tablet (50 mg) by mouth once daily as directed. Do not crush or chew., Disp: 90 tablet, Rfl: 3 omeprazole (PriLOSEC) [address] capsule, Take 40 mg by mouth., Disp: , Rfl: rosuvastatin (Crestor) 20 mg tablet, Take 20 mg by mouth every other day., Disp: , Rfl: Last Recorded Vitals BP 160/68 (BP Location: Left arm, Patient Position: Sitting) Pulse 80 Ht 1.499 m (4' 11 ) Wt 41.7 kg (92 lb) SpO2 98% BMI 18.58 kg/m??? Physical Examination: GENERAL: alert and oriented [...] extremities. PSYCH: appropriate mood, affect, and judgement. INVESTIGATIONS: Echocardiogram 08/2023: Normal ventricular systolic function. LVEF is 55 to 60% No significant valvular dysfunction Mildly elevated right sided pressures The right coronary sinus appears enlarged and nearly aneurysmal. Further imaging with CT angiogram can provide better characterization. Assessment: 1. Coronary arteriosclerosis I25.10: Atherosclerotic heart disease of [place] coronary artery without angina pectoris 2. Gastroesophageal reflux disease K21.9: Gastro-esophageal reflux disease without esophagitis GASTROESOPHAGEAL REFLUX DISEASE (GERD): CARE INSTRUCTIONS 3. Migraine G43.909: Migraine, unspecified, not intractable, without status migrainosus 4. Paroxysmal atrial fibrillation - Questionable; records reviewed she had pharmacy associate event and we wanted to get linq but she refused so we have no documentation of afib - hence no OAC I48.0: Paroxysmal atrial fibrillation 5. History of [...] - she has isolated stenosis of the (more content not included)... [facility] 03-14-2024 Hospital Discharge instructions Patient Education 03/14/2024 15:40:33 Dietary Guidelines to Help Prevent Kidney Stones Dietary Guidelines to Help Prevent Kidney Stones Kidney stones are deposits of minerals and salts that form inside your kidneys. Your risk of developing kidney stones may be greater depending on your diet, your lifestyle, the medicines you take, and whether you have certain medical conditions. Most people can lower their risks of developing kidney stones by following these dietary guidelines. Your dietitian may give you more specific instructions depending on your overall health and the type of kidney stones you tend to develop. What are tips for following this plan? Reading food labels Choose foods with no salt added or low-salt labels. Limit your salt (sodium) intake to less than 1,500 mg a day. Choose foods with calcium for each meal and snack. Try to eat about 300 mg of calcium at each meal. Foods that contain 200 500 mg of calcium a serving include: ?8 oz (237 mL) of milk, xubeljt-[id number] milk, and calcium-fortifiedfruit juice. Calcium-fortified means that calcium has been added to these drinks. ?8 oz (237 mL) of kefir, yogurt, and soy yogurt. ?4 oz (114 g) of tofu. ?1 oz (28 g) of cheese. ?1 cup (150 g) of dried figs. ?1 cup (91 g) of cooked broccoli. ?One 3 oz (85 g) can of sardines or mackerel. Most people need 1,000 1,500 mg of calcium a day. Talk to your dietitian about how much calcium is recommended for you. Shopping Buy plenty of fresh fruits and vegetables. Most people do not need to avoid fruits and vegetables, even if these foods contain nutrients that may contribute to kidney stones. When shopping for convenience foods, choose: ?Whole pieces of fruit. ?Pre-made salads with dressing on the side. ?Low-fat fruit and yogurt smoothies. Avoid buying frozen meals or prepared deli foods. These can be high in sodium. Look for foods with live cultures, such as yogurt and kefir. Choose high-fiber grains, such as whole-wheat breads, oat bran, and wheat cereals. Cooking Do not add salt to food when cooking. Place a salt shaker on the table and allow each person to add their own salt to taste. Use vegetable protein, such as beans, textured vegetable protein (TVP), or tofu, instead of meat in pasta, casseroles, and soups. Meal planning Eat less salt, if told by your dietitian. To do this: ?Avoid eating processed or pre-made food. ?Avoid eating fast food. Eat less animal protein, including cheese, meat, poultry, or fish, if told by your dietitian. To do this: ?Limit the number of times you have meat, poultry, fish, or cheese each week. Eat a diet free of meat at least 2 days a week. ?Eat only one serving each day of meat, poultry, fish, or seafood. ?When you prepare animal proteins, cut pieces into small portion sizes. For most meat and fish, one serving is about the size of the palm of your hand. Eat at least five servings of fresh fruits and vegetables each day. To do this: ?Keep fruits and vegetables on hand for snacks. ?Eat one piece of fruit or a handful of berries with breakfast. ?Have a salad and fruit at lunch. ?Have two kinds of vegetables at dinner. You may be told to limit foods that are high in a substance called oxalate. These include: ?Spinach (cooked), rhubarb, beets, sweet potatoes, and Togolese chard. ?Peanuts. ?Potato chips, british fries, and baked potatoes with skin on. ?Nuts and nut products. ?Chocolate. If you regularly take a diuretic medicine, make sure to eat at least 1 or 2 servings of fruits or vegetables that are high in potassium each day. These include: ?Avocado. ?Banana. ?[place], prune, carrot, or tomato juice. ?Baked potato. ?Cabbage. ?Beans and split peas. Lifestyle Drink enough fluid to keep your urine pale yellow. This is the most important thing you can do. Spread your fluid intake throughout the day. If you drink alcohol: ?Limit how much you have to: ?0 1 drink a day for women who are not . ?0 2 drinks a day for men. ?Know how much alcohol is in your drink. In the [place] one drink equals one 12 oz bottle of beer (355 mL), one 5 oz glass of wine (148 mL), or one 1 oz glass of hard liquor (44 mL). Lose weight if told by your health care provider. Work with your dietitian to find an eating plan and weight loss strategies that work best for you. General information Talk to your health care provider and dietitian about taking daily supplements. Depending on your health and the cause of your kidney stones, you may be told: ?Do not take high-dose supplements of vitamin C (1,000 mg a day or more). ?To take a calcium supplement. ?To take a daily probiotic supplement. ?To take other supplements such as magnesium, fish oil, or vitamin B6. Take mmth-dgj-naayncd and prescription medicines only as told by your health care provider. These include supplements. What foods should I limit? Limit your intake of the following foods, or eat them as told by your dietitian. Vegetables Spinach. Rhubarb. Beets. Canned vegetables. Pickles. Olives. Baked potatoes with skin. Grains Wheat bran. Baked goods. Salted crackers. Cereals high in sugar. Meats and other proteins Nuts. Nut butters. Large portions of meat, poultry, or fish. Salted, precooked, or cured meats, such as sausages, meat loaves, and hot dogs. Dairy Cheeses. Beverages Regular soft drinks. Regular vegetable juice. Seasonings and condiments Seasoning blends with salt. Salad dressings. Soy sauce. Ketchup. Barbecue sauce. Other foods Canned soups. Canned pasta sauce. Casseroles. Pizza. Lasagna. Frozen meals. Potato chips. Malagasy fries. The items listed above may not be a complete list of foods and beverages you should limit. Contact a dietitian for more information. What foods should I avoid? Talk to your dietitian about specific foods you should avoid based on the type of kidney stones you have and your overall health. Fruits Grapefruit. The item listed above may not be a complete list of foods and beverages you should avoid. Contact a dietitian for more information. Summary Kidney stones are deposits of minerals and salts that form inside your kidneys. You can lower your risk of kidney stones by making changes to your diet. The most important thing you can do is drink enough fluid. Drink enough fluid to keep your urine pale yellow. Talk to your dietitian about how much calcium you should have each day, and eat less salt and animal protein as told by your dietitian. This information is not intended to replace advice given to you by your health care provider. Make sure you discuss any questions you have with your health care provider. Document Revised: 02/25/2023 Document Reviewed: 02/25/2023 [employer] Patient Education 2022 [employer] 03/14/2024 15:40:32 Kidney Stones, Bxlw-oj-Zpkz Kidney Stones Kidney stones are rock-like masses [...] Follow these instructions at home: Medicines Take snwy-jmv-vowggjy and prescription medicines only as told by [...] have with your health care provider. Document Revised: 07/20/2022 Document Reviewed: 07/20/2022 [employer] Patient Education 2022 [employer] 03/14/2024 15:40:31 Hematuria, Adult Hematuria, Adult Hematuria is blood in the urine. Blood may be visible in the urine, or it may be identified with a test. This condition can be caused by infections of the bladder, urethra, kidney, or prostate. Other possible causes include: Kidney stones. Cancer of the urinary tract. Too much calcium in the urine. Conditions that are passed from parent to child (inherited conditions). Exercise that requires a lot of energy. Infections can usually be treated with medicine, and a kidney stone usually will pass through your urine. If neither of these is the cause of your hematuria, more tests may be needed to identify the cause of your symptoms. It is very important to tell your health care provider about any blood in your urine, even if it is painless or the blood stops without treatment. Blood in the urine, when it happens and then stops and then happens again, can be a symptom of a very serious condition, including cancer. There is no pain in the initial stages of many urinary cancers. Follow these instructions at home: Medicines Take xamf-tut-hkmjlhb and prescription medicines only as told by your health care provider. If you were prescribed an antibiotic medicine, take it as told by your health care provider. Do not stop taking the antibiotic even if you start to feel better. Eating and drinking Drink enough fluid to keep your urine pale yellow. It is recommended that you drink 3 4 quarts (2.8 3.8 L) a day. If you have been diagnosed with an infection, drinking cranberry juice in addition to large amounts of water is recommended. Avoid caffeine, tea, and carbonated beverages. These tend to irritate the bladder. Avoid alcohol because it may irritate the prostate (in males). General instructions If you have been diagnosed with a kidney stone, follow your health care provider's instructions about straining your urine to catch the stone. Empty your bladder often. Avoid holding urine for long periods of time. If you are female: ?After a bowel movement, wipe from front to back and use each piece of toilet paper only once. ?Empty your bladder before and after sex. Pay attention to any changes in your symptoms. Tell your health care provider about any changes or any new symptoms. It is up to you to get the results of any tests. Ask your health care provider, or the department that is doing the test, when your results will be ready. Keep all follow-up visits. This is important. Contact a health care provider if: You develop back pain. You have a fever or chills. You have nausea or vomiting. Your symptoms do not improve after 3 days. Your symptoms get worse. Get help right away if: You develop severe vomiting and are unable to take medicine without vomiting. You develop severe pain in your back or abdomen even though you are taking medicine. You pass a large amount of blood in your urine. You pass blood clots in your urine. You feel very weak or like you might faint. You faint. Summary Hematuria is blood in the urine. It has many possible causes. It is very important that you tell your health care provider about any blood in your urine, even if it is painless or the blood stops without treatment. Take hwsh-wfa-hvgvaji and prescription medicines only as told by your health care provider. Drink enough fluid to keep your urine pale yellow. This information is not intended to replace advice given to you by your health care provider. Make sure you discuss any questions you have with your health care provider. Document Revised: 07/16/2021 Document Reviewed: 07/16/2021 [employer] Patient Education 2022 [employer]. Follow Up Care 03/02/2023 13:51:08 With:CHRISTOPHER Delgado APRN, Tammie Recio, YUNG, URL Address: When: Unknown Comments:1 year with BAYLEE [facility] 11-24-2023 Evaluation note Encounter Date Diagnosis Assessment [...] her next visit here in two months. [facility] Other 11-28-2023 Evaluation note* Encounter Date Diagnosis [...] She is in agreement with that plan [facility] Other 10-30-2023 Evaluation note* Encounter Date Diagnosis [...] CAN USE PROTEIN SHAKES OR YOGURTS ETC. [facility] Other 07-28-2023 Evaluation note* Encounter Date Diagnosis Assessment Notes [...] be sent to [facility] in [place] Return to the office in three months. [facility] Other 07-20-2023 Evaluation note* Encounter Date Diagnosis Assessment Notes Treatment Notes Treatment Clinical Notes May, Symptomatic varicose veins of both lower extremities (ICD-10 - I83.893) [facility] Other 07-10-2023 Evaluation note* Encounter Date Diagnosis [...] leg elevation, good skin care moisturizer therapy. 10 May, 2023 Venous insufficiency of both lower extremities (ICD-10 - I87.2) [facility] Other 04-04-2023 Hospital Discharge instructions Patient Education 03/02/2023 13:28:16 Kidney Stones, Utuj-up-Ggev Kidney Stones Kidney stones are rock-like masses [...] Follow these instructions at home: Medicines Take lmxk-dco-tyjbvlw and prescription medicines only as told by [...] 05/03/2009 Document Revised: 04/02/2020 Document Reviewed: 04/02/2020 [employer] Patient Education 2019 [employer]. Follow Up Care 02/24/2022 12:57:34 With:DOROTHEA PACHECO, YESSICA Mac, URL Address: [address] [place] [address] When: Unknown [facility] 03-29-2023 Evaluation note* Encounter Date Diagnosis Assessment Notes Treatment Notes Treatment Clinical Notes Jan, Bile reflux gastritis (ICD-10 - K29.60) Increase omeprazole 40 mg to twice a day Jan, Constipation (ICD-10 - K59.00) Pt to continue miralax-titration dosing discussed with patient Rto 3 months with Chance Jan, Nausea (ICD-10 - R11.0) [facility] Other 02-13-2023 Evaluation note* Encounter Date Diagnosis [...] follow-up we will obtain a duplex examination. [facility] Other 02-23-2022 Hospital Discharge instructions Follow Up Care 01/21/2022 13:33:10 With:Gerard Agarwal MD, Tamia Carrington, URO Address: When:1 year Comments:started new medication w/kusherry [facility] 12-28-2021 Evaluation note* Encounter Date Diagnosis Assessment Notes Treatment Notes Treatment Clinical Notes Oct, Chronic idiopathic constipation (ICD-10 - K59.04) Oct, Bile reflux gastritis (ICD-10 - K29.60) Oct, Other START TRIAL OF CARAFATE 1 GRAM BID CONTINUE PROMETHAZINE WITHOUT CHANGE PT WILL CALL TO REPORT IMPROVEMENT CONTINUE MIRALAX WITHOUT CHANGE [facility] Other Evaluation + Plan note Future Appointments Appointment Date:03/02/2023 11:15:00 AM Scheduled Provider:Tamia Gee Jr., MD Location:[facility] [place] Appointment Type:URO Office Visit Diagnostic Tests Pending * [facility] Fish [facility] Urine [facility] ([facility]) 02/24/22 [facility] evaluation + Plan note Future Appointments Appointment Date:03/07/2024 01:00:00 PM Scheduled Provider:YESSICA PIEDRA PA-C Location:[facility] [place] Appointment Type:URO Office Visit [facility] evalpiwvkr noteNo assessment information available [facility] Work Phone: Evaluation noteNo InformationNort Cytodyn Other Evalusekhv note* Diagnosis Onset Date Resolution Status Nausea acute [facility] Work Phone: Evaluation note* Diagnosis Onset Date Resolution Status Nausea acute Carotid stenosis, bilateral acute [facility] Work Phone: Evaluation note* Diagnosis Onset Date Resolution Status GERD (gastroesophageal reflux disease) acute Nausea acute [facility] Work Phone: Evaluation note* Diagnosis Acute non-recurrent pansinusitis- Primary Difficulty urinating Other symptoms involving urinary system Vascular disorder of intestine, unspecified (CMS/HCC) Atherosclerosis of aorta (CMS/HCC) Atherosclerosis of aorta documented in this encounter [facility] HealthcareHistory general Narrative - Reported* Type Description Date Medical History Stroke Medical History Kidney stones Medical History HTN Medical History Hypercholesteremia Medical History Hypothyroidism Surgical History gall bladder 2007 Surgical History appenedectomy 1956 Surgical History partial hysterectomy (twice) Surgical History caracts Surgical History SALIVA GLAD RIGHT SIDE 2019 Hospitalization History SEE ABOVE [facility] Other HisNeocleus general Narrative - Reported* Type Description Date Medical History Stroke Medical History Kidney stones Medical History HTN Medical History Hypercholesteremia Medical History Hypothyroidism Medical History [Coronary artery disease with pr evious coronary stenting Medical History Prior stroke 2017 which presented with generalized weakness but no clear lateralizing signs by history] Surgical History gall bladder 2007 Surgical History appenedectomy 1956 Surgical History partial hysterectomy (twice) Surgical History caracts Surgical History SALIVA GLAD RIGHT SIDE 2019 Surgical History [ ] Hospitalization History SEE ABOVE [facility] Other Hisrllp general Narrative - Reported* Type Description Date Medical History Stroke Medical History Kidney stones Medical History HTN Medical History Hypercholesteremia Medical History Hypothyroidism Medical History [Coronary artery disease with pr evious coronary stenting Medical History Prior stroke mately 2017 which presented with generalized weakness but no clear lateralizing signs by history] Surgical History gall bladder 2007 Surgical History appenedectomy 1956 Surgical History partial hysterectomy (twice) Surgical History caracts Surgical History SALIVA GLAD RIGHT SIDE 2019 Surgical History Angiogram Aorta Runoff Hospitalization History SEE ABOVE [facility] Other Hisgqua general Narrative - Reported* Type Description Date Medical History Stroke Medical History Kidney stones Medical History HTN Medical History Hypercholesteremia Medical History Hypothyroidism Medical History [Coronary artery disease with pr evious coronary stenting Medical History Prior stroke approxi mately 2018 which presented with generalized weakness but no clear lateralizing signs by history] Medical History [ ] Surgical History gall bladder 2006 Surgical History appenedectomy 195 Surgical History partial hysterectomy (twice) Surgical History caracts Surgical History SALIVA GLAD RIGHT SIDE 2019 Surgical History Angiogram Aorta Runoff Hospitalization History SEE ABOVE [facility] Other Hospital course Narrative No data available for this section [facility] Hospital Discharge instructions Additional Instructions Remove your dressing in 24 hours.[facility] Work Phone: Progress note No data available for this section [facility] Summary Purpose Family History No Family History Records Found Relationship Condition Age at Onset Recorded Date/T daphnie Not Specified Coronary artery disease Unknown father Malignant neoplasm of lung Unknown sister Malignant neoplasm of breast Unknown Relationship Condition Age at Onset Recorded Date/T daphnie Not Specified Coronary artery disease Unknown father Malignant neoplasm of lung Unknown sister Malignant neoplasm of breast Unknown brother Unknown father Unknown family member Unknown Not Specified Unknown Relationship Condition Age at Onset Recorded Date/T daphnie mother Coronary artery disease Unknown father Malignant neoplasm of lung Unknown sister Malignant neoplasm of breast Unknown brother Unknown father Unknown family member Unknown mother Unknown Advance Directives No Advanced Directives Records Found Advance Directive Response Recorded Date/ Time Advance Directives No October 12:42pm Advance Directive Response Recorded Date/ Time Advance Directives No October 1:42pm Chief Complaint and Reason for Visit Chief Complaint mesenteric ischemia Chief Complaint mesenteric ischemia mesenteric ischemia Chief Complaint I83.811 Chief Complaint 2 Month Follow Up 2 month folllow up Reason for Visit Nausea Chief Complaint 2 month folllow up 1 YR F/U; CAROTID DUPLEX I65.23 Reason for Visit Nausea Chief Complaint 2 month folllow up 1 YR F/U; CAROTID DUPLEX I65.23 Reason for Visit Nausea Carotid stenosis, bilateral Chief Complaint 6 month follow up Reason for Visit GERD (gastroesophage al reflux disease) Nausea Chief Complaint 6 month follow up Screening Reason for Visit GERD (gastroesophage al reflux disease) Nausea Additional Source Comments INFORMATION SOURCE (unrecogn ized section and content) DATE CREATED AUTHOR 05/23/2018 [facility] DATE CREATED AUTHOR AUTHOR'S ORGANIZ ATION 05/06/2020 [facility] DATE CREATED AUTHOR AUTHOR'S ORGANIZ ATION 04/30/2022 [facility] DATE CREATED AUTHOR AUTHOR'S ORGANIZ ATION 05/11/2023 [facility] DATE CREATED AUTHOR AUTHOR'S ORGANIZ ATION 03/21/2024 Patino Jesus [facility] DATE CREATED AUTHOR AUTHOR'S ORGANIZ ATION 09/15/2024 [facility] DATE CREATED AUTHOR AUTHOR'S ORGANIZ ATION 09/17/2024 [facility] DATE CREATED AUTHOR AUTHOR'S ORGANIZ ATION 09/21/2024 [facility] dical Specialists EPIC REASON FOR VISIT (unrecogniz ed section and content) Reason Comments Difficulty Urinating Nausea Care Teams (unrecognized sec tion and content) Team Status: Inactive Member Role Status Dates Dinesh Dyer II MD Primary Care Provider Active Jairo Dorantes MD Attending Provider Active Team Status: Active Member Role Status Dates Dinesh Dyer II MD Primary Care Provider Active Team Status: Inactive Member Role Status Dates Dinesh Dyer II MD Primary Care Provider Active PAPI Salinas Attending Provider Active Team Status: Inactive Member Role Status Dates Chance Damon APRN Attending Provider Active Start: November 24, 2023 End: November 24, 2023 Team Status: Inactive Member Role Status Devorah Dyer II MD Primary Care Provider Active Start: February 11, 2024 End: February 11, 2024 Chance Damon APRN Attending Provider Active Start: February 11, 2024 End: February 11, 2024 Team Status: Inactive Member Role Status Devorah Dyer II MD Primary Care Provider Active Start: March 28, 2024 End: March 28, 2024 Jairo Dorantes MD Attending Provider Active S tart: March 28, 2024 End: March 28, 2024 Team Status: Active Member Role Status Devorah Dyer II MD Primary Care Provider Active Start: March 28, 2024 PAPI Salinas Attending Provider Active Start: March 28, 2024 Team Status: Inactive Member Role Status Devorah Dyer II MD Primary Care Provider Active Start: March 28, 2024 End: March 28, 2024 Bebe Lara , MATHEMATICS PROFESSOR-C Attending Provider Active Start: March 28, 2024 End: March 28, 2024 Team Status: Inactive Member Role Status Dates Dinesh Dyer II MD Primary Care Provider Active Start: August 14, 2024 End: August 14, 2024 Chance Damon , MOBILE NURSE Attending Provider Active Start: August 14, 2024 End: August 14, 2024 Team Status: Inactive Member Role Status Dates Dinesh Dyer II MD Primary Care Provid er, Referring Provider Active Start: September 11, 2024 End: September 11, 2024 Referral Self Attending Provider Active Start: O ctober 2023 End: September 11, 2024 Customer Data Technician Relationship Specialty Start Date End Date Dinesh Dyer MD [address] [facility] [address] [place] [address] PCP - Puneet FONTANEZ 11/29/21 Dinesh Dyer MD [address] [facility] [address] [place] [address] PCP - General Internal Medicine 04/27/23 Customer Data Technician Relationship Specialty Start Date End Date Dinesh Dyer MD [address] [facility] [address] [place] [address] PCP - Puneet FONTANEZ 11/29/21 Dinesh Dyer MD [address] [facility] [address] [place] [address] PCP - General Internal Medicine 04/27/23 Goals (unrecognized section and content) Goals may [...] BE BASED ON THE PRIMARY CLINICAL RECORDS. [facility]. provides no warranty or guarantee of the accuracy or completeness of information in this document.
--- NOTE | 2024-09-29 09:54 | CT_ITS ---
The [address] [address] Patient Name: LEVI CM MRN: [id number] date: 1940 Sex: F Assigned Patient Location: LAB Current Patient Location: LAB Accession/Order Number: [id number] Exam Date: 09/29/2024 10:05 Report Date: 09/29/2024 13:26 At the request of: ANN HUNT Procedure: CT angio abdomen pelvis EXAM: CT angio abdomen pelvis HISTORY: Peripheral Vascular Disease, Chronic Vascular Disorder. COMPARISON: None. TECHNIQUE: Contrast enhanced CT scans were obtained of the abdomen and pelvis. CTA is performed. FINDINGS: CT abdomen and pelvis: Air is seen within the biliary tree. There is a 2.1 cm duodenal diverticulum. Simple-appearing renal cysts are seen bilaterally with the largest measuring 1.8 cm residing on the anterior superior aspect of the right kidney. Spleen is unremarkable. No peripancreatic fluid is seen. No fluid is noted within the abdomen or pelvis. Colonic diverticula are noted. Uterus is absent. CTA: Less than 50% stenosis is seen in the celiac artery origin. No significant superior mesenteric artery stenosis is present. High-grade left renal artery stenosis is noted. Just below the renal arteries there is approximately 50% stenosis of the abdominal aorta. 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 Plaque extends into the iliac arteries. There is a high-grade stenosis of the distal left common iliac artery. CT/CT angio abdomen pelvis IMPRESSION: 1. High-grade left renal artery stenosis. 2. High-grade inferior mesenteric artery stenosis. 3. At least 50% stenosis of the infrarenal abdominal aorta. 4. 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 5. Pneumobilia. 6. Duodenal diverticulum. 7. Simple-appearing renal cysts. 8. See above for details. Electronically authenticated by: Amador HEATH Date: 09/29/2024 13:26
--- NOTE | 2024-09-29 09:54 | CT_ITS ---
The [address] [address] Patient Name: LEVI CM MRN: [id number] date: 1940 Sex: F Assigned Patient Location: LAB Current Patient Location: LAB Accession/Order Number: [id number] Exam Date: 09/29/2024 10:05 Report Date: 09/29/2024 13:26 At the request of: ANN HUNT Procedure: CT angio chest EXAM: CT angio chest HISTORY: Peripheral Vascular Disease, Chronic Vascular Disorder COMPARISON: None. TECHNIQUE: Contrast enhanced CT scan of the chest was obtained. CTA is performed. FINDINGS: CT chest: Bolus changes are seen bilaterally. Calcified granulomas noted within the right middle lobe. Gallbladder is absent. Air is noted within the biliary tree. CTA: No ascending or descending thoracic aortic aneurysm is seen. Coronary artery calcifications are noted. There is approximately 50% stenosis of the origin of the left subclavian artery. No dissection is present. Ascending and descending aortic plaque is noted. High-grade left renal artery stenosis is seen. CT/CT angio chest IMPRESSION: 1. No ascending or descending thoracic aortic aneurysm. 2. 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 3. No dissection. 4. Probable high-grade left renal artery stenosis. Electronically authenticated by: Amador HEATH Date: 09/29/2024 13:26
[2024-09-29 10:06] LABS: Estimated GFR (African America >60 (>=60 mL/min/1.73m^2); Estimated GFR (Non-African Ame >60 (>=60 mL/min/1.73m^2)
== END 2024-09-29 09:32 | disposition home or self-care (01) ==
LOC: LAB 09:34
PROVIDERS: PCP Internal Medicine; Visit Provider Internal Medicine Interventional Cardiology
DX: I73.9 Peripheral vascular disease, unspecified (principal); K55.1 Chronic vascular disorders of intestine; I70.1 Atherosclerosis of renal artery
CPT/HCPCS: 36415; 71275; 74174; 82565; Q9967

== ENCOUNTER 2024-12-25 10:50 | Outpatient (OUT) | payer MEDICARE, SELFPAY ==
--- NOTE | 2024-12-25 11:04 | XR_ITS ---
The [place] [id number] Patient Name: LEVI CM MRN: [id number] date: 1940 Sex: F Assigned Patient Location: [facility] Current Patient Location: Accession/Order Number: [id number] Exam Date: 12/25/2024 11:00 Report Date: 12/26/2024 05:25 At the request of: MILDRED CERVANTES Procedure: XR shoulder RT min 2V PROCEDURE: XR shoulder RT min 2V HISTORY: Acute Pain Bilateral Shoulder COMPARISON: None. FINDINGS: BONES:Narrowing of the glenohumeral joints and prominent degenerative osteophyte along the inferior margin of the humeral head. Mild subchondral sclerosis and small subchondral cysts. Narrowing of the acromioclavicular joints with tiny undersurface osteophytes. No fracture or dislocation. Scoliotic curvature of the thoracic spine. SOFT TISSUES:No visible soft tissue swelling. EFFUSION:None visible. OTHER: Negative. XR/XR shoulder RT min 2V IMPRESSION: 1. 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 No acute bone abnormality. Electronically authenticated by: SHERRON HORTON Date: 12/26/2024 05:25
--- OUTSIDE RECORDS SUMMARY | 2024-12-25 11:05 | XMS_ITS | CCD ---
Author Organization [facility] CliniSyme Care Team Providers Care Scheduling Analyst Name Role Phone PHYSICIAN, DEFAULT Unavailable Unavailable PHYSICIAN, DEFAULT Unavailable Unavailable DINESH DYER Unavailable Unavailable PHYSICIAN, DEFAULT Unavailable Unavailable PHYSICIAN, DEFAULT Unavailable Unavailable DINESH DYER Unavailable Unavailable RACHEL PADRON Unavailable Unavailable JOSUE BERGERON AM Unavailable Unavailable DINESH DYER Unavailable Unavailable DINESH DYER Unavailable Unavailable NAWRAS, ALI T Unavailable Unavailable NAWRAS, ALI T Unavailable Unavailable DINESH DYER Unavailable Unavailable BEAR CAMEJO Unavailable Unavailable [place] Unavailable Unavailable NAWRAS, ALI T Unavailable Unavailable [place] Unavailable Unavailable YUE MOTA Unavailable Unavailable DINESH DYER Primary Care Physician Gautam Gaspar Unavailable RORO Dyer Primary Care Provider [phone] MD Jairo Dorantes Attending Provider Jairo Dorantes Unavailable Vu Guevara Unavailable VINCE [...] CLIFFORD, DR SHERRON Espino Consulting Unavailable GERARD Gaujardo, DR TAMIA Carrington Attending Unavailhieu Guajardo, DR TAMIA Carrington Admitting Unavaila christina Guajardo, DR TAMIA Carrington Consulting Unavaila ble GOMEZ, DR MONTIEL Attending Unavailable GOMEZ, DR MONTIEL Consulting Unavailable GOMEZ, DR MONTIEL Primary Care Unavailable GOMEZ, DR MONTIEL Admitting Unavailable WEST, DR GAUTAM Woo Consulting Unavailable Bebe Lara Unavailable Dyer, RORO Montiel Primary Care Provider PAPI Lara Attending Provider Chance Damon Unavailable Tammie Delgado Attending Unavailable Gomez, II Dinesh Primary Care Provider PAPI Lara Attending Provider Gomez, II Dinesh Primary Care Provider Gomez, RORO Montiel Referring Provider [phone] Self, Referral Attending Provider Unavailable ANN HUNT Attending Unavailable Bebe Lara Admitting Unavailable Bebe Laar Attending Unavailable Dinesh Dyer Primary Care Unavailable Self, Referral Admitting Unavailable Self, Referral Attending Unavailable Dinesh Dyer Referring Unavailable Dinesh Dyer Primary Care Unavailable Dinesh Dyer MD Unavailable Dinesh Dyer MD Primary Care Provider PADMAJA MCMAHON Attending Unavailable PADMAJA MCMAHON Attending Unavailable PADMAJA MCMAHON Attending Unavailable EL SHIPLEY Attending Unavailable PADMAJA MCMAHON Referring Unavailable MACRINA SALAZAR Attending Unavailable PADMAJA MCMAHON Attending Unavailable PADMAJA MCMAHON Attending Unavailable Allergies Allergy Classification Reported Allergen(s) Allergy Type Date of Onset Reaction(s) Facility (13 sources) morphine; Translations: [morphine] Drug Allergy 07-09-20 17 AOF, Insomnia [facility] Repository (20 sources) erythromycin base; Translations: [ERYTHROMYCIN BASE] Drug allergy (disorder) 03-04-20 15 GI intolerance [facility] Repository (1 source) 23231,00; Translations: [06841,00] Propensity to adverse reactions (disorder) 12-28-19 12 [facility] Repository (20 sources) Erythromycin; Translations: [erythromycin] Drug Allergy 09-08-20 23 Unknown (qualifier value), Nausea (finding) [employer] Other (20 sources) Morphine; Translations: [morphine] Drug Allergy 05-05-20 23 Unknown (qualifier value), Insomnia (disorder) [facility] [employer] [facility] [employer] Other (1 source) Estradiol; Translations: [ESTRADIOL] Drug Allergy 08-25-20 [facility] Repository (1 source) Erythromycin Drug Allergy 08-14-20 [facility] Repository (1 source) Morphine Drug Allergy 08-14-20 [facility] Repository Medications Current Medications Medication Drug Class(es) Dates Sig (Normalized) Sig (Original) ALPRAZolam 0.25 mg oral tablet (15 sources) Benzodiazepine Start: 01-28-2024 End: 02-05-2025 take 1 tablet by mouth three times daily as needed for anxiety, then take 0.5-1 tablets by mouth every eight hours as needed for anxiety ALPRAZolam (Xanax) 0.25 MG tablet Indications: Anxiety Take 1 tablet (0.25 mg) by mouth 3 (three) times a day as needed for anxiety Take 1/2 to 1 tablet PO every 8 hours as needed 90 tablet 11/07/2024 02/05/2025 Active amoxicillin 875 mg / clavulanate 125 mg oral tablet (9 sources) Penicillin-class Antibacterial Start: 12-19-2024 End: 12-29-2024 take 1 tablet by mouth in the morning amoxicillin-clavul anate (Augmentin) 875-125 MG tablet Indications: Acute non-recurrent pansinusitis Take 1 tablet (875 mg) by mouth in the morning and 1 tablet (875 mg) before bedtime. Do all this for 10 days. 20 tablet 12/19/2024 12/19/2024 Discontinued (Reorder) Start: 11-07-2024 End: 11-17-2024 take 1 tablet by mouth in the morning amoxicillin-clavulanate (Augmentin) 875-125 MG tablet Indications: Exposure to COVID-19 virus , Acute non-recurrent frontal sinusitis Take 1 tablet (875 mg) by mouth in the morning and 1 tablet (875 mg) before bedtime. Do all this for 10 days. 20 tablet 11/07/2024 11/17/2024 Active Start: 09-19-2024 End: 09-29-2024 take 1 tablet by mouth in the morning amoxicillin-clavulanate (Augmentin) 875-125 MG tablet Indications: Acute non-recurrent pansinusitis Take 1 tablet (875 mg) by mouth in the morning and 1 tablet (875 mg) before bedtime. Do all this for 10 days. 20 tablet 09/19/2024 09/29/2024 Active Ascorbic Acid (16 sources) Vitamin C Start: 11-02-2019 Vitamin C Fina y, Refills(s) 0 Start Date: 11/02/19 Status: Ordered take 1 tablet by mouth in the mo rning Ascorbic Acid (vitamin C) 1000 MG tablet Take 1,000 mg by mouth in the morning. Active benzonatate 200 mg oral capsule (2 sources) Non-narcotic Antitussive Start: 11-07-2024 End: 11-17-2024 take 1 capsule by mouth three times daily as needed for cough benzonatate (Tessalon) 200 MG capsule Indications: Acute cough Take 1 capsule (200 mg) by mouth 3 (three) times a day as needed for cough for up to 10 days Do not crush or chew. 30 capsule 11/07/2024 11/17/2024 Active Bisacodyl (1 source) Stimulant Laxative Dulcolax PRN Active cetirizine hydrochloride 10 mg oral tablet (13 sources) Histamine-1 Receptor Antagonist Start: 07-11-2024 End: 10-09-2024 take 1 tablet by mouth once daily cetirizine ([facility] Allergy Relief,Cetirizine,) 10 MG tablet Indications: Allergy, initial encounter TAKE 1 TABLET (10 MG) BY MOUTH DAILY. 90 tablet 1 10/05/2024 Active clopidogrel 75 mg oral tablet (20 sources) P2Y12 Platelet Inhibitor Start: 11-15-2017 End: 02-08-2025 take 1 tablet by mouth once daily clopidogrel (Plavix) 75 MG tablet Indications: Coronary arteriosclerosis in [place] artery (CMS/HCC) Take 1 tablet (75 mg) by mouth Daily 90 tablet 3 02/09/2024 02/08/2025 Active Plavix Active codeine phosphate 2 mg/ml / guaiFENesin 20 mg/ml oral solution (2 sources) Opioid Agonist Start: 11-07-2024 End: 11-12-2024 take 5 mL by mouth four times daily as needed for cough guaiFENesin-codeine (Robitussin-AC) 100-10 MG/5ML syrup Indications: Acute cough Take 5 mL by mouth 4 (four) times a day as needed for cough for up to 5 days 240 mL 11/07/2024 11/12/2024 Active Compression stockings, 20-30mmHg, calf 20-30mmHg (7 sources) Start: 06-17-2023 Compression stockings, 20-30mmHg, calf 20-30mmHg externally daily as directed for 90 days May, Active 1 ml denosumab 60 mg/ml prefilled syringe (13 sources) RANK Ligand Inhibitor Start: 05-06-2023 denosumab [...] Active folic acid 0.4 mg oral tablet (13 sources) take 0.4 mg by mouth in [...] 0 Start Date: 11/02/19 Status: Ordered methylPREDNISolone (4 sources) Corticosteroid Start: 11-07-2024 End: 11-14-2024 methylPREDNISolone (Medrol Dospak) 4 MG tablets Indications: Exposure to COVID-19 virus , Acute non-recurrent frontal sinusitis Follow schedule on package instructions 21 tablet 11/07/2024 11/14/2024 Active Start: 09-19-2024 End: 09-26-2024 methylPREDNISolone (Medrol D ospak) 4 MG tablets Indications: Acute non-recurrent pansinusitis Follow schedule on package instructions 21 tablet 09/19/2024 09/26/2024 Active 24 hr metoprolol succinate 50 mg extended release oral tablet (20 sources) beta-Adrenergic Ami Start: 12-11-2024 End: 01-15-2026 take 1 tablet by mouth once daily metoprolol succinate XL (Toprol-XL) 50 MG 24 hr tablet Indications: Primary hypertension (CMS/HCC) Take 1 tablet (50 mg) by mouth Daily 100 tablet 3 12/11/2024 01/15/2026 Active Start: 04-11-2024 take 1 tablet by yodit th once daily metoprolol succinate XL (Toprol-XL) 50 [...] omeprazole 40 mg delayed release oral capsule (20 sources) Proton Pump Inhibitor Start: 04-12-2024 End: [...] # 30 tab(s), Refills(s) 1, Pharmacy: [facility], 149.9, cm, 12/10/20 15:01:00 EST, Height/Length [...] 90 90 August 14, 2024 1:18pm Start: 09-08-2023 End: 09-02-2024 take 1 tablet by mouth every six hours for nausea promethazine (Phenergan) 25 MG tablet Indications: Gastroesophageal reflux disease without esophagitis Take 1 tablet (25 mg) by mouth every 6 (six) hours if needed for nausea or vomiting. 360 tablet 3 09/08/2023 09/02/2024 Active Start: 11-02-2019 take 25 mg by mouth [...] tablet Indications: Atherosclerosis of coronary artery of [place] heart without angina pectoris, unspecified vessel or [...] for 30 day(s) Oct, Active vitamin B12 (16 sources) Vitamin B12 Start: 11-02-2019 Vitamin B12 [...] Dietary Cholesterol Absorption Inhibitor Start: 11-15-2017 End: 02-22-2023 take 1 tablet by mouth once daily [...] accident Onset: 03-29-2018 11-02-2019 Chronic Anxiety disorders (15 sources) Anxiety; Translations: [Anxiety disorder, unspecified] Onset: 05-05-2023 05-05-2023 Chronic Bacterial infection; unspecified site (9 sources) Blood culture positive for microorganism; Translations: [Bacteremia] 11-15-2017 Episodic Biliary tract disease (20 sources) Choledochal cyst; Translations: [Other specified diseases of biliary tract] Onset: 05-05-2023 05-05-2023 Chronic Cardiac and circulatory congenital anomalies (20 sources) Stenosis of abdominal aorta; Translations: [Coarctation of aorta] Onset: 06-20-2019 05-05-2023 Chronic Coronary atherosclerosis and other heart disease (20 sources) Atherosclerotic heart disease of [place] coronary artery with unstable angina pectoris; Translations: [Atherosclerotic heart disease of [place] coronary artery without angina pectoris] Onset: 07-09-2017 05-05-2023 Chronic Disorders of lipid metabolism (18 sources) Hyperlipidemia; Translations: [Pure hypercholesterolemia] Onset: 05-05-2023 11-02-2019 Chronic Diverticulosis and diverticulitis (20 sources) Diverticula of intestine; Translations: [Diverticulosis of intestine, part unspecified, without perforation or abscess without bleeding] Onset: 05-05-2023 05-05-2023 Chronic Esophageal disorders (20 sources) Gastro-esophageal reflux disease without esophagitis; Translations: [Gastroesophageal reflux disease] Onset: 07-09-2017 08-14-2024 Chronic Essential hypertension (15 sources) Hypertensive disorder; Translations: [Essential (primary) hypertension] Onset: 05-05-2023 05-05-2023 Chronic Gastritis and duodenitis (15 sources) Bile-induced gastritis; Translations: [Other gastritis without bleeding] Onset: 11-25-2021 Resolved: 11-25-2021 Episodic Genitourinary symptoms and ill-defined conditions (20 sources) Dysuria; Translations: [Dysuria] Onset: 02-24-2022 Episodic Headache; including migraine (16 sources) Migraine; Translations: [Migraine, unspecified, not intractable, without status migrainosus] Onset: 07-07-2017 11-02-2019 Chronic Hypertension with complications and secondary hypertension (2 sources) Hypertensive heart disease without heart failure; Translations: [Hypertensive heart disease without heart failure] Onset: 09-13-2024 Chronic Immunizations and screening for infectious disease (2 sources) Contact with or exposure to other viral diseases; Translations: [Exposure to COVID-19 virus] 11-07-2024 Episodic Menopausal disorders (17 sources) Other primary ovarian failure; Translations: [Decreased estrogen level] Onset: 03-05-2023 Chronic Nonmalignant breast conditions (13 sources) Fibrocystic changes of bilateral breasts; Translations: [Diffuse cystic mastopathy of right breast] Onset: 05-05-2023 05-05-2023 Chronic Nutritional deficiencies (2 sources) Vitamin D deficiency; Translations: [Vitamin D deficiency, unspecified] 12-19-2024 Chronic Occlusion or stenosis of precerebral arteries (20 sources) Occlusion and stenosis of multiple and bilateral cerebral arteries; Translations: [Occlusion and stenosis of bilateral carotid arteries] Onset: 05-05-2023 03-28-2024 Chronic Osteoarthritis (20 sources) Degenerative joint disease involving multiple joints; Translations: [Polyosteoarthritis, unspecified] Onset: 09-22-2018 05-05-2023 Chronic Osteoporosis (14 sources) Age-related osteoporosis without current pathological fracture; Translations: [Senile osteoporosis] Onset: 03-14-2023 05-05-2023 Chronic Other aftercare (2 sources) Long-term current use of anticoagulant; Translations: [long-term (current) use of anticoagulants] Onset: 02-24-2022 Episodic Other aftercare (1 source) Other longwall shearer operator (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) drug therapy; Translations: [OTH PRISON CURRENT DRUG THERAPY] Onset: 04-26-2023 Episodic Other aftercare (1 source) long-term (current) use of anticoagulants; Translations: [PRISON CURRNT USE ANTICOAGULANTS] Onset: 03-05-2023 Episodic Other aftercare (1 source) Long-term current use of drug therapy; Translations: [terminal superintendent (current) use of antithrombotics/antip latelets] Onset: 03-12-2024 [...] 11-25-2021 Resolved: 11-25-2021 Chronic Other gastrointestinal disorders (13 sources) Irritable bowel syndrome; Translations: [Irritable bowel syndrome without diarrhea] Onset: 05-05-2023 05-05-2023 Chronic Other gastrointestinal disorders (20 sources) Constipation; Translations: [Constipation, unspecified] Episodic Other gastrointestinal disorders (5 sources) Constipation, unspecified; Translations: [CONSTIPATION UNSPECIFIED] Onset: 05-26-2022 Episodic Other lower respiratory disease (11 sources) Cough; Translations: [Cough] Episodic Other lower respiratory disease (2 sources) Cough; Translations: [Acute cough] 11-07-2024 Episodic Other non-traumatic joint disorders (2 sources) Shoulder pain; Translations: [Pain in right shoulder] 12-19-2024 Episodic Other screening for suspected conditions (not mental disorders or infectious disease) (9 sources) Imaging result abnormal; Translations: [Abnormal findings on diagnostic imaging of other specified body structures] 11-30-2017 Chronic Other upper respiratory disease (13 sources) Vasomotor rhinitis; Translations: [Vasomotor rhinitis] Onset: 05-05-2023 05-05-2023 Chronic Other upper respiratory disease (13 sources) Chronic rhinitis; Translations: [Chronic rhinitis] Onset: 04-09-2021 12-02-2023 Chronic Other upper respiratory infections (6 sources) Acute pansinusitis; Translations: [Acute pansinusitis, unspecified] [...] cigarettes, uncomplicated] Onset: 07-09-2017 Chronic Thyroid disorders (17 sources) Hypothyroidism, unspecified; Translations: [Non-toxic multinodular goiter] [...] Unclassified (1 source) Patient encounter status 03-12-2024 Urinary tract infections (20 sources) Postinfective urethral stricture of female; Translations: [...] Onset: 12-10-2017 Episodic Calculus of urinary tract (18 sources) Kidney stone; Translations: [Calculus of kidney] Onset: 03-02-2023 12-06-2019 Episodic Coronary atherosclerosis and other heart disease (1 source) Presence of coronary angioplasty implant and graft; Translations: [PRESENCE OF CORONARY ANGIOPLASTY IMPLANT AND GRAFT] Onset: 12-10-2017 Episodic Mycoses (13 sources) Onychomycosis; Translations: [Tinea unguium] Onset: 05-26-2021 12-02-2023 Episodic Nausea and vomiting (20 sources) Nausea; Translations: [Nausea] Onset: 01-10-2021 Episodic Neoplasms of unspecified nature or uncertain behavior (2 sources) Neoplastic disease; Translations: [Neoplasm of unspecified behavior of bone, soft tissue, and skin] 07-18-2024 Episodic Other aftercare (1 source) long-term (current) use of aspirin; Translations: [CRM MARKETING 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 (CURRENT) USE OF ASPIRIN] Onset: 12-10-2017 Episodic Other aftercare (13 sources) Drug therapy finding; Translations: [long-term (current) use of anticoagulants] Onset: 09-01-2023 12-02-2023 Episodic Other and unspecified benign neoplasm (13 sources) History of polyp of colon; Translations: [History of colonic polyps] Onset: 12-04-2015 06-30-2023 Episodic Other and unspecified benign neoplasm (2 sources) Senile angioma; Translations: [Hemangioma of skin and subcutaneous tissue] 07-18-2024 Episodic Other circulatory disease (13 sources) History of cerebrovascular accident without residual deficits; Translations: [Personal history of transient ischemic attack (TIA), and cerebral infarction without residual deficits] Onset: 06-13-2021 06-30-2023 Episodic Other connective tissue disease (13 sources) Fibromyalgia; Translations: [Fibromyalgia] Onset: 05-05-2023 05-05-2023 Episodic Other ear and sense organ disorders (13 sources) Ear sensations - finding; Translations: [Other specified disorders of ear, bilateral] Onset: 09-23-2021 12-02-2023 Episodic Other nutritional; endocrine; and metabolic disorders (13 sources) Decrease in appetite; Translations: [Anorexia] Onset: 11-08-2019 12-02-2023 Episodic Other skin disorders (2 sources) Lentiginosis; Translations: [Other melanin hyperpigmentation] 07-18-2024 Episodic Other skin disorders (2 sources) Inflamed seborrheic keratosis; Translations: [Inflamed seborrheic keratosis] 07-18-2024 Episodic Screening and history of mental health and substance abuse codes (17 sources) Ex-smoker; Translations: [Personal history of nicotine dependence] Onset: 06-13-2021 12-06-2019 Episodic Unclassified (20 sources) Abnormal result of other cardiovascular function study; Translations: [CT of abdomen abnormal] Onset: 07-09-2017 05-05-2023 Episodic Unclassified (1 source) LOW BACK PAIN, UNSPECIFIED; Translations: [LOW BACK PAIN, UNSPECIFIED] Onset: 04-22-2023 Results Test Name Value Interpretation Reference Range Facility Urinalysis macro (dipstick) panel (U)on 12-19-2024 Bilirubin, UA Negative Negative - 4(70) +++ mg/dL [facility] Blood, UA Positive Negative - 50 Femi/mcL [facility] Clarity, UA Cloudy [facility] Color, UA Mere [facility] Glucose, UA Negative Negative - 1999(110) ++++ mg/dL [facility] Interpretation and review of laboratory results Abnormal [facility] Ketones, UA Negative Negative - 160(16) ++++ mg/dL [facility] Leukocytes, UA Moderate Negative - 500+++ Homer/mcL [facility] Nitrite, UA Negative Negative - Positive [facility] pH, UA 0.5 5 - 9 [facility] Protein, UA Trace Negative - 1999(20) ++++ mg/dL [facility] Spec Grav, UA 1.005 1 - 1.03 [facility] Urobilinogen, UA 0.2 0.2 - 12 mg/dL [facility] CREATININEon 09-29-2024 Creatinine [Mass/Vol] 0.74 mg/dL 0.55 - 1.02 mg/dL [facility] GFR/1.73 sq M.predicted CKD-EPI (S/P/Bld) [Vol rate/Area] >60 >=60 mL/min/1.73 m 2 [facility] EGFR-NON AF GUATEMALAN >60 >=60 mL/min/1.[address] [facility] [address]NC [facility] Urinalysis macro (dipstick) panel (U)on 09-19-2024 Bilirubin, UA Negative Negative - 4(70) +++ mg/dL [facility] Blood, UA Positive Negative - 50 Femi/mcL [facility] Clarity, UA Clear [facility] Color, UA Yellow [facility] Glucose, UA Negative Negative - 1999(110) ++++ mg/dL [facility] Ketones, UA Negative Negative - 160(16) ++++ mg/dL [facility] Leukocytes, UA Trace Negative - 500+++ Homer/mcL [facility] Nitrite, UA Negative Negative - Positive [facility] pH, UA 6.5 5 - 9 [facility] Protein, UA Negative Negative - 1999(20) ++++ mg/dL [facility] Spec Grav, UA 1.005 1 - 1.03 [facility] Urobilinogen, UA 0.2 0.2 - 12 mg/dL [facility] Office Visiton 09-13-2024 Follow-up visit [id number] Hortencia Cm 1940 F Date Provider Department Center 09/13/2024 [id number], [facility] Family History Problem Relation Age of Onset Hypertension Mother Heart disease Mother Other Father Family Status - Relation Status Age at Mother Father Level of Service:35713 [place] OFFICE/OUTPATIENT ESTABLISHED MOD MDM 30 MIN Normal [facility] MM screening mammo BI w/CADo n 09-11-2024 MM screening mammo BI w/CAD [facility] [place] [address] Mammography Report Signed Patient: Hortencia Cm MR#: [id number] : 1940 Acct:[id number] Age/Sex: 84 / F ADM Date: 09/11/24 Loc: [place] Room: Type: [facility] Attending Dr: Referral Self Copies to: Dinesh [...] Felicitas Holland M.D.09/11/2024 6:02 PM Dictation Location: [facility] Transcribed By: CLIFF 09/11/241801 Dictated By: Felicitas Holland MD 09/11/24 1800 Signed By: 09/11/241801 [facility] Physician [facility] No Panel Informationon 07-18 [facility] Type of biopsy: tangential Informed consent: discussed and consent obtained Informed consent comment: The risks and benefits of the biopsy were discussed. Risks include but are not limited to bleeding, infection, scarring, pain, and nerve damage. An opportunity to ask questions prior to the procedure was permitted and all questions were answered. Patient was prepped and draped in usual sterile fashion: area cleansed with alcohol. Anesthesia: the lesion was anesthetized in a standard fashion Anesthetic: 1% lidocaine w/ epinephrine 1-100,000 buffered w/ 8.4% NaHCO3 Instrument used: DermaBlade Hemostasis achieved with: electrodesiccation Outcome: patient tolerated procedure well Outcome comment: The specimen was placed in a prelabeled formalin container to be sent for pathology Post-procedure details: sterile dressing applied and wound care instructions given Post-procedure details comment: Emphasized need to contact clinic for any signs of infection, uncontrollable bleeding, or complications. Dressing type: bandage Additional details: Photo taken yes Amount of lidocaine used: 0.5 cc [facility] Type of biopsy: tangential Informed consent: discussed and consent obtained Informed consent comment: The risks and benefits of the biopsy were discussed. Risks include but are not limited to bleeding, infection, scarring, pain, and nerve damage. An opportunity to ask questions prior to the procedure was permitted and all questions were answered. Patient was prepped and draped in usual sterile fashion: area cleansed with alcohol. Anesthesia: the lesion was anesthetized in a standard fashion Anesthetic: 1% lidocaine w/ epinephrine 1-100,000 buffered w/ 8.4% NaHCO3 Instrument used: DermaBlade Hemostasis achieved with: electrodesiccation Outcome: patient tolerated procedure well Outcome comment: The specimen was placed in a prelabeled formalin container to be sent for pathology Post-procedure details: sterile dressing applied and wound care instructions given Post-procedure details comment: Emphasized need to contact clinic for any signs of infection, uncontrollable bleeding, or complications. Dressing type: bandage Additional details: Photo taken yes Amount of lidocaine used: 0.5 cc [facility] US carotid doppler BIon 03-01 US carotid doppler BI [facility] [address] [place], [place] [id number] Ultrasound Report Signed Patient: Hortencia Cm MR#: [id number] : 1940 Acct:[id number] Age/Sex: 84 / F ADM Date: 03/28/24 Loc: [facility] Room: Type: [facility] Attending Dr: Bebe Lara SUPERVISOR PRE WAVE-C Ordering Provider: Bebe Lara APRN Date of [...] Jairo Dorantes M.D.03/28/2024 1:25 PM Dictation Location: [place] [address] Tech: Rosario Styles Transcribed By: CLIFF 03/28/24 1325 Dictated By: Jairo Dorantes MD 03/28/24 1325 Signed By: 03/28/24 1325 Normal [facility] Screenson 03-20-2024 Screens [id number] Normal [facility] RAD - MISCon 03-15-2024 RAD - MISC [id number] Normal [facility] Ambulatory Visit Summaryon 0 03-14-2024 [...] APRN, Tammie Recio Primary Care Physician - DINESH DYER MD This Is Your Medications List Contact prescribing [...] you for choosing us for your care. Jer [facility] Patient Educationon 03-14-20 Patient Education Nephrology [...] ? 8 oz (237 mL) of milk, xdxaiep-jorprikjzpqn-hlbf y milk, and calcium-fortifiedfruit juice. Calcium-fortified means [...] Spinach (cooked), rhubarb, beets, sweet potatoes, and Kuwaiti chard. ? Peanuts. ? Potato chips, jordanian fries, and baked potatoes with skin on. ? Nuts and nut products. ? Chocolate. ? If you regularly take a diuretic medicine, make sure to eat at least 1 or 2 servings of fruits or vegetables that are high in potassium each day. These include: ? Avocado. ? Banana. ? Fluker, prune, carrot, or tomato juice. ? Baked [...] fish oil, or vitamin B6. ? Take kopu-ocd-qsdgcuk and prescription medicines only as told by your health care provider. These include supplements. What foods sh (more content not included)... Normal [facility] Urology Office/Clinic Noteon 03-14-2024 Urology Office/Clinic Note [...] with voice recognition artificial intelligence software, specifically [employer], [employer] and or [employer]. Substitutions may have occurred due to the [...] Urnls Dip Stick Auto w/o Microscopy POC 89194 3. Kidney cysts (N28.1: Cyst of kidney, acquired) CT AP w/ contrast 10/01/22 bilateral cortical hypodensities, small cysts are favored. [3] 4. 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 [4] 5. 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 use (Z79.02: long-term (current) use of antithrombotics/antiplate lets) Plavix Follow-up With When Contact Information Sandy PICHARDO, WENDY-C, Tammie X, FAM, URL Additional Instructions: 1 year with [facility] Patient Education Dietary Guidelines to Help Prevent Kidney Stones Kidney Stones, Bfux-ts-Zciu Hematuria, Adult Problem List/Past Medical History Ongoing [...] SARS-CoV-2 (CO (more content not included)... Normal [facility] Comment on above: Result Comment: Elec tronically Signed By: CHRISTOPHER Delgado APRN, Tammie Recio\.br\Date and Time Signed: 03/14/24 15:45 EDT AMYLASEon 04-22-2023 Amylase [Catalytic activity/Vol] 33 U/L Normal 25-115 [facility] Comment on above: Performed By: #### L IVER, BMP, LIPA, ABEL ####[facility] [address] [place] [address]Dr. Elia Burton CBC AUTO DIFFon 04-22-2023 BASO # 0.1 103/ul Normal 0.0-0.1 [facility] Comment on above: Performed By: #### C BC ####[facility] [address] [place] [address]Dr. Elia Burton Basophils/100 WBC (Bld) 0.6 % Normal 0.2-2.0 [facility] Comment on above: Performed By: #### C BC ####[facility] [address] [place] [id number]. Elia Burton EO # 0.1 103/ul Normal 0.0-0.7 [facility] Comment on above: Performed By: #### C BC ####[facility] [address] [place] [id number]. Elia Burton Eosinophils/100 WBC (Bld) 0.7 % Critically low 0.9-7.0 [facility] Comment on above: Performed By: #### C BC ####[facility] [address] [place], [place] [address]Dr. Elia Burton Erythrocyte distribution width (RBC) [Ratio] 13.4 % Normal 11.0-15.0 [facility] Comment on above: Performed By: #### C BC ####[facility] Tsh[address] [place], [place] [address]Dr. Elia Burton Hematocrit (Bld) [Volume fraction] 43.3 % Normal 36.0-48.0 [facility] Comment on above: Performed By: #### C BC ####[facility] V[address] [place], [place] [address]Dr. Elia Burton Hemoglobin (Bld) [Mass/Vol] 13.9 g/dL Normal 12.0-16.0 [facility] Comment on above: Performed By: #### C BC ####[facility] Cxq[address]wk[address] [place], [place] [address]Dr. Elia Burton IG # 0.03 10e3/ul Normal 0.00-0.03 [facility] Comment on above: Performed By: #### C BC ####[facility] O[address] [place], [place] [address]Dr. Elia Burton IG % 0.4 % Normal 0.0-0.5 [facility] Comment on above: Performed By: #### C BC ####[facility] [address] [place], [place] [address]Dr. Elia Burton LYMPH # 2.0 103/ul Normal 1.2-3.8 [facility] Comment on above: Performed By: #### C BC ####[facility] [address] [place] [phone]. Elia Burton Lymphocytes/100 WBC (Bld) 23.9 % Normal 20.5-60.0 [facility] Comment on above: Performed By: #### C BC ####[facility] [address] [place] [phone]. Elia Micheal MANUAL DIFF REQ NO Normal [facility] Comment on above: Performed By: #### C BC ####[facility] [address]wanc[address] [place] [phone]. Elia Burton MCH (RBC) [Entitic mass] 28.3 pg Normal 26.7-34.0 [facility] Comment on above: Performed By: #### C BC ####[facility] [address] [place], [place] [address]Dr. Elia Micheal MCHC (RBC) [Mass/Vol] 32.1 g/dL Normal 29.9-35.2 [facility] Comment on above: Performed By: #### C BC ####[facility] [address]fu[address] [place] [phone]. Elia Burton MCV (RBC) [Entitic vol] 88.0 fL Normal 81.0-99.0 [facility] Comment on above: Performed By: #### C BC ####[facility] [address]we[address]xf[address] [place] [phone]. Elia Micheal MONO # 0.6 103/ul Normal 0.3-0.8 [facility] Comment on above: Performed By: #### C BC ####[facility] [address] [place], [place] [id number]. Elia Micheal Monocytes/100 WBC (Bld) 6.9 % Normal 1.7-12.0 [facility] Comment on above: Performed By: #### C BC ####[facility] [address] [place], [place] [address]Dr. Idaniaakanksha Burton NEUT # 5.6 103/ul Normal 1.4-6.5 [facility] Comment on above: Performed By: #### C BC ####[facility] [address] [place], [place] [address]Fr. Elia Burton Neutrophils/100 WBC (Bld) 67.5 % Normal 43.0-75.0 [facility] Comment on above: Performed By: #### C BC ####[facility] [address] [place], [place] [address]Ie. Elia Burton Platelet mean volume (Bld) [Entitic vol] 9.4 fL Critically low 9.5-13.5 [facility] Comment on above: Performed By: #### C BC ####[facility] [address]ds[address] [place] [phone]. Elia Burton PLT 265 103/ul Normal 150-450 [facility] Comment on above: Performed By: #### C BC ####[facility] [address]isjz[address] [place] [phone]. Elia Burton RBC 4.92 106/ul Normal 4.20-5.40 [facility] Comment on above: Performed By: #### C BC ####[facility] [address] [place] [phone]. Elia Burton WBC 8.3 103/ul Normal 4.0-11.0 [facility] Comment on above: Performed By: #### C BC ####[facility] Jegjfrhzbc[address] [place] [phone]. Elia Burton CT ABD/PELV W CONon 04-22-20 [...] YELITZA GONZALEZ Date: 2023-04-22 15:25 Normal [facility] ER URINE PROFILEon 3 Bilirubin Ql (U) Negative Normal NEGATIVE [facility] Comment on above: Performed By: #### U MICRO, ERUR ####[facility] [address] [place] [address]Dr. Elia Burton Clarity (U) CLEAR Normal CLEAR [facility] Comment on above: Performed By: #### U MICRO, ERUR ####[facility] X[address]zta[address] [place] [address]Dr. Elia Burton Color (U) LT. YELLOW Normal YELLOW [facility] Comment on above: Performed By: #### U MICRO, ERUR ####[facility] [address] [place] [address]Dr. Elia MEADOWSD A micrscopic examina tion will be performed if indicated. Normal [facility] Comment on above: Performed By: #### U MICRO, ERUR ####[facility] [address] [place] [address]Dr. Elia Burton Glucose Ql (U) Negative Normal NEGATIVE [facility] Comment on above: Performed By: #### U MICRO, ERUR ####[facility] [address]cbs[address] [place] [address]Dr. Elia Burton Hemoglobin Ql (U) SMALL Abnormal NEGATIVE [facility] Comment on above: Performed By: #### U MICRO, ERUR ####[facility] [address]hsj[address] [place] [address]Dr. Elia Burton Ketones Ql (U) Negative Normal NEGATIVE [facility] Comment on above: Performed By: #### U MICRO, ERUR ####[facility] Rxosmmcvpb[address] [place], [place] [address]Dr. Elia Burton LEUKOCYTES TRACE Abnormal NEGATIVE [facility] Comment on above: Performed By: #### U MICRO, ERUR ####[facility] Eggksymlax[address] [place], [place] [address]Dr. Elia Burton Nitrite Ql (U) Negative Normal NEGATIVE [facility] Comment on above: Performed By: #### U MICRO, ERUR ####[facility] Fkgmnndjqr[address] [place], [place] [address]Dr. Elia Burton pH (U) 6.5 [pH] Normal 5-9 [facility] Comment on above: Performed By: #### U MICRO, ERUR ####[facility] Inhxmob[address] [place], [place] [address]Dr. Elia Burton SPEC GRAVITY <=1.005 Abnormal 1.005-<=1.0 25 [facility] Comment on above: Performed By: #### U MICRO, ERUR ####[facility] [address] [place], [place] [address]Dr. Elia Burton UA PROTEIN Negative Normal NEGATIVE/ TRACE The [facility] Comment on above: Performed By: #### U MICRO, ERUR ####[facility] W[address]zzarnkr[address] [place], [place] [address]Dr. Elia Burton UR MICRO IND INDICATED Normal [facility] Comment on above: Performed By: #### U MICRO, ERUR ####[facility] Wfeptkykqc[address] [place], [place] [address]Dr. Elia Burton Urobilinogen Qn (U) 0.2 {Farhana'U}/dL Normal 0.2 - 1. 0 [facility] Comment on above: Performed By: #### U MICRO, ERUR ####[facility] Zest[address]wpez[address] [place], [place] [address]Dr. Idaniaakanksha Burton LIPASEon 04-22-2023 Lipase [Catalytic activity/Vol] 61.0 U/L Critically low 73.0-393.0 [facility] Comment on above: Performed By: #### L IVER, BMP, LIPA, ABEL ####[facility] Qtjwuklpqy[address] [place], [place] [address]Dr. Elia Butron LIVER PROFILEon 04-22-2023 Albumin [Mass/Vol] 3.6 g/dL Normal 3.4-5.0 [facility] Comment on above: Performed By: #### L IVER, BMP, LIPA, ABEL ####[facility] Qvgmkvpplt[address] [place], [place] [address]Dr. Elia Burton Albumin/Globulin [Mass ratio] 0.9 {ratio} Normal [facility] Comment on above: Performed By: #### L IVER, BMP, LIPA, ABEL ####[facility] Uvkxhvyubc[address] [place], [place] [address]Dr. Elia Burton ALP [Catalytic activity/Vol] 70 U/L Normal 46-116 [facility] Comment on above: Performed By: #### L IVER, BMP, LIPA, ABEL ####[facility] Fpsciqplgl[address] [place], [place] [address]Dr. Elia Burton ALT [Catalytic activity/Vol] 15 U/L Normal 14-59 [facility] Comment on above: Performed By: #### L IVER, BMP, LIPA, ABEL ####[facility] Rxynuyrtbe64[address] [place], [place] [address]Dr. Elia Burton AST [Catalytic activity/Vol] 21 U/L Normal 15-37 [facility] Comment on above: Performed By: #### L IVER, BMP, LIPA, ABEL ####[facility] Wvrsrqxeot[address] [place], [place] [address]Dr. Elia Burton BILI, CONJUGATED 0.0 mg/dL Normal 0.0-0.2 [facility] Comment on above: Performed By: #### L IVER, BMP, LIPA, ABEL ####[facility] Gs[address] [place] [address]Dr. Elia Burton Bilirubin [Mass/Vol] 0.2 mg/dL Normal 0.2-1.0 [facility] Comment on above: Performed By: #### L IVER, BMP, LIPA, ABEL ####[facility] Odfrkdpilf[address] [place], [place] [address]Dr. Elia Burton Globulin (S) [Mass/Vol] 4.1 g/dL Normal [facility] Comment on above: Performed By: #### L IVER, BMP, LIPA, ABEL ####[facility] Sc[address]vtxkca[address] [place], [place] [address]Dr. Elia Burton Protein [Mass/Vol] 7.7 g/dL Normal 6.4-8.2 [facility] Comment on above: Performed By: #### L IVER, BMP, LIPA, ABEL ####[facility] Esou[address]occl[address] [place], [place] [address]Dr. Elia Burton PROF CHEM 8 (BAS METB)on Anion gap [Moles/Vol] 13.1 mmol/L Normal [facility] Comment on above: Performed By: #### L IVER, BMP, LIPA, ABEL ####[facility] Gu[address] [place], [place] [address]Dr. Elia Burton Calcium [Mass/Vol] 9.1 mg/dL Normal 8.5-10.1 [facility] Comment on above: Performed By: #### L IVER, BMP, LIPA, ABEL ####[facility] [address]xoz[address]ud[address] [place], [place] [address]Dr. Elia Burton Chloride [Moles/Vol] 102 mmol/L Normal 98-107 [facility] Comment on above: Performed By: #### L IVER, BMP, LIPA, ABEL ####[facility] [address] [place], [place] [address]Dr. Elia Burton CO2 [Moles/Vol] 28.6 mmol/L Normal 21.0-32.0 [facility] Comment on above: Performed By: #### L IVER, BMP, LIPA, ABEL ####[facility] [address] [place] [address]Dr. Elia Burtno Creatinine [Mass/Vol] 0.69 mg/dL Normal 0.55-1.02 [facility] Comment on above: Performed By: #### L IVER, BMP, LIPA, ABEL ####[facility] [address] [place] [address]Dr. Elia Burton EGFR-AF GUATEMALAN >60 Normal >=60 [facility] Comment on above: Performed By: #### L IVER, BMP, LIPA, ABEL ####[facility] [address]sec[address] [place] [address]Dr. Elia Burton EGFR-NON AF GUATEMALAN >60 Normal >=60 [facility] Comment on above: Performed By: #### L IVER, BMP, LIPA, ABEL ####[facility] [address]xxy[address] [place] [address]Dr. Elia Burton Glucose [Mass/Vol] 157 mg/dL Critically high 74-106 [facility] Comment on above: Performed By: #### L IVER, BMP, LIPA, ABEL ####[facility] [address]xuda[address] [place] [address]Dr. Elia Burton Potassium [Moles/Vol] 3.7 mmol/L Normal 3.5-5.1 [facility] Comment on above: Performed By: #### L IVER, BMP, LIPA, ABEL ####[facility] [address]om[address] [place] [address]Dr. Elia Burton Sodium [Moles/Vol] 140 mmol/L Normal 136-145 [facility] Comment on above: Performed By: #### L IVER, BMP, LIPA, ABEL ####[facility] [address] [place] [address]Dr. Elia Burton Urea nitrogen [Mass/Vol] 8.0 mg/dL Normal 7.0-18.0 [facility] Comment on above: Performed By: #### L SCOTT NUR, KATTY, ABEL ####[facility] [address] [place] [address]Dr. Elia Burton Urea nitrogen/Creatinine [Mass ratio] 11.6 mg/mg Normal [facility] Comment on above: Performed By: #### L SCOTT NUR, KATTY, ABEL ####[facility] [address] [place] [address]Dr. Elia Burton URINE MICROSCOPIC ONLYon BACTERIA NONE SEEN Normal NONE SEEN [facility] Comment on above: Performed By: #### U MICRO, ERUR ####[facility] [address]qhisvsutw[address] [place], [place] [address]Dr. Elia Burton Bacteria identified Cx Nom (U) NOT INDICATED Normal [facility] Comment on above: Performed By: #### U MICRO, ERUR ####[facility] Exkpcx[address] [place], [place] [address]Dr. Elia Burton CAST NONE SEEN Normal NONE SEEN [facility] Comment on above: Performed By: #### U MICRO, ERUR ####[facility] [address] [place], [place] [address]Dr. Elia Burton Crystals LM Nom (Urine sed) NONE SEEN Normal NONE SEEN The [facility] Comment on above: Performed By: #### U MICRO, ERUR ####[facility] [address] [place], [place] [address]Dr. Elia Burton Epithelial cells LM Ql (Urine sed) RARE Normal NONE SEEN /RARE [facility] Comment on above: Performed By: #### U MICRO, ERUR ####[facility] [address] [place], [place] [address]Dr. Elia Burton MUCOUS NONE SEEN Normal NONE SEEN The [facility] Comment on above: Performed By: #### U MICRO, ERUR ####[facility] [address] [place], [place] [address]Dr. Elia Burton RBC 5-10 Abnormal 0-2 [facility] Comment on above: Performed By: #### U MICRO, ERUR ####[facility] [address] [place], [place] [address]Yn. Elia Burton WBC 2-5 Abnormal NONE SEEN [facility] Comment on above: Performed By: #### U MICRO, ERUR ####[facility] [address] [place], [place] [address]Js. Elia Burton XR LSPINE 2_3 VIEWSon 2022 XR LSPINE 2_3 VIEWS EXAMINATION: XR LSPI NE 2_3 VIEWS, [id number] HISTORY: Pain COMPARISON: Same day CT abdomen/pelvis. [...] by: CLEO PLUNKETT Date: 2023-04-22 15:20 Normal [facility] XR DEXA BONE DENSITYon 03-05 XR DEXA [...] by: GAUTAM DELUNA Date: 2023-03-05 09:21 Normal [facility] XR KUB 1 VIEWon 03-01-2023 XR [...] by: SHERRON HORTON Date: 2023-03-01 12:53 Normal [facility] Creatinine and Glomerular fi ltration rate.predicted panel (S/P/Bld)Ordered By: Jairo Dorantes on 01-20-2023 Creatinine [Mass/Vol] 0.65 mg/dL 0.44-1.03 [facility] Estimated glomerular filtrat ion rate (GFR) non- AmericanOrdered By: Jairo Dorantes on 01-20-2023 GFR/1.73 sq M.predicted among non-blacks MDRD (S/P/Bld) [Vol rate/Area] > 60 mL/Min [facility] No Panel InformationOrdered By: Jairo Dorantes on 01-20-2023 Estimated GFR () > 60 mL/Min [facility] Comment on above: GFR estimated refere nce range: According to KDOQI guidelines, <60 ml/min/1.73m2 is sufficient to diagnose a patient with chronic kidney disease. Pharmacy Creatinine Clearance (Chem 36.95 [facility] Urea nitrogen [Mass/volume] in Serum or PlasmaOrdered By: Jairo Dorantes on 01-20-2023 Urea nitrogen [Mass/Vol] 9 mg/dL [address] [facility] [address] ABD/PELV W CONon 10-02-20 CT ABD/PELV [...] GAUTAM DELUNA Date: 2022-10-02 08:12 Normal [facility] CREATININEon 10-01-2022 Creatinine [Mass/Vol] 0.67 mg/dL Normal 0.55-1.02 [facility] Comment on above: Performed By: #### C MERARY #### [facility] Laboratory [address] [place] [address] Dr. Elia Burton EGFR-AF GUATEMALAN >60 Normal >=60 [facility] Comment on above: Performed By: #### C MERARY #### [facility] Laboratory [address] [place] [address] Dr. Elia Burotn EGFR-NON AF GUATEMALAN >60 Normal >=60 [facility] Comment on above: Performed By: #### C MERARY #### [facility] Laboratory [address] [place] [address] ABD/PELV W CONon [...] ELENA AMBROSE Date: 2022-05-23 22:39 Normal [facility] AMYLASEon 05-23-2022 Amylase [Catalytic activity/Vol] 33 U/L Normal 25-115 [facility] Comment on above: Performed By: #### L IPA, CMP, ABEL #### [facility] Laboratory [address] [place], [place] [address] Dr. Elia Burton CBC AUTO DIFFon 05-23-2022 BASO # 0.1 103/ul Normal 0.0-0.1 [facility] Comment on above: Performed By: #### C BC ####[facility] [address] [place] [id number] Burton Basophils/100 WBC (Bld) 0.9 % Normal 0.2-2.0 [facility] Comment on above: Performed By: #### C BC ####[facility] [address]ty[address]km[address] [place] [phone] Burton EO # 0.1 103/ul Normal 0.0-0.7 [facility] Comment on above: Performed By: #### C BC ####[facility] [address] [place], [place] [address]NzDr. Elia Burton Eosinophils/100 WBC (Bld) 1.3 % Normal 0.9-7.0 [facility] Comment on above: Performed By: #### C BC ####[facility] [address]ulwl[address] [place] [id number] Burton Erythrocyte distribution width (RBC) [Ratio] 14.1 % Normal 11.0-15.0 [facility] Comment on above: Performed By: #### C BC ####[facility] [address] [place] [address]Dr. Elia Burton Hematocrit (Bld) [Volume fraction] 44.3 % Normal 36.0-48.0 [facility] Comment on above: Performed By: #### C BC ####[facility] Letebvqtad[address] [place], [place] [address]Dr. Idaniaakanksha Burton Hemoglobin (Bld) [Mass/Vol] 14.2 g/dL Normal 12.0-16.0 [facility] Comment on above: Performed By: #### C BC ####[facility] Awvrhxtyvm[address] [place], [place] [address]Dr. Elia Burton IG # 0.01 10e3/ul Normal 0.00-0.03 [facility] Comment on above: Performed By: #### C BC ####[facility] Y[address] [place], [place] [address]Dr. Elia Burton IG % 0.1 % Normal 0.0-0.5 [facility] Comment on above: Performed By: #### C BC ####[facility] Gczz[address]ursg[address] [place], [place] [address]Dr. Elia Burton LYMPH # 3.4 103/ul Normal 1.2-3.8 The [facility] Comment on above: Performed By: #### C BC ####[facility] Xktantqxmc[address] [place], [place] [address]Dr. Elia Burton Lymphocytes/100 WBC (Bld) 43.5 % Normal 20.5-60.0 The [facility] Comment on above: Performed By: #### C BC ####[facility] Nbjtoqfbpt[address] [place], [place] [address]Dr. Elia Burton MANUAL DIFF REQ NO Normal [facility] Comment on above: Performed By: #### C BC ####[facility] Ps[address]ju[address] [place], [place] [address]Dr. Elia Burton MCH (RBC) [Entitic mass] 28.1 pg Normal 26.7-34.0 The [facility] Comment on above: Performed By: #### C BC ####[facility] [address] [place] [id number]. Elia Micheal MCHC (RBC) [Mass/Vol] 32.1 g/dL Normal 29.9-35.2 The [facility] Comment on above: Performed By: #### C BC ####[facility] [address] [place] [id number]. Elia Burton MCV (RBC) [Entitic vol] 87.5 fL Normal 81.0-99.0 [facility] Comment on above: Performed By: #### C BC ####[facility] U[address] [place], [place] [address]DrBennett Burton MONO # 0.7 103/ul Normal 0.3-0.8 The [facility] Comment on above: Performed By: #### C BC ####[facility] [address] [place] [address]Dr. Elia Burton Monocytes/100 WBC (Bld) 8.4 % Normal 1.7-12.0 The [facility] Comment on above: Performed By: #### C BC ####[facility] X[address]fr[address] [place], [place] [address]Dr. Elia Burton NEUT # 3.5 103/ul Normal 1.4-6.5 The [facility] Comment on above: Performed By: #### C BC ####[facility] Ij[address] [place], [place] [address]Dr. Elia Burton Neutrophils/100 WBC (Bld) 45.8 % Normal 43.0-75.0 The [facility] Comment on above: Performed By: #### C BC ####[facility] [address] [place], [place] [id number] Burton Platelet mean volume (Bld) [Entitic vol] 9.3 fL Critically low 9.5-13.5 The [facility] Comment on above: Performed By: #### C BC ####[facility] [address] [place], [place] [address]Dr. Elia Burton PLT 290 103/ul Normal 150-450 The [facility] Comment on above: Performed By: #### C BC ####[facility] [address] [place], [place] [address]Yp. Elia Burton RBC 5.06 106/ul Normal 4.20-5.40 The [facility] Comment on above: Performed By: #### C BC ####[facility] [address] [place], [place] [address]Mz. Elia Burton WBC 7.7 103/ul Normal 4.0-11.0 The [facility] Comment on above: Performed By: #### C BC ####[facility] [address] [place], [place] [address]Ex. Elia Burton Covid-19 PCR (CVDTB)on 04-30 SARS-CoV-2 (COVID-19) RNA LADI+probe Ql (Unsp spec) Not detected Normal NOT DETECTED The [facility] Comment on above: Result Comment: When diagnostic [...] for this test is supported by the Piercer Operator of Health and Human Service's declaration [...] be used). Performed By: #### C VDTBH ####[facility] [address] [place], [place] [address]Ic. Elia Burton LIPASEon 05-23-2022 Lipase [Catalytic activity/Vol] 74.0 U/L Normal 73.0-393.0 [facility] Comment on above: Performed By: #### L IPA, CMP, ABEL #### [facility] Laboratory [address] [address] [address] Elia Burton PROF 14(COMP METB)on 022 Albumin [Mass/Vol] 3.9 g/dL Normal 3.4-5.0 [facility] Comment on above: Performed By: #### L IPA, CMP, ABEL #### [facility] Laboratory [address] [address] [address] Elia Burton Albumin/Globulin [Mass ratio] 0.9 {ratio} Normal [facility] Comment on above: Performed By: #### L IPA, CMP, ABEL #### [facility] Laboratory [address] [address] [address] Elia Burton ALP [Catalytic activity/Vol] 76 U/L Normal 46-116 [facility] Comment on above: Performed By: #### L IPA, CMP, ABEL #### [facility] Laboratory [address] [address] [address] Elia Burton ALT [Catalytic activity/Vol] 17 U/L Normal 14-59 [facility] Comment on above: Performed By: #### L IPA, CMP, ABEL #### [facility] Laboratory [address] [address] [address] Elia Burton Anion gap [Moles/Vol] 13.0 mmol/L Normal [facility] Comment on above: Performed By: #### L IPA, CMP, ABEL #### [facility] Laboratory [address] [address] [address] Elia Burton AST [Catalytic activity/Vol] 19 U/L Normal 15-37 [facility] Comment on above: Performed By: #### L IPA, CMP, ABEL #### [facility] Laboratory [address] [address] [address] Elia Burton Bilirubin [Mass/Vol] 0.4 mg/dL Normal 0.2-1.0 [facility] Comment on above: Performed By: #### L IPA, CMP, ABEL #### [facility] Laboratory [address] [address] [address] Elia Burton Calcium [Mass/Vol] 9.3 mg/dL Normal 8.5-10.1 [facility] Comment on above: Performed By: #### L IPA, CMP, ABEL #### [facility] [address] [address] [address] Elia Burton Chloride [Moles/Vol] 103 mmol/L Normal 98-107 [facility] Comment on above: Performed By: #### L IPA, CMP, ABEL #### [facility] Laboratory [address] [address] [address] Elia Burton CO2 [Moles/Vol] 28.8 mmol/L Normal 21.0-32.0 [facility] Comment on above: Performed By: #### L IPA, CMP, ABEL #### [facility] Laboratory [address] [place] [address] Dr. Elia Burton Creatinine [Mass/Vol] 0.68 mg/dL Normal 0.55-1.02 [facility] Comment on above: Performed By: #### L IPA, CMP, ABEL #### [facility] Laboratory [address] [place] [address] Dr. Elia Burton EGFR-AF GUATEMALAN >60 Normal >=60 [facility] Comment on above: Performed By: #### L IPA, CMP, ABEL #### [facility] [address] [place] [address] Dr. Elia Burton EGFR-NON AF GUATEMALAN >60 Normal >=60 [facility] Comment on above: Performed By: #### L IPA, CMP, ABEL #### [facility] [address] [place] [address] Dr. Elia Burton Globulin (S) [Mass/Vol] 4.3 g/dL Normal [facility] Comment on above: Performed By: #### L IPA, CMP, ABEL #### [facility] [address] [place] [address] Dr. Elia Burton Glucose [Mass/Vol] 107 mg/dL Critically high 74-106 [facility] Comment on above: Performed By: #### L IPA, CMP, ABEL #### [facility] Laboratory [address] [place] [address] Dr. Elia Burton Potassium [Moles/Vol] 3.8 mmol/L Normal 3.5-5.1 [facility] Comment on above: Performed By: #### L IPA, CMP, ABEL #### [facility] Laboratory [address] [place] [address] Dr. Elia Burton Protein [Mass/Vol] 8.2 g/dL Normal 6.4-8.2 [facility] Comment on above: Performed By: #### L IPA, CMP, ABEL #### [facility] [address] [place] [address] Dr. Elia Burton Sodium [Moles/Vol] 141 mmol/L Normal 136-145 [facility] Comment on above: Performed By: #### L IPA CMP, ABEL #### [facility] [address] [place] [address] Dr. Elia Burton Urea nitrogen [Mass/Vol] 5.0 mg/dL Critically low 7.0-18.0 [facility] Comment on above: Performed By: #### L IPA CMP, ABEL #### [facility] [address] [place] [address] Dr. Elia Burton Urea nitrogen/Creatinine [Mass ratio] 7.4 mg/mg Normal [facility] Comment on above: Performed By: #### L IPA CMP, ABEL #### [facility] [address] [place] [address] Dr. Elia Burton XR ABD FLAT UP_PA [...] by: Jaelyn MONIQUE Date: 2022-05-23 05:39 Normal The [facility] Complete Blood Counton 04-28 Erythrocyte distribution width (RBC) [Ratio] 14.1 % Normal 11.0-15.0 [facility] Comment on above: Performed By: #### C BC, VITD, LIPD, CMP #### [facility] [address] [place], [place] [id number] Hematocrit (Bld) [Volume fraction] 41.8 % Normal 35.0-47.0 [facility] Comment on above: Performed By: #### C BC, VITD, LIPD, CMP #### [facility] [address] [place], [place] [id number] Hemoglobin (Bld) [Mass/Vol] 13.0 g/dL Normal 11.6-15.5 [facility] Comment on above: Performed By: #### C BC, VITD, LIPD, CMP #### [facility] [address] [place], [place] [id number] MCH (RBC) [Entitic mass] 27.4 pg Normal 27.0-33.0 [facility] Comment on above: Performed By: #### C BC, VITD, LIPD, CMP #### [facility] [address] [place], [place] [id number] MCHC (RBC) [Mass/Vol] 31.1 g/dL Low 32.0-36.0 [facility] Comment on above: Performed By: #### C BC, VITD, LIPD, CMP #### [facility] [address] [place], [place] [id number] MCV (RBC) [Entitic vol] 88 fL Normal 80-100 [facility] Comment on above: Performed By: #### C BC, VITD, LIPD, CMP #### [facility] [address] [place], [place] [id number] Platelet mean volume (Bld) [Entitic vol] 9.20 fL Normal 7.50-12.50 [facility] Comment on above: Performed By: #### C BC, VITD, LIPD, CMP #### [facility] [address] [facility] [place] [id number] Platelets (Bld) [#/Vol] 281 10*3/uL Normal 140-400 [facility] Comment on above: Performed By: #### C BC, VITD, LIPD, CMP #### [facility] [address] [place], [place] [id number] RBC (Bld) [#/Vol] 4.74 10*6/uL Normal 3.90-5.20 [facility] Comment on above: Performed By: #### C BC, VITD, LIPD, CMP #### [facility] [address] [place], [place] [id number] RDW-SD 45.4 fL Normal 37.0-50.0 [facility] Comment on above: Performed By: #### C BC, VITD, LIPD, CMP #### [facility] [address] [place], [place] [id number] WBC (Bld) [#/Vol] 6.7 10*3/uL Normal 3.8-11.0 [facility] Comment on above: Performed By: #### C BC, VITD, LIPD, CMP #### [facility] [address] [place], [place] [id number] Comprehensive Metabolic Pane [facility] 04-28-2022 Albumin [Mass/Vol] 4.1 g/dL Normal 3.6-5.1 [facility] Comment on above: Performed By: #### C BC, VITD, LIPD, CMP #### [facility] [address] [place], [place] [id number] Albumin/Globulin [Mass ratio] 1.5 {ratio} Normal 1.0-2.5 [facility] Comment on above: Performed By: #### C BC, VITD, LIPD, CMP #### [facility] [address] [place], [place] [id number] ALP [Catalytic activity/Vol] 71 U/L Normal 35-119 [facility] Comment on above: Performed By: #### C BC, VITD, LIPD, CMP #### [facility] [address] [place], [place] [id number] ALT [Catalytic activity/Vol] 8 U/L Normal 6-33 [facility] Comment on above: Result Comment: 12/1 /2021 Female reference range changed. Performed By: #### C BC, VITD, LIPD, CMP #### [facility] [address] [place], [place] [id number] Anion gap [Moles/Vol] 15 mmol/L Normal 12-20 [facility] Comment on above: Result Comment: Bing ctive 12/04/2019 reference range changed. Performed By: #### C BC, VITD, LIPD, CMP #### [facility] [address] [place], [place] [id number] AST [Catalytic activity/Vol] 14 U/L Normal 9-34 [facility] Comment on above: Performed By: #### C BC, VITD, LIPD, CMP #### [facility] [address] [place], [place] [id number] BUN/CREA 12 Ratio Normal 6-22 [facility] Comment on above: Performed By: #### C BC, VITD, LIPD, CMP #### [facility] [address] [place], [place] [id number] Calcium [Mass/Vol] 9.3 mg/dL Normal 8.6-10.2 [facility] Comment on above: Performed By: #### C BC, VITD, LIPD, CMP #### [facility] [address] [place], [place] [id number] Chloride [Moles/Vol] 107 mmol/L Normal 98-107 [facility] Comment on above: Performed By: #### C BC, VITD, LIPD, CMP #### [facility] [address] [place], [place] [id number] CO2 [Moles/Vol] 25 mmol/L Normal 20-31 [facility] Comment on above: Performed By: #### C BC, VITD, LIPD, CMP #### [facility] [address] [place], [place] [id number] Creatinine [Mass/Vol] 0.6 mg/dL Normal 0.6-1.4 [facility] Comment on above: Performed By: #### C BC, VITD, LIPD, CMP #### [facility] [address] [place], [place] [id number] eGFRAA 124 mL/min/1.73m2 Normal >60 [facility] Comment on above: Performed By: #### C BC, VITD, LIPD, CMP #### [facility] [address] [place], [place] [id number] eGFRNAA 102 mL/min/1.73m2 Normal >60 [facility] Comment on above: Performed By: #### C BC, VITD, LIPD, CMP #### [facility] [address] [place], [place] [id number] Globulin (S) [Mass/Vol] 2.7 g/dL Normal 1.9-3.7 [facility] Comment on above: Performed By: #### C BC, VITD, LIPD, CMP #### [facility] [address] [place], [place] [id number] Glucose [Mass/Vol] 99 mg/dL Normal 65-99 [facility] Comment on above: Result Comment: For FASTING Glucose --- ADA reference ranges: Normal 65-99 mg/dl Prediabetes 100-125 Diabetes >/= 126 Performed By: #### C BC, VITD, LIPD, CMP #### [facility] [address] [place], [place] [id number] Potassium [Moles/Vol] 4.4 mmol/L Normal 3.5-5.5 [facility] Comment on above: Performed By: #### C BC, VITD, LIPD, CMP #### [facility] [address] [place], [place] [id number] Protein [Mass/Vol] 6.8 g/dL Normal 6.1-8.1 [facility] Comment on above: Performed By: #### C BC, VITD, LIPD, CMP #### [facility] [address] [place], [place] [id number] Sodium [Moles/Vol] 143 mmol/L Normal 135-146 [facility] Comment on above: Performed By: #### C BC, VITD, LIPD, CMP #### [facility] [address] [place], [place] [id number] TBIL <0.3 Normal [facility] Comment on above: Performed By: #### C BC, VITD, LIPD, CMP #### [facility] [address] [place], [place] [id number] Urea nitrogen [Mass/Vol] 7 mg/dL Normal 7-25 [facility] Comment on above: Performed By: #### C BC, VITD, LIPD, CMP #### [facility] [address] [place], [place] [id number] Lipid Panelon 04-28-2022 Cholesterol [Mass/Vol] 141 mg/dL Normal 125-200 [facility] Comment on above: Result Comment: Low risk < 200mg/dL Borderline risk 201-239 mg/dl High risk > or equal to 240 Performed By: #### C BC, VITD, LIPD, CMP #### [facility] [address] [place], [place] [id number] Cholesterol in HDL [Mass/Vol] 35 mg/dL Low >40 [facility] Comment on above: Result Comment: High Cardiovascular Risk HDL <40 mg/dL Low Cardiovascular Risk HDL > or equal to 60 mg/dl Performed By: #### C BC, VITD, LIPD, CMP #### [facility] [address] [place], [place] [id number] Cholesterol in LDL [Mass/Vol] 81 mg/dL Normal [facility] Comment on above: Result Comment: LDL ATP III CLASSIFICATION LDL less than 100 mg/dl Optimal LDL 100-129 mg/dl Near or above optimal LDL 130-159 Borderline high LDL 160-189 High LDL greater than 189 mg/dl Very High Performed By: #### C BC, VITD, LIPD, CMP #### [facility] [address] [place], [place] [id number] Cholesterol in VLDL [Mass/Vol] 25 mg/dL Normal [facility] Comment on above: Performed By: #### C BC, VITD, LIPD, CMP #### [facility] [address] [place], [place] [id number] Cholesterol.total/Cho lesterol in HDL [Mass ratio] 4 {ratio} Normal [facility] Comment on above: Performed By: #### C BC, VITD, LIPD, CMP #### [facility] [address] [place], [place] [id number] Triglyceride [Mass/Vol] 124 mg/dL Normal 30-150 [facility] Comment on above: Result Comment: TRIG ATPIII CLASSIFICATIONS TRIG less than 150 mg/dl Normal TRIG 150-199 mg/dl Borderline High TRIG 200-500 mg/dl High TRIG greather than 500 mg/dl Very High Performed By: #### C BC, VITD, LIPD, CMP #### [facility] [address] [place], [place] [id number] Vitamin D 25-OHon 04-28-2022 VIT D 25 OH 44 ng/ml Normal >29 [facility] Comment on above: Result Comment: Natalee min D Status Deficiency <20 ng/mL Insufficiency 20-29 ng/mL Optimal 30-100 ng/mL Possible Toxicity >=150 ng/mL Performed By: #### C BC, VITD, LIPD, CMP #### [facility] [address] [place], [place] [id number] Free T3on 04-22-2022 FT3 2.65 pg/mL Normal 2.00-4.40 [facility] Comment on above: Performed By: #### T SH, FT4, FT3 #### [facility] [address] [place], [place] [id number] Free T4on 04-22-2022 Free T4 [Mass/Vol] 1.11 ng/dL Normal 0.80-1.80 [facility] Comment on above: Performed By: #### T SH, FT4, FT3 #### [facility] [address] [place], [place] [id number] TSHon 04-22-2022 TSH 3.670 uIU/mL Normal 0.400-4.500 [facility] Comment on above: Performed By: #### T SH, FT4, FT3 #### [facility] [address] [place], [place] [id number] Dermatopathologyon 0 Dermatopathology [facility] Dermatopathology Laboratory [address] [address] DERMATOPATHOLOGY REPORT Name:HORTENCIA CM Med. Rec #. [id number] Location: [facility] Date of Procedure: 05/01/2020 Race: Date Received: 05/03/2020 /Sex: 1940 (Age: 80) / F Date Reported: 05/06/2020 Other: Submitting Physician:MACRINA SALAZAR APRN, SUPERVISOR PRE WAVE-C FINAL DIAGNOSIS SKIN, (R) BAHAI, BIOPSY: HYPERKERATOSIS WITH EPIDERMAL HYPERPLASIA, PRESENT ON [...] M.D. Electronically Signed Out By ABBEY CARO MD/[facility] By the signature on this report, the individual or group listed as making the Final Interpretation/Diagnosis certifies that they have reviewed this case. 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 Biopsy. Specimens Submitted As: A: SKIN, (R) BAHAI Gross Description: Received in formalin is a nuñez piece of skin measuring [id number]. The specimen is inked and embedded in toto. dcp/05/03/2020 Normal [facility] Comment on above: Performed By: #### D #### Dermatopathology GI Letteron 12-14-2017 GI Letter [facility] Academic Nqasorvsrp of MedicineDivision [facility] Fax:Gastroenterology [phone] [facility] Hrvificbjw Medical [phone] Fax:[place] [phone] [place], [place]RE: Patient Name: Hortencia Cm MR #: [id number] Date of : 1940 Date of 12/10/2017 Service:Bear Camejo M.D.[address] [facility] [address], [place] [address] Dr. Camejo,I had the pleasure of seeing [...] M.D.Date Trans: 12/11/2017 12:03 A/mmoRevised: 12/14/2017 09:23 A/paCopy/pasteDN_[id number]: Bear Camejo M.D. [address] [place] [address] Dinesh Dyer M.D. [address] [place] [address] [facility] Endoscopy Reporton 8 Endoscopy Report MR#: [id number] Name: Hortencia Cm Surgery Date: [...] 12/10/2017/02:36 P/Gm Jameson M.D.Date Trans: 12/11/2017 12:02 P/mmoDN_JN:[id number] cc: Bear Camejo M.D. [address] [facility] [address] [facility] [address] Dinesh Dyer M.D. [address] [facility] [place] [address] Normal [facility] ERCPon 12-10-2017 ERCP [facility] Phvkiydbf[address] [place] [address] P atient Name: HORTENCIA CM : 1940ex: FAge: Race: WhiteMRN: [id number]. Location: 230Patient Status: DVisit #: [id number] Date: 12/10/2017 5:00:00 AMCompleted Date: 12/10/2017 04:04 PMRequesting Provider: RICHARDSON TONG Attending Provider: Report Copy To: Signs & Symptoms: R10.9 Unspecified abdominal pain E57Jrguein: AthenaComments: , , Appointment Date: 12/10/2017 , Appointment Time: 1230 , , , Ordering Provider - RICHARDSON TONG , Exam: ERCPAccession #: [id number] ======ERCP 12/10/2017 4:04 PM EST TECH COMMENTS:ERCP [...] findings. Electronically signed by:Mario Willis. Transcribed by: [email or web address], User Resident: KELSEY JOSEElectronically Signed by: MARIO WILLIS @ 12/15/2017 10:02 AMI personally read this/these film(s) with this resident Normal [facility] Comment on above: Order Comment: , , A ppointment Date: 12/10/2017 , Appointment Time: 1230 , , , Ordering Provider - RICHARDSON TONG , POC GLUCOSE LABon 12-10-2017 Glucose mass conc 115 mg/dL High 70-100 [facility] Comment on above: Performed By: #### 8 [id number] ####[facility] Operative Reporton 7 Operative Report MR#: [id number] [facility] Pt[facility] Name: Hortencia Cm Room #: 3CD [id number] Discharge Date: Birthdate: 1940 OPERATIVE REPORTDATE OF [...] followup with Dr. Zi Collins in the ID Cardiology Office in [place].4. Referral to cardiac rehabilitation.PROCEDURES : Coronary angiogram, [...] was maintained greater than 250 seconds. A Cordis6-Emirati JR4 guide was engaged in the right [...] atmospheres.Next, the stent was post-dilated with an [employer] Quantum apex 3.25 x 12 mmnoncompliant balloon [...] 07/09/2017/01:29 P/Rachel Padron M.D.Date Trans: 07/10/2017 09:40 A/Silverio_JN:[id number] cc: Dinesh Dyer M.D. [address] [facility] [address] Dinesh Collins M.D. [address] [id number] Normal [facility] Vital Signs Date Time Vital Sign Value Performing Clinician Facility 12-19-2024 11:14-0500 Body height 149.9 cm Padmaja Mcmahon NP Work Phone: [facility] 12-19-2024 11:14-0500 Body mass index (BMI) [Ratio] 18.54 kg/m2 Padmaja Mcmahon NP Work Phone: [facility] 12-19-2024 11:14-0500 Body weight 41.64 kg Padmaja Salome SUPERVISOR PRE WAVE Work Phone: [facility] 12-19-2024 11:14-0500 Diastolic blood pressure 68 mm[Hg] Padmaja Winnett SUPERVISOR PRE WAVE Work Phone: [facility] 12-19-2024 11:14-0500 Heart rate 98 /min Padmaja Salome SUPERVISOR PRE WAVE Work Phone: [facility] 12-19-2024 11:14-0500 Respiratory rate 17 /min Padmaja Winnett SUPERVISOR PRE WAVE Work Phone: [facility] 12-19-2024 11:14-0500 SaO2% (BldA) [Mass fraction] 98 % Padmaja Salome SUPERVISOR PRE WAVE Work Phone: [facility] 12-19-2024 11:14-0500 Systolic blood pressure 138 mm[Hg] Padmaja Winnett SUPERVISOR PRE WAVE Work Phone: [facility] 11-07-2024 09:07-0500 Body height 149.9 cm Padmaja Salome SUPERVISOR PRE WAVE Work Phone: [facility] 11-07-2024 09:07-0500 Body mass index (BMI) [Ratio] 18.42 kg/m2 Padmaja Salome SUPERVISOR [employer] WAVE Work Phone: [facility] 11-07-2024 09:07-0500 Body temperature 98.2 [degF] Padmaaj Salome SUPERVISOR PRE WAVE Work Phone: [facility] 11-07-2024 09:07-0500 Body weight 41.37 kg Padmaja Winnett SUPERVISOR PRE WAVE Work Phone: [facility] 11-07-2024 09:07-0500 Diastolic blood pressure 68 mm[Hg] Padmaja Winnett SUPERVISOR PRE WAVE Work Phone: [facility] 11-07-2024 09:07-0500 Heart rate 92 /min Padmaja Salome SUPERVISOR PRE WAVE Work Phone: [facility] 11-07-2024 09:07-0500 Respiratory rate 18 /min Padmaja Winnett SUPERVISOR PRE WAVE Work Phone: [facility] 11-07-2024 09:07-0500 SaO2% (BldA) [Mass fraction] 97 % Padmaja Mcmahon SUPERVISOR PRE WAVE Work Phone: [facility] 11-07-2024 09:07-0500 Systolic blood pressure 138 mm[Hg] Padmaja Winnett SUPERVISOR PRE WAVE Work Phone: [facility] 09-19-2024 09:25-0400 Body height 149.9 cm Padmaja Mcmahon SUPERVISOR PRE WAVE Work Phone: [facility] 09-19-2024 09:25-0400 Body temperature 96.8 [degF] Padmaja Winnett SUPERVISOR PRE WAVE Work Phone: [facility] 09-19-2024 09:25-0400 Diastolic blood pressure 82 mm[Hg] Padmaja Mcmahon SUPERVISOR PRE WAVE Work Phone: [facility] 09-19-2024 09:25-0400 Heart rate 92 /min Padmaja Mcmahon SUPERVISOR PRE WAVE Work Phone: [facility] 09-19-2024 09:25-0400 SaO2% (BldA) [Mass fraction] 99 % Padmaja Mcmahon SUPERVISOR PRE WAVE Work Phone: [facility] 09-19-2024 09:25-0400 Systolic blood pressure 138 mm[Hg] Padmaja Mcmahon SUPERVISOR PRE WAVE Work Phone: [facility] 08-14-2024 13:05-0400 Body height 149.86 cm [facility] 08-14-2024 13:05-0400 Body mass index (BMI) [Ratio] 18.3 kg/m2 [facility] 08-14-2024 13:05-0400 Body weight 41.27 kg [facility] 02-11-2024 13:02-0400 Body weight 41.27 kg [facility] 11-24-2023 14:15-0500 Body height 153.03 cm Chance Damon Other [facility] 11-24-2023 14:15-0500 Body mass index (BMI) [Ratio] 17.62 kg/m2 Chance Damon Other [employer] Other 11-24-2023 14:15-0500 Body weight 41.28 kg Chance Scisela Other [employer] Other 11-24-2023 14:15-0500 Body weight 41.27 kg [facility] 10-26-2023 13:30-0500 Body height 153.03 cm Jairo Dorantes Other [employer] Other 10-26-2023 13:30-0500 Body mass index (BMI) [Ratio] 18.2 kg/m2 Jairo Piperrer Other [employer] Other 10-26-2023 13:30-0500 Body temperature 96.2 [degF] Jairo Piperreiza Other [employer] Other 10-26-2023 13:30-0500 Body weight 42.64 kg Jairo Piperrer Other [employer] Other 10-26-2023 13:30-0500 Diastolic blood pressure 60 mm[Hg] Jairo Dorantes Other [employer] Other 10-26-2023 13:30-0500 SaO2% (BldA) [Mass fraction] 96 % Jairo Piperrer Other [employer] Other 10-26-2023 13:30-0500 Systolic blood pressure 130 mm[Hg] Jairo Buehrer Other [employer] Other 09-27-2023 13:00-0400 Body height 153.03 cm Chance Scovanner Other [employer] Other 09-27-2023 13:00-0400 Body mass index (BMI) [Ratio] 18.2 kg/m2 Chance Scovanner Other [employer] Other 09-27-2023 13:00-0400 Body weight 42.64 kg Chance Scovanner Other [employer] Other 09-27-2023 13:00-0400 Diastolic blood pressure 66 mm[Hg] Chance Scovanner Other [employer] Other 09-27-2023 13:00-0400 Systolic blood pressure 135 mm[Hg] Chance Scovanner Other [employer] Other 06-25-2023 11:00-0400 Body height 153.03 cm Chance Scovanner Other [employer] Other 06-25-2023 11:00-0400 Body mass index (BMI) [Ratio] 18.2 kg/m2 Chance Scovanner Other [employer] Other 06-25-2023 11:00-0400 Body weight 42.64 kg Chance Scovanner Other [employer] Other 06-25-2023 11:00-0400 Diastolic blood pressure 71 mm[Hg] Chance Scovanner Other [employer] Other 06-25-2023 11:00-0400 Systolic blood pressure 119 mm[Hg] Chance Scovanner Other [employer] Other 06-07-2023 11:30-0400 Body height 153.03 cm Bebe Lara Other [employer] Other 06-07-2023 11:30-0400 Body mass index (BMI) [Ratio] 17.89 kg/m2 Bebe Lara Other [employer] Other 06-07-2023 11:30-0400 Body temperature 97.6 [degF] Bebe Lara Other [employer] Other 06-07-2023 11:30-0400 Body weight 41.91 kg Bebe Lara Other [employer] Other 06-07-2023 11:30-0400 Diastolic blood pressure 68 mm[Hg] Bebe Lara Other [employer] Other 06-07-2023 11:30-0400 SaO2% (BldA) [Mass fraction] 97 % Bebe Lara Other [employer] Other 06-07-2023 11:30-0400 Systolic blood pressure 128 mm[Hg] Bebe Lara Other [employer] Other 03-02-2023 13:05-0400 Blood Pressure Location YESSICA MATTHEWSRY [facility] 03-02-2023 13:05-0400 Diastolic blood pressure 72 mm[Hg] YESSICA DOROTHEA [facility] 03-02-2023 13:05-0400 Heart rate 60 /min YESSICA MATTHEWSRY [facility] 04-04-2023 13:05-0400 Respiratory rate 16 /min YESSICA PIEDRA [facility] 03-02-2023 13:05-0400 Systolic blood pressure 122 mm[Hg] YESSICA PIEDRA [facility] 02-24-2023 14:45-0400 Body height 153.03 cm Vu Guevara Other [employer] [facility] [employer] [facility] [employer] Other 02-24-2023 14:45-0400 Body mass index (BMI) [Ratio] 18.4 kg/m2 Vu Guevara Other [employer] Other 02-24-2023 14:45-0400 Body weight 43.09 kg Vu Guevara Other [employer] Other 02-24-2023 14:45-0400 Diastolic blood pressure 76 mm[Hg] Vu Leslieoswaldoromeo Other [employer] Other 02-24-2023 14:45-0400 Systolic blood pressure 122 mm[Hg] Vu Leslieoswaldoy Other [employer] Other 01-20-2023 15:45-0500 Diastolic blood pressure 76 mm[Hg] II Dinesh Dyer Work Phone: [facility] 01-20-2023 15:45-0500 Heart rate 75 /min II Dinesh Dyer Work Phone: [facility] 01-20-2023 15:45-0500 Respiratory rate 16 /min II Dinesh Dyer Work Phone: [facility] 01-20-2023 15:45-0500 SaO2% (BldA) [Mass fraction] 98 % II Dinesh Dyer Work Phone: [facility] 01-20-2023 15:45-0500 Systolic blood pressure 142 mm[Hg] II Dinesh Dyer Work Phone: [facility] 01-20-2023 10:55-0500 Body height 149.86 cm II Dinesh Dyer Work Phone: [facility] 01-20-2023 10:55-0500 Body weight 41.73 kg II Dinesh Dyer Work Phone: [facility] 01-11-2023 11:30-0500 Body height 153.03 cm Jairo Dorantes Other [employer] Other 01-11-2023 11:30-0500 Body mass index (BMI) [Ratio] 18.4 kg/m2 Jairo Doratnes Other [employer] Other 01-11-2023 11:30-0500 Body temperature 97.8 [degF] Jairo Dorantes Other [employer] Other 01-11-2023 11:30-0500 Body weight 43.09 kg Jairo Dorantes Other [employer] Other 01-11-2023 11:30-0500 Diastolic blood pressure 72 mm[Hg] Jairo Dorantes Other [employer] Other 01-11-2023 11:30-0500 SaO2% (BldA) [Mass fraction] 97 % Jairo Piperreiza Other [employer] Other 01-11-2023 11:30-0500 Systolic blood pressure 116 mm[Hg] Jairo Gibbonsehrer Other [employer] Other 11-25-2021 12:00-0500 Body height 153.03 cm Gautam Gaspar Other [employer] Other 11-25-2021 12:00-0500 Body mass index (BMI) [Ratio] 19.56 kg/m2 Gautam Gaspar Other [employer] Other 11-25-2021 12:00-0500 Body weight 45.81 kg Gautam Gaspar Other [employer] Other Encounters Encounter Date Encounter Type Care Provider Facility Start: 12-19-2024 End: 12-19-2024 Bamboo flowsheet Padmaja Mcmahon SUPERVISOR [employer] WAVE Work Phone: [facility] Start: 12-19-2024 End: 12-19-2024 Bamboo flowsheet Padmaja Mcmahon SUPERVISOR [employer] WAVE Work Phone: [facility] Start: 12-19-2024 End: 12-19-2024 Office outpatient visit 25 minutes Padmaja Mcmahon SUPERVISOR [employer] WAVE Work Phone: [facility] Comment on above: Acute pain of both s houlders (Primary Dx); Hypothyroidism (acquired) (CMS/HCC); Primary hypertension (CMS/HCC); Pure hypercholesterolemia (CMS/HCC); Vitamin D deficiency; Acute non-recurrent pansinusitis; Dysuria; Acute cystitis without hematuria Start: 12-19-2024 End: 12-19-2024 ambulatory PADMAJA MCMAHON Not Available Start: 11-07-2024 End: 11-07-2024 Bamboo flowsheet Padmaja Mcmahon SUPERVISOR [employer] WAVE Work Phone: [facility] Start: 11-07-2024 End: 11-07-2024 Bamboo flowsheet Padmaja Mcmahon SUPERVISOR [employer] WAVE Work Phone: [facility] Start: 11-07-2024 End: 11-07-2024 Office outpatient visit 25 minutes Padmaja Mcmahon SUPERVISOR [employer] W[employer] Work Phone: [facility] Comment on above: Acute cough (Primary Dx); Exposure to COVID-19 virus; Acute non-recurrent frontal sinusitis; Anxiety Start: 11-07-2024 End: 11-07-2024 ambulatory PADMAJA MCMAHON Not Available Start: 09-29-2024 End: 09-29-2024 Clinisync Result Encounter Generic External Data Provider [facility] Unsolicited Start: 09-29-2024 End: 09-29-2024 Clinisync Result Encounter Generic External Data Provider [facility] Unsolicited Start: 09-19-2024 End: 09-19-2024 Bamboo flowsheet Padmaja Mcmahon SUPERVISOR PRE WAVE Work Phone: [facility] Start: 09-19-2024 End: 09-19-2024 Bamboo flowsheet Padmaja Mcmahon SUPERVISOR [employer] WAVE Work Phone: [facility] Start: 09-19-2024 End: 09-19-2024 Office outpatient visit 25 minutes Padmaja Mcmahon SUPERVISOR [employer] WAVE Work Phone: [facility] Comment on above: Acute non-recurrent pansinusitis (Primary Dx); Difficulty urinating; Vascular disorder of intestine, unspecified (CMS/HCC); Atherosclerosis of aorta (CMS/HCC) Start: 09-19-2024 End: 09-19-2024 ambulatory PADMAJA MCMAHON Not Available Start: 09-13-2024 End: 09-13-2024 ambulatory [facility] Start: 09-11-2024 End: 09-11-2024 Patient encounter procedure II Dinesh Dyer Work Phone: [facility] Work Phone: Start: 09-11-2024 End: 09-11-2024 ambulatory II Dinesh Dyer Work Phone: [facility] Work Phone: Start: 08-14-2024 End: 08-14-2024 ambulatory [facility] Work Phone: Start: 08-14-2024 End: 08-14-2024 Patient encounter procedure [facility] Work Phone: Start: 07-18-2024 End: 07-18-2024 Bamboo flowsheet Macrina A Felter SENIOR HEALTH EDUCATOR-MACHINE SHOP SUPERVISOR Work Phone: [facility] Start: 07-18-2024 End: 07-18-2024 Bamboo flowsheet Macrina Lizarraga Felter SENIOR HEALTH EDUCATOR-MACHINE SHOP SUPERVISOR Work Phone: [facility] Start: 07-18-2024 End: 07-18-2024 Office outpatient visit 15 minutes Macrina Lizarraga Felter SENIOR HEALTH EDUCATOR-MACHINE SHOP SUPERVISOR Work Phone: [facility] Comment on above: Lentigines; Horner angioma; Neoplasm of unspecified behavior of bone, soft tissue, and skin; Inflamed seborrheic keratosis Start: 07-18-2024 End: 07-18-2024 ambulatory MACRINA GOMEZER Not Available Start: 03-28-2024 End: 03-28-2024 ambulatory II Dinesh Dyer Work Phone: [facility] Work Phone: Start: 03-28-2024 End: 03-28-2024 Patient encounter procedure II Dinesh Dyer Work Phone: [facility] Work Phone: Start: 03-14-2024 End: 03-15-2024 ambulatory Tammie X Orcriseldach [facility] Start: 03-14-2024 End: 03-14-2024 Patient encounter procedure Tammie X Orzech [facility] Start: 03-13-2024 End: 03-13-2024 ambulatory LE SHIPLEY Not Available Start: 02-29-2024 End: 02-29-2024 ambulatory PADMAJA MCMAHON Not Available Start: 02-11-2024 End: 02-11-2024 ambulatory [facility] Work Phone: Start: 02-11-2024 End: 02-11-2024 Patient encounter procedure [facility] Work Phone: Start: 02-03-2024 End: 02-03-2024 ambulatory PADMAJA MCMAHON Not Available Start: 12-03-2023 (Sclerother) Sclerotherapy Bebe Ru ttino [facility] Start: 12-03-2023 End: 12-03-2023 ambulatory Bebe Jazmineo Other [employer] Other Start: 11-24-2023 End: 11-24-2023 ambulatory Chance Damon Other [employer] Other Start: 11-24-2023 Office outpatient vi sit 15 minutes Chance Damon [facility] Start: 11-24-2023 End: 11-24-2023 Patient encounter procedure [facility] Work Phone: Start: 10-26-2023 End: 10-26-2023 ambulatory Jairo Dorantes Other [employer] Other Start: 10-26-2023 Office outpatient vi sit 25 minutes Jairo Dorantes [facility] Start: 09-27-2023 End: 09-27-2023 ambulatory Chance Damon Other [employer] Other Start: 09-27-2023 Office outpatient vi sit 15 minutes Chance Damon [facility] Start: 09-17-2023 (Sclerother) Sclerotherapy Bebe Ru ttino [facility] Start: 09-17-2023 End: 09-17-2023 ambulatory Bebe Lara Other [employer] Other Start: 06-25-2023 End: 06-25-2023 ambulatory Chance Damon Other [employer] Other Start: 06-25-2023 Office outpatient vi sit 15 minutes Chance Damon [facility] Start: 06-17-2023 End: 06-17-2023 ambulatory Jairo Dorantes Other [employer] Other Start: 06-17-2023 Telephone encounter Jairo Dorantes [facility] V[facility] Start: 06-07-2023 End: 06-07-2023 Patient encounter procedure Bebe Lara [facility] Start: 06-07-2023 End: 06-07-2023 ambulatory II Dinesh Dyer Work Phone: [facility] Work Phone: Start: 04-22-2023 End: 04-22-2023 ambulatory VINCE BLUM Facility:[facility] Start: 03-05-2023 End: 03-06-[address] DINESH DYER Facility:[facility] Start: 03-02-2023 End: 03-02-2023 Patient encounter procedure YESSICA PIEDRA [facility] Start: 03-01-2023 End: 03-02-[address] DINESH DYER Facility:[facility] Start: 02-24-2023 End: 02-24-2023 ambulatory Vu Guevara Other [employer] Other Start: 02-24-2023 Patient encounter procedure Vu Guevara [facility] Start: 01-21-2023 End: 01-21-2023 ambulatory II Dinesh Dyer Work Phone: [facility] Work Phone: Start: 01-21-2023 End: 01-21-2023 Patient encounter procedure II Dinesh Dyer Work Phone: [facility] Work Phone: Start: 01-20-2023 End: 01-20-2023 Admission to same day surgery center II Dinesh Dyer Work Phone: [facility]Inter[facility]iology Work Phone: Start: 01-20-2023 End: 01-20-2023 ambulatory II Dinesh Dyer Work Phone: [facility] Work Phone: Start: 01-11-2023 End: 01-11-2023 ambulatory Jairo Dorantes Other [employer] Other Start: 01-11-2023 Office outpatient ne w 45 minutes Jairo Dorantes [facility] Start: 10-01-2022 End: 10-02-[address] DINESH YDER Facility: Start: 05-23-2022 End: 05-23-[address] DINESH DYER Facility:[facility] Start: 02-24-2022 End: 02-24-2022 Patient encounter procedure Tamia Gee Jr. [facility] Start: 11-25-2021 End: 11-25-2021 ambulatory Gautam Gaspar Other [employer] Other Start: 11-25-2021 Office outpatient vi sit 25 minutes Gautam Gaspar [facility] Start: 12-10-2017 End: 12-11-2017 Ambulatory GM JAMESON Facility:[facility] Start: 07-09-2017 End: 07-10-2017 Ambulatory RACHEL PADRON Facility:[facility] Start: 07-06-2017 End: 07-07-2017 Ambulatory DEFAULT PHYSICIAN Facility:[facility] Start: 07-01-2017 End: 07-02-2017 Ambulatory DEFAULT PHYSICIAN Facility:[facility] Procedures Date Procedure Procedure Detail Performing Clinician Start: 12-19-2024 Urnls dip stick/tabl et rgnt non-auto w/o micrscp Padmaja Mcmahon SUPERVISOR [employer] W[employer] Work Phone: Start: 09-29-2024 [facility] CREATININE Generic External Data Provider Start: 09-19-2024 Urnls dip stick/tabl et rgnt non-auto w/o micrscp Padmaja Mcmahon SUPERVISOR [employer] WAVE Work Phone: Start: 09-11-2024 Screening mammograph y of bilateral breasts II Dinesh Dyer Work Phone: Start: 07-18-2024 CRYOTHERAPY SKIN LESION Macrina Salazar SENIOR HEALTH EDUCATOR-MACHINE SHOP SUPERVISOR Work Phone: Start: 07-18-2024 End: 07-18-2024 SKIN / NAIL BIOPSY Macrina Salazar SENIOR HEALTH EDUCATOR-MACHINE SHOP SUPERVISOR Work Phone: Start: 03-28-2024 Doppler ultrasonogra phy of bilateral carotid arteries II Dinesh Dyer Work Phone: Start: 06-07-2023 Duplex scan of lower limb veins II Dinesh Dyer Work Phone: Start: 01-20-2023 IR Visceral Angiogra m (Mesenteric) (Not Applicable) II Dinesh Dyer Work Phone: Start: 01-19-2022 Cystourethroscopy wi th dilation of urethral stricture Tamia Gee Jr. Start: 06-13-2021 H/O: hysterectomy History of hysterectomy Macrina Salazar SENIOR HEALTH EDUCATOR-MACHINE SHOP SUPERVISOR Work Phone: Start: 12-10-2017 ANES UPR GI NDSC PX ERCP YUE Robert MOTA Start: 12-10-2017 ERCP REMOVE DUCT CALCULI ALI T NAWRAS Start: 12-10-2017 ERCP REMOVE FORGN BODY DUCT ALI T NAWRAS Appendectomy Tamia Guajardo Bilateral tubal ligation Damon Gee Jr. Cholecystectomy Tamia Gee Jr. Extraction of cataract Ren Gee Jr. 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 Comment on above: benign Plan of Treatment Date Care Activity Detail Author Start: 07-19-2025 End: 07-19-2025 Patient encounter procedure 07/19/2025 1:05 PM EDT Office Visit [facility] [address] [place] [address] Macrina Salazar, SENIOR HEALTH EDUCATOR-MACHINE SHOP SUPERVISOR [address] [place] [address] [facility] Start: 02-28-2025 Medicare Annual Wellness (AWV) Medicare Annual Wellness (AWV) [facility] Start: 02-02-2025 End: 12-19-2025 25-hydroxyvitamin D3 [Mass/volume] in Serum or Plasma Vitamin D 25 hydroxy Lab Routine Vitamin D deficiency Expected: 02/02/2025 (Approximate), Expires: 12/19/2025 [facility] Comment on above: Expected: 02/02/2025 (Approximate), Expi res: 12/19/2025 Start: 02-02-2025 End: 12-19-2025 CBC panel - Blood by Automated count CBC Lab Routine Primary hypertension ([facility]/HCC) Expected: 02/02/2025 (Approximate), Expires: 12/19/2025 [facility] Comment on above: Expected: 02/02/2025 (Approximate), Expi res: 12/19/2025 Start: 02-02-2025 End: 12-19-2025 Comprehensive metabolic 2000 panel - Serum or Plasma Comprehensive metabolic panel Lab Routine Primary hypertension (CMS/HCC) Expected: 02/02/2025 (Approximate), Expires: 12/19/2025 [facility] Comment on above: Expected: 02/02/2025 (Approximate), Expi res: 12/19/2025 Start: 02-02-2025 End: 12-19-2025 Lipid 1996 panel - Serum or Plasma Lipid panel Lab Routine Pure hypercholesterolemia (CMS/HCC) Expected: 02/02/2025 (Approximate), Expires: 12/19/2025 [facility] Comment on above: Expected: 02/02/2025 (Approximate), Expi res: 12/19/2025 Start: 02-02-2025 End: 12-19-2025 TSH W/REFLEX TO FT4 TSH W/REFLEX TO FT4 Lab Routine Hypothyroidism (acquired) ([facility]/HCC) Expected: 02/02/2025 (Approximate), Expires: 12/19/2025 [facility] Comment on above: Expected: 02/02/2025 (Approximate), Expi res: 12/19/2025 Start: 12-19-2024 End: 12-19-2025 URINARY TRACT INFECTION (HTRX) URINARY TRACT INFECTION (HTRX) Lab Routine Dysuria Expected: 12/19/2024 (Approximate), Expires: 12/19/2025 [facility] Comment on above: Expected: 12/19/2024 (Approximate), Expi res: 12/19/2025 Start: 12-19-2024 End: 12-19-2025 XR Shoulder - left 2 Views XR shoulder 2+ views left Imaging Routine Acute pain of both shoulders Expected: 12/19/2024, Expires: 12/19/2025 [facility] Work Phone: Comment on above: Expected: 12/19/2024, Expires: Start: 12-19-2024 End: 12-19-2025 XR Shoulder - right 2 Views XR shoulder 2+ views right Imaging Routine Acute pain of both shoulders Expected: 12/19/2024, Expires: 12/19/2025 [facility] Comment on above: Expected: 12/19/2024, Expires: Start: 12-19-2024 End: 12-19-2024 Patient encounter procedure 12/19/2024 11:00 AM EST Office Visit [facility] [address] [place] [id number] Padmaja Mcmahon SUPERVISOR PRE WAVE [address] [place] [address] Arrived [facility] Comment on above: Arrived Start: 11-07-2024 End: 11-07-2025 COMMON RESPIRATORY BACTERIAL/VIRAL INFECTION (HTRX) COMMON RESPIRATORY BACTERIAL/VIRAL INFECTION (HTRX) Lab Routine Acute cough Exposure to COVID-19 virus Expected: 11/07/2024 (Approximate), Expires: 11/07/2025 [facility] Work Phone: Comment on above: Expected: 11/07/2024 (Approximate), Expi res: 11/07/2025 Start: 11-07-2024 End: 11-07-2024 Patient encounter procedure 11/07/2024 9:30 AM EST Office Visit [facility] [address] [place] [address] Padmaja Mcmahon NP [address] [place] [address] Arrived [facility] Comment on above: Arrived Start: 09-19-2024 End: 09-19-2025 URINARY TRACT INFECTION (HTRX) URINARY TRACT INFECTION (HTRX) Lab Routine Difficulty urinating Expected: 09/19/2024 (Approximate), Expires: 09/19/2025 [facility] Work Phone: Comment on above: Expected: 09/19/2024 (Approximate), Expi res: 09/19/2025 Start: 09-19-2024 End: 09-19-2024 Patient encounter procedure 09/19/2024 9:30 AM EDT Office Visit [facility] [address] [facility] [address] [place] [address] Padmaja Mcmahon NP [address] [facility] [address] [place] [address] Arrived [facility] Comment on above: Arrived Start: 07-30-2024 Influenza vaccination Influenza Vaccine (#1) [facility] Start: 07-18-2024 End: 07-18-2024 Patient encounter procedure 07/18/2024 1:10 PM EDT Office Visit [facility] [address] [place] [id number] Macrina Salazar APRN-MACHINE SHOP SUPERVISOR [address] [place] [address] Arrived [facility] Comment on above: Arrived Start: 01-21-2023 Doppler ultrasonography of bilateral carotid arteries US carotid doppler BI [facility] Start: 01-21-2023 US.doppler Carotid arteries - bilateral [facility] Start: 01-20-2023 [facility] Dermatopathology exam Dermatopat hology exam Pathology and Cytology Timed Neoplasm of unspecified behavior of bone, soft tissue, and skin Release Upon Ordering for 1 Occurrences starting 07/18/2024 [facility] Work Phone: Comment on above: Release Upon Ordering for 1 Occurrences starting 07/18/2024 Patient Education Arteriogram (DC) [facility] Work Phone: Patient referral [facility] Work Phone: US.doppler Carotid arteries - bilateral [facility] Immunizations Immunization Date Immunization Notes Care Provider Lolis ji 09-02-2023 Influenza, Seasonal, Quadrivalent, Adjuvanted Macrina Salazar SENIOR HEALTH EDUCATOR-MACHINE SHOP SUPERVISOR Work Phone: [facility] 09-02-2023 influenza virus vacc ine, unspecified formulation Macrina Salazar SENIOR HEALTH EDUCATOR-MACHINE SHOP SUPERVISOR Work Phone: [facility] [facility] 03-12-2023 Pneumococcal Conjuga te PCV 20 Macrina Salazar SENIOR HEALTH EDUCATOR-MACHINE SHOP SUPERVISOR Work Phone: [facility] 09-02-2022 influenza virus vacc ine, unspecified formulation YESSICA PIEDRA [facility] 09-02-2022 Seasonal trivalent influenza vaccine, adjuvanted, preservative free Macrina Salazar SENIOR HEALTH EDUCATOR-MACHINE SHOP SUPERVISOR Work Phone: [facility] 10-16-2021 SARS-CoV-2 (COVID-19 ) mRNA BNT-162b2 vax YESSICA PIEDRA [facility] Comment on above: Result Comment: 2022: [id number] 09-09-2021 influenza, high dose seasonal, preservative-free Macrina Salazar SENIOR HEALTH EDUCATOR-MACHINE SHOP SUPERVISOR Work Phone: [facility] 09-08-2021 influenza virus vacc ine, unspecified formulation YESSICA PIEDRA [facility] 09-08-2021 Seasonal trivalent influenza vaccine, adjuvanted, preservative free Macrinaosito Salazar SENIOR HEALTH EDUCATOR-MACHINE SHOP SUPERVISOR Work Phone: [facility] 07-28-2021 zoster vaccine recombinant YESSICA PIEDRA [facility] 02-18-2021 SARS-CoV-2 (COVID-19 ) mRNA BNT-162b2 vax YESSICA PIEDRA [facility] 01-27-2021 SARS-CoV-2 (COVID-19 ) mRNA BNT-162b2 vax YESSICA PIEDRA [facility] 09-06-2020 influenza virus vacc ine, unspecified formulation YESSICA DOROTHEA [facility] 09-06-2020 Seasonal trivalent influenza vaccine, adjuvanted, preservative free Macrina Felter SENIOR HEALTH EDUCATOR-MACHINE SHOP SUPERVISOR Work Phone: [facility] 08-19-2020 pneumococcal polysaccharide vaccine, 23 valent YESSICA PIEDRA [facility] 09-27-2019 influenza virus vacc ine, unspecified formulation YESSICA DOROTHEA [facility] 09-27-2019 Seasonal trivalent influenza vaccine, adjuvanted, preservative free Macrina Felter SENIOR HEALTH EDUCATOR-MACHINE SHOP SUPERVISOR Work Phone: [facility] 09-22-2018 influenza virus vacc ine, unspecified formulation YESSICA DOROTHEA [facility] 09-22-2018 influenza, high dose seasonal, preservative-free Macrina Felter SENIOR HEALTH EDUCATOR-MACHINE SHOP SUPERVISOR Work Phone: [facility] 09-27-2017 influenza virus vacc ine, unspecified formulation YESSICA DOROTHEA [facility] 09-27-2017 influenza, high dose seasonal, preservative-free Macrina Felter SENIOR HEALTH EDUCATOR-MACHINE SHOP SUPERVISOR Work Phone: [facility] 09-15-2016 influenza virus vacc ine, unspecified formulation YESSICA DOROTHEA [facility] 09-15-2016 influenza, high dose seasonal, preservative-free Macrina Felter SENIOR HEALTH EDUCATOR-MACHINE SHOP SUPERVISOR Work Phone: [facility] 10-03-2015 influenza virus vacc ine, unspecified formulation YESSICA PIEDRA [facility] 10-03-2015 influenza, high dose seasonal, preservative-free Macrina Felter SENIOR HEALTH EDUCATOR-MACHINE SHOP SUPERVISOR Work Phone: [facility] 09-02-2015 seasonal influenza, intradermal, preservative free Macrina Felter SENIOR HEALTH EDUCATOR-MACHINE SHOP SUPERVISOR Work Phone: [facility] 10-01-2014 influenza, seasonal, injectable Macrina Felter SENIOR HEALTH EDUCATOR-MACHINE SHOP SUPERVISOR Work Phone: [facility] 09-01-2013 seasonal influenza, intradermal, preservative free Macrina Felter SENIOR HEALTH EDUCATOR-MACHINE SHOP SUPERVISOR Work Phone: [facility] Payers Date Payer Category Payer Self-pay [id number] 2021 Medicare [employer] MEDICARE ADVANTAGE [facility] MEDICARE ADVANTAGE [id number] 2021-Present [address] [place] [address] [id number] 2021 Medicare (Managed Care) [facility] ADVANTAGE [id number] 1959 Medicare [id number] 1942 Unknown [id number] [id number] .593 1942 Unknown [id number] 2.16.840.1.888126.3.579.2 .593 1942 Unknown [id number] 2.16.840.1.024118.3.579.2 .593 1942 Unknown [id number] 2.16.840.1.554159.3.579.2 .593 1942 Unknown [id number] 2.16.840.1.185136.3.579.2 .593 1942 Unknown [id number] 2.16.840.1.089554.3.579.2 .727 1942 Unknown [id number] 2.16.840.1.688097.3.579.2 .1259 1942 Unknown [id number] 2.16.840.1.338870.3.579.2 .1259 1942 Unknown [id number] 2.16.840.1.992649.3.579.2 .1259 1942 Unknown [id number] 2.16.840.1.794543.3.579.2 .1259 1942 Unknown [id number] 2.16.840.1.093438.3.579.2 .1259 1942 Unknown [id number] 2.16.840.1.758642.3.579.2 .1259 1942 Unknown [id number] 2.16.840.1.120729.3.579.2 .1259 Medicare [id number] Medicare Medicare [id number] Medicare [id number] Unknown Unknown [facility] Health Claims [id number] Unknown [id number] 2..[id number] .531 Unknown [id number] [id number] .531 Social History Date Type Detail Facility Start: 12-10-2020 End: 11-07-2024 Tobacco smoking status Ex-smoker (finding) [employer] Other Start: 06-30-2023 End: 02-29-2024 Sex Assigned At Female [facility] [employer] Other Start: 1940 Sex Assigned At Female F [facility] Start: 02-06-1979 End: 02-06-2019 History of tobacco use Current smoker [facility] Start: 02-06-1979 End: 02-06-2019 History of tobacco use Cigarette Smoker [facility] Start: 05-05-2023 End: 06-30-2023 Cigarettes smoked current (pack per day) - Reported 0.5 [facility] Start: 05-05-2023 End: 11-07-2024 Tobacco use and exposure Smokeless tobacco non-user [facility] Start: 07-18-2024 End: 12-19-2024 Alcoholic beverage intake Ex-drinker (finding) [facility] [...] - these days [OSQ] To some extent [facility] (I/We) worried wheth er (my/our) food would run out before (I/we) got money to buy more. Never true [facility] Start: 06-08-2023 Alcohol Comment caffeine: 1-2 cups/day coffee [facility] Start: 1940 Sex assigned at Not on file N [facility] Medical Equipment Procedure Code Equipment Code [...] 03-14-2024 Functional Status N/A [facility] 03-02-2023 Functional Status N/A [facility] Clinical Notes 11-25-2021 to 12-19-2024 Padmaja Mcmahon NP - 12/19/2024 11:00 AM KATTY OLIVER - 12/19/2024 11:00 AM Karsten Mcmahon NP - 11/07/2024 9:30 AM Karsten Mcmahon NP - 09/19/2024 9:30 AM EDT Note Date & Type Note Facility 12-19-2024 History of Present illness Narrative Images from the original note were not included. Subjective Patient ID: Hortencia Cm is a 84 y.o. female who presents for sick vist. Hortencia presents today for feeling tired, burning with urination and b/l shoulder pain that she has had for over a year. Current Outpatient Medications on File Prior to Visit Medication Sig Dispense Refill ALPRAZolam (Xanax) 0.25 MG tablet Take 1 tablet (0.25 mg) by mouth 3 (three) times a day as needed for anxiety Take 1/2 to 1 tablet PO every 8 hours as needed 90 tablet 0 Ascorbic Acid (vitamin C) 1000 MG tablet Take 1,000 mg by mouth in the morning. cetirizine ([facility] Allergy Relief,Cetirizine,) 10 MG tablet TAKE 1 TABLET (10 MG) BY MOUTH DAILY. 90 tablet 1 clopidogrel (Plavix) 75 MG tablet Take 1 [...] 1 tablet (50 mg) by mouth Daily 100 tablet 3 omeprazole (PriLOSEC) [address] capsule Take [...] date: 02/06/1979 Quit date: 02/06/2019 Years since quittin.8 Smokeless tobacco: Never Vaping Use Vaping status: Never Used Substance Use Topics Alcohol use: Not Currently [...] Sricture of bile duct BLEPHAROPLASTY Bilateral 2008 [address] ANGIOGRAM CHEST 09/29/2024 CT ANGIOGRAM CHEST DEXA 09/02/2016 osteoporosis S & H both worse HM MAMMOGRAPHY 09/02/2016 benign HYSTERECTOMY 1985 IR ANGIOGRAM ARTERIOGRAM 01/20/2023 Arteriogram MASS EXCISION 02/2015 e/o R facial mass PAP SMEAR 06/04/2015 negative [place] REMOVAL OF OVARY/TUBE(S) 1973 PARTIAL OOPHERECTOMY SALIVARY GLAND SURGERY Left 06/30/2012 lt sup paroidectomy SALIVARY GLAND SURGERY Right 03/07/2019 rt parotidectomy - Timmis Visit Vitals Smoking Status Former Review of Systems Constitutional: Negative. HENT: Positive for congestion, ear pain, postnasal drip, sinus pressure and sinus pain. Eyes: Negative. Respiratory: Negative. Cardiovascular: Negative. Gastrointestinal: Negative. Genitourinary: Positive for difficulty urinating, dysuria and frequency. Musculoskeletal: Negative. Skin: Negative. Neurological: Negative. Psychiatric/Behavioral: Negative. All other systems reviewed and are negative. Objective Physical Exam Vitals reviewed. Constitutional: Appearance: Normal appearance. HENT: Head: Normocephalic. Right Ear: Tympanic membrane normal. Left Ear: Tympanic membrane normal. Nose: Nose normal. Mouth/Throat: Mouth: Mucous membranes are moist. Pharynx: Oropharynx is clear. Posterior oropharyngeal erythema present. Comments: PND Eyes: Conjunctiva/sclera: Conjunctivae normal. Cardiovascular: Rate and Rhythm: Normal rate and regular rhythm. Pulmonary: Effort: Pulmonary effort is normal. Breath sounds: Normal breath sounds. Abdominal: Palpations: Abdomen is soft. Musculoskeletal: General: Normal range of motion. Skin: General: Skin is warm and dry. Neurological: General: No focal deficit present. Mental Status: She is alert and oriented to person, place, and time. Psychiatric: Mood and Affect: Mood normal. Behavior: Behavior normal. Assessment/Plan Diagnoses and all orders for this visit: Acute pain of both shoulders - XR shoulder 2+ views left; Future - XR shoulder 2+ views right; Future Await xrays Hypothyroidism (acquired) (CMS/HCC) - TSH W/REFLEX TO FT4; Future This is a chronic medical condition that is stable since last assessment. No changes in treatment are suggested at this time. Primary hypertension (CMS/HCC) - CBC; Future - Comprehensive metabolic panel; Future Patient's blood pressure is currently well controlled. Continue with current medications and I will continue to monitor. Goal BP remains less than 130/80. Pure hypercholesterolemia (CMS/HCC) - Lipid panel; Future This is a chronic medical condition that is stable since last assessment. No changes in treatment are suggested at this time. Vitamin D deficiency - Vitamin D 25 hydroxy; Future This is a chronic medical condition that is stable since last assessment. No changes in treatment are suggested at this time. Acute non-recurrent pansinusitis - amoxicillin-clavulanate (Augmentin) 875-125 MG tablet; Take 1 tablet (875 mg) by mouth in the morning and 1 tablet (875 mg) before bedtime. Do all this for 10 days. Start the above as directed. Reviewed potential s/e with patient. Encouraged probiotic while on antibiotic. Increase water intake, get plenty of rest. Can take OTC allergy medication for symptomatic relief. Tylenol/Motrin prn. Follow up if no improvement in one week. Dysuria - POCT Urinalysis dipstick - URINARY TRACT INFECTION (HTRX); Future Start the above medications as directed. Provided patient with prescription for Pyridium for symptomatic relief. Advised of potential side effects including discoloration of urine. Increase water intake, get plenty of rest. Advised patient that the urine will be sent out for culture. May need to change the antibiotic based on the culture results. Cranberry juice ok. Avoid bath tubs and hot tubs or use the restroom afterwards, always wipe front to back, avoid fragrance soaps in that area, urinate after intercourse if sexually active. Discussed if patient develops any N/V, fever/chills, or symptoms dramatically increase, the patient is to go to the ER. Otherwise follow up at our office if no improvement in one week. Acute cystitis without hematuria Start the above medications as directed. Provided patient with prescription for Pyridium for symptomatic relief. Advised of potential side effects including discoloration of urine. Increase water intake, get plenty of rest. Advised patient that the urine will be sent out for culture. May need to change the antibiotic based on the culture results. Cranberry juice ok. Avoid bath tubs and hot tubs or use the restroom afterwards, always wipe front to back, avoid fragrance soaps in that area, urinate after intercourse if sexually active. Discussed if patient develops any N/V, fever/chills, or symptoms dramatically increase, the patient is to go to the ER. Otherwise follow up at our office if no improvement in one week. No follow-ups on file. Images from the original note were not included. Subjective Patient ID: Hortencia Cm is a 84 y.o. female who presents for No chief complaint on file.. HPI Current Outpatient Medications on File Prior to Visit Medication Sig Dispense Refill ALPRAZolam (Xanax) 0.25 MG tablet Take 1 tablet (0.25 mg) by mouth 3 (three) times a day as needed for anxiety Take 1/2 to 1 tablet PO every 8 hours as needed 90 tablet 0 Ascorbic Acid (vitamin C) 1000 MG tablet Take 1,000 mg by mouth in the morning. cetirizine ([facility]S Allergy Relief,Cetirizine,) 10 MG tablet TAKE 1 TABLET (10 MG) BY MOUTH DAILY. 90 tablet 1 clopidogrel (Plavix) 75 MG tablet Take 1 [...] 1 tablet (50 mg) by mouth Daily 100 tablet 3 omeprazole (PriLOSEC) [address] capsule Take [...] date: 02/06/1979 Quit date: 02/06/2019 Years since quittin.8 Smokeless tobacco: Never Vaping Use Vaping status: Never Used Substance Use Topics Alcohol use: Not Currently [...] ears Sinus problem Stricture of bile duct 2011 Stroke (CMS/HCC) Past Surgical History: Procedure Laterality Date APPENDECTOMY 1957 BILE DUCT STENT PLACEMENT Sricture of bile duct BLEPHAROPLASTY Bilateral 2008 [address] ANGIOGRAM CHEST 09/29/2024 CT ANGIOGRAM CHEST DEXA 09/02/2016 osteoporosis S & H both worse HM MAMMOGRAPHY 09/02/2016 benign HYSTERECTOMY 1985 IR ANGIOGRAM ARTERIOGRAM 01/20/2023 Arteriogram MASS EXCISION 02/2015 e/o R facial mass PAP SMEAR 06/04/2015 negative [place] REMOVAL OF OVARY/TUBE(S) 1973 PARTIAL OOPHERECTOMY SALIVARY GLAND SURGERY Left 06/30/2012 lt sup paroidectomy SALIVARY GLAND SURGERY Right 03/07/2019 rt parotidectomy - Timmis Visit Vitals BP 138/68 Pulse 98 Resp 17 Ht 4' 11 Wt 91 lb 12.8 oz SpO2 98% BMI 18.54 kg/m Smoking Status Former BSA 1.32 m Review of Systems Objective Physical Exam Assessment/Plan No follow-ups on file. documented in this encounter [facility] 11-07-2024 History of Present illness Narrative Images from the original note were not included. Subjective Patient ID: Hortencia Cm is a 84 y.o. female who presents for sinus and chest cold Hortencia presents today for a chest cold and sinus issues for over a week. Patient states she has not tried any OTC medications. Sinus Problem This is a new problem. The current episode started 1 to 4 weeks ago. The problem has been gradually worsening since onset. The maximum temperature recorded prior to her arrival was 100.4 - 100.9 F. The fever has been present for Less than 1 day. Her pain is at a severity of 7/10. The pain is moderate. Associated symptoms include chills, congestion, coughing, ear pain, headaches, sinus pressure and sneezing. (Scratchy throat) Past treatments include nothing. The treatment provided no relief. Current Outpatient [...] mg by mouth in the morning. cetirizine (CVS Allergy Relief,Cetirizine,) 10 MG tablet TAKE 1 TABLET (10 MG) BY MOUTH DAILY. 90 tablet 1 clopidogrel (Plavix) 75 MG tablet Take 1 [...] date: 02/06/1979 Quit date: 02/06/2019 Years since quittin.7 Smokeless tobacco: Never Substance Use Topics Alcohol [...] Sricture of bile duct BLEPHAROPLASTY Bilateral 2008 CT ANGIOGRAM CHEST 09/29/2024 CT ANGIOGRAM CHEST DEXA 09/02/2016 osteoporosis S & H both worse HM MAMMOGRAPHY 09/02/2016 benign HYSTERECTOMY 1986 IR ANGIOGRAM ARTERIOGRAM 01/20/2023 Arteriogram MASS EXCISION 02/2015 e/o R facial mass PAP SMEAR 06/04/2015 negative [place] REMOVAL OF OVARY/TUBE(S) 1973 PARTIAL OOPHERECTOMY SALIVARY GLAND SURGERY Left 06/30/2012 lt sup paroidectomy SALIVARY GLAND SURGERY Right 03/07/2019 rt parotidectomy - Timmis Visit Vitals Smoking Status Former Review of Systems Constitutional: Positive for chills. HENT: Positive for congestion, ear pain, sinus pressure and sneezing. Respiratory: Positive for cough. Neurological: Positive for headaches. Objective Physical Exam Vitals reviewed. Constitutional: Appearance: Normal appearance. HENT: Head: Normocephalic. Right Ear: A middle ear effusion is present. Left Ear: A middle ear effusion is present. Nose: Nasal tenderness present. Right Turbinates: Enlarged. Left Turbinates: Enlarged. Right Sinus: Frontal sinus tenderness present. Mouth/Throat: Lips: [place]. Mouth: Mucous membranes are moist. Pharynx: Posterior oropharyngeal erythema present. Eyes: Conjunctiva/sclera: Conjunctivae normal. Cardiovascular: Rate and Rhythm: Normal rate and regular rhythm. Pulmonary: Effort: Pulmonary effort is normal. Breath sounds: Normal breath sounds. Skin: General: Skin is warm and dry. Neurological: General: No focal deficit present. Mental Status: She is alert and oriented to person, place, and time. Psychiatric: Mood and Affect: Mood normal. Behavior: Behavior normal. Assessment/Plan Diagnoses and all orders for this visit: Acute cough - guaiFENesin-codeine (Robitussin-AC) 100-10 MG/5ML syrup; Take 5 mL by mouth 4 (four) times a day as needed for cough for up to 5 days - benzonatate (Tessalon) 200 MG capsule; Take 1 capsule (200 mg) by mouth 3 (three) times a day as needed for cough for up to 10 days Do not crush or chew. Do not take cough syrup when driving or operating knives/machines in the home. Do not take cough syrup when taking the xanax. Drink warm tea with honey, use cough drops and you may use the Tessalon Perles during the day. Exposure to COVID-19 virus - amoxicillin-clavulanate (Augmentin) 875-125 MG tablet; Take 1 tablet (875 mg) by mouth in the morning and 1 tablet (875 mg) before bedtime. Do all this for 10 days. - methylPREDNISolone (Medrol Dospak) 4 MG tablets; Follow schedule on package instructions Her was recently in the hospital for COVID 19. He is out of the hospital and doing well and not Hortencia is getting sick. [facility] Acute non-recurrent frontal sinusitis - amoxicillin-clavulanate (Augmentin) 875-125 MG tablet; Take [...] up if no improvement in one week. Anxiety - ALPRAZolam (Xanax) 0.25 MG tablet; Take 1 tablet (0.25 mg) by mouth 3 (three) times a day as needed for anxiety Take 1/2 to 1 tablet PO every 8 hours as needed Take medication as directed. Verbalizes understanding of the need to be seen in the ER for excessive stress, elevated blood pressure or palpitations. Advised on relaxation methods to decrease anxiety and depression. Pt offers understanding of treatment plan. No follow-ups on file. documented in this encounter [facility] 09-19-2024 History of Present illness Narrative Images [...] Acid reflux Blepharochalasis of both upper eyelids 2008 Chronic rhinitis Common bile duct (CBD) obstruction Disease of thyroid gland (CMS/HCC) Gallbladder problem 2006 GERD (gastroesophageal reflux disease) Hematuria chronic History [...] R facial mass PAP SMEAR 06/04/2015 negative [place] REMOVAL OF OVARY/TUBE(S) 1973 PARTIAL OOPHERECTOMY SALIVARY [...] follow-ups on file. documented in this encounter [facility] 09-13-2024 Note [facility] Cardiology Clinic Note Chief Complaint: Patient here [...] Coronary arteriosclerosis I25.10: Atherosclerotic heart disease of [place] coronary artery without angina pectoris 2. Gastroesophageal reflux disease K21.9: Gastro-esophageal reflux disease without esophagitis GASTROESOPHAGEAL REFLUX DISEASE (GERD): CARE INSTRUCTIONS 3. Migraine G43.909: Migraine, unspecified, not intractable, without status migrainosus 4. 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 [facility] 07-18-2024 History of Present illness Narrative Images from the original note were not included. Skin Check Location: Patient requests a skin exam of her face only Dermatologic history: no history of skin cancer, no history of atypical moles, no family history of melanoma Last visit: 06/10/2023 Established patient Lesions: Location: Under R breast Duration: more than a year Quality: itchy Associated symptoms: Red bump Treatments: none Lesion # 2: Location: right yazidism Duration: months Quality: itchy Modifying factors: aggravated by picking Associated symptoms: rough Treatments: none Location #3: Right cheek Duration: years Quality: denies itch Modifying factors: aggravated by picking Associated symptoms: tender Treatments: none Established patient All pertinent medical history, medications, and allergies were reviewed. General Exam: alert , oriented to person, place, and time , normal affect, well appearing Unaccompanied Patient was offered a full skin exam but declined. Scalp, Examined Right leg Not examined Head, Face Examined Left leg Not examined Neck Examined Right foot Not examined Chest Examined Left foot Not examined Back Examined Buttocks Not examined Abdomen Not examined Digits,nails: Not examined Right arm Not examined Left arm Not examined Lymphatics: Not examined Hands Not examined 1. Lentigines (3) Head, Left Arm, Right Arm Scattered nuñez macules in sun-exposed areas. The patient was informed that lentigines are benign pigmented lesions that occur on sun-exposed and sun-damaged skin. No treatment is necessary. Recommended regular use of broad spectrum sunscreen SPF 30 or higher 2. Horner angioma Right Inframammary Fold Scattered horner-red papule The patient was informed that angiomas are benign growths on the the skin. No treatment is necessary. 3. Neoplasm of unspecified behavior of bone, soft tissue, and skin (2) Right Tenriism Hyperkeratotic papule Lesion biopsy Type of biopsy: tangential Informed consent: discussed and consent obtained Informed consent comment: The risks and benefits of the biopsy were discussed. Risks include but are not limited to bleeding, infection, scarring, pain, and nerve damage. An opportunity to ask questions prior to the procedure was permitted and all questions were answered. Patient was prepped and draped in usual sterile fashion: area cleansed with alcohol. Anesthesia: the lesion was anesthetized in a standard fashion Anesthetic: 1% lidocaine w/ epinephrine 1-100,000 buffered w/ 8.4% NaHCO3 Instrument used: DermaBlade Hemostasis achieved with: electrodesiccation Outcome: patient tolerated procedure well Outcome comment: The specimen was placed in a prelabeled formalin container to be sent for pathology Post-procedure details: sterile dressing applied and wound care instructions given Post-procedure details comment: Emphasized need to contact clinic for any signs of infection, uncontrollable bleeding, or complications. Dressing type: bandage Additional details: Photo taken yes Amount of lidocaine used: 0.5 cc Specimen A - Dermatopathology exam Differential Diagnosis: SCC vs ISK Check Margins: No Size of lesion: 0.9 x 0.7 cm right cheek White papule Lesion biopsy Type of biopsy: tangential Informed consent: discussed and consent obtained Informed consent comment: The risks and benefits of the biopsy were discussed. Risks include but are not limited to bleeding, infection, scarring, pain, and nerve damage. An opportunity to ask questions prior to the procedure was permitted and all questions were answered. Patient was prepped and draped in usual sterile fashion: area cleansed with alcohol. Anesthesia: the lesion was anesthetized in a standard fashion Anesthetic: 1% lidocaine w/ epinephrine 1-100,000 buffered w/ 8.4% NaHCO3 Instrument used: DermaBlade Hemostasis achieved with: electrodesiccation Outcome: patient tolerated procedure well Outcome comment: The specimen was placed in a prelabeled formalin container to be sent for pathology Post-procedure details: sterile dressing applied and wound care instructions given Post-procedure details comment: Emphasized need to contact clinic for any signs of infection, uncontrollable bleeding, or complications. Dressing type: bandage Additional details: Photo taken yes Amount of lidocaine used: 0.5 cc Specimen B - Dermatopathology exam Differential Diagnosis: cyst vs other Check Margins: No Size of lesion: 0.7 x 0.7 4. Inflamed seborrheic keratosis (3) Left Temporal Scalp (3) Inflamed seborrheic keratoses: brown stuck on verrucous scaly papule, symptomatic The patient was informed that symptomatic seborrheic keratoses are benign growths that become inflamed, itchy, tender, traumatized, caught on clothing, or bleed. Symptomatic lesions can be treated with cryotherapy or curretage. Thicker lesions treated with cryotherapy may require more than one treatment. The patient was instructed to notify the office if abnormal redness or tenderness develops at the treatment site. Cryotherapy today, see procedure note. Diagnosis: Inflamed seborrheic keratosis Indication: Inflamed Consent: Verbal consent was obtained and risks were discussed, including, but not limited to risks of scarring, darker or quality process lead pigmentary changes, recurrence, incomplete removal and infection. Method: Liquid nitrogen was used to treat the lesion(s) with two 5-10 second freeze-thaw cycles Number of lesions treated: 3 Post-procedure instructions: Instructions were given orally and in writing. The office will be contacted if the lesion fails to resolve despite treatment, or if a side effect develops such as abnormal crusting, scabbing, redness or tenderness Cryotherapy, skin lesion - Left Temporal Scalp (3) Next Visit: 1 year documented in this encounter [facility] 03-14-2024 Hospital Discharge instructions Patient [...] include: ?8 oz (237 mL) of milk, ypjelji-xiadcwpqgnjk-zujnz milk, and calcium-fortifiedfruit juice. Calcium-fortified means that [...] ?Spinach (cooked), rhubarb, beets, sweet potatoes, and Kuwaiti chard. ?Peanuts. ?Potato chips, jordanian fries, and baked potatoes with skin on. ?Nuts and nut products. ?Chocolate. If you regularly take a diuretic medicine, make sure to eat at least 1 or 2 servings of fruits or vegetables that are high in potassium each day. These include: ?Avocado. ?Banana. ?Fluker, prune, carrot, or tomato juice. ?Baked potato. [...] magnesium, fish oil, or vitamin B6. Take mdaa-wfw-ruthxuu and prescription medicines only as told by [...] Casseroles. Pizza. Lasagna. Frozen meals. Potato chips. [place] fries. The items listed above may not [...] provider. Document Revised: 02/25/2023 Document Reviewed: 02/25/2023 [employer] Patient Education 2022 [employer]. 03/14/2024 15:40:32 Kidney Stones, Gwjl-nd-Gxnn Kidney Stones Kidney stones are rock-like masses [...] Follow these instructions at home: Medicines Take czbl-sul-xabtuqy and prescription medicines only as told by [...] provider. Document Revised: 07/20/2022 Document Reviewed: 07/20/2022 [employer] Patient Education 2022 [employer]. 03/14/2024 15:40:31 Hematuria, Adult Hematuria, Adult Hematuria [...] Follow these instructions at home: Medicines Take jkwu-dnb-scotkwh and prescription medicines only as told by [...] or the blood stops without treatment. Take uxtv-htm-xgmigrr and prescription medicines only as told by your health care provider. Drink enough fluid to keep your urine pale yellow. This information is not intended to replace advice given to you by your health care provider. Make sure you discuss any questions you have with your health care provider. Document Revised: 07/16/2021 Document Reviewed: 07/16/2021 [employer] Patient Education 2022 [employer]. Follow Up Care 03/02/2023 13:51:08 With:CHRISTOPHER Delgado APRN, YUNG Leahy, URL Address: When: Unknown Comments:1 year with BAYLEE [facility] 11-24-2023 Evaluation note Encounter Date Diagnosis Assessment [...] her next visit here in two months. [employer] Other 11-28-2023 Evaluation note* Encounter Date Diagnosis [...] She is in agreement with that plan [employer] Other 10-30-2023 Evaluation note* Encounter Date Diagnosis [...] CAN USE PROTEIN SHAKES OR YOGURTS ETC. [employer] Other 07-28-2023 Evaluation note* Encounter Date Diagnosis [...] be sent to [facility] in [place] Return to the office in three months. [employer] Other 07-20-2023 Evaluation note* Encounter Date Diagnosis Assessment Notes Treatment Notes Treatment Clinical Notes May, Symptomatic varicose veins of both lower extremities (ICD-10 - I83.893) [employer] Other 07-10-2023 Evaluation note* Encounter Date Diagnosis [...] of both lower extremities (ICD-10 - I87.2) [employer] Other 04-04-2023 Hospital Discharge instructions Patient Education 03/02/2023 13:28:16 Kidney Stones, Ygxh-ic-Ydup Kidney Stones Kidney stones are rock-like masses [...] Follow these instructions at home: Medicines Take gqyc-yeu-tibflou and prescription medicines only as told by [...] 05/03/2009 Document Revised: 04/02/2020 Document Reviewed: 04/02/2020 [employer] Patient Education 2020 [employer] Follow Up Care 02/24/2022 12:57:34 With:DOROTHEA PACHECO, YESSICA Mac, URL Address: 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 [employer] Other 02-23-2022 Hospital Discharge instructions Follow Up Care 01/21/2022 13:33:10 With:Gerard Agarwal MD, Tamia Carrington URO Address: When:1 year Comments:started new medication w/kub [facility] 12-28-2021 Evaluation note* Encounter Date Diagnosis Assessment Notes Treatment Notes Treatment Clinical Notes Oct, Chronic idiopathic constipation (ICD-10 - K59.04) Oct, Bile reflux gastritis (ICD-10 - K29.60) Oct, Other START TRIAL OF CARAFATE 1 GRAM BID CONTINUE PROMETHAZINE WITHOUT CHANGE PT WILL CALL TO REPORT IMPROVEMENT CONTINUE MIRALAX WITHOUT CHANGE [employer] Other Evaluation + Plan note Future Appointments Appointment Date:03/02/2023 11:15:00 AM Scheduled Provider:Tamia Gee Jr., MD Location:[facility] Appointment Type:URO Office Visit Diagnostic Tests Pending * [facility] Fish and Urine Cyto ([facility]) 02/24/22 [facility] evalazlbte + Plan note Future Appointments Appointment Date:03/07/2024 01:00:00 PM Scheduled Provider:YESSICA PIEDRA PA-C Location:[facility] Appointment Type:URO Office Visit [facility] evaluation noteNo assessment information available [facility] Work Phone: evaluation noteNo InformationNort [employer] Other evaluation note* Diagnosis Onset Date Resolution Status Nausea acute [facility] Work Phone: evaluation note* Diagnosis Onset Date Resolution Status Nausea acute Carotid stenosis, bilateral acute [facility] Work Phone: evaluation note* Diagnosis Onset Date Resolution Status GERD (gastroesophageal reflux disease) acute Nausea acute [facility] Work Phone: evaluation note* Diagnosis Acute non-recurrent pansinusitis- Primary Difficulty urinating Other symptoms involving urinary system Vascular disorder of intestine, unspecified (CMS/HCC) Atherosclerosis of aorta ([facility]) Atherosclerosis of aorta [facility] Diagnosis Acute cough- Primary Exposure to COVID-19 virus Acute non-recurrent frontal sinusitis Anxiety Anxiety state, unspecified [facility] Diagnosis Lentigines Horner angioma Neoplasm of unspecified behavior of bone, soft tissue, and skin Inflamed seborrheic keratosis [facility] Diagnosis Acute pain of both shoulders- Primary Hypothyroidism (acquired) (CMS/HCC) Unspecified hypothyroidism Primary hypertension (CMS/HCC) Unspecified essential hypertension Pure hypercholesterolemia (CMS/HCC) Pure hypercholesterolemia Vitamin D deficiency Acute non-recurrent pansinusitis Dysuria Acute cystitis without hematuria [facility] Narrative - Reported* Type Description Date Medical History Stroke Medical History Kidney stones Medical History HTN Medical History Hypercholesteremia Medical History Hypothyroidism Surgical History gall bladder 2007 Surgical History appenedectomy 1956 Surgical History partial hysterectomy (twice) Surgical History caracts Surgical History SALIVA GLAD RIGHT SIDE 2019 Hospitalization History SEE ABOVE [employer] Other History general Narrative - Reported* Type Description Date [...] History [ ] Hospitalization History SEE ABOVE [employer] Other History general Narrative - Reported* Type Description Date [...] Angiogram Aorta Runoff Hospitalization History SEE ABOVE [employer] Other Hiszzbb general Narrative - Reported* Type Description Date [...] Angiogram Aorta Runoff Hospitalization History SEE ABOVE [employer] Other Hospital course Narrative No data available for this section [facility] Hospital Discharge instructions Additional Instructions Remove your dressing in 24 hours.[facility] Work Phone: Progress note No data available for this section [facility] [place] Summary Purpose Family History No Family History [...] section and content) DATE CREATED AUTHOR 05/23/2018 [facility] DATE CREATED AUTHOR AUTHOR'S ORGANIZ ATION 05/06/2020 [facility] DATE CREATED AUTHOR AUTHOR'S ORGANIZ ATION 04/30/2022 [facility] Specialist DATE CREATED AUTHOR AUTHOR'S ORGANIZ ATION 05/11/2023 [facility] DATE CREATED AUTHOR AUTHOR'S ORGANIZ ATION 03/21/2024 [facility] DATE CREATED AUTHOR AUTHOR'S ORGANIZ ATION 09/15/2024 [facility] DATE CREATED AUTHOR AUTHOR'S ORGANIZ ATION 09/17/2024 [facility] DATE CREATED AUTHOR AUTHOR'S ORGANIZ ATION 12/21/2024 [facility]ists EPIC REASON FOR VISIT (unrecogniz [...] Active Team Status: Inactive Member Role Status Devorah [...] March 28, 2024 End: March 28, 2024 PAPI [place] Attending Provider Active Start: March 28, 2024 End: March 28, 2024 Team Status: Inactive Member Role Status Devorah Dyer II MD Primary Care Provider Active Start: August 14, 2024 End: August 14, 2024 Chance Damon APRN Attending Provider Active Start: August 14, 2024 End: August 14, 2024 Team Status: Inactive Member Role Status Devorah Dyer II MD Primary Care Provid er, Referring Provider Active Start: September 11, 2024 End: September 11, 2024 Referral Self Attending Provider Active Start: O ctober 2023 End: September 11, 2024 Scheduling Analyst Relationship Specialty Start Date End Date Dinesh Dyer MD [address] [place] [address] PCP - Puneet FONTANZE 11/29/21 Dinesh Dyer MD [address] [place] [address] PCP - General Internal Medicine 04/27/23 Scheduling Analyst Relationship Specialty Start Date End Date Dinesh Dyer MD [address] [place] [address] PCP - Puneet FONTANEZ 11/29/21 Dinesh Dyer MD [address] [place] [address] PCP - General Internal Medicine 04/27/23 Scheduling Analyst Relationship Specialty Start Date End Date Dinseh Dyer MD [address] [place] [address] PCP - Puneet FONTANEZ 11/29/21 Dinesh Dyer MD [address] [place] [address] PCP - General Internal Medicine 04/27/23 Scheduling Analyst Relationship Specialty Start Date End Date Dinesh Dyer MD [address] [place] [address] PCP - Puneet FONTANEZ 11/29/21 Dinesh Dyer MD [address] [place] [address] PCP - General Internal Medicine 04/27/23 Scheduling Analyst Relationship Specialty Start Date End Date Dinesh Dyer MD [address] [facility] [address] [place] [address] PCP - Puneet FONTANEZ 11/29/21 Dinesh Dyer MD [address] [facility] [address] [place] [address] PCP - General Internal Medicine 04/27/23 Scheduling Analyst Relationship Specialty Start Date End Date Dinesh Dyer MD [address] [facility] [address] [place] [address] PCP - Puneet FONTANEZ 11/29/21 Dinesh Dyer MD [address] [facility] [address] [place] [address] PCP - General Internal Medicine 04/27/23 Goals [...] BE BASED ON THE PRIMARY CLINICAL RECORDS. [employer] [facility]. provides no warranty or guarantee of the accuracy or completeness of information in this document.
== END 2024-12-25 10:51 | disposition home or self-care (01) ==
LOC: RAD 10:52
PROVIDERS: PCP Internal Medicine; Visit Provider Nurse Practitioner Family
DX: M25.511 Pain in right shoulder (principal); M25.512 Pain in left shoulder; M19.011 Primary osteoarthritis, right shoulder
CPT/HCPCS: 73030

== ENCOUNTER 2025-02-05 12:07 | Emergency (ER) | payer MEDICARE, SELFPAY ==
[2025-02-05 12:10] VITALS: BP 184/73; PULSE 99; TEMP 36.7; O2SAT 97; BMI 18.4
--- NOTE | 2025-02-05 12:30 | ECG_ITS ---
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 Measurements Intervals [place] Rate: 84 P: 55 MA: 148 QRS: 14 QRSD: 112 T: 6 QT: 372 QTc: 413 Interpretive Statements 1100 Sinus rhythm 1574 with frequent ventricular premature complexes 2450 Incomplete Right bundle branch block 3414 Cannot rule out septal myocardial infarction, age undetermined 8102 Low QRS voltage in chest leads 9150 abnormal ECG Compared to ECG 04/22/2023 13:27:31 Incomplete right bundle-branch block now present Myocardial infarct finding now present Possible ischemia no longer present Electronically Signed On 02-05-2025 17:45:08 EDT by WILIAN LERMA M.D.
--- NOTE | 2025-02-05 12:30 | ED.GENADUL1 ---
HPI HPI - General Adult General Chief complaint: Abdominal Pain Stated complaint: DRY HEAVING WEAKNESS Time Seen by Provider: 02/05/25 12:16 Source: patient Mode of arrival: walk-in Limitations: no limitations History of Present Illness HPI narrative: 84-year-old female presents for feeling weak and dizzy. She states it has been 2 months and her states it has been years. She states she has some burning on urination. No fever or vomiting or complaints of back pain. Related Data Home Medications ?Medication ?Instructions ?Recorded ?Confirmed clopidogrel 75 mg tablet 75 mg PO DAILY 01/07/24 01/07/24 levothyroxine 50 mcg tablet 50 mcg PO DAILY 01/07/24 01/07/24 metoprolol succinate 50 mg 50 mg PO DAILY 01/07/24 01/07/24 tablet,extended release 24 hr omeprazole 40 mg capsule,delayed 40 mg PO DAILY 01/07/24 01/07/24 release rosuvastatin 20 mg tablet 20 mg PO DAILY 01/07/24 01/07/24 Allergies Allergy/AdvReac Type Severity Reaction Status Date / Time azithromycin (From Zithromax) AdvReac Mild Abdominal Verified 02/05/25 12:14 Pain morphine AdvReac Mild can't sleep Verified 02/05/25 12:14 Opioid HPI Opioid Management Most Recent Opioid Data: No Data to Display Review of Systems ROS Narrative A ten point review of systems is negative except as noted above. PFSH PFSH Social History Smoking status: Former smoker Little interest or pleasure in doing things: not at all Feeling down, depressed, or hopeless: not at all Exam Narrative Exam Narrative: Nurses note and vital signs reviewed and patient is not hypoxic. General: The patient appears well and in no apparent distress. Patient is resting comfortably on cart. Skin: Warm, dry, no pallor noted. There is no rash noted. Head: Normocephalic, atraumatic Eye: Normal conjunctiva, no drainage Ears, Nose, Mouth, and Throat: oral mucosa is moist. Nares patent. Cardiovascular: Regular Rate and Rhythm Respiratory: Patient is in no distress, no accessory muscle use, lungs are clear to auscultation, no wheezing, rales or rhonchi Back: non-tender GI: Soft and nontender Musculoskeletal: The patient has no evidence of calf tenderness, no pitting edema, symmetrical pulses noted bilaterally Neurological: A&O, normal speech Psychiatric: Cooperative Constitutional Vital Signs, click to edit/add: Last Vital Signs Temp 98.1 F 02/05/25 12:10 Pulse 83 02/05/25 14:11 Resp 18 02/05/25 14:11 BP 152/66 H 02/05/25 14:11 Pulse Ox 97 02/05/25 14:11 O2 Del Method Room Air 02/05/25 14:11 Course Vital Signs Vital signs: Vital Signs Temperature 98.1 F 02/05/25 12:10 Pulse Rate 99 H 02/05/25 12:10 Respiratory Rate 20 02/05/25 12:10 Blood Pressure 184/73 H 02/05/25 12:10 Pulse Oximetry 97 02/05/25 12:10 Oxygen Delivery Method Room Air 02/05/25 12:10 Temperature 98.1 F 02/05/25 12:10 Pulse Rate 83 02/05/25 14:11 Respiratory Rate 18 02/05/25 14:11 Blood Pressure 152/66 H 02/05/25 14:11 Pulse Oximetry 97 02/05/25 14:11 Oxygen Delivery Method Room Air 02/05/25 14:11 Medical Decision Making MDM Narrative Medical decision making narrative: Her workup including urinalysis is negative. She will be discharged home. She has had the symptoms for months or years and will follow-up with her PCP. Treatment diagnosis and follow-up were discussed with the patient and her . Differential Diagnosis Differential Diagnosis: UTI, dehydration, anxiety Lab Data Lab results reviewed: Yes I reviewed the patient's lab results Labs: Lab Results 02/05/25 02/05/25 Range/Units 12:48 13:48 WBC 9.1 (4.0-11.0) 10^3/uL RBC 4.75 (4.20-5.40) 10^6/uL Hgb 13.1 (12.0-16.0) g/dL Hct 40.8 (36.0-48.0) % MCV 85.9 (81.0-99.0) fL MCH 27.6 (26.7-34.0) pg MCHC 32.1 (29.9-35.2) g/dL RDW 14.1 (11.0-15.0) % Plt Count 279 (150-450) 10^3/uL MPV 10.0 (9.5-13.5) fL Neut % (Auto) 70.0 (43.0-75.0) % Lymph % (Auto) 22.0 (20.5-60.0) % [place] % (Auto) 6.8 (1.7-12.0) % Eos % (Auto) 0.4 L (0.9-7.0) % Baso % (Auto) 0.6 (0.2-2.0) % Neut # (Auto) 6.4 (1.4-6.5) 10^3/uL Lymph # (Auto) 2.0 (1.2-3.8) 10^3/uL [place] # (Auto) 0.6 (0.3-0.8) 10^3/uL Eos # (Auto) 0.0 (0.0-0.7) 10^3/uL Baso # (Auto) 0.1 (0.0-0.1) 10^3/uL Abs Immat Gran (auto) 0.02 (0.00-0.03) 10^3/uL Imm/Tot Granulo (auto) 0.2 (0.0-0.5) % Sodium 139 (136-145) mmol/L Potassium 3.9 (3.5-5.1) mmol/L Chloride 103 (98-107) mmol/L Carbon Dioxide 29.2 (21.0-32.0) mmol/L Anion Gap 10.7 BUN 8.0 (7.0-18.0) mg/dL Creatinine 0.63 (0.55-1.02) mg/dL Est GFR ( Amer) >60 (>=60 mL/min/1.73m^2) Est GFR (Non-Af Amer) >60 (>=60 mL/min/1.73m^2) BUN/Creatinine Ratio 12.7 Glucose 95 (74-106) mg/dL Calcium 9.4 (8.5-10.1) mg/dL Total Bilirubin 0.3 (0.2-1.0) mg/dL Direct Bilirubin 0.1 (0.0-0.2) mg/dL AST 13 L (15-37) U/L ALT 14 (14-59) U/L Alkaline Phosphatase 60 (46-116) U/L Total Protein 7.3 (6.4-8.2) g/dL Albumin 3.5 (3.4-5.0) g/dL Globulin 3.8 g/dL Albumin/Globulin Ratio 0.9 Urine Color Lt. yellow (YELLOW) Urine Clarity Clear (CLEAR) Urine pH 6.0 (5.0-9.0) Ur Specific [place] 1.010 (1.005-1.025) Urine Protein Negative (NEG/TRACE) mg/dL Urine Glucose (UA) Negative (NEGATIVE) mg/dL Urine Ketones Negative (NEGATIVE) mg/dL Urine Occult Blood Trace-i (NEGATIVE) Urine Nitrite Negative (NEGATIVE) Urine Bilirubin Negative (NEGATIVE) Urine Urobilinogen 0.2 (0.2-1.0) EU/dL Ur Leukocyte Esterase Negative (NEGATIVE) Urine RBC 0-2 (0-2) #/HPF Urine WBC None seen (NONE SEEN) #/HPF Ur Squamous Epith Cells Few A (NONE/RARE) #/LPF Urine Bacteria None seen (NONE SEEN) #/HPF Urine Mucus None seen (NONE SEEN) Imaging Data Chest x-ray: Radiologist's impression: No plain film evidence of acute cardiopulmonary process ECG Data Attestation: I personally reviewed and interpreted this ECG as follows: (EKG on my interpretation shows sinus rhythm with a rate of 84 no acute change. 2 PVCs present) Discharge Plan Discharge Chief Complaint: Abdominal Pain Clinical Impression: Abdominal pain Patient Disposition: Home, Self-Care Time of Disposition Decision: 14:35 Condition: Good Mode of Transportation: Private Vehicle Prescriptions / Home Meds: No Action levothyroxine 50 mcg tablet 50 mcg PO DAILY metoprolol succinate 50 mg tablet extended release 24 hr 50 mg PO DAILY rosuvastatin 20 mg tablet 20 mg PO DAILY omeprazole 40 mg capsule,delayed release(DR/EC) 40 mg PO DAILY clopidogrel 75 mg tablet 75 mg PO DAILY Print Language: Sami Instructions: Abdominal Pain (ED) Referrals: LYRIC REINA [Primary Care Provider] - 1 week
[2025-02-05 13:15] LABS: Basophils Absolute Auto 0.1 10^3/uL (0.0-0.1); Basophils Percent Auto 0.6 % (0.2-2.0); Eosinophils Percent Auto 0.4 % (0.9-7.0); Hematocrit 40.8 % (36.0-48.0); Hemoglobin 13.1 g/dL (12.0-16.0); Immature Granulocytes Abs Auto 0.02 10^3/uL (0.00-0.03); Immature Granulocytes Pct Auto 0.2 % (0.0-0.5); Mean Corpuscular HGB Conc 32.1 g/dL (29.9-35.2); Mean Corpuscular Hemoglobin 27.6 pg (26.7-34.0); Mean Corpuscular Volume 85.9 fL (81.0-99.0); Monocytes Absolute Auto 0.6 10^3/uL (0.3-0.8); Monocytes Percent Auto 6.8 % (1.7-12.0); Neutrophils Absolute Auto 6.4 10^3/uL (1.4-6.5); Platelet Count 279 10^3/uL (150-450); Red Blood Count 4.75 10^6/uL (4.20-5.40); Red Cell Distribution Width 14.1 % (11.0-15.0); White Blood Count 9.1 10^3/uL (4.0-11.0)
[2025-02-05 13:37] LABS: Alanine Aminotransferase 14 U/L (14-59); Albumin Globulin Ratio 0.9; Albumin Level 3.5 g/dL (3.4-5.0); Alkaline Phosphatase 60 U/L (46-116); Anion Gap 10.7; Aspartate Amino Transferase 13 U/L (15-37); BUN Creatinine Ratio 12.7; Bilirubin Direct 0.1 mg/dL (0.0-0.2); Bilirubin Total 0.3 mg/dL (0.2-1.0); Calcium 9.4 mg/dL (8.5-10.1); Carbon Dioxide 29.2 mmol/L (21.0-32.0); Chloride 103 mmol/L (98-107); Estimated GFR (African America >60 (>=60 mL/min/1.73m^2); Estimated GFR (Non-African Ame >60 (>=60 mL/min/1.73m^2); Globulin 3.8 g/dL; Glucose 95 mg/dL (74-106); Potassium 3.9 mmol/L (3.5-5.1); Sodium 139 mmol/L (136-145); Total Protein 7.3 g/dL (6.4-8.2)
[2025-02-05 14:02] LABS: Bilirubin Urine NEGATIVE (NEGATIVE); Blood Urine TRACE-I (NEGATIVE); Clarity Urine CLEAR (CLEAR); Color Urine LT. YELLOW (YELLOW); Glucose Urine UA NEGATIVE (NEGATIVE); Ketones Urine NEGATIVE (NEGATIVE); Leukocyte Esterase Urine NEGATIVE (NEGATIVE); Nitrite Urine NEGATIVE (NEGATIVE); Protein Urine NEGATIVE (NEG/TRACE); Urobilinogen Urine 0.2 EU/dL (0.2-1.0)
[2025-02-05 14:11] VITALS: BP 152/66; PULSE 83; O2SAT 97
[2025-02-05 14:13] LABS: Bacteria Urine NONE SEEN #/HPF (NONE SEEN); Mucus Urine NONE SEEN (NONE SEEN); RBC Urine 0-2 #/HPF (0-2); Squamous Epithelial Cell Urine FEW #/LPF (NONE/RARE); WBC Urine NONE SEEN #/HPF (NONE SEEN)
== END 2025-02-05 14:45 | disposition home or self-care (01) ==
PROVIDERS: Emergency Provider Emergency Medicine; PCP Internal Medicine
DX: R10.9 Unspecified abdominal pain (principal); R42 Dizziness and giddiness; R53.1 Weakness; Z87.891 Personal history of nicotine dependence
CPT/HCPCS: 36415; 71045; 80048; 80076; 81001; 85025; 93005; 99285

== ENCOUNTER 2025-03-02 13:10 | Outpatient (OUT) | payer MEDICARE, SELFPAY ==
--- NOTE | 2025-03-02 13:15 | XR_ITS ---
The [address] [address] Patient Name: LEVI CM MRN: [id number] date: 1940 Sex: F Assigned Patient Location: [facility] Current Patient Location: [facility] Accession/Order Number: [id number] Exam Date: 03/02/2025 13:53 Report Date: 03/02/2025 13:54 At the request of: YESSICA OCONNOR Procedure: XR abdomen 1V Single view of abdomen COMPARISON: 03/13/2024 HISTORY: History of kidney stones THORAX: Lung bases unremarkable. FREE AIR: Supine position limits assessment BOWEL: No gaseous intestinal distention. STOOL: Constipation RENAL STONES: No significant stones present. VASCULAR CALCIFICATIONS: Atherosclerosis SOFT TISSUE: Unremarkable BONES: Unremarkable POSTSURGICAL CHANGES: Cholecystectomy. Pneumobilia redemonstrated. XR/XR abdomen 1V IMPRESSION: No visible stones. Constipation Impression dictated by: Jairo Mason M.D.03/02/2025 1:54 PM Dictation Location: [id number] Electronically authenticated by: [id number] Y Date: 03/02/2025 13:54
== END 2025-03-02 13:11 | disposition home or self-care (01) ==
LOC: RAD 13:12
PROVIDERS: PCP Internal Medicine; Visit Provider Physician Assistant
DX: N20.0 Calculus of kidney (principal); K59.00 Constipation, unspecified
CPT/HCPCS: 74018

== ENCOUNTER 2025-06-15 11:06 | Outpatient (OUT) | payer MEDICARE, SELFPAY ==
--- OUTSIDE RECORDS SUMMARY | 2025-06-14 16:30 | XMS_ITS | Encounter Summary ---
Author Organization [facility] Address [address] [place] [address] Care Team Providers Care Chemistry Lab Instructor Name Role Phone Dinesh Dyer MD Primary Care Provider [phone] Myesha Galeas LPN Unavailable Padmaja Mcmahon HOT PACKER Unavailable [phone] Reason for Referral * Consultation (Routine) - Authorized Specialty Diagnoses / Procedures Referred By Contac t Referred To Contact Orthopaedic Surgery Diagnoses Decreased range of motion of left shoulder Decreased range of motion of right shoulder Acute midline low back pain without sciatica Padmaja Mcmahon, HOT PACKER [address] [address] Phone: tel: fax: Nicola De Leon DO [address] Phone: tel: fax: Referral ID Status Reason Start Date Expiration Date Visits Requested Visits Authorized [id number] Authorized Specialty Services Required 06/14/2025 12/11/2025 1 1 Encounter Details Date Type Department Care Team (Late st Contact Info) Description 06/14/2025 4:30 PM EDT Office Visit [facility] [address] [address] Padmaja Mcmahon HOT PACKER [address] [id number] Decreased range of motion of left shoulder (Primary Dx); Dysuria; Decreased range of motion of right shoulder; Acute midline low back pain without sciatica Social History Tobacco Use Types Packs/Day Years Used Date Smoking Tobacco: Former Cigarettes 0.5 40 0 02/06/1979 - 02/06/2019 Smokeless Tobacco: Never Tobacco Cessation:Counseling Given: Yes Alcohol Use Standard Drinks/Week Comments Not Currently 0 (1 standard drink = 0.6 oz pure alcohol) caffeine: 1-2 cups/day coffee Humiliation, Afraid, Rape, and Kick questionnair e Answer Date Recorded Within the last year, have y ou been afraid of your partner or ex-partner? No 06/30/2023 Within the last year, have y ou been humiliated or emotionally abused in other ways by your partner or ex-partner? No Within the last year, have y ou been kicked, hit, slapped, or otherwise physically hurt by your partner or ex-partner? No 06/30/2023 Within the last year, have y ou been raped or forced to have any kind of sexual activity by your partner or ex-partner? No 06/30/2023 Social Connection and Isolation Panel [NHANES] A nswer Date Recorded In a typical week, how many times do you talk on the phone with family, friends, or neighbors? Three times a week 06/30/2023 How often do you get togethe r with friends or relatives? Once a week 06/30/2023 How often do you attend [facility] or mormonism services? Never 06/30/2023 Do you belong to any clubs o r organizations such as yarsanism groups, unions, fraternal or athletic groups, or school groups? No 06/30/2023 How often do you attend meet ings of the clubs or organizations you belong to? Never 06/30/2023 Are you , , di vorced, , never , or living with a partner? 06/30/2023 AUDIT-C Answer Date Recorded Q1: How often do you have a drink containing alcohol? Never 06/30/2023 Q2: How many drinks containi ng alcohol do you have on a typical day when you are drinking? Patient does not drink Q3: How often do you have si x or more drinks on one occasion? Never 06/30/2023 Overall Financial Resource Strain (CARDIA) Answe r Date Recorded How hard is it for you to pa y for the very basics like food, housing, medical care, and heating? Not hard at all 06/30/2023 PHQ-2 Answer Date Recorded Patient Health Questionnaire-2 Score 2 06/14/2025 [facility] - Occupational Stress Questionnaire Answer Date Recorded Do you feel stress - tense, restless, nervous, or anxious, or unable to sleep at night because your mind is troubled all the time - these days? To some extent 06/30/2023 Exercise Vital Sign Answer Date Recorde d On average, how many days pe r week do you engage in moderate to strenuous exercise (like a brisk walk)? 0 days 06/30/2023 On average, how many minutes do you engage in exercise at this level? 0 min 06/30/2023 Hunger Vital Sign Answer Date Recorded Within the past 12 months, y ou worried that your food would run out before you got the money to buy more. Never true 06/30/20 23 Within the past 12 months, t he food you bought just didn't last and you didn't have money to get more. Never true 06/30/2023 PRAPARE - Transportation Answer Date Re corded In the past 12 months, has l ack of transportation kept you from medical appointments or from getting medications? No 12/2022 In the past 12 months, has l ack of transportation kept you from meetings, work, or from getting things needed for daily living? No 06/30/2023 Housing Stability Vital Sign Answer Neto e Recorded In the last 12 months, was t here a time when you were not able to pay the mortgage or rent on time? No 06/30/2023 In the last 12 months, how many places have you lived? 1 06/30/2023 In the last 12 months, was t here a time when you did not have a steady place to sleep or slept in a jail (including now)? No 06/30/2023 Comments Unknown Sex and Gender Information Value Date Recorded Sex Assigned at Not on file Legal Sex Female 7:01 PM EDT Gender Identity Not on file Sexual Orientation Not on file documented as of this encounter Last Filed Vital Signs Vital Sign Reading Time Taken Comments Blood Pressure 138/84 06/14/2025 4:25 PM EDT Pulse 69 06/14/2025 4:25 PM EDT Temperature - - Respiratory Rate 16 06/14/2025 4:25 PM EDT Oxygen Saturation 97% 06/14/2025 4:25 PM EDT Inhaled Oxygen Concentration - - Weight 43.1 kg (95 lb) 06/14/2025 4:25 PM EDT Height 149.9 cm (4' 11 ) 06/14/2025 4:25 PM EDT Body Mass Index 19.19 06/14/2025 4:25 PM EDT documented in this encounter Functional Status * Over the past 2 weeks, how often have you been bothered by any of the following problems? Question Answer Date of Assessment Author Little interest or pleasure in doing things Several days 06/14/2025 4:19 PM EDT KATTY BECKETT Feeling down, depressed, or hopeless Several days 05/29 4:19 PM EDT KATTY BECKETT Patient Health Questionnaire-2 Score 2 05/29 4:19 PM EDT KATTY BECKETT * If you checked off any problems on this questionnaire so far, Question Answer Date of Assessment Author How difficult have these problems made it for you to do your work, take care of things at home, or get along with other people? Somewhat difficult 06/14/2025 4:19 PM EDT KATTY BECKETT documented as of this encounter Progress Notes * Padmaja Mcmahon NP - 06/14/2025 4:30 PM EDT Images from the original note were not included. Subjective Patient ID: Hortencia Giffodr is a 85 y.o. female who presents for No chief complaint on file.. Hortencia presents today for arthritis pain. She is having back pain, B/L arm pain/ shoulder pain. Thsi has been going on for over a year. Over the past 2 weeks, how often have you been bothered by any of the following problems? Little interest or pleasure in doing things: Several days Feeling down, depressed, or hopeless: Several days Patient Health Questionnaire-2 Score: 2 If you checked off any problems on this questionnaire so far, How difficult have these problems made it for you to do your work, take care of things at home, or get along with other people?: Somewhat difficult Current Outpatient Medications on File Prior to Visit Medication Sig Dispense Refill rosuvastatin (Crestor) 20 MG tablet TAKE 1 TABLET BY MOUTH EVERY DAY 100 tablet 3 ALPRAZolam (Xanax) 0.25 MG tablet Take 1 [...] mouth in the morning. Take before meals. 100 tablet 3 metoprolol succinate XL (Toprol-XL) 50 MG 24 hr tablet Take 1 tablet (50 mg) by mouth Daily 100 tablet 3 omeprazole (PriLOSEC) [address] capsule Take 1 capsule (40 mg) by mouth in the morning and 1 capsule(40 mg) in the evening. Take before meals. 180 capsule 3 promethazine (Phenergan) 25 MG tablet Current Facility-Administered Medications on File Prior to [...] date: 02/06/1979 Quit date: 02/06/2019 Years since quittin.3 Smokeless tobacco: Never Vaping Use Vaping status: [...] Chronic rhinitis Common bile duct (CBD) obstruction (CMS-HCC) Disease of thyroid gland Gallbladder problem 2007 GERD (gastroesophageal reflux disease) Hematuria chronic History of colonoscopy 2008 History of cystoscopy x2 History of Helicobacter pylori infection History of total abdominal hysterectomy Hypertension Migraines Non-toxic multinodular goiter Other cerebral infarction (HCC) Ovarian cyst and poss - ovary removed Parotid mass S/P appy Sensation of fullness in both ears Sinus problem Stricture of bile duct (CMS-HCC) 2011 Stroke (HCC) Past Surgical History: Procedure Laterality Date APPENDECTOMY 1957 BILE DUCT STENT PLACEMENT Sricture of bile duct BLEPHAROPLASTY Bilateral [address] ANGIOGRAM CHEST 09/29/2024 CT ANGIOGRAM CHEST DEXA 09/02/2016 osteoporosis S & H both worse HM MAMMOGRAPHY 09/02/2016 benign HYSTERECTOMY 1986 IR ANGIOGRAM ARTERIOGRAM 01/20/2023 Arteriogram MASS EXCISION 02/2015 e/o R facial mass PAP SMEAR 06/04/2015 negative NM REMOVAL OF OVARY/TUBE(S) 1973 PARTIAL OOPHERECTOMY SALIVARY GLAND SURGERY Left 06/30/2012 lt sup paroidectomy SALIVARY GLAND SURGERY Right 03/07/2019 rt parotidectomy - Timmis Visit Vitals Smoking Status Former Review of Systems Constitutional: Negative. HENT: Negative. Eyes: Negative. Respiratory: Negative. Cardiovascular: Negative. Gastrointestinal: Negative. Genitourinary: Negative. Musculoskeletal: Positive for arthralgias and myalgias. Skin: Negative. Neurological: Negative. Psychiatric/Behavioral: Negative. Objective Physical Exam Vitals reviewed. Constitutional: Appearance: Normal appearance. HENT: Head: Normocephalic. Nose: Nose normal. Mouth/Throat: Mouth: Mucous membranes are moist. Pharynx: Oropharynx is clear. Eyes: Conjunctiva/sclera: Conjunctivae normal. Cardiovascular: Rate and Rhythm: Normal rate. Pulmonary: Effort: Pulmonary effort is normal. Musculoskeletal: Right shoulder: Tenderness and bony tenderness present. Decreased range of motion. Decreased strength. Left shoulder: Tenderness and bony tenderness present. Decreased range of motion. Decreased strength. Lumbar back: Tenderness and bony tenderness present. Skin: General: Skin is warm and dry. Neurological: General: No focal deficit present. Mental Status: She is alert and oriented to person, place, and time. Psychiatric: Mood and Affect: Mood normal. Behavior: Behavior normal. Thought Content: Thought content normal. Assessment/Plan Diagnoses and all orders for this visit: Decreased range of motion of left shoulder - Ambulatory referral to Orthopaedic Surgery; Future Pt does not want to try Meloxicam or Celebrex. She does not want to take pain medication. She does not want to try a steroid. She reports that she is on enough medications. She would like a referral to ortho for her pain. Referral sent to Dr. De Leon. Dysuria - POCT Urinalysis dipstick UA negative for UTI. Decreased range of motion of right shoulder - Ambulatory referral to Orthopaedic Surgery; Future Pt does not want to try Meloxicam or Celebrex. She does not want to take pain medication. She does not want to try a steroid. She reports that she is on enough medications. She would like a referral to ortho for her pain. Referral sent to Dr. De Leon. Acute midline low back pain without sciatica - Ambulatory referral to Orthopaedic Surgery; Future - XR lumbar spine 4+ views w flexion extension; Future Await results of xray. Pt does not want to try Meloxicam or Celebrex. She does not want to take pain medication. She does not want to try a steroid. She reports that she is on enough medications. Shewould like a referral to ortho for her pain. Referral sent to Dr. De Leon. No follow-ups on file. documented in this encounter Plan of Treatment Upcoming Encounters Date Type Department Care Team (Late st Contact Info) Description 07/03/2025 1:00 PM EDT Office Visit [facility] [address] [place] [address] Nicola De Leon, DO [address] [place] [address] 07/19/2025 1:05 PM EDT Office Visit [facility] [address] [place] [address] Funmi Salazar, CORNER FORMER-ASSEMBLY LOADER [address] [place] [address] Scheduled Orders Name Type Priority Associated Diagnoses Orde r Schedule XR lumbar spine 4+ views w flexion extension Imaging Routine Acute midline low back pain without sciatica Expected: 06/14/2025, Expires: 06/14/2026 Scheduled Referrals Name Type Priority Associated Diagnoses Order Schedule Ambulatory referral to Orthopaedic Surgery Outpatient Referral Routine Decreased range of motion of left shoulder Decreased range of motion of right shoulder Acute midline low back pain without sciatica Expected: 06/14/2025 (Approximate), Expires: 12/15/2025 documented as of this encounter Procedures Procedure Name Priority Date/Time Associated Diagnosis Comments POCT URINALYSIS DIPSTICK Routine 06/14/2025 4:55 PM EDT Dysuria documented in this encounter Results * POCT Urinalysis dipstick (06/14/2025 4:55 PM EDT) Color, UA Yellow Clarity, UA Clear Glucose, UA Negative Negative - 2000(110) ++++ mg/dL Bilirubin, UA Negative Negative - 4(70) +++ mg/dL Ketones, UA Negative Negative - 160(16) ++++ mg/dL Spec Grav, UA 1.000 1 - 1.03 Blood, UA Negative Negative - 50 Femi/mcL pH, UA 7.0 5 - 9 Protein, UA Negative Negative - 2000(20) ++++ mg/dL Urobilinogen, UA 0.2 0.2 - 12 mg/dL Leukocytes, UA Negative Negative - 500+++ Homer/mcL Nitrite, UA Negative Negative - Positive Urine 06/14/2025 4:55 PM EDT Padmaja Mcmahon NP POINT OF CARE TEST ENTER/CL T ORDERABLES Final Result documented in this encounter Visit Diagnoses Diagnosis Decreased range of motion of left shoulder- Primary Dysuria Decreased range of motion of right shoulder Acute midline low back pain without sciatica documented in this encounter Care Teams Chemistry Lab Instructor Relationship Specialty Start Date End Date Dinesh Dyer MD [address] [facility] 110 [place] [address] PCP - General Internal Medicine 04/27/23 Padmaja Mcmahon NP [address] [facility] 110 [place] [address] PCP - Puneet FONTANEZ 02/27/25 Myesha Galeas LPN [address] [facility] 110 [place] [address] 02/16/25 documented as of this encounter
--- OUTSIDE RECORDS SUMMARY | 2025-06-15 11:11 | XMS_ITS | Encounter Summary ---
Author Organization [facility] Address [address] [place] [address] Care Team Providers Care Machine Binder Stripper Name Role Phone Dinesh Dyer MD Unavailable [phone] Dinesh Dyer MD Primary Care Provider Kelley Renae RN Unavailable [phone] Myesha Galeas LPN Unavailable Padmaja Mcmahon NP Unavailable Encounter Details Date Type Department Care Team (Late st Contact Info) Description 07/28/2024 Abstract [facility] 112 [facility] 110 [place] [address] Dinesh Dyer MD 112 [facility] 110 [place], [place] [id number] Social History Tobacco Use Types Packs/Day Years Used Date Smoking Tobacco: Former Cigarettes 0.5 40 0 02/06/1979 - 02/06/2019 Smokeless Tobacco: Never Alcohol Use Standard Drinks/Week Comments Not Currently [...] week 06/30/2023 How often do you attend chur ch or samaritan services? Never 06/30/2023 Do you belong to any clubs o r organizations such as latter-day groups, unions, fraternal or athletic groups, or [...] Answer Date Recorded Patient Health Questionnaire-2 Score 0 02/29/2024 [employer] [facility] - Occupational Stress Questionnaire Answer Date Recorded [...] on file documented as of this encounter Plan of Treatment Upcoming Encounters Date Type Department Care Team (Late st Contact Info) Description 07/03/2025 1:00 PM EDT Office Visit [facility] [address] [place] [address] Nicola De Leon, DO [address] [place] [address] 07/19/2025 1:05 PM EDT Office Visit [facility] [address] [place] [address] Funmi Salazar APRN-CNP [address] [place] [address] documented as of this encounter Visit Diagnoses Not on filedocumented in this encounter Care Teams Machine Binder Stripper Relationship Specialty Start Date End Date Dinesh Dyer MD [address] [place] [address] PCP - Puneet FONTANEZ 11/29/21 11/28/24 Dinesh Dyer MD [address] [place] [address] PCP - General Internal Medicine 04/27/23 Padmaja Mcmahon NP [address] [facility] 110 [place] [address] PCP - Puneet FONTANEZ 02/27/25 Kelley Renae, RN [address] [place] [address] Clinical Advocate Family Medicine 01/05/25 02/16/25 Myesha Galeas LPN [address] [facility] 110 [place] [address] 02/16/25 documented as of this encounter
--- OUTSIDE RECORDS SUMMARY | 2025-06-15 11:11 | XMS_ITS | Encounter Summary ---
Author Organization [facility] Address [address] [facility] [place] [address] Care Team Providers Care Cooling Tower Operator Name Role Phone Dinesh Dyer MD Primary Care Provider [phone] Kelley Renae RN Unavailable Myesha Galeas LPN Unavailable Padmaja Mcmahon NP Unavailable Encounter Details Date Type Department Care Team (Late Contact Info) Description 02/13/2025 Abstract [facility] 112 [facility] 110 [place] [address] Dinesh Dyer MD 112 [facility] 110 [place], [place] [id number] Social History Tobacco Use Types Packs/Day Years [...] 06/30/2023 How often do you attend chur or nondenominational services? Never 06/30/2023 Do you belong to any clubs o r organizations such as moravian groups, unions, fraternal or athletic groups, or [...] Date Recorded Patient Health Questionnaire-2 Score 0 02/07/2025 [facility]at [facility] - Occupational Stress [...] place to sleep or slept in a group home (including now)? No 06/30/2023 Comments Unknown Sex and Gender Information Value Date Recorded Sex Assigned at Not on file Legal Sex Female 7:01 PM EDT Gender Identity Not on file Sexual Orientation Not on file documented as of this encounter Plan of Treatment Upcoming Encounters Date Type Department Care Team (Late st Contact Info) Description 07/03/2025 1:00 PM EDT Office Visit [facility] [address] [place] [address] Nicola De Leon, [address] [facility] [place] [address] 07/19/2025 1:05 PM EDT Office Visit [facility] [address] [place] [address] Funmi Salazar APRN-ZAID [address] [place] [address] documented as of this encounter Visit Diagnoses Not on filedocumented in this encounter Care Teams Cooling Tower Operator Relationship Specialty Start Date End Date Dinesh Dyer MD [address] [facility] [address] [place] [address] PCP - General Internal Medicine 04/27/23 Padmaja Mcmahon NP [address] [facility] 110 [place] [address] PCP - Puneet FONTANEZ 02/27/25 Kelley Renae, JASON [address] [place] [address] Clinical Adv[facility] Family Medicine 01/05/25 02/16/25 Myesha Galeas LPN [address] [address] 02/16/25 documented as of this encounter
--- OUTSIDE RECORDS SUMMARY | 2025-06-15 11:11 | XMS_ITS | Encounter Summary ---
Author Organization [facility] Address [address] [facility] [place] [address] Care Team Providers Care Systems Analyst Name Role Phone Dinesh Dyer MD Primary Care Provider [phone] Myesha Galeas LPN Unavailable Padmaja Mcmahon FAGOT HEATER HELPER Unavailable [phone] Encounter Details Date Type Department Care Team ([facility] Contact Info) Description 04/10/2025 Abstract [facility] 112 [facility] 110 [place] [address] Dinesh Dyer MD 112 [facility] 110 [place] [address] Social History Tobacco Use Types Packs/Day Years [...] often do you attend chur ch or alevism services? Never 06/30/2023 Do you belong to any clubs o r organizations such as sikhism groups, unions, fraternal or athletic groups, or [...] Date Recorded Patient Health Questionnaire-2 Score 0 03/27/2025 [facility] Occupat ional Health - Occupational Stress [...] place to sleep or slept in a fci (including now)? No 06/30/2023 Comments Unknown Sex [...] ORTHOAO [address] [place] [address] Nicola De Leon, DO [address] [place] [address] 07/19/2025 1:05 PM EDT Office Visit [facility] [address] [place] [address] Funmi Salazar, PRIMER WATERPROOFING MACHINE OPERATOR-ENTRY LEVEL RECRUITER [address] [place] [address] documented as of this encounter Visit Diagnoses Not on filedocumented in this encounter Care Teams Systems Analyst Relationship Specialty Start Date End Date Dinesh Dyer MD [address] [place] [address] PCP - General Internal Medicine 04/27/23 Padmaja Mcmahon FAGOT HEATER HELPER 112 [facility] 110 [place] [address] PCP - Puneet FONTANEZ 02/27/25 Myesha Galeas LPN [address] [address] 02/16/25 documented as of this encounter
--- OUTSIDE RECORDS SUMMARY | 2025-06-15 11:11 | XMS_ITS | Encounter Summary ---
Author Organization [facility] Address [address] [place] [address] Care Team Providers Care Dietary Aid Name Role Phone Dinesh Dyer MD Primary Care Provider [phone] Myesha Galeas LPN Unavailable Padmaja Mcmahon CUT OUT MARKER Unavailable Encounter Details Date Type Department Care Team (Late Contact Info) Description 06/14/2025 Bamboo flowsheet [facility] [address] [facility] 110 [place] [address] Padmaja Mcmahon NP [address] [facility] 110 [place], [place] [phone] Social History Tobacco Use Types Packs/Day Years [...] How often do you attend chur or congregational services? Never 06/30/2023 Do you belong to any clubs o r organizations such as episcopalian groups, unions, fraternal or athletic groups, or [...] Recorded Patient Health Questionnaire-2 Score 2 06/14/2025 [facility] - Occupational Stress Questionnaire Answer Date Recorded [...] place to sleep or slept in a intermediate (including now)? No 06/30/2023 Comments Unknown Sex [...] ORTHOAO [address] [place] [address] Nicola De Leon, DO [address] [address] 07/19/2025 1:05 PM EDT Office Visit [facility] [address] [place] [address] Funmi Salazar, FORK REPAIRER-FISH AND GAME WARDEN [address] [place] [address] documented as of this encounter Visit Diagnoses Not on filedocumented in this encounter Care Teams Dietary Aid Relationship Specialty Start Date End Date Dinesh Dyer MD [address] [place] [address] PCP - General Internal Medicine 04/27/23 Padmaja Mcmahon CUT OUT MARKER [address] [place] [address] [place] [address] PCP - Puneet FONTANEZ 02/27/25 Myesha Galeas LPN [address] [address] 02/16/25 documented as of this encounter
--- OUTSIDE RECORDS SUMMARY | 2025-06-15 11:11 | XMS_ITS | Encounter Summary ---
Author Organization [facility] Address [address] [place] [place] [address] Care Team Providers Care Maxillofacial Prosthetics Dentist Name Role Phone Dinesh Dyer MD Primary Care Provider [phone] Myesha Galeas LPN Unavailable Padmaja Mcmahon MANAGER PRESENTATION Unavailable [phone] Encounter Details Date Type Department Care Team ([facility] Contact Info) Description 03/28/2025 Abstract [facility] [address] [facility] 110 [place] [address] Dinesh Dyer MD 112 [facility] 110 [place] [address] Social History Tobacco Use Types Packs/Day Years [...] often do you attend chur ch or amish services? Never 06/30/2023 Do you belong to any clubs o r organizations such as judaism groups, unions, fraternal or athletic groups, or [...] Recorded Patient Health Questionnaire-2 Score 0 03/27/2025 [facility] - Occupational [...] place to sleep or slept in a nursing home (including now)? No 06/30/2023 Comments Unknown [...] ORTHOAO [address] [place] [address] Nicola De Leon, DO [address] [place] [address] 07/19/2025 1:05 PM EDT Office Visit [facility] [address] [place] [address] Funmi Salazar, HIP HOP PERFORMERS-WOOD FILLER [address] [place] [address] documented as of this encounter Visit Diagnoses Not on filedocumented in this encounter Care Teams Maxillofacial Prosthetics Dentist Relationship Specialty Start Date End Date Dinesh Dyer MD [address] [place] [address] PCP - General Internal Medicine 04/27/23 Padmaja Mcmahon MANAGER PRESENTATION 112 [facility] 110 [place] [address] PCP - Puneet FONTANEZ 02/27/25 Myesha Galeas LPN [address] [address] 02/16/25 documented as of this encounter
--- OUTSIDE RECORDS SUMMARY | 2025-06-15 11:11 | XMS_ITS | Encounter Summary ---
Author Organization [facility] Address [address] [place] [address] Care Team Providers Care Television News Anchor Name Role Phone Dinesh Dyer MD Primary Care Provider Myesha Galeas LPN Unavailable Padmaja Mcmahon NP Unavailable Encounter Details Date Type Department Care Team (Latest Contact Info) Description 06/14/2025 Travel Social History Tobacco Use Types Packs/Day Years [...] often do you attend chur ch or shinto services? Never 06/30/2023 Do you belong to [...] Recorded Patient Health Questionnaire-2 Score 2 06/14/2025 [facility] ional Health - Occupational Stress [...] place to sleep or slept in a fpc (including now)? No 06/30/2023 Comments Unknown Sex and Gender Information Value Date Recorded Sex Assigned at Not on file Legal Sex Female 7:01 PM EDT Gender Identity Not on file Sexual Orientation Not on file documented as of this encounter Functional Status * Over the past 2 weeks, how often have you been bothered by any of the following problems? Question Answer Date of Assessment Author Little interest or pleasure in doing things Several days 06/14/2025 4:19 PM BILLYT KATTY BECKETT Feeling down, depressed, or hopeless Several days 05/29 4:19 PM KATTY COBB Patient Health Questionnaire-2 Score 2 05/29 4:19 PM BILLYT KATTY BECKETT * If you checked off any problems on this questionnaire so far, Question Answer Date of Assessment Author How difficult have these problems made it for you to do your work, take care of things at home, or get along with other people? Somewhat difficult 06/14/2025 4:19 PM EDT KATTY BECKETT documented as of this encounter Plan of Treatment Upcoming Encounters Date Type Department Care Team (Late st Contact Info) Description 07/03/2025 1:00 PM EDT Office Visit [facility] [address] [place] [address] Nicola De Leon, DO [address] [place] [address] 07/19/2025 1:05 PM EDT Office Visit [facility] [address] [place] [address] Funmi Salazar, KNOTTER HAND-K9 HANDLER [address] [place] [address] documented as of this encounter Visit Diagnoses Not on filedocumented in this encounter Care Teams Television News Anchor Relationship Specialty Start Date End Date Dinesh Dyer MD [address] [facility] 110 [place] [address] PCP - General Internal Medicine 04/27/23 Padmaja Mcmahon, ANGÉLICA [address] [facility] 110 [place] [address] PCP - Puneet FONTANEZ 02/27/25 Myesha Galeas LPN [address] [facility] 110 [place] [address] 02/16/25 documented as of this encounter
--- OUTSIDE RECORDS SUMMARY | 2025-06-15 11:11 | XMS_ITS | Clinical Summary ---
Author Organization [facility] Address [address] [place] [id number] Phone Care Team Providers Care End User Support Specialist Name Role Phone Unavailable Primary Care Provider Unavailabl e Social History Tobacco Use Types Packs/Day Years Used Date Smoking Tobacco: Never Assessed Comments Unknown Sex and Gender Information Value Date Recorded Sex Assigned at Not on file Legal Sex Female 9:42 AM EST Gender Identity Not on file Sexual Orientation Not on file Plan of Treatment Not on file
--- OUTSIDE RECORDS SUMMARY | 2025-06-15 11:11 | XMS_ITS | Clinical Summary ---
Author Organization [facility] Address [address] [place] [address] Care Team Providers Care Pharmacist'S Aide Name Role Phone Dinesh Dyer MD Primary Care Provider [phone] Allergies Active Allergy Reactions Criticality Noted Date Comments Erythromycin Base 08/25/2022 Estradiol 08/25/2022 Morphine 08/25/2022 Medications ALPRAZolam (Xanax) 0.25 mg tablet TAKE 1HALF TO ONE TABLET BY MOUTH EVERY 8 HOURS NEEDED FOR 20 DAYS Active clopidogrel (Plavix) 75 mg tablet TAKE ONE TABLET BY MOUTH DAILY FOR 90 DAYS Active levothyroxine (Synthroid, Levoxyl) 50 mcg tablet Take 1 tablet by mouth in the morning. Active rosuvastatin (Crestor) 20 mg tablet Take 20 mg by mouth every other day. Active cyanocobalamin (Vitamin B-12) 500 mcg tablet Take 500 mcg by mouth in the morning. Active omeprazole (PriLOSEC) [address] capsule Take 40 mg by mouth. 3 Active metoprolol succinate XL (Toprol-XL) 50 mg 24 hr tabletIndications :Essential hypertension,Dale nary artery disease involving [place] coronary artery of [place] heart without angina pectoris Take 1 tablet (50 mg) by mouth once daily as directed. Do not crush or chew. 90 tablet 3 3 Active metoprolol succinate XL (Toprol-XL) 25 mg 24 hr tabletIndications :Benign hypertensive heart disease without congestive heart failure Take 1 tablet (25 mg) by mouth in the morning. To be taken WITH metoprolol succinate 50mg tablets = 75mg daily 90 tablet 3 4 09/13/20 25 Active Active Problems Problem Noted Date Diagnosed Date Abnormal finding on imaging 09/13/2024 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 use Blood bacterial culture positive 09/13/2024 Carotid stenosis, bilateral 09/13/2024 Anticoagulated 09/01/2023 09/01/2023 Asymptomatic microscopic hematuria 09/01/2023 09/01/2023 Cystitis 09/01/2023 09/01/2023 Flank pain 09/01/2023 09/01/2023 Dysuria 09/01/2023 09/01/2023 Occlusion and stenosis of bilateral carotid lee ann lisa 05/05/2023 09/01/2023 Osteoarthritis of glenohumeral joint 05/05/2023 09/01/2023 Coronary arteriosclerosis in [place] artery 05/0509/01/2023 PVD (peripheral vascular disease) 09/28/2022 Mixed hyperlipidemia 09/28/2022 Paroxysmal atrial fibrillation 09/28/2022 Overview (09/28/2022): Questionable hx, records reviewed she had normalizer event and we wanted to get linq under crystal afib data but she refused so we have no documentation of afib Mesenteric artery stenosis 09/28/2022 Vasomotor rhinitis 09/24/2021 09/01/2023 Sensation of fullness in both ears 09/23/2021 09/01/2023 Former smoker 06/13/2021 09/01/2023 History of stroke without residual deficits 05/2909/01/2023 History of hysterectomy 06/13/2021 09/01/20 Onychomycosis 05/26/2021 09/01/2023 Chronic rhinitis 04/09/2021 09/01/2023 Nausea 01/10/2021 09/01/2023 Shoulder joint pain 08/30/2020 09/01/2023 Decreased estrogen level 08/19/2020 023 Fibromyalgia 05/16/2020 09/01/2023 Poor appetite 11/08/2019 09/01/2023 Coarctation of aorta 06/20/2019 09/01/2023 Coronary arteriosclerosis 03/27/2019 Pure hypercholesterolemia 02/15/20192022 Nephrolithiasis 10/28/2018 09/01/2023 Osteoarthritis 09/22/2018 09/01/2023 Age-related osteoporosis wit hout current pathological fracture 09/15/2018 09/01/2023 Anxiety 12/06/2017 09/01/2023 Abnormal findings on diagnos tic imaging of liver and biliary tract 11/11/2017 09/01/2023 Atherosclerosis of coronary artery without angin a pectoris 07/19/2017 09/01/2023 Gastroesophageal reflux disease 07/07/2017 Migraine 07/07/2017 Non-toxic nodular goiter 07/07/2017 Dilated cbd, acquired 04/09/2017 09/01/2023 Bilateral fibrocystic breast changes 08/13/2016 09/01/2023 Pillai's esophagus 12/04/2015 09/01/2023 History of colonic polyps 12/04/20152022 Generalized osteoarthritis 12/04/201509/01 Diverticulosis of colon 12/04/2015 09/01/20 IBS (irritable bowel syndrome) 12/04/2015 1 Primary localized osteoarthrosis of shoulder reg ion 12/04/2015 09/01/2023 Encounters Date Type Department Care Team Description 03/22/2025 2:00 PM EDT Office Visit [address] [address] Sera Dejesus CNP Irregular heart beats (Primary Dx); Coronary artery disease involving [place] coronary artery of [place] heart without angina pectoris; PAD (peripheral artery disease); Benign hypertensive heart disease without congestive heart failure; Essential hypertension; Mixed hyperlipidemia from Last 3 Months Immunizations Immunization Administration Dates Next Due Influenza, High Dose Seasona l, Preservative Free 09/09/2021,09/22/2018,09/27/2017,09/15,10/03/2015 Influenza, trivalent, adjuvanted 09/08/2021,1007/2020,09/27/2019 Pneumococcal Polysaccharide PPV23 08/19/2020 Unspecified Sars-Cov-2 Vaccination 10/16/2021,,01/27/2021 Zoster, Recombinant 07/28/2021 Family History Medical History Relation Name Comments malignant neoplastic disease Father Heart disease Mother Hypertension Mother Relation Name Status Comments Father Mother Social History Tobacco Use Types Packs/Day Years Used Date Smoking Tobacco: Some Days Cigarettes Smokeless Tobacco: Never Tobacco Cessation:Ready to Q uit: Not Asked; Counseling Given: Not Answered Alcohol Use Standard Drinks/Week Comments Not Currently 0 (1 standard drink = 0.6 oz pur e alcohol) [place] Safety & Environment Answer Date Rec orded Fear of Current or Ex-Partner Not on file Emotionally Abused Not on file 01/20/2024 Physically Abused Not on file 01/20/2024 Sexually Abused Not on file 01/20/2024 Physically or Sexually Abused Not on file Comments Unknown Sex and Gender Information Value Date Recorded Sex Assigned at Not on file Legal Sex Female 10:47 PM EDT Gender Identity Not on file Sexual Orientation Not on file Last Filed Vital Signs Vital Sign Reading Time Taken Comments Blood Pressure 130/54 03/22/2025 2:04 PM EDT Pulse 75 03/22/2025 2:04 PM EDT Temperature - - Respiratory Rate - - Oxygen Saturation 96% 03/22/2025 2:04 PM EDT Inhaled Oxygen Concentration - - Weight 39.9 kg (88 lb) 03/22/2025 2:04 PM EDT Height 149.9 cm (4' 11 ) 03/22/2025 2:04 PM EDT Body Mass Index 17.77 03/22/2025 2:04 PM EDT Plan of Treatment Health Maintenance Due Date Last Done Comments Medicare Annual Wellness (AWV) 1940 Depression Screening 1954 Adult Tetanus 1964 Fall Risk Screening 2007 Zoster Vaccines (2 of 2) 09/22/2021 07/28/2021 COVID-19 Vaccine ( season) 2024 10/16/2021, 10/16/2021, 02/18/2021, Additional history exists Influenza Vaccine (#1) 2025 , 09/02/2023, 09/02/2022, Additional history exists Pneumococcal Vaccine: 50+ Years Completed 03/12/2023, 08/19/2020 HIB Vaccines Aged Out No longer eligi ble based on patient's age to complete this topic HPV Vaccines Aged Out No longer eligi ble based on patient's age to complete this topic IPV Vaccines Aged Out No longer eligi ble based on patient's age to complete this topic Meningococcal B Vaccine Aged Out No l onger eligible based on patient's age to complete this topic Meningococcal Vaccine Aged Out No angus landen eligible based on patient's age to complete this topic Rotavirus Vaccines Aged Out No longer eligible based on patient's age to complete this topic Procedures Procedure Name Priority Date/Time Associated Diagnosis Comments ECG 12-LEAD Routine 03/29/2025 9:52 AM EDT Irregular heart beats from Last 3 Months Results * ECG 12 lead (03/29/2025 9:52 AM EDT) Sera Dejesus CNP ECG ORDERABLES Final Result from Last 3 Months Insurance [employer] MEDICARE ADVANTAGE Care Teams Pharmacist'S Aide Relationship Specialty Start Date End Date Dinesh Dyer MD 112 [facility] 110 [place] [address] PCP - General 08/25/22
--- OUTSIDE RECORDS SUMMARY | 2025-06-15 11:11 | XMS_ITS | Encounter Summary ---
Author Organization [facility] Address [address] [facility] [place] [address] Care Team Providers Care Fence Builder Name Role Phone Dinesh Dyer MD Primary Care Provider [phone] Myesha Galeas LPN Unavailable Padmaja Mcmahon SIGNS SALES REPRESENTATIVE Unavailable [phone] Encounter Details Date Type Department Care Team ([facility] Contact Info) Description 03/21/2025 Abstract [facility] [address] [facility] 110 [place] [address] Dinesh yDer MD 112 [facility] 110 [place] [address] Social History Tobacco Use Types Packs/Day Years [...] often do you attend chur ch or faith services? Never 06/30/2023 Do you belong to any clubs o r organizations such as christian groups, unions, fraternal or athletic groups, or [...] Recorded Patient Health Questionnaire-2 Score 0 02/07/2025 [facility] of Occupat ional Health - Occupational Stress [...] place to sleep or slept in a long term (including now)? No 06/30/2023 Comments Unknown Sex [...] ORTHOAO [address] [place] [address] Nicola De Leon, DO [address] [place] [place] [address] 07/19/2025 1:05 PM EDT Office Visit [facility] [address] [place] [address] Funmi Salazar, RN NEW GRADUATE-ENCHILADA MAKER [address] [place] [address] documented as of this encounter Visit Diagnoses Not on filedocumented in this encounter Care Teams Fence Builder Relationship Specialty Start Date End Date Dinesh Dyer MD [address] [place] [address] PCP - General Internal Medicine 04/27/23 Padmaja Mcmahon SIGNS SALES REPRESENTATIVE 112 [facility] 110 [place] [address] PCP - Puneet FONTANEZ 02/27/25 Myesha Galeas LPN [address] [address] 02/16/25 documented as of this encounter
--- OUTSIDE RECORDS SUMMARY | 2025-06-15 11:11 | XMS_ITS | Encounter Summary ---
Author Organization [facility] Address [address] [place] [address] Care Team Providers Care Refrigeration Installer Name Role Phone Dinesh Dyer MD Unavailable [phone] Dinesh Dyer MD Primary Care Provider [phone] Kelley Renae RN Unavailable [phone] Myesha Galeas LPN Unavailable Padmaja Mcmahon NP Unavailable Encounter Details Date Type Department Care Team (Late st Contact Info) Description 09/29/2024 Clinisync Result Encounter [facility] External Department Unsolicited Provider, Generic External Data Social History Tobacco Use Types Packs/Day Years [...] any clubs o r organizations such as sabianist groups, unions, fraternal or athletic groups, or [...] Recorded Patient Health Questionnaire-2 Score 0 02/29/2024 [facility] - [facility] Questionnaire Answer Date Recorded [...] place to sleep or slept in a half-way (including now)? No 06/30/2023 Comments Unknown Sex [...] ORTHOAO [address] [place] [address] Nicola De Leon, DO [address] [place] [address] 07/19/2025 1:05 PM EDT Office Visit [facility] [address] [place] [address] Funmi Salazar, COMPANY ACCOUNTANT-BONE COOKING OPERATOR [address] [place] [address] documented as of this encounter Procedures Procedure Name Priority Date/Time Associated Diagnosis Comments CT ANGIO ABDOMEN PELVIS 09/29/2024 1:26 PM EDT documented in this encounter Results * CT ANGIO ABDOMEN PELVIS (09/29/2024 1:26 PM EDT) Anatomical Region Laterality Modality Other 09/29/2024 1:26 PM EDT Narrative 09/29/2024 1:29 PM EDT [address] [address] [address] Scan Report Signed Patient: HORTENCIA CM MR#: [id number] : 1940 Acct:[id number] Age/Sex: 84 / F ADM Date: 09/29/24 Loc: LAB Attending Dr: Britt Hunt M.D. Ordering Physician: Britt Hunt M.D. Date of Service: 09/29/24 Procedure(s): CT angio abdomen pelvis Accession Number(s): [id number] cc: DINESH DYER [address] [address] Patient Name: HORTENCIA CM MRN: [facility]:[id number] date: 1940 Sex: F Assigned Patient Location: LAB Current Patient Location: LAB Accession/Order Number: [id number] Exam Date: 09/29/2024 10:05 Report Date: 09/29/2024 13:26 At the request of: BRITT HUNT Procedure: CT angio abdomen pelvis EXAM: CT angio abdomen pelvis HISTORY: Peripheral Vascular Disease, Chronic Vascular Disorder. COMPARISON: None. TECHNIQUE: Contrast enhanced CT scans were obtained of the abdomen and pelvis. CTA is performed. FINDINGS: CT abdomen and pelvis: Air is seen within the biliary tree. There is a 2.1 cm duodenal diverticulum. Simple-appearing renal cysts are seen bilaterally with the largest measuring 1.8 cm residing on the anterior superior aspect of the right kidney. Spleen is unremarkable. No peripancreatic fluid is seen. No fluid is noted within the abdomen or pelvis. Colonic diverticula are noted. Uterus is absent. CTA: Less than 50% stenosis is seen in the celiac artery origin. No significant superior mesenteric artery stenosis is present. High-grade left renal artery stenosis is noted. Just below the renal arteries there is approximately 50% stenosis of the abdominal aorta. 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 Plaque extends into the iliac arteries. There is a high-grade stenosis of the distal left common iliac artery. CT/CT angio abdomen pelvis IMPRESSION: 1. High-grade left renal artery stenosis. 2. High-grade inferior mesenteric artery stenosis. 3. At least 50% stenosis of the infrarenal abdominal aorta. 4. 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 5. Pneumobilia. 6. Duodenal diverticulum. 7. Simple-appearing renal cysts. 8. See above for details. Electronically authenticated by: Amador MAYEN Date: 09/29/2024 13:26 Dictated By: Amador Mayen M.D. Signed By: 09/29/24 1329 DD/ 1326 TD/TT: Complaint Manager: Procedure Note Radiology, Radiologist, MD - 09/29/2024 [place] [address] [place] Scan Report Signed Patient: HORTENCIA CMMR#: [id number] : 1940cct:[id number] Age/Sex: 84 / FADM Date: 09/29/24 Loc: LAB Attending Dr: Britt Hunt M.D. Ordering Physician: Britt Hunt M.D. Date of Service: 09/29/24 Procedure(s): CT angio abdomen pelvis Accession Number(s): [id number] cc: DINESH DYER [place] [address] Patient Name: HORTENCIA CM MRN: [id number] date: 1940 Sex: F Assigned Patient Location: LAB Current Patient Location: LAB Accession/Order Number: [id number] Exam Date: 09/29/2024 10:05 Report Date: 09/29/2024 13:26 At the request of: BRITT HUNT Procedure: CT angio abdomen pelvis EXAM: CT angio abdomen pelvis HISTORY: Peripheral Vascular Disease, Chronic Vascular Disorder. COMPARISON: None. TECHNIQUE: Contrast enhanced CT scans were obtained of the abdomen andpelvis. CTA is performed. FINDINGS: CT abdomen and pelvis: Air is seen within the biliary tree. There is a 2.1 cm duodenaldiverticulum. Simple-appearing renal cysts are seen bilaterally with the largestmeasuring 1.8 cm residing on the anterior superior aspect of the right kidney.Spleen is unremarkable. No peripancreatic fluid is seen. No fluid is noted withinthe abdomen or pelvis. Colonic diverticula are noted. Uterus is absent. CTA: Less than 50% stenosis is seen in the celiac artery origin. No significant superior mesenteric artery stenosis is present. High-grade left renalartery stenosis is noted. Just below the renal arteries there is [id number]% stenosis of the abdominal aorta. 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 Plaque extends into the iliac arteries. There is a high-grade stenosis of the distal left common iliac artery. CT/CT angio abdomen pelvis IMPRESSION: 1. High-grade left renal artery stenosis. 2. High-grade inferior mesenteric artery stenosis. 3. At least 50% stenosis of the infrarenal abdominal aorta. 4. 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 5. Pneumobilia. 6. Duodenal diverticulum. 7. Simple-appearing renal cysts. 8. See above for details. Electronically authenticated by: Amador MAYEN Date: 09/29/2024 13:26 Dictated By: Amador Mayen M.D. Signed By:09/29/24 1329 DD/ 1326 TD/TT: Complaint Manager: Generic External Data Provider [facility] Final Result documented in this encounter Visit Diagnoses Not on filedocumented in this encounter Care Teams Refrigeration Installer Relationship Specialty Start Date End Date Dinesh Dyer MD [address] [address] PCP - Puneet FONTANEZ 11/29/21 11/28/24 Dinesh Dyer MD [address] [address] PCP - General Internal Medicine 04/27/23 Padmaja Mcmahon NP [address] [address] PCP - Puneet FONTANEZ 02/27/25 Kelley Renae, RN [address] [place] [address] [facility] 01/05/25 02/16/25 Myesha Galeas LPN 112 [facility] 110 [place] [address] 02/16/25 documented as of this encounter
--- OUTSIDE RECORDS SUMMARY | 2025-06-15 11:11 | XMS_ITS | Clinical Summary ---
Author Organization [facility] Address [address] [place] [address] Care Team Providers Care Mold Operator Name Role Phone Dinesh Dyer MD Primary Care Provider [phone] Myesha Galeas LPN Unavailable Padmaja Mcmahon ELIGIBILITY EXAMINER Unavailable [phone] Allergies Active Allergy Reactions Criticality Noted Date Comments Erythromycin 09/08/2023 Other Reaction(s): Not available Erythromycin Base GI intolerance 05/05/2023 Morphine 05/05/2023 Other Reaction(s): Insomnia Medications Ascorbic Acid (vitamin C) 1000 MG tablet Take 1,000 mg by mouth in the morning. Active cyanocobalamin (Vitamin B-12) 500 MCG tablet Take 500 mcg by mouth in the morning. Active folic acid (Folvite) 400 MCG tablet Take 0.4 mg by mouth in the morning. Active ALPRAZolam (Xanax) 0.25 MG tabletIndications:An xiety Take 1 tablet (0.25 mg) by mouth 3 (three) times a day as needed for anxiety Take 1/2 to 1 tablet PO every 8 hours as needed 90 tablet 4 Active metoprolol succinate XL (Toprol-XL) 50 MG 24 hr tabletIndications:Pr imary hypertension Take 1 tablet (50 mg) by mouth Daily 100 tablet 3 5 01/15/20 26 Active omeprazole (PriLOSEC) [address] capsuleIndications:G astroesophageal reflux disease without esophagitis Take 1 capsule (40 mg) by mouth in the morning and 1 capsule (40 mg) in the evening. Take before meals. 180 capsule 3 5 01/25/20 26 Active promethazine (Phenergan) 25 MG tablet Active cetirizine (ZyrTEC) 10 MG tabletIndications:Elmer catalan, initial encounter TAKE 1 TABLET (10 MG) BY MOUTH DAILY. 90 tablet 1 5 Active levothyroxine (Synthroid, Levoxyl) 50 MCG tabletIndications:Es sential (primary) hypertension Take 1 tablet (50 mcg) by mouth in the morning. Take before meals. 100 tablet 3 5 03/27/20 26 Active clopidogrel (Plavix) 75 MG tabletIndications:Co ronary arteriosclerosis in red cliff artery Take 1 tablet (75 mg) by mouth Daily 90 tablet 3 5 03/27/20 26 Active rosuvastatin (Crestor) 20 MG tabletIndications:At herosclerosis of coronary artery of red cliff heart without angina pectoris, unspecified vessel or lesion type TAKE 1 TABLET BY MOUTH EVERY DAY 100 tablet 3 5 Active Hospital, Clinic, or Other Facility Administered Medication Ordered Dose Route Frequency Start Date End Date Status denosumab (Prolia) injection 60 mgIndications:Age-related osteoporosis without current pathological fracture,Pillai's esophagus without dysplasia,Gastroesophageal reflux disease without esophagitis 60 mg SC Once 05/06/2023 Active Active Problems Problem Noted Date Diagnosed Date 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 use 10/2025 Abnormal finding on imaging 09/13/2024 Blood bacterial culture positive 09/13/2024 Carotid stenosis, bilateral 09/13/2024 Anticoagulated 09/01/2023 Asymptomatic microscopic hematuria 09/01/2023 Cystitis 09/01/2023 Dysuria 09/01/2023 Flank pain 09/01/2023 Abdominal aortic stenosis (HHS-HCC) 05/05/2023 Abnormal mammogram 05/05/2023 Age-related osteoporosis wit hout current pathological fracture 05/05/2023 Anxiety 05/05/2023 Pillai's esophagus 05/05/2023 Bilateral fibrocystic breast changes 05/05/2023 Coronary arteriosclerosis in red cliff artery 05/05 Decreased estrogen level 05/05/2023 Dilated cbd, acquired 05/05/2023 Diverticulosis of colon 05/05/2023 Fibromyalgia 05/05/2023 Gastroesophageal reflux disease 05/05/2023 Generalized osteoarthritis 05/05/2023 Hypertension 05/05/2023 IBS (irritable bowel syndrome) 05/05/2023 Nephrolithiasis 05/05/2023 Nontoxic multinodular goiter 05/05/2023 Occlusion and stenosis of bilateral carotid lee ann lisa 05/05/2023 Osteoarthritis of glenohumeral joint 05/05/2023 Pure hypercholesterolemia 05/05/2023 Vasomotor rhinitis 05/05/2023 Sensation of fullness in both ears 09/23/2021 Former smoker 06/13/2021 History of stroke without residual deficits 05/29 History of hysterectomy 06/13/2021 Onychomycosis 05/26/2021 Chronic rhinitis 04/09/2021 Nausea 01/10/2021 Poor appetite 11/08/2019 Coarctation of aorta ([facility]) 06/20/2019 Osteoarthritis 09/22/2018 Atherosclerosis of coronary artery without angin a pectoris 07/19/2017 Migraine 07/07/2017 History of colonic polyps 12/04/2015 Encounters Date Type Department Care Team Description 06/14/2025 4:30 PM EDT Office Visit [facility] 110 [place] [phone] Padmaja Mcmahon, ANGÉLICA Decreased range of motion of left shoulder (Primary Dx); Dysuria; Decreased range of motion of right shoulder; Acute midline low back pain without sciatica 06/14/2025 Bamboo flowsheet [facility] 110 [place] [address] Padmaja Mcmahon NP 06/14/2025 Travel 05/25/2025 Patient Outreach [facility] [address] [place] [address] Kelley Renae, JASON 05/16/2025 Refill [facility] [address] [facility] 110 [place] [address] Dinesh Dyer MD Atherosclerosis of coronary artery of red cliff heart without angina pectoris, unspecified vessel or lesion type 04/10/2025 Abstract [facility] [address] [facility] 110 [place] [address] Dinesh Dyer MD 03/28/2025 Abstract [facility] [address] [address] [place] [address] Dinesh Dyer MD 03/28/2025 Abstract [facility] [address] [address] [place] [address] Dinesh Dyer MD 03/27/2025 11:30 AM EDT Office Visit [facility] [address] [address] [place] [address] Padmaja Mcmahon NP Medicare annual wellness visit, subsequent (Primary Dx); Essential (primary) hypertension ; Abdominal aortic stenosis (HHS-HCC); Atherosclerosis of coronary artery of red cliff heart without angina pectoris, unspecified vessel or lesion type ; Carotid stenosis, bilateral; Coarctation of aorta (HHS-HCC); Coronary arteriosclerosis in red cliff artery ; Primary hypertension ; Occlusion and stenosis of bilateral carotid arteries; Gastroesophageal reflux disease without esophagitis; Diverticulosis of colon; History of colonic polyps; Irritable bowel syndrome without diarrhea; Nausea; Age-related osteoporosis without current pathological fracture ; Fibromyalgia; Generalized osteoarthritis; Nontoxic multinodular goiter ; Anxiety; Bilateral fibrocystic breast changes; Decreased estrogen level; Former smoker; History of hysterectomy; History of stroke without residual deficits; Pure hypercholesterolemia ; Intractable chronic migraine with aura with status migrainosus ; Encounter for screening mammogram for malignant neoplasm of breast; Routine general medical examination at health care facility; Acute non-recurrent pansinusitis 03/27/2025 Bamboo flowsheet [facility] [address] [address] [place] [address] Padmaja Mcmahon NP 03/27/2025 Travel 03/21/2025 Abstract [facility] [address] [address] [place] [address] Dinesh Dyer MD from Last 3 Months Immunizations Immunization Administration Dates Next Due Influenza, High Dose Seasona l, Preservative Free 09/09/2021,09/22/2018,09/27/2017,09/15,10/03/2015 Influenza, Seasonal, Quadriv alent, Adjuvanted 09/02/2023 Influenza, seasonal, injectable 10/01/2014 Influenza, seasonal, intrade rmal, preservative free 09/02/2015,09/01/2013 Influenza, trivalent, adjuvanted 024,09/02/2022,09/08/2021,09/06,09/27/2019 Pneumococcal Conjugate PCV 20 03/12/2023 Pneumococcal Polysaccharide PPSV23 08/19/2020 Zoster, Recombinant 07/28/2021 Family History Medical History Relation Name Comments Lung cancer Father Melanoma Maternal Grandmother Heart disease Mother Hypertension Mother Breast cancer Sister Relation Name Status Comments Father Maternal Grandfather Maternal Grandmother Mother Paternal Grandfather Paternal Grandmother Sister Social History Tobacco Use Types Packs/Day Years [...] week 06/30/2023 How often do you attend [facility] or [facility] services? Never 06/30/2023 Do you belong to any clubs o r organizations such as buddhist groups, unions, fraternal or athletic groups, or [...] Recorded Patient Health Questionnaire-2 Score 2 06/14/2025 [facility] - Occupational Stress Questionnaire Answer Date [...] place to sleep or slept in a longterm (including now)? No 06/30/2023 Comments Unknown Sex and Gender Information Value Date Recorded Sex Assigned at Not on file Legal Sex Female 7:01 PM EDT Gender Identity Not on file Sexual Orientation Not on file Last Filed Vital Signs Vital Sign Reading Time Taken Comments Blood Pressure 138/84 06/14/2025 4:25 PM EDT Pulse 69 06/14/2025 4:25 PM EDT Temperature 36.8 C (98.2 F) 11/07/2024 9:07 AM EST Respiratory Rate 16 06/14/2025 4:25 PM EDT Oxygen Saturation 97% 06/14/2025 4:25 PM EDT Inhaled Oxygen Concentration - - Weight 43.1 kg (95 lb) 06/14/2025 4:25 PM EDT Height 149.9 cm (4' 11 ) 06/14/2025 4:25 PM EDT Body Mass Index 19.19 06/14/2025 4:25 PM EDT Plan of Treatment Upcoming Encounters Date Type Department Care Team (Late st Contact Info) Description 07/03/2025 1:00 PM EDT Office Visit [facility] [address] [place] [address] Nicola De Leon, DO [address] [address] 07/19/2025 1:05 PM EDT Office Visit [facility] [address] [place] [address] Funmi Salazar, MARINO-MOTOR BOSS [address] [place] [address] Health Maintenance Due Date Last Done Comments Influenza Vaccine (#1) 2025 4, 09/02/2023, 09/02/2022, Additional history exists Medicare Annual Wellness (AWV) 03/27/2026 03/27/2025 , 02/29/2024 Pneumococcal Vaccine: 65+ Years Completed 3, 08/19/2020 Procedures Procedure Name Priority Date/Time Associated Diagnosis Comments POCT URINALYSIS DIPSTICK Routine 06/14/2025 4:55 PM EDT Dysuria from Last 3 Months Results * POCT Urinalysis dipstick (06/14/2025 4:55 [...] Urine 06/14/2025 4:55 PM EDT Padmaja Mcmahon ELIGIBILITY EXAMINER POINT OF CARE TEST ENTER/CL T ORDERABLES Final Result from Last 3 Months Insurance [facility] MEDICARE ADVANTAGE Care Teams Mold Operator Relationship Specialty Start Date End Date Dinesh Dyer MD [address] [address] PCP - General Internal Medicine 04/27/23 Padmaja Mcmahon, ANGÉLICA [address] [address] PCP - Puneet FONTANEZ 02/27/25 Myesha Galeas LPN [address] [address] 02/16/25
--- OUTSIDE RECORDS SUMMARY | 2025-06-15 11:11 | XMS_ITS | Encounter Summary ---
Author Organization [facility] Address [address] [place] [facility] [place] [address] Care Team Providers Care Funds Transfer Clerk Name Role Phone Dinesh Deyr MD Primary Care Provider [phone] Kelley Renae RN Unavailable [phone] Myesha Galeas LPN Unavailable Padmaja Mcmahon NP Unavailable Encounter Details Date Type Department Care Team (Late Contact Info) Description 12/20/2024 Abstract [facility] 112 [facility] 110 [place] [address] Dinesh Dyer MD 112 [facility] 110 [place], [place] [id number] Social History Tobacco Use Types Packs/Day Years [...] How often do you attend chur or protestant services? Never 06/30/2023 Do you belong to any clubs o r organizations such as protestant groups, unions, fraternal or athletic groups, or [...] Recorded Patient Health Questionnaire-2 Score 0 02/29/2024 [facility]at ional [facility] - Occupational [...] place to sleep or slept in a prison (including now)? No 06/30/2023 Comments Unknown Sex [...] ORTHOAO [address] [place] [address] Nicola De Leon, [address] [facility] [place] [address] 07/19/2025 1:05 PM EDT Office Visit [facility] [address] [place] [address] Funmi Salazar APRN-ZAID [address] [place] [address] documented as of this encounter Visit Diagnoses Not on filedocumented in this encounter Care Teams Funds Transfer Clerk Relationship Specialty Start Date End Date Dinesh Dyer MD [address] [facility] 110 [place] [address] PCP - General Internal Medicine 04/27/23 Padmaja Mcmahon NP [address] [facility] 110 [place] [address] PCP - Puneet FONTANEZ 02/27/25 Kelley Renae, JASON [address] [place] [address] Clinical Advocate Family Medicine 01/05/25 02/16/25 Myesha Galeas LPN [address] [address] 02/16/25 documented as of this encounter
--- OUTSIDE RECORDS SUMMARY | 2025-06-15 11:11 | XMS_ITS | Encounter Summary ---
Author Organization [facility] Address [address] [place] [address] Care Team Providers Care Leaf Conditioner Name Role Phone Dinesh Dyer MD Unavailable [phone] Dinesh Dyer MD Primary Care Provider [phone] Kelley Renae RN Unavailable [phone] Myesha Galeas LPN Unavailable Padmaja Mcmahon NP Unavailable Encounter Details Date Type Department Care Team (Late st Contact Info) Description 09/20/2024 Abstract [facility] 112 [facility] 110 [place] [address] Dinesh Dyer MD 112 [facility] 110 [place], [place] [id number] Social History Tobacco Use Types Packs/Day Years [...] often do you attend chur ch or anabaptist services? Never 06/30/2023 Do you belong to any clubs o r organizations such as anabaptist groups, unions, fraternal or athletic groups, or [...] Recorded Patient Health Questionnaire-2 Score 0 02/29/2024 [facility] Occupat ional Health - Occupational Stress [...] place to sleep or slept in a penitentiary (including now)? No 06/30/2023 Comments Unknown Sex [...] ORTHOAO [address] [place] [address] Nicola De Leon, DO [address] [place] [address] 07/19/2025 1:05 PM EDT Office Visit [facility] [address] [place] [address] Funmi Salazar APRN-CNP [address] [place] [address] documented as of this encounter Visit Diagnoses Not on filedocumented in this encounter Care Teams Leaf Conditioner Relationship Specialty Start Date End Date Dinesh Dyer MD [address] [place] [address] PCP - Puneet FONTANEZ 11/29/21 11/28/24 Dinesh Dyer MD [address] [place] [address] PCP - General Internal Medicine 04/27/23 Padmaja Mcmahon NP [address] [facility] 110 [place] [address] PCP - Puneet FONTANEZ 02/27/25 Kelley Renae, RN [address] [place] [address] Clinical Advocate Family Medicine 01/05/25 02/16/25 Myesha Galeas LPN [address] [facility] 110 [place] [address] 02/16/25 documented as of this encounter
--- OUTSIDE RECORDS SUMMARY | 2025-06-15 11:11 | XMS_ITS | Encounter Summary ---
Author Organization [facility] Address [address] [place] [address] Care Team Providers Care Police Lieutenant Precinct Name Role Phone Dinesh Dyer MD Unavailable [phone] Dinesh Dyer MD Primary Care Provider [phone] Kelley Renae RN Unavailable [phone] Myesha Galeas LPN Unavailable Padmaja Mcmahon NP Unavailable [phone] Encounter Details Date Type Department Care Team [...] often do you attend chur ch or islam services? Never 06/30/2023 Do you belong to any clubs o r organizations such as episcopal groups, unions, fraternal or athletic groups, or [...] Health Questionnaire-2 Score 0 02/29/2024 [facility] - Occupational Stress Questionnaire Answer [...] ORTHOAO [address] [place] [address] Nicola De Leon, DO [address] [place] [address] 07/19/2025 1:05 PM EDT Office Visit [facility] [address] [place] [address] Funmi Salazar APRN-HUMAN RESOURCES OPERATIONS SPECIALIST [address] [place] [address] documented as of this encounter Procedures Procedure Name Priority Date/Time Associated Diagnosis Comments CT ANGIOGRAM CHEST 09/29/2024 1: 26 PM EDT documented in this encounter Results * CT angiogram chest (09/29/2024 1:26 PM EDT) Anatomical Region Laterality Modality Body, Chest Computed Tomogra phy 09/29/2024 1:26 PM EDT Narrative 09/29/2024 1:29 PM EDT [address] [address] [address] Scan Report Signed Patient: HORTENCIA CM MR#: [id number] : 1940 Acct:[id number] Age/Sex: 84 / F ADM Date: 09/29/24 Loc: LAB Attending Dr: Britt Hunt M.D. Ordering Physician: Britt Hunt M.D. Date of Service: 09/29/24 Procedure(s): CT angio chest Accession Number(s): [id number] cc: DINESH DYER [place] [address] Patient Name: HORTENCIA CM MRN: [id number] date: 1940 Sex: F Assigned Patient Location: LAB Current Patient Location: LAB Accession/Order Number: [id number] Exam Date: 09/29/2024 10:05 Report Date: 09/29/2024 13:26 At the request of: BRITT HUNT Procedure: CT angio chest EXAM: CT angio chest HISTORY: Peripheral Vascular Disease, Chronic Vascular Disorder COMPARISON: None. TECHNIQUE: Contrast enhanced CT scan of the chest was obtained. CTA is performed. FINDINGS: CT chest: Bolus changes are seen bilaterally. Calcified granulomas noted within the right middle lobe. Gallbladder is absent. Air is noted within the biliary tree. CTA: No ascending or descending thoracic aortic aneurysm is seen. Coronary artery calcifications are noted. There is approximately 50% stenosis of the origin of the left subclavian artery. No dissection is present. Ascending and descending aortic plaque is noted. High-grade left renal artery stenosis is seen. CT/CT angio chest IMPRESSION: 1. No ascending or descending thoracic aortic aneurysm. 2. 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 3. No dissection. 4. Probable high-grade left renal artery stenosis. Electronically authenticated by: Amador MAYEN Date: 09/29/2024 13:26 Dictated By: Amador Mayen M.D. Signed By: 09/29/24 1329 DD/ 1326 TD/TT: Paleobotanist: Procedure Note Radiology, Radiologist, - 09/29/2024 [place] [address] CT Scan Report Signed Patient: HORTENCIA CMMR#: [id number] : 1940cct:[id number] Age/Sex: 84 / FADM Date: 09/29/24 Loc: LAB Attending Dr: Britt Hunt M.D. Ordering Physician: Britt Hunt M.D. Date of Service: 09/29/24 Procedure(s): CT angio chest Accession Number(s): [id number] cc: DINESH DYER [place] [address] Patient Name: HORTENCIA CM MRN: [id number] date: 1940 Sex: F Assigned Patient Location: LAB Current Patient Location: LAB Accession/Order Number: [id number] Exam Date: 09/29/2024 10:05 Report Date: 09/29/2024 13:26 At the request of: BRITT HUNT Procedure: CT angio chest EXAM: CT angio chest HISTORY: Peripheral Vascular Disease, Chronic Vascular Disorder COMPARISON: None. TECHNIQUE: Contrast enhanced CT scan of the chest was obtained. CTA is performed. FINDINGS: CT chest: Bolus changes are seen bilaterally. Calcified granulomas noted within the right middle lobe. Gallbladder is absent. Air is noted within thebiliary tree. CTA: No ascending or descending thoracic aortic aneurysm is seen. Coronary artery calcifications are noted. There is approximately 50% stenosis ofthe origin of the left subclavian artery. No dissection is present. Ascendingand descending aortic plaque is noted. High-grade left renal artery stenosisis seen. CT/CT angio chest IMPRESSION: 1. No ascending or descending thoracic aortic aneurysm. 2. 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 3. No dissection. 4. Probable high-grade left renal artery stenosis. Electronically authenticated by: Amador MAYEN Date: 09/29/2024 13:26 Dictated By: Amador Mayen M.D. Signed By:09/29/24 1329 DD/ 1326 TD/TT: Paleobotanist: us Generic External Data Provider IMG CT PROCEDURES Final Result documented in this encounter Visit Diagnoses Not on filedocumented in this encounter Care Teams Police Lieutenant Precinct Relationship Specialty Start Date End Date Dinesh Dyer MD [address] [facility] 110 [place] [address] PCP - Puneet FONTANEZ 11/29/21 11/28/24 Dinesh Dyer MD [address] [facility] [address] [place] [address] PCP - General Internal Medicine 04/27/23 Padmaja Mcmahon, ANGÉLICA [address] [facility] [address] [place] [address] PCP - Puneet FONTANEZ 02/27/25 Kelley Renae, JASON [address] [facility] [place] [address] Clinical Advocate Family Medicine 01/05/25 02/16/25 Myesha Galeas LPN [address] [facility] 110 [place] [address] 02/16/25 documented as of this encounter
--- OUTSIDE RECORDS SUMMARY | 2025-06-15 11:11 | XMS_ITS | Encounter Summary ---
Author Organization [facility] Address [address] [place] [facility] [place] [address] Care Team Providers Care Circuit Court Clerk Name Role Phone Dinesh Dyer MD Primary Care Provider Myesha Galeas LPN Unavailable Padmaja Mcmahon SWEEPER BRUSH MAKER MACHINE Unavailable [phone] Encounter Details Date Type Department Care Team ([facility] Contact Info) Description 03/28/2025 Abstract [facility] 110 [place] [address] Dinesh Dyer MD 112 [facility] 110 [place] [address] Social History Tobacco Use Types Packs/Day Years [...] often do you attend chur ch or buddhism services? Never 06/30/2023 Do you belong to any clubs o r organizations such as adventist groups, unions, fraternal or athletic groups, or [...] Recorded Patient Health Questionnaire-2 Score 0 03/27/2025 [facility] Occupat ional Health - Occupational [...] ORTHOAO [address] [place] [address] Nicola De Leon, DO [address] [place] [address] 07/19/2025 1:05 PM EDT Office Visit [facility] [address] [place] [address] Funmi Salazar, JALOUSIES INSTALLER-STORE WAREHOUSE ASSOCIATE [address] [place] [address] documented as of this encounter Visit Diagnoses Not on filedocumented in this encounter Care Teams Circuit Court Clerk Relationship Specialty Start Date End Date Dinesh Dyer MD [address] [place] [address] PCP - General Internal Medicine 04/27/23 Padmaja Mcmahon SWEEPER BRUSH MAKER MACHINE 112 [facility] 110 [place] [address] PCP - Puneet FONTANEZ 02/27/25 Myesha Galeas LPN [address] [address] 02/16/25 documented as of this encounter
--- OUTSIDE RECORDS SUMMARY | 2025-06-15 11:11 | XMS_ITS | Encounter Summary ---
Author Organization [facility] Address [address] [place] [address] Care Team Providers Care Cigar Making Machine Supervisor Name Role Phone Dinesh Dyer MD Unavailable [phone] Dinesh Dyer MD Primary Care Provider Kelley Renae RN Unavailable [phone] Myesha Galeas LPN Unavailable Padmaja Mcmahon NP Unavailable Encounter Details Date Type Department Care Team (Late st Contact Info) Description 03/09/2024 Abstract [facility] 112 [facility] 110 [place] [address] Dinesh Dyer MD 112 [facility] 110 [place], [place] [id number] Social History Tobacco Use Types Packs/Day Years [...] often do you attend chur ch or yazidi services? Never 06/30/2023 Do you belong to any clubs o r organizations such as holiness groups, unions, fraternal or athletic groups, or [...] Recorded Patient Health Questionnaire-2 Score 0 02/29/2024 [facility] [place] of Occupat ional Health - Occupational Stress [...] ORTHOAO [address] [place] [address] Nicola De Leon, DO [address] [place] [address] 07/19/2025 1:05 PM EDT Office Visit [facility] [address] [place] [address] Funmi Salazar APRN-CNP [address] [place] [address] documented as of this encounter Visit Diagnoses Not on filedocumented in this encounter Care Teams Cigar Making Machine Supervisor Relationship Specialty Start Date End Date Dinesh Dyer MD [address] [place] [address] PCP - Puneet FONTANEZ 11/29/21 11/28/24 Dinesh Dyer MD [address] [place] [address] PCP - General Internal Medicine 04/27/23 Padmaja Mcmahon NP [address] [facility] 110 [place] [address] PCP - Puneet FONTANEZ 02/27/25 Kelley Renae, RN [address] [place] [address] Clinical [facility] Family [facility] 01/05/25 02/16/25 Myesha Galeas LPN [address] [facility] 110 [place] [address] 02/16/25 documented as of this encounter
--- OUTSIDE RECORDS SUMMARY | 2025-06-15 11:11 | XMS_ITS ---
Author Organization [facility] Address [address] [place] [address] Care Team Providers Care Coffee Machine Technician Name Role Phone Dinesh Dyer MD Primary Care Provider [phone] Myesha Galeas LPN Unavailable Padmaja Mcmahon TOWER ERECTOR HELPER Unavailable [phone] Chronic Care Management (CCM) Status:Enrolled (Active) Start date:04/15/2023 Enrollment date:04/15/2023 Overview 10/04/23, 11:19 AM - Pamwednesday, KATH- Patient gives verbal consent to be enrolled in CCM Program and understands there could be a bill for this service. Case Team Name Relationship Phone Myesha Galeas LPN(Responsible Staff) [phone] Continued Care and Services Coordination
--- OUTSIDE RECORDS SUMMARY | 2025-06-15 11:11 | XMS_ITS | Encounter Summary ---
Author Organization [facility] Address [address] [place] [address] Care Team Providers Care Edge Beader Name Role Phone Dinesh Dyer MD Unavailable [phone] Dinesh Dyer MD Primary Care Provider [phone] Kelley Renae RN Unavailable [phone] Myesha Galeas LPN Unavailable Padmaja Mcmahon NP Unavailable Encounter Details Date Type Department Care Team (Late st Contact Info) Description 09/11/2024 External Result Encounter [facility] External Department Unsolicited Provider, [...] often do you attend chur ch or spiritism services? Never 06/30/2023 Do you belong to [...] Recorded Patient Health Questionnaire-2 Score 0 02/29/2024 [facility] - Occupational Stress Questionnaire Answer Date [...] place to sleep or slept in a retirement (including now)? No 06/30/2023 Comments Unknown Sex [...] ORTHOAO [address] [place] [address] Nicola De Leon, DO [address] [place], [place] [id number] 07/19/2025 1:05 PM EDT Office Visit [facility] [address] [place] [address] Funmi Salazar, BUNCHER HAND-MAIL ROOM CLERK [address] [place] [address] documented as of this encounter Procedures Procedure Name Priority Date/Time Associated Diagnosis Comments BI MAMMOGRAM SCREENING TOMOSYNTHESIS BILATERAL 09/11/2024 6:00 PM EDT documented in this encounter Results * Bilateral screening mammogram with tomosynthesis (09/11/2024 6:00 PM EDT) Anatomical Region Laterality Modality Breast Bilateral Mammography 09/11/2024 6:00 PM EDT Impressions 09/11/2024 6:04 PM EDT NO MAMMOGRAPHIC EVIDENCE OF MALIGNANCY. ROUTINE FOLLOW-UP [...] Felicitas Holland M.D.09/11/2024 6:02 PM Dictation Location: [facility] Transcribed By: [facility] 09/11/241801 Dictated By: Felicitas Holland MD 09/11/24 1800 Signed By: <Electronically signed by MD Felicitas Holland in OV> 09/11/24 180 Narrative 09/11/2024 6:04 PM EDT [facility] [place] [address] Mammography Report Signed Patient: Hortencia Gifford MR#: [id number] : 1940 Acct:[id number] Age/Sex: 84 / F ADM Date: 09/11/24 Loc: [place] Room: Type: [facility] Attending Dr: Referral Self Copies to: [...] interval change. MM/MM screening mammo BI w/CAD Procedure Note Radiology, Radiologist, - 09/11/2024 [facility] [place] [address] [place], [place] [id number] Mammography Report Signed Patient: Hortencia GiffordMR#: [id number] : 2Acct:[id number] Age/Sex: 84 / FADM Date: 09/11/24 Loc: [place] Room:Type: [facility] CLI Attending Dr: Referral Self Copies to: Dinesh Dyer II, MD SELF,REFERRAL Ordering Provider: SELF,REFERRAL Date of Service: 09/11/24 MM/MM screening mammo BI w/CAD: SCREENING CLINICAL DATA: Screening for malignancy. BILATERAL SCREENING MAMMOGRAMS - FULL FIELD DIGITAL WITH TOMOSYNTHESIS ANDCAD Tomosynthesis craniocaudal and mediolateral oblique views of both breastswere obtained using low- dose digital technique. Comparison is made to prior studies from 2019 through August 25, 2023. This examination was reviewed with the aid of CAD. There are scattered fibroglandular densities. Benign and vascularcalcifications are visualized. There are no developing masses, typically malignant calcifications orarchitectural distortion. There has been no significant interval [...] system with a target due date for thenext mammogram. Impression dictated by: Felicitas Holland M.D.09/11/2024 6:02 PM Dictation Location: [facility] Transcribed By: CLIFF 09/11/241801 Dictated By: eFlicitas Holland MD 09/11/24 1800 Signed By: <Electronically signed by MD Felicitas Holland in OV> 09/11/24 180 us Generic External Data Provider IMG BI PROCEDURES Final Result documented in this encounter Visit Diagnoses Not on filedocumented in this encounter Care Teams Edge Beader Relationship Specialty Start Date End Date Dinesh Dyer MD [address] [place] [address] PCP - Puneet FONTANEZ 11/29/21 11/28/24 Dinesh Dyer MD [address] [place] [address] PCP - General Internal Medicine 04/27/23 Padmaja Mcmahon NP [address] [facility] 110 [place] [address] PCP - Puneet FONTANEZ 02/27/25 Kelley Renae, RN [address] [place] [address] Clinical [facility] Family [facility] 01/05/25 02/16/25 Myesha Galeas LPN [address] [facility] 110 [place] [address] 02/16/25 documented as of this encounter
--- OUTSIDE RECORDS SUMMARY | 2025-06-15 11:11 | XMS_ITS | Encounter Summary ---
Author Organization [facility] Address [address] [place] [address] Care Team Providers Care Paraprofessional Interpreter Name Role Phone Dinesh Dyer MD Unavailable [phone] Dinesh Dyer MD Primary Care Provider Kelley Renae RN Unavailable [phone] Myesha Galeas LPN Unavailable Padmaja Mcmahon NP Unavailable Encounter Details Date Type Department Care Team (Late st Contact Info) Description 08/17/2024 Abstract [facility] 112 [facility] 110 [place] [address] Dinesh Dyer MD 112 [facility] 110 [place], [place] [address] Social History Tobacco Use Types Packs/Day Years [...] often do you attend chur ch or latter-day services? Never 06/30/2023 Do you belong to any clubs o r organizations such as pentecostalism groups, unions, fraternal or athletic groups, or [...] Recorded Patient Health Questionnaire-2 Score 0 02/29/2024 [facility] [place] [place] of Occupat ional Health - Occupational Stress [...] place to sleep or slept in a senior living (including now)? No 06/30/2023 Comments Unknown Sex [...] ORTHOAO [address] [place] [address] Nicola De Leon, DO [address] [place] [address] 07/19/2025 1:05 PM EDT Office Visit [facility] [address] [place] [address] Funmi Salazar APRN-CNP [address] [place] [address] documented as of this encounter Visit Diagnoses Not on filedocumented in this encounter Care Teams Paraprofessional Interpreter Relationship Specialty Start Date End Date Dinesh Dyer MD [address] [place] [address] PCP - Puneet FONTANEZ 11/29/21 11/28/24 Dinesh Dyer MD [address] [place] [address] PCP - General Internal Medicine 04/27/23 Padmaja Mcmahon NP [address] [facility] 110 [place] [address] PCP - Puneet FONTANEZ 02/27/25 Kelley Renae, RN [address] [place] [address] Clinical Advocate Family Medicine 01/05/25 02/16/25 Myesha Galeas LPN [address] [facility] 110 [place] [address] 02/16/25 documented as of this encounter
--- OUTSIDE RECORDS SUMMARY | 2025-06-15 11:11 | XMS_ITS | Encounter Summary ---
Author Organization [facility] Address [address] [place] [address] Care Team Providers Care Pmo Lead Name Role Phone Dinesh Dyer MD Unavailable [phone] Dinesh Dyer MD Primary Care Provider [phone] Kelley Renae RN Unavailable [phone] Myesha Galeas LPN Unavailable Padmaja Mcmahon NP Unavailable Encounter Details Date Type Department Care Team (Late st Contact Info) Description 11/08/2024 Abstract [facility] FM 112 [facility] 110 [place] [address] Dinesh Dyer MD 112 [facility] 110 [place], [place] [address] Social History Tobacco Use Types Packs/Day Years [...] often do you attend chur ch or quaker services? Never 06/30/2023 Do you belong to any clubs o r organizations such as scientologist groups, unions, fraternal or athletic groups, or [...] Recorded Patient Health Questionnaire-2 Score 0 02/29/2024 [facility] [place] of Occupat ional Health - Occupational Stress [...] ORTHOAO [address] [place] [address] Nicola De Leon, DO [address] [place] [address] 07/19/2025 1:05 PM EDT Office Visit [facility] [address] [place] [address] Funmi Salazar APRN-CNP [address] [place] [address] documented as of this encounter Visit Diagnoses Not on filedocumented in this encounter Care Teams Pmo Lead Relationship Specialty Start Date End Date Dinesh Dyer MD [address] [place] [address] PCP - Puneet FONTANEZ 11/29/21 11/28/24 Dinesh Dyer MD [address] [place] [address] PCP - General Internal Medicine 04/27/23 Padmaja Mcmahon NP [address] [facility] 110 [place] [address] PCP - Puneet FONTANEZ 02/27/25 Kelley Renae, RN [address] [place] [address] Clinical Advocate Family Medicine 01/05/25 02/16/25 Myesha Galeas LPN [address] [facility] 110 [place] [address] 02/16/25 documented as of this encounter
--- OUTSIDE RECORDS SUMMARY | 2025-06-15 11:12 | XMS_ITS | Encounter Summary ---
Author Organization [facility] Address [address] [place] [address] Care Team Providers Care Shark Biologist Name Role Phone Dinesh Dyer MD Unavailable [phone] Dinesh Dyer MD Primary Care Provider [phone] Kelley Renae RN Unavailable [phone] Myesha Galeas LPN Unavailable Padmaja Mcmahon NP Unavailable [phone] Encounter Details Date Type Department Care Team (Late st Contact Info) Description 02/14/2024 Abstract [facility] FM 112 [facility] 110 [place] [address] Dinesh Dyer MD 112 [facility] 110 [place], [place] [address] Social History Tobacco Use Types Packs/Day Years [...] often do you attend chur ch or religion services? Never 06/30/2023 Do you belong to any clubs o r organizations such as zoroastrianism groups, unions, fraternal or athletic groups, or [...] and heating? Not hard at all 06/30/2023 [facility] of Occupat ional Health - Occupational [...] No 06/30/2023 Housing Stability Vital Sign Answer Neot e Recorded In the last 12 months, [...] [address] [place] [address] Nicola De Leon, [address] [facility] [place] [address] 07/19/2025 1:05 PM EDT Office Visit [facility] [address] [place] [address] Funmi Salazar APRN-ZAID [address] [place] [address] documented as of this encounter Visit Diagnoses Not on filedocumented in this encounter Care Teams Shark Biologist Relationship Specialty Start Date End Date Dinesh Dyer MD [address] [facility] 110 [place] [address] PCP - Puneet FONTANEZ 11/29/21 11/28/24 Dinesh Dyer MD [address] [facility] 110 [place] [address] PCP - General Internal Medicine 04/27/23 Padmaja Mcmahon NP [address] [facility] 110 [place] [address] PCP - Puneet FONTANEZ 02/27/25 Kelley Renae, RN [address] [place] [address] Clinical Advocate Family Medicine 01/05/25 02/16/25 Myesha Galeas LPN [address] [place] [address] 02/16/25 documented as of this encounter
--- OUTSIDE RECORDS SUMMARY | 2025-06-15 11:12 | XMS_ITS | Encounter Summary ---
Author Organization [facility] Address [address] [place] [address] Care Team Providers Care Principal Software Engineer Name Role Phone Dinesh Dyer MD Unavailable [phone] Dinesh Dyer MD Primary Care Provider Kelley Renae RN Unavailable [phone] Myesha Galeas LPN Unavailable Padmaja Mcmahon NP Unavailable [phone] Encounter Details Date Type Department Care Team (Late st Contact Info) Description 03/28/2024 Abstract [facility] FM 112 [facility] 110 [place] [address] Dinesh Dyer MD 112 [facility] 110 [place], [place] [address] Social History Tobacco Use Types Packs/Day Years [...] often do you attend chur ch or zoroastrianism services? Never 06/30/2023 Do you belong to any clubs o r organizations such as tenriism groups, unions, fraternal or athletic groups, or [...] Recorded Patient Health Questionnaire-2 Score 0 02/29/2024 [facility] of Occupat ional Health - Occupational Stress [...] ORTHOAO [address] [place] [address] Nicola De Leon, DO [address] [place] [address] 07/19/2025 1:05 PM EDT Office Visit [facility] [address] [place] [address] Funmi Salazar APRN-CNP [address] [place] [address] documented as of this encounter Visit Diagnoses Not on filedocumented in this encounter Care Teams Principal Software Engineer Relationship Specialty Start Date End Date Dinesh Dyer MD [address] [place] [address] PCP - Puneet FONTANEZ 11/29/21 11/28/24 Dinesh Dyer MD [address] [place] [address] PCP - General Internal Medicine 04/27/23 aPdmaja Mcmahon NP [address] [facility] 110 [place] [address] PCP - Puneet FONTANEZ 02/27/25 Kelley Renae, RN [address] [place] [address] Clinical Advocate Family Medicine 01/05/25 02/16/25 Myesha Galeas LPN [address] [facility] 110 [place] [address] 02/16/25 documented as of this encounter
--- OUTSIDE RECORDS SUMMARY | 2025-06-15 11:12 | XMS_ITS | Encounter Summary ---
Author Organization [facility] Address [address] [place] [address] Care Team Providers Care Process Tank Tender Name Role Phone Dinesh Dyer MD Unavailable [phone] Dinesh Dyer MD Primary Care Provider [phone] Kelley Renae RN Unavailable [phone] Myesha Galeas LPN Unavailable Padmaja Mcmahon NP Unavailable [phone] Encounter Details Date Type Department Care Team (Late st Contact Info) Description 09/09/2023 Abstract [facility] FM [address] [facility] 110 [place] [address] Dinesh Dyer MD 112 [facility] 110 [place], [place] [address] Social History Tobacco Use Types Packs/Day Years [...] often do you attend chur ch or restorationist services? Never 06/30/2023 Do you belong to any clubs o r organizations such as anglican groups, unions, fraternal or athletic groups, or [...] and heating? Not hard at all 06/30/2023 [facility] of Occupat ional Health - [...] place to sleep or slept in a snf (including now)? No 06/30/2023 Comments Unknown Sex [...] [address] [place] [address] Nicola De Leon, [address] [facility] [place] [address] 07/19/2025 1:05 PM EDT Office Visit [facility] [address] [place] [address] Funmi Salazar APRN-ZAID [address] [place] [address] documented as of this encounter Visit Diagnoses Not on filedocumented in this encounter Care Teams Process Tank Tender Relationship Specialty Start Date End Date Dinesh yDer MD [address] [facility] 110 [place] [address] PCP - Puneet FONTANEZ 11/29/21 11/28/24 Dinesh Dyer MD [address] [facility] 110 [place] [address] PCP - General Internal Medicine 04/27/23 Padmaja Mcmahon NP [address] [facility] 110 [place] [address] PCP - Puneet FONTANEZ 02/27/25 Kelley Renae, RN [address] [place] [address] Clinical Advocate Family Medicine 01/05/25 02/16/25 Myesha Galeas LPN [address] [place] [address] 02/16/25 documented as of this encounter
--- OUTSIDE RECORDS SUMMARY | 2025-06-15 11:12 | XMS_ITS | Encounter Summary ---
Author Organization [facility] Address [address] [place] [address] Care Team Providers Care Hand Cultivator Name Role Phone Dinesh Dyer MD Unavailable [phone] Dinesh Dyer MD Primary Care Provider [phone] Kelley Renae RN Unavailable [phone] Myesha Galeas LPN Unavailable Mildred Cervantes NP Unavailable [phone] Encounter Details Date Type Department Care Team (Late st Contact Info) Description 02/01/2024 Clinisync Result Encounter NOMS External Department Unsolicited Milrded Cervantes, HIDE WASHER [address] [address] Social History Tobacco Use Types Packs/Day Years [...] often do you attend chur ch or temple services? Never 06/30/2023 Do you belong to any clubs o r organizations such as sikh groups, unions, fraternal or athletic groups, or [...] and heating? Not hard at all 06/30/2023 [facility] of Occupat ional Health - Occupational Stress [...] ORTHOAO [address] [place] [address] Nicola De Leon, DO [address] [place] [address] 07/19/2025 1:05 PM EDT Office Visit [facility] [address] [place] [address] Funmi Salazar APRN-ZAID [address] [place] [address] documented as of this encounter Procedures Procedure Name Priority Date/Time Associated Diagnosis Comments US RENAL BI 02/01/2024 11:54 AM EST documented in this encounter Results * US RENAL BI (02/01/2024 11:54 AM EST) Anatomical Region Laterality Modality Other 02/01/2024 11:5 4 AM EST Narrative 02/01/2024 11:56 AM EST [address] [address] Ultrasound Report Signed Patient: HORTENCIA CM MR#: [id number] : 1940 Acct:[id number] Age/Sex: 83 / F ADM Date: 02/01/24 Loc: US Attending Dr: MILDRED CERVANTES Ordering Physician: MILDRED CERVANTES Date of Service: 02/01/24 Procedure(s): US renal BI Accession Number(s): [id number] cc: DINESH DYER ; MILDRED CERVANTES [place] [address] Patient Name: HORTENCIA CM MRN: [facility]:[id number] date: 1940 Sex: F Assigned Patient Location: US Current Patient Location: US Accession/Order Number: [id number] Exam Date: 02/01/2024 10:56 Report Date: 02/01/2024 11:54 At the request of: MILDRED CERVANTES Procedure: US renal BI EXAMINATION: US renal BI HISTORY: gross hematuria R31.0 COMPARISON: No relevant comparison available. TECHNIQUE: Ultrasound examination was performed of the bladder. FINDINGS: Right Kidney: Normal in size and contour. The cortex measures 0.9 cm. Areas of anechoic echogenicity measuring 1.9 cm, simple cyst. No solid cortical mass, hydronephrosis or obstructing nephrolithiasis. Height: 4.5 cm Length: 9.2 cm Width: 5.0 cm Left Kidney: Normal in size and contour. The cortex measures 0.8 cm. Areas of anechoic echogenicity measuring 1.5 cm, simple cyst. No solid cortical mass or hydronephrosis. Punctate nonobstructing nephrolithiasis Height: 4.2 cm Length: 9.3 cm Width: 4.4 cm Urinary bladder measures 5.4 x 4.6 x 9.4 cm, volume of 162 mL US/US renal BI IMPRESSION: No acute abnormality to explain the patient's hematuria. Electronically authenticated by: GAUTAM DELUNA Date: 02/01/2024 11:54 Dictated By: Gautam Deluna M.D. Signed By: 02/01/24 1156 DD/ 1154 TD/TT: Reliability Technicians: Procedure Note Radiology, Radiologist, MD - 02/01/2024 [place] [address] Ultrasound Report Signed Patient: HORTENCIA CMMR#: [id number] : 1940cct:[id number] Age/Sex: 83 / FADM Date: 02/01/24 Loc: US Attending Dr: MILDRED CERVANTES Ordering Physician: MILDRED CERVANTES Date of Service: 02/01/24 Procedure(s): US renal BI Accession Number(s): [id number] cc: DINESH DYER ; MILDRED CERVANTES [place] [address] Patient Name: HORTENCIA MC MRN: [id number] date: 1940 Sex: F Assigned Patient Location: US Current Patient Location: US Accession/Order Number: [id number] Exam Date: 02/01/2024 10:56 Report Date: 02/01/2024 11:54 At the request of: MILDRED CERVANTES Procedure: US renal BI EXAMINATION: US renal BI HISTORY: gross hematuria R31.0 COMPARISON: No relevant comparison available. TECHNIQUE: Ultrasound examination was performed of the bladder. FINDINGS: Right Kidney: Normal in size and contour. The cortex measures 0.9 cm.Areas of anechoic echogenicity measuring 1.9 cm, simple cyst. No solid corticalmass, hydronephrosis or obstructing nephrolithiasis. Height: 4.5 cm Length: 9.2 cm Width: 5.0 cm Left Kidney: Normal in size and contour. The cortex measures 0.8 cm. Areasof anechoic echogenicity measuring 1.5 cm, simple cyst. No solid corticalmass or hydronephrosis. Punctate nonobstructing nephrolithiasis Height: 4.2 cm Length: 9.3 cm Width: 4.4 cm Urinary bladder measures 5.4 x 4.6 x 9.4 cm, volume of 162 mL US/US renal BI IMPRESSION: No acute abnormality to explain the patient's hematuria. Electronically authenticated by: GAUTAM DELUNA Date: 02/01/2024 11:54 Dictated By: Gautam Deluna M.D. Signed By:02/01/24 1156 DD/ 1154 TD/TT: Reliability Technicians: us Mildred Cervantes HIDE WASHER [facility] Final Resu lt documented in this encounter Visit Diagnoses Not on filedocumented in this encounter Care Teams Hand Cultivator Relationship Specialty Start Date End Date Dinesh Dyer MD [address] [facility] 110 [place] [address] PCP - Puneet FONTANEZ 11/29/21 11/28/24 Dinesh Dyer MD [address] [facility] 110 [place] [address] PCP - General Internal Medicine 04/27/23 Mildred Cervantes NP [address] [facility] 110 [place] [address] PCP - Puneet FONTANEZ 02/27/25 Kelley Renae, JASON [address] [place], [place] [address] Clinical Advocate Family Medicine 01/05/25 02/16/25 Myesha Galeas LPN [address] [facility] 110 [place] [address] 02/16/25 documented as of this encounter
--- OUTSIDE RECORDS SUMMARY | 2025-06-15 11:12 | XMS_ITS | Encounter Summary ---
Author Organization [facility] Address [address] [place] [address] Care Team Providers Care Litigation Claim Representative Name Role Phone Dinesh Dyer MD Unavailable [phone] Dinesh Dyer MD Primary Care Provider [phone] Kelley Renae RN Unavailable [phone] Myesha Galeas LPN Unavailable Padmaja Mcmahon NP Unavailable Encounter Details Date Type Department Care Team (Late st Contact Info) Description 03/13/2024 Clinisync Result Encounter [facility] External Department Unsolicited [...] often do you attend chur ch or christianity services? Never 06/30/2023 Do you belong to any clubs o r organizations such as islam groups, unions, fraternal or athletic groups, or [...] Recorded Patient Health Questionnaire-2 Score 0 02/29/2024 [facility] - [facility]ational Stress Questionnaire Answer [...] ORTHOAO [address] [place] [address] Nicola De Leon, DO [address] [place] [address] 07/19/2025 1:05 PM EDT Office Visit [facility] [address] [place] [address] Funmi Salazar, TRAVEL MANAGER-PEDIATRIC SPEECH LANGUAGE PATHOLOGIST [address] [place] [address] documented as of this encounter Procedures Procedure Name Priority Date/Time Associated Diagnosis Comments XR ABDOMEN 1V 03/13/2024 1:15 PM EDT documented in this encounter Results * XR ABDOMEN 1V (03/13/2024 1:15 PM EDT) Anatomical Region Laterality Modality Other 03/13/2024 1:15 PM EDT Narrative 03/13/2024 1:18 [place] [address] XRay Report Signed Patient: HORTENCIA CM MR#: [id number] : 1940 Acct:[id number] Age/Sex: 83 / F ADM Date: 03/13/24 Loc: RAD Attending Dr: Mirta OCONNOR Ordering Physician: Mirta Piedra Date of Service: 03/13/24 Procedure(s): XR abdomen 1V Accession Number(s): [id number] cc: DINESH DYER ; Mirta Piedra [place] [id number] Patient Name: HORTENCIA CM MRN: [facility]:[id number] date: 1940 Sex: F Assigned Patient Location: [facility] Current Patient Location: [facility] Accession/Order Number: [id number] Exam Date: 03/13/2024 12:45 Report Date: 03/13/2024 13:15 At the request of: MITRA PIEDRA Procedure: XR abdomen 1V EXAM: XR abdomen 1V HISTORY: kidney stone N20.0 COMPARISON: None. TECHNIQUE: AP view of the abdomen. FINDINGS: Nonobstructive bowel gas pattern is noted. There are punctate right renal calculi. Constipation. The osseous structures are intact. XR/XR abdomen 1V IMPRESSION: Nonobstructive bowel gas pattern. Constipation. Punctate right nephrolithiasis. Electronically authenticated by: ALVA MELGAR Date: 03/13/2024 13:15 Dictated By: Alva Melgar M.D. Signed By: 03/13/24 1318 DD/ 1315 TD/TT: Pvc Monitor: Procedure Note Radiology, Radiologist, - 03/13/2024 [place] [address] XRay Report Signed Patient: HORTENCIA CMMR#: [id number] : 1940cct:[id number] Age/Sex: 83 / FADM Date: 03/13/24 Loc: RAD Attending Dr: Mirta OCONNOR Ordering Physician: Mirta Piedra Date of Service: 03/13/24 Procedure(s): XR abdomen 1V Accession Number(s): [id number] cc: DINESH DYER ; Mirta Piedra [place] [id number] Patient Name: HORTENCIA CM MRN: [facility]:[id number] date: 1940 Sex: F Assigned Patient Location: [facility] Current Patient Location: [facility] Accession/Order Number: [id number] Exam Date: 03/13/2024 12:45 Report Date: 03/13/2024 13:15 At the request of: MIRTA PIEDRA Procedure: XR abdomen 1V EXAM: XR abdomen 1V HISTORY: kidney stone N20.0 COMPARISON: None. TECHNIQUE: AP view of the abdomen. FINDINGS: Nonobstructive bowel gas pattern is noted. There are punctate right renal calculi. Constipation. The osseous structures are intact. XR/XR abdomen 1V IMPRESSION: Nonobstructive bowel gas pattern. Constipation. Punctate right nephrolithiasis. Electronically authenticated by: ALVA MELGAR Date: 03/13/2024 13:15 Dictated By: Alva Melgar M.D. Signed By:03/13/24 1318 DD/ 1315 TD/TT: Pvc Monitor: Generic External Data Provider [facility] Final Result documented in this encounter Visit Diagnoses Not on filedocumented in this encounter Care Teams Litigation Claim Representative Relationship Specialty Start Date End Date Dinesh Dyer MD [address] [facility] [address] [place] [address] PCP - Puneet FONTANEZ 11/29/21 11/28/24 Dinesh Dyer MD [address] [facility] [address] [place] [address] PCP - General Internal Medicine 04/27/23 Padmaja Mcmahon, GAS APPLIANCE SERVICER [address] [facility] [address] [place], [place] [id number] PCP - Puneet FONTANEZ 02/27/25 Kelley Renae, RN [address] [place] [address] [facility] 01/05/25 02/16/25 Myesha Galeas LPN [address] [facility] [address] [place] [address] 02/16/25 documented as of this encounter
--- OUTSIDE RECORDS SUMMARY | 2025-06-15 11:12 | XMS_ITS | Encounter Summary ---
Author Organization [facility] Address [address] [place] [address] Care Team Providers Care Wardrobe Custodian Name Role Phone Dinesh Dyer MD Unavailable [phone] Dinesh Dyer MD Primary Care Provider [phone] Kelley Renae RN Unavailable [phone] Myesha Galeas LPN Unavailable Padmaja Mcmahon NP Unavailable [phone] Encounter Details Date Type Department Care Team (Late st Contact Info) Description 09/15/2023 Clinisync Result Encounter [facility] External Department Unsolicited [...] often do you attend chur ch or restoration services? Never 06/30/2023 Do you belong to any clubs o r organizations such as yazdanism groups, unions, fraternal or athletic groups, or [...] and heating? Not hard at all 06/30/2023 [facility] Occupat ional Health - Occupational Stress [...] place to sleep or slept in a fdc (including now)? No 06/30/2023 Comments Unknown Sex [...] ORTHOAO [address] [place] [address] Nicola De Leon, [address] [place] [address] 07/19/2025 1:05 PM EDT Office Visit [facility] [address] [place] [address] Funmi Salazar APRN-[employer] [address] [place], [place] [id number] documented as of this encounter Procedures Procedure Name Priority Date/Time Associated Diagnosis Comments CA ECHO DOPPLER COMPLETE 09/15/2023 6:32 PM EDT documented in this encounter Results * CA ECHO DOPPLER COMPLETE (09/15/2023 6:32 PM EDT) Anatomical Region Laterality Modality Other 09/15/2023 6:32 PM EDT Narrative 09/15/2023 6:32 [place] [address] Cardiology Report Signed Patient: HORTENCIA CM MR#: [id number] : 1940 Acct:[id number] Age/Sex: 83 / F ADM Date: 09/15/23 Loc: CARD Attending Dr: Britt Hunt M.D. Ordering Physician: Britt Hunt M.D. Date of Service: 09/15/23 Procedure(s): CA echo doppler complete Accession Number(s): [id number] cc: Patient: HORTENCIA CM Exam Date: 09/15/2023 : 1940 Gender:F Ordering : DR BRITT HUNT M.D. Admission #: [id number] Family : Order #: [id number] CLICK HERE TO VIEW EXAM ECHOCARDIOGRAM REPORT PROCEDURE: CA ECHO DOPPLER COMPLETE INDICATIONS: Mitral valve prolapse, hypertension, former smoker COMPARISON: None. DESCRIPTION: COMPLETE ECHOCARDIOGRAM Real-time transthoracic echocardiography with 2D, M-mode, spectral and color flow Doppler performed. QUALITY: Technical quality was good. LEFT VENTRICLE: Normal chamber size. Proximal septal hypertrophy (sigmoid septum). LV EF: Normal left ventricular ejection fraction, (>55%). DIASTOLIC: Diastolic function is indeterminate. ATRIAL SEPTUM: Visually appears intact. LEFT ATRIUM: Normal chamber size. RIGHT ATRIUM: Normal chamber size. RIGHT VENTRICLE: Normal chamber size. Normal right ventricular systolic function. TRICUSPID VALVE: Normal mobility and thickness. No stenosis with trivial regurgitation. Doppler studies reveal mildly (35-45) elevated right sided pressures. RVSP 37 mmHg MITRAL VALVE: Normal mobility and thickness. No evidence of mitral valve stenosis. There is no mitral annular calcification. No mitral regurgitation. AORTIC VALVE: Normal trileaflet appearance. No visible sclerosis. Normal leaflet mobility. No evidence of aortic valve stenosis. 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 No aortic regurgitation. AORTIC ROOT: Normal diameter and appearance. PULMONIC VALVE: Normal thickness and mobility. No stenosis. Trivial regurgitation. PERICARDIUM: No evidence of pericardial effusion. IVC: Collapses with inspirations. PLEURA: CONCLUSION: 1. Normal ventricular systolic function. LVEF is 55 to 60%. 2. No significant valvular dysfunction. 3. Mildly elevated right-sided pressures. 4. 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 Further imaging with CT angiogram can provide better characterization. Adult Echocardiography Procedure Report Left Ventricle LVEDD (3.7 - 5.6 cm): 4.12 cm LVESD (2.2 - 4.0 cm): 2.30 cm LVIVS thickness (0.6 - 1.2 cm): 1.35 cm LVPW thickness (0.5 - 1.0 cm): 0.92 cm e': 0.06 m/s E - e': 10.07 LVOT Max Gradient: 2.69 mm[Hg] LVOT Area (cm2): 0.82 m/s Peak Velocity (LVOT): 0.82 m/s LVOT Diameter 1.99 cm Left Atrium LA Volume Index (2D A2C): 25.28 ml/m2 Left Atrium Systolic Dimension: 3.29 cm Mitral Valve MV E to A Ratio: 0.53, 0.57 Mitral Valve A-Wave Peak Velocity: 1.02 m/s Mitral Valve E-Wave Peak Velocity: 0.56 m/s Right Ventricle Aorta AO Root Diam: 3.48 cm Ascending Ao Diam: 2.43 cm Aortic Valve AoV Area (Peak Gal): 2.82 cm2, 2.82 cm2 Peak Velocity(Antegrade Flow): 0.90 m/s Peak Gradient(Antegrade Flow): 3.24 mm[Hg] Tricuspid Valve Peak Velocity (Regurgitant Flow): 2.24 m/s, 2.93 m/s Pulmonic Valve Peak Velocity: 0.94 m/s Peak Gradient: 3.90 mm[Hg], 3.23 mm[Hg] Right Atrium Right Atrium Systolic Pressure: 25.00 ml, 25.00 ml Dictated by: Wilian Ryder M.D. on 09/15/2023 at 18:27 Approved by: Wilian Ryder M.D. on 09/15/2023 at 18:32 Dictated By: WILIAN RYDER Signed By: 09/15/231832 DD/ 31 TD/TT: Construction Trades Teacher: Procedure Note Radiology, Radiologist, - 09/15/2023 [place] [address] Cardiology Report Signed Patient: HORTENCIA CMMR#: [id number] : 1940cct:[id number] Age/Sex: 83 / FADM Date: 09/15/23 Loc: CARD Attending Dr: Britt Hunt M.D. Ordering Physician: Britt Hunt M.D. Date of Service: 09/15/23 Procedure(s): CA echo doppler complete Accession Number(s): [id number] cc: Patient: HORTENCIA CM Exam Date: 09/15/2023 : 1940 Gender:F Ordering : DR BRITT HUNT M.D. Admission #: [id number] Family : Order #: [id number] CLICK HERE TO VIEW EXAM ECHOCARDIOGRAM REPORT PROCEDURE: CA ECHO DOPPLER COMPLETE INDICATIONS: Mitral valve prolapse, hypertension, former smoker COMPARISON: None. DESCRIPTION: COMPLETE ECHOCARDIOGRAM Real-time transthoracic echocardiography with 2D, M-mode, spectral and color flow Dopplerperformed. QUALITY: Technical quality was good. LEFT VENTRICLE: Normal chamber size. Proximal septal hypertrophy(sigmoid septum). LV EF: Normal left ventricular ejection fraction, (>55%). DIASTOLIC: Diastolic function is indeterminate. ATRIAL SEPTUM: Visually appears intact. LEFT ATRIUM: Normal chamber size. RIGHT ATRIUM: Normal chamber size. RIGHT VENTRICLE: Normal chamber size. Normal right ventricularsystolic function. TRICUSPID VALVE: Normal mobility and thickness. No stenosis with trivial regurgitation. Doppler studies reveal mildly (35-45) elevated right sided pressures. RVSP 37 mmHg MITRAL VALVE: Normal mobility and thickness. No evidence of mitralvalve stenosis. There is no mitral annular calcification. No mitralregurgitation. AORTIC VALVE: Normal trileaflet appearance. No visible sclerosis.Normal leaflet mobility. No evidence of aortic valve stenosis. 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 No aortic regurgitation. AORTIC ROOT: Normal diameter and appearance. PULMONIC VALVE: Normal thickness and mobility. No stenosis. Trivial regurgitation. PERICARDIUM: No evidence of pericardial effusion. IVC: Collapses with inspirations. PLEURA: CONCLUSION: 1. Normal ventricular systolic function. LVEF is 55 to 60%. 2. No significant valvular dysfunction. 3. Mildly elevated right-sided pressures. 4. 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 Adult Echocardiography Procedure Report Left Ventricle LVEDD (3.7 - 5.6 cm): 4.12 cm LVESD (2.2 - 4.0 cm): 2.30 cm LVIVS thickness (0.6 - 1.2 cm): 1.35 cm LVPW thickness (0.5 - 1.0 cm): 0.92 cm e': 0.06 m/s E - e': 10.07 LVOT Max Gradient: 2.69 mm[Hg] LVOT Area (cm2): 0.82 m/s Peak Velocity (LVOT): 0.82 m/s LVOT Diameter 1.99 cm Left Atrium LA Volume Index (2D A2C): 25.28 ml/m2 Left Atrium Systolic Dimension: 3.29 cm Mitral Valve MV E to A Ratio: 0.53, 0.57 Mitral Valve A-Wave Peak Velocity: 1.02 m/s Mitral Valve E-Wave Peak Velocity: 0.56 m/s Right Ventricle Aorta AO Root Diam: 3.48 cm Ascending Ao Diam: 2.43 cm Aortic Valve AoV Area (Peak Gal): 2.82 cm2, 2.82 cm2 Peak Velocity(Antegrade Flow): 0.90 m/s Peak Gradient(Antegrade Flow): 3.24 mm[Hg] Tricuspid Valve Peak Velocity (Regurgitant Flow): 2.24 m/s, 2.93 m/s Pulmonic Valve Peak Velocity: 0.94 m/s Peak Gradient: 3.90 mm[Hg], 3.23 mm[Hg] Right Atrium Right Atrium Systolic Pressure: 25.00 ml, 25.00 ml Dictated by: Wilian Ryder M.D. on 09/15/2023 at 18:27 Approved by: Wilian Ryder M.D. on 09/15/2023 at 18:32 Dictated By: WILIAN RYDER Signed By:09/15/231832 DD/ 31 TD/TT: Construction Trades Teacher: Generic External Data Provider [facility] Final Result documented in this encounter Visit Diagnoses Not on filedocumented in this encounter Care Teams Wardrobe Custodian Relationship Specialty Start Date End Date Dinesh Dyer MD [address] [facility] [address] [place] [address] PCP - Puneet FONTANEZ 11/29/21 11/28/24 Dinesh Dyer MD [address] [facility] [address] [place] [address] PCP - General Internal Medicine 04/27/23 Padmaja Mcmahon NP [address] [facility] [address] [place] [address] PCP - Puneet FONTANEZ 02/27/25 Kelley Renae, RN [address] [place] [address] [facility] 01/05/25 02/16/25 Myesha Galeas LPN [address] [facility] [address] [place] [address] 02/16/25 documented as of this encounter
--- OUTSIDE RECORDS SUMMARY | 2025-06-15 11:12 | XMS_ITS | Encounter Summary ---
Author Organization [facility] Address [address] [place] [address] Care Team Providers Care District Attorney Name Role Phone Dinesh Dyer MD Unavailable Dinesh Dyer MD Primary Care Provider [phone] Kelley Renae RN Unavailable [phone] Myesha Galeas LPN Unavailable Padmaja Mcmahon NP Unavailable [phone] Encounter Details Date Type Department Care Team (Late st Contact Info) Description 02/03/2024 Orders Only [facility] [address] [place] [address] Unallocated, Noms Provider, [address] [place], [place] [id number] Social History Tobacco Use Types Packs/Day Years [...] often do you attend chur ch or bahai services? Never 06/30/2023 Do you belong to any clubs o r organizations such as adventism groups, unions, fraternal or athletic groups, or [...] and heating? Not hard at all 06/30/2023 [facility] of Occupat ional Health - Occupational Stress [...] ORTHOAO [address] [place] [address] Nicola De Leon, DO [address] [place] [address] 07/19/2025 1:05 PM EDT Office Visit [facility] [address] [place] [address] Funmi Salazar APRN-ZAID [address] [place] [address] documented as of this encounter Procedures Procedure Name Priority Date/Time Associated Diagnosis Comments US RENAL COMPLETE Routine 02/01/2024 2:45 PM EST documented in this encounter Results * US renal complete (02/01/2024 2:45 PM EST) Anatomical Region Laterality Modality Kidney Ultrasound us Noms Provider Unallocated MD CORTES US PROCEDURES F inal Result documented in this encounter Visit Diagnoses Not on filedocumented in this encounter Care Teams District Attorney Relationship Specialty Start Date End Date Dinesh Dyer MD [address] [facility] [address] [place] [address] PCP - Puneet FONTANEZ 11/29/21 11/28/24 Dinesh Dyer MD [address] [facility] [address] [place] [address] PCP - General Internal Medicine 04/27/23 Padmaja Mcmahon NP [address] [facility] [address] [place] [address] PCP - Puneet FONTANEZ 02/27/25 Kelley Renae, RN [address] [place] [address] [facility] 01/05/25 02/16/25 Myesha Galeas LPN [address] [facility] [address] [place] [address] 02/16/25 documented as of this encounter
--- NOTE | 2025-06-15 11:14 | XR_ITS ---
The [address] [address] Patient Name: LEVI CM MRN: [id number] date: 1940 Sex: F Assigned Patient Location: [facility] Current Patient Location: [facility] Accession/Order Number: [id number] Exam Date: 06/15/2025 11:48 Report Date: 06/15/2025 11:53 At the request of: MILDRED CERVANTES Procedure: XR lumbar spine 6V w bending 7 views Lumbar Spine HISTORY: Acute low back pain for couple months COMPARISON: 03/02/2025 POSTSURGICAL CHANGES: Cholecystectomy. Similar Pneumobilia likely related to duct manipulation. BONY ALIGNMENT: Mild straightening and mild scoliosis HYPERMOBILITY:No hypermobility with flexion extension imaging LISTHESIS:Mild degenerative listhesis FRACTURE: None DEGENERATIVE CHANGES: Mild to moderate spondylosis. Extensive lower lumbar facet degeneration SOFT TISSUES: Atherosclerosis BONY MINERALIZATION:Diffuse osteopenia XR/XR lumbar spine 6V w bending IMPRESSION: No hypermobility. No acute fracture. Similar degenerative change. Impression dictated by: Jairo Mason M.D. 06/15/2025 11:53 AM Dictation Location: [facility] Electronically authenticated by: [id number] Y Date: 06/15/2025 11:53
== END 2025-06-15 11:07 | disposition home or self-care (01) ==
PROVIDERS: PCP Internal Medicine; Visit Provider Nurse Practitioner Family
DX: M54.50 Low back pain, unspecified (principal)
CPT/HCPCS: 72114